=== PATIENT | female | born 1950 | race Caucasian/White ===

== ENCOUNTER 2018-02-08 08:18 | Emergency (ER) | payer MEDICARE ==
[~2018-02-08] VITALS: Ht 165.1 cm; Wt 54.4 kg
[2018-02-08] MEDS ORDERED: PERCOCET 5-3251 EACH PO ×2 (08:42)
[2018-02-08] MEDS ORDERED: ATENOLOL50 MG PO ×2 (08:43)
[2018-02-08] MEDS ORDERED: VENLAFAXINE HCL75 M2 PO ×2 (08:44)
[2018-02-08] MEDS ORDERED: OMEPRAZOLE20 MG PO ×2 (08:44)
[2018-02-08] MEDS ORDERED: LOSARTAN POTASS50 MG PO ×2 (08:45)
[2018-02-08] MEDS ORDERED: HYDROCHLOROTHIA25 MG PO ×2 (08:47)
[2018-02-08] MEDS ORDERED: PROCHLORPERAZIN10 MG PO ×2 (11:06)
== END 2018-02-08 11:41 | disposition home or self-care (01) ==
LOC: ED 08:18
DX: R10.9 Unspecified abdominal pain (principal); M54.9 Dorsalgia, unspecified; Z79.899 Other long term (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
CPT/HCPCS: 80053; 81001; 83690; 85025; 96361; 96372; 96374; 99284; J1170; J1630; J7030

== ENCOUNTER 2018-02-10 06:21 | Inpatient (IN) | payer MEDICARE ==
[~2018-02-10] VITALS: Ht 165.1 cm; Wt 55.8 kg
[~2018-02-10 06:21] MED LIST: ATENOLOL50 MG PO; HYDROCHLOROTHIA25 MG PO; LOSARTAN POTASS50 MG PO; OMEPRAZOLE20 MG PO; PERCOCET 5-3251 EACH PO; PROCHLORPERAZIN10 MG PO; VENLAFAXINE HCL75 M2 PO
--- NOTE | 2018-02-10 10:50 | NUR ---
67 YEAR OLD FEMALE PATIENT ADMITTED TO ROOM 127 VIA STRETCHER HOUSE CONVENIENCE UNDER DR. ARCINIEGA, DX CHF, PNEUMONIA. UPON ADMIT PT IS AWAKE AND ALERT, SOMEWHAT TEARY AND ANXIOUS. C/O BACK PAIN, HUNT, ABD PAIN. C/O NAUSEA. STATES SHE HAD BEEN NAUSEATED FOR SEVERAL DAYS, HX OF COLITIS. ADMISSION PROCESS STARTED.
--- NOTE | 2018-02-10 10:50 | NUR ---
PATIENT RECIEVED LASIX 40 MG IV IN ER, TOTAL U/O WHILE IN PI=744 ML ACCORDING TO ER CHART.
--- NOTE | 2018-02-10 12:30 | NUR ---
UP TO COMMODE TO VOID. CONTINUE TO C/O NAUSEA AND HUNT, IS TEARY.
--- NOTE | 2018-02-10 12:40 | NUR ---
MOANING AND CRYING. STATES I WANT THIS TO GO AWAY. C/O NAUSEA AND SEVERE HUNT. UNABLE TO MEDICATE ZOFRAN AND TYLENOL GIVEN EARLIER. WILL NOTIFY DR. ARCINIEGA.
--- NOTE | 2018-02-10 13:15 | NUR ---
PHENERGAN 12.5 MG IV GIVEN FOR NAUSEA. PATIENT CONTINUE TO MOAN AND CRY.
--- NOTE | 2018-02-10 14:00 | NUR ---
HAS BEEN SLEEPING SINCE PHENERGAN GIVEN. NO DISTRESS NOTED.
--- NOTE | 2018-02-10 15:00 | NUR ---
AWAKE, UP TO COMMODE, IS STABLE ON FEET. VOIDED 150 ML OF CLEAR YELLOW URINE. BACK TO BED W/O INCIDENT. ASSESSMENT DONE. STATES HAS SLIGHT HEADACH DENIES BACK PAIN OR NAUSEA AT THIS TIME.
--- NOTE | 2018-02-10 17:00 | NUR ---
SLEEPING NO DISTRESS NOTED.
--- NOTE | 2018-02-10 17:50 | NUR ---
AWAKE, STATES SHE FEELS MUCH BETTER. SITTING UP IN BED TO TAKE DINNER. HAS OCC COUGH. SPUTUM SENT TO LAB EARLIER. SKIN IS DAMP TO TOUCH. PATIENT STATES SHE DOES HAVE NIGHT SWEATS AT HOME.
--- NOTE | 2018-02-10 18:00 | NUR ---
O2 TO OFF, WILL MONITOR SAT.
--- NOTE | 2018-02-10 19:00 | NUR ---
O2 SAT 88-90. O2 AT 2 L REAPPLIED. REPORT TO NEST SHIFT.
--- NOTE | 2018-02-10 20:04 | NUR ---
PT ASLEEP IN BED. TELEMETRY ON. HR 50'S-60'S. RR EVEN AND UNLABORED.
--- NOTE | 2018-02-10 20:45 | NUR ---
IN TO ASSESS PT AT 2015. C/O OF PAIN INCREASING IN BACK/HIP AND ABD. MEDICATIONS GIVEN PER REQUEST. DENIES OTHER NEEDS.
--- NOTE | 2018-02-10 22:02 | NUR ---
PT WHIMPERING AND C/O OF RIGHT LOWER BACK PAIN 01/14. CURLED UP ON R SIDE. DR ARCINIEGA NOTIFIED. PROVIDED PT WITH WARM PACK AND 100MG PO GABAPENTIN GIVEN.
--- NOTE | 2018-02-10 22:12 | EKG ---
[facility] [address] [place] [address] Signed Normal sinus rhythm Normal ECG No previous ECGs available Confirmed by MARLEY ARCINIEGA MD ([id number]) on 02/10/2018 10:11:32 PM Electronically Signed By: MARLEY ARCINIEGA MD 02/10/18 2212 PATIENT NAME: JAMIE TORRES PRETTY Electrocardiogram DATE OF : 54 PHYSICIAN: MARLEY ARCINIEGA MD REPORT #: [id number] REPORT IS CONFIDENTIAL AND NOT TO BE RELEASED WITHOUT AUTHORIZATION
--- NOTE | 2018-02-11 00:49 | NUR ---
PT ASLEEP, MOANING ON AT OFF OCCASIONALLY. INTERMITTENT BACK SPASMS. REPORTING BEING ABLE TO SLEEP SOME. INDICATED PAIN INCREASING SOME. /10 IN R LOWER BACK. INSTRUCTED TO CALL IF UNABLE TO GO BACK TO SLEEP D/T PAIN.
--- NOTE | 2018-02-11 01:12 | NUR ---
DR ARCINIEGA UPDATED RE: PT PAIN. PT MOANING OUT AND CRYING AT TIMES. 5MG FLEXERIL GIVEN PO FOR BACK PAIN. PT UP TO BSC TO VOID 225ML CONCENTRATED URINE. MOVEMENT VERY SLOW AND PAINFUL. 10/10 WITH MOVEMENT. ADDITIONALLY HAS H/A STARTING TO DEVELOP. ASSISTED PT BACK TO BED. CALL LIGHT IN REACH. REMAINS ON DYER AND WASHER.
--- NOTE | 2018-02-11 03:09 | NUR ---
PT C/O MIGRAINE PAIN / AND NAUSEA. IN THE PAST REPORTS TAKING A SUDAFED/TYLENOL COMBINATION, ADDITIONALLY REPORTS BENEDRYL HAS HELPED HER MIGRAINES. PT CONTINUES TO C/O OF BACK PAIN 01/14 WITH CRYING OUT AT TIMES FROM SPASMS. 650MG TYLENOL GIVEN PO AND 6.25MG PHENERGAN. PT DROWSY IN BETWEEN BACK SPASMS. TELEMETRY ON. HR 50'S-60'S.
--- NOTE | 2018-02-11 06:14 | NUR ---
PT RESTING MORE CALMLY. REPORTS BACK PAIN 'BETTER' RATES AT 8/10, HOWEVER. APPEARS IN LESS DISTRESS. UP TO BSC WITHOUT DIFFICULTY, VOIDED 150ML CONCENTRATED URINE. STANDING WEIGHT OBTAINED. BACK TO BED. REPORTS H/A STILL PRESENT, WORSE WHEN STANDING UP.
--- NOTE | 2018-02-11 07:15 | NUR ---
PT TRANSFERED FROM CCU WITH RN. PT WITH MIGRAINE, EYES COVERED WITH CLOTH. PT WITHOUT S/S OF ACUTE DISTRESS. PT DENIES NEEDS AT THIS TIME. REPORT RECEIVED FROM CCU RN.
--- NOTE | 2018-02-11 07:27 | NUR ---
REPORT GIVEN TO MED/CLERK OF SCALESCARMEN ZUNIGA AT BEDSIDE. PT TRANSFERRED TO ROOM 107 WITH ALL BELONGINGS.
--- NOTE | 2018-02-11 08:20 | NUR ---
PT RESTING IN BED, CRYING. PT COMPLAINT OF PAIN TO RIGHT LOWER BACK AND MIGRAINE, PT PROVIDED WITH FLEXIRIL, TYLENOL, LIDOCAINE PATCH, GABAPENTIN. PT ON 2L NC, LUNG SOUNDS CLEAR WITH FINE CRACKLES TO RLL. PT COMPLAINT OF NAUSEA, GIVEN 4MG IV ZOFRAN, BREAKFAST AT BEDSIDE, BOWEL TONES ACTIVE. IV SALINE LOCKED, PATENT, IV ROCEPHIN GIVEN. CMS INTACT, WITHOUT EDEMA, PULSES PALPABLE. PT ON FLUID RESTRICTION, DISCUSSED WITH PT. PT ASSISTED TO BEDSIDE COMMODE, SBA, VOIDING WITHOUT DIFFICULTY. PT DENIES OTHER NEEDS AT THIS TIME, ALLOWED TO REST, CALL LIGHT WITHIN REACH.
[2018-02-11] MEDS ORDERED: TRIAMCINOLONE A15 G3 TOP ×2 (09:23)
[2018-02-11] MEDS ORDERED: IMODIUM A-D2 M2 PO ×2 (09:24)
[2018-02-11] MEDS ORDERED: GAS-X125 M1 PO ×2 (09:24)
[2018-02-11] MEDS ORDERED: MELATONIN5 M2 PO ×2 (09:25)
--- NOTE | 2018-02-11 09:35 | NUR ---
MED REC COMPLETE
--- NOTE | 2018-02-11 14:30 | NUR ---
PT RESTING IN BED. PT ASSISTED TO BATHROOM, SBA. PT STATES PAIN IS MUCH BETTER TO RIGHT LOWER BACK, DENIES MIGRAINE. LUNG SOUNDS CLEAR THROUGHOUT, PT ON ROOM AIR. PT COMPLAINT OF EPISODE OF FEELING FLUSHED, INSTRUCTED TO NOTIFY NURSE IF PT EXPERIENCES ADDITIONAL FEELINGS. NO ACUTE CHANGES. PT DENIES OTHER NEEDS AT THIS TIME.
--- NOTE | 2018-02-11 17:40 | NUR ---
PT ASSISTED TO BATHROOM, SBA. PT REQUESTING PAIN MEDICATION AND ANTINAUSEA MEDICATION. RATIGN PAIN 5/10 TO RIGHT LOWER BACK AND ABD, HEADACHE STARTING TO RETURN. PT GIVEN TYLENOL, FLEXIRIL, BENTYL, AND IV ZOFRAN. PT DENIES OTHER NEEDS AT THIS TIME.
--- NOTE | 2018-02-11 18:19 | NUR ---
PT WEANED TO ROOM AIR, LUNG SOUNDS CLEAR. PT RECEIVED IV LASIX X2, BEGAN HCTZ AND COZZAR DOSE ADJUSTED. PT PAIN CONTROLLED WITH FLEXIRIL, TYLENOL AND LIDOCAINE PACTH TO RIGHT LOWER BACK. NAUSEA WELL CONTROLLED WITH IV ZOFRAN, BETTER APPETITE TODAY, 1600 ML FLUID RESTRICTION. PT UP WITH SBA TO BATHROOM, WORKED WITH P.T. PT VOIDING QS, HAD BM TODAY. PROBABLE DISCHARGE TOMORROW.
--- NOTE | 2018-02-11 19:10 | NUR ---
Report received from joseph RN. Pt resting in bed A/O and appears comfortable. pt denies needs at this time. call light and water in reach.
--- NOTE | 2018-02-11 23:04 | NUR ---
pt resting on right lateral side, rr 18. pt appears to be sleeping comfortably. call light and water in reach. pt given last 250ml alotment of fluid for day.
--- NOTE | 2018-02-12 00:23 | NUR ---
PT RESTING SUPINE IN BED, CALL LIGHT IN REACH. RR 18. PT APPEARS TO BE SLEEPING COMFORTABLY.
--- NOTE | 2018-02-12 02:00 | NUR ---
PATIENT CALLED AND C/O PAIN AND ASKED FOR MEDICATION. CARMEN DA SILVA NOTIFIED.
--- NOTE | 2018-02-12 02:30 | NUR ---
Pt c/o severe "sciatic" pain L hip and R sided back pain. Up to BR w/1 person assist to void. Back to bed, linens/gown changed. Pt c/o nausea associated w/severe pain, med w/Phenergan 12.5mg IV at pt request. Declines Tylenol or Flexeril at this time "it doesn't help the sciatic pain".
--- NOTE | 2018-02-12 03:12 | NUR ---
IN TO CHECK ON PT. PT REPORTS LOW BACK PAIN. PRN PO TYLENOL ADMINISTERED. CALL LIGHT IN REACH.
--- NOTE | 2018-02-12 03:55 | NUR ---
IN TO ANSWER CALL LIGHT PT STATES PAIN IS PERSISTING AND SHE IS UNABLE TO GET TO SLEEP D/T BACK PAIN. PT WAS GIVEN PRN PO FLEXERIL 5MG AT THIS TIME. CALL LIGHT IN REACH AND PT DENIES HAVING ANY FURTHER CONCERNS OR REQUESTS.
--- NOTE | 2018-02-12 05:39 | NUR ---
PT RESTING IN BED, EYES CLOSED AND RR 18. PT APPEARS TO BE SLEEPING COMFORTABLY. CALL LIGHT IN REACH.
--- NOTE | 2018-02-12 05:43 | NUR ---
PT HAD SOME DIFFICULTY FALLING ASLEEP D/T CHRONIC BACK PAIN. PAIN WAS INITIALLY NOT CONTROLLED WITH PO TYLENOL BUT PT WAS ABLE TO FALL ASLEEP AFTER PO FLEXERIL AND APPEARS TO HAVE SLEPT COMFORTABLY SINCE IT'S ADMINISTRATION. PT VOIDED QS CLEAR YELLOW URINE AND DID HAVE ONE LOOSE BM THIS SHIFT. PT DENIES SOB ON RA. PT AMBULATES TO RESTROOM WITH ONLY SBA. PT REMAINS ON 1600ML FLUID RESTRICIION AND TOLORATES WELL.
--- NOTE | 2018-02-12 07:10 | NUR ---
BEDSIDE HANDOFF REPORT RECEIVED FROM GRAPHIC ART SALES REPRESENTATIVE RN. PT SLEEPING, LEFT UNDISTUBRED.
--- NOTE | 2018-02-12 07:25 | NUR ---
BEDSIDE HANDOFF REPORT RECEIVED FROM DEVELOPMENT PLANNER RN. PT RESTIGN IN BED. PT DENIES NEEDS AT THIS TIME.
--- NOTE | 2018-02-12 09:15 | NUR ---
PT SITTING ON EDGE OF BED, EATING BREAKFAST. MD TO BEDSIDE TO EVALUATE PT, PLAN TO DISCHARGE THIS AM. PT ON ROOM AIR, LUNG SOUNDS CLEAR, DENIES SOB. PT DENIES NAUSEA, BOWEL TONES ACTIVE, REPORT OF DIARRHEA, STARTED ON IMODIUM PER ORDER. IV SALINE LOCKED, IV ROCEPHIN GIVEN. PT WITHOUT EDEMA, CMS INTACT. PT TO SHOWER, ASKING FOR LIDOCAINE PATCH TO BE APPLIED AFTER SHOWER. PT DENIES OTHER NEEDS AT THIS TIME.
[2018-02-12] MEDS ORDERED: LOSARTAN POTASS50 MG PO ×2 (09:45)
[2018-02-12] MEDS ORDERED: POTASSIUM CHLO20 ME1 PO ×2 (09:46)
[2018-02-12] MEDS ORDERED: FUROSEMIDE20 MG PO ×2 (09:48)
[2018-02-12] MEDS ORDERED: CEFPODOXIME PR200 MG PO ×2 (09:50)
--- NOTE | 2018-02-12 10:00 | NUR ---
PT SHOWER COMPLETED. LIDOCAIEN PATCH APPLIED TO RIGHT LOWER BACK. CARMEN YADAV AT BEDSIDE FOR CHF EDUCATION. PT DENIES OTHER NEEDS AT THIS TIME.
--- NOTE | 2018-02-12 10:57 | NUR ---
[facility] notes for- new diagonsis of HFpEF related to hypertension PCP: in [place], will transfer care to Dr. Loya in [place]. Echocardiogram performed this stay. Admit Wt.: 127 lb Admit BNP: 1240 Social support system: Recently moved from [place] with her sister. Temporarily living with brother while searching for their own home. Patient is well educated and engaged in care. Asks appropriate questions. Weight monitoring: Scale present in home. Reports will buy a new one if needed. Identifies how to weigh daily/ identifies when to notify PCP Symptom management: Specific written recommendations to follow-up for ongoing management, and to address changes in weight or symptoms Diet: States use to eat a lot of frozen [employer]an Cuisine dinners. Her sister Rose does the cooking and does not cook with salt. Discussed increasing fresh produce and use of Mrs. Zamora for flavor. Encouraged to initiate label reading. Usual physical activity:Walks dog for short distances. To gradually increase activity while avoiding extreme heat. Medication routine: Has and uses 7 day pill containers. Recommended decrease use of homemade nasal saline solutions. She will discuss niacin use for migraines with PCP to ensure there is not a contraindication. Recommend prior to Discharge: 1.Documented ambulation oxygen saturations prior to discharge 2.Absence of orthostatic hypotension. Self-Management Goal:Patient would like to understand heart failure self management and medications. She will purchase a home BP cuff. She woul like to increase activity safely. Follow-up plans: Follow up phone call next week. Patient will schedule outpatient nurse education visit. Will have more detailed information on diet and home exercises.
--- NOTE | 2018-02-12 11:15 | NUR ---
DISCHARGE INSTRUCTIONS COMPLETED. PT REQUESTING TO EAT LUNCH BEFORE LEAVING. PT DENIES OTHER NEEDS AT THIS TIME.
== END 2018-02-12 11:45 | disposition home or self-care (01) | DRG 291 ==
LOC: ED 06:21 → CCU 10:21 → MS 02-11 07:27
PROVIDERS: ADMIT Internal Medicine
DX: I11.0 Hypertensive heart disease with heart failure (principal); J18.9 Pneumonia, unspecified organism; I50.9 Heart failure, unspecified; D53.9 Nutritional anemia, unspecified; K58.9 Irritable bowel syndrome, unspecified; M54.9 Dorsalgia, unspecified; F39 Unspecified mood [affective] disorder
CPT/HCPCS: 71045; 80048; 80053; 82607; 82728; 82746; 83540; 83690; 83735; 83880; 84466; 84484; 85025; 85045; 93005; 93010; 93306; 94760; 96374; 96375; 97162; 99285; J0696; J1170; J1650; J2405; J2550; J3475

== ENCOUNTER 2018-02-21 22:37 | Emergency (ER) | payer MEDICARE ==
[~2018-02-21] VITALS: Ht 165.1 cm; Wt 50.8 kg
[~2018-02-21 22:37] MED LIST changes: +CEFPODOXIME PR200 MG PO; +FUROSEMIDE20 MG PO; +GAS-X125 M1 PO; +IMODIUM A-D2 M2 PO; +MELATONIN5 M2 PO; +POTASSIUM CHLO20 ME1 PO; +TRIAMCINOLONE A15 G3 TOP
--- NOTE | 2018-02-22 12:00 | EKG ---
[facility] [address] [place] [address] Signed Normal sinus rhythm Normal ECG When compared with ECG of 10-FEB-2018 08:13, No significant change was found Confirmed by MARLEY ARCINIEGA MD ([id number]) on 02/22/2018 12:00:07 PM Electronically Signed By: MARLEY ARCINIEGA MD 02/22/18 1200 PATIENT NAME: JAMIE TORRES Electrocardiogram DATE OF : 54 PHYSICIAN: MARLEY ARCINIEGA MD REPORT #: [id number] REPORT IS CONFIDENTIAL AND NOT TO BE RELEASED WITHOUT AUTHORIZATION
== END 2018-02-22 02:31 | disposition home or self-care (01) ==
LOC: ED 22:37
DX: R09.1 Pleurisy (principal); Z87.891 Personal history of nicotine dependence
CPT/HCPCS: 71045; 80053; 81001; 83880; 84484; 85025; 85379; 87088; 93005; 93010; 96361; 96374; 96375; 99285; J1885; J2270; J2405; J2550; J7030

== ENCOUNTER 2018-02-22 16:22 | Inpatient (IN) | payer MEDICARE ==
[~2018-02-22] VITALS: Ht 165.1 cm; Wt 59.8 kg
--- NOTE | 2018-02-22 21:24 | NUR ---
PT ARRIVED TO FLOOR VIA STRETCHER. PT ABLE TO SCOOT OVER TO BED. PT REPORTS PAIN TO R ABDOMEN AND UNDER RIBCAGE, PT RATES 7-8/10. PT PROVIDED WARM BLANKET, DENIES OTHER NEEDS AT THIS TIME. CALL LIGHT WITHIN REACH.
--- NOTE | 2018-02-23 00:16 | NUR ---
IV PUMP ALARMING. PT WAKES EASILY WHEN MILLINERY BLOCKER ENTERS THE ROOM. IV FLUSHED, IV SITE PATENT. ENCOURAGED PT TO KEEP HER ARM STRAIGHT. PT STATES UNDERSTANDING. DENIES NEEDS AT THIS TIME. CALL LIGHT WITHIN REACH.
--- NOTE | 2018-02-23 01:13 | NUR ---
PT RESTING SUPINE IN BED, RR16 PT APPEARS TO BE IN NO DISTRESS. IV MAINTENANCE FLUIDS HUNG AND INFUSING. PT PROVIDED WITH WARM BLANKET PER REQUEST. CALL LIGHT ADN H20 IN REACH. NO FURHTER REQUESTS CONCERNS OR VERBALIZED.
--- NOTE | 2018-02-23 04:22 | NUR ---
PT RESTING IN BED, RESPIRATIONS EVEN AND UNLABORED 1T 16, O2 SAT 95% ON RA. PT'S IV PUMP ALARMING AND SHOWS DISTAL OCCLUSION (PT HAD ARM BENT AT ELBOW AND CROSSED). PT ENCOURAGED TO KEEP ARM STRAIGHT WHILE IV FLUIDS ARE INFUSING. CALL LIGHT IN REACH AND PT DENIES NEEDS.
--- NOTE | 2018-02-23 06:22 | NUR ---
PT SITTING UP ON EDGE OF BED WITH FIELD MANAGER AT BEDSIDE. PT REPORTS NAUSEA AT THIS TIME. PRN ZOFRAN ADMINISTERED. PT DENIES OTHER NEEDS AT THIS TIME. CALL LIGHT WITHIN REACH.
--- NOTE | 2018-02-23 07:16 | NUR ---
PT SITTING UP IN BED. RECIEVED BEDSIDE REPORT FROM CARMEN DA SILVA. TURNED TEMPERATURE IN ROOM UP PER PT REQUEST. PERSONAL SUPPLIES AND CALL LIGHT IN REACH.
--- NOTE | 2018-02-23 07:31 | NUR ---
PT NEW ADMIT FROM ER D/T REPORTS OF RUQ PAIN AND SOB FOR PAST DAY. PT DIAGNOSED WITH TRINITY WITH CREATININE OF 1.9. PT MAINTAINS O2 SATS IN MID 90'S ON 2LPNC AND DENIES SOB. PT DX'D WITH ACUTE GOUT AND REPORTS PAIN TO RIGHT WRIST AND TO LEFT ANKLE THAT WORSENS WITH MOVEMENT. PT HAS DIAGNOSIS OF RAYNAUDS DESEASE SO WAS PROVIDED WITH WARM BLANKETS NEEDED THROUGH THE NIGHT. PT GIVEN BOLUS OF IVF UPON ARRIVAL TO /S AND MAINTENANCE FLUIDS INFUSING AT THIS TIME. PT STATES PAIN TO RUQ HAS BEEN TOLERABLE. PT HAS OXYCODONE AVAILABLE PRN FOR PAIN AND MORPHINE FOR BREAKTHROUGH PAIN BUT DID WELL WITH ONLY ONE DOSE OF OXYCODONE AT 2138. PT VOIDING QS AND AMBULATES WITH SBA.
--- NOTE | 2018-02-23 08:08 | NUR ---
PATIENT WOULD LIKE TO TAKE A SHOWER TODAY ALSO GOT HER A GLASS OF ICE WATER.
--- NOTE | 2018-02-23 09:26 | NUR ---
PT SITTING UP IN BED, ATE 100% OF CLEAR LIQUID BREAKFAST. DENIED NAUSEA OR PAIN AT THIS TIME. PERSONAL SUPPLIES AND CALL LIGHT IN REACH.
--- NOTE | 2018-02-23 11:34 | EKG ---
[facility] [address] [place] [address] Signed Normal sinus rhythm Normal ECG When compared with ECG of 21-FEB-2018 22:42, No significant change was found Confirmed by MARLEY ARCINIEGA MD ([id number]) on 02/23/2018 11:33:19 AM Electronically Signed By: MARLEY ARCINIEGA MD 02/23/18 1134 PATIENT NAME: JAMIE TORRES Electrocardiogram DATE OF : 54 PHYSICIAN: MARLEY ARCINIEGA MD REPORT #: [id number] REPORT IS CONFIDENTIAL AND NOT TO BE RELEASED WITHOUT AUTHORIZATION
--- NOTE | 2018-02-23 11:34 | NUR ---
PT SHOWERED WITH ASSISTANCE FROM ONEMI HACKETT. PT NOW SITTING UP IN RECLINER, LEGS ELEVATED. PERSONAL SUPPLIES AND CALL LIGHT IN REACH.
--- NOTE | 2018-02-23 13:00 | NUR ---
PATIENT AND HER VISITORS WERE PLAYING A CARD GAME WHEN I WENT IN TO CHECK ON HER. ALSO TOOK HER TO THE BATHROOM AND BACK TO HER CHAIR.
--- NOTE | 2018-02-23 14:25 | NUR ---
PT SITTING UP IN RECLINER. UP TO BATHROOM TO VOID WITH 1 PERSON ASSIST, THEN BACK TO RECLINER. PROVIDED PT WITH FRESH ICE WATER PER HER REQUEST. PT DENIED OTHER NEEDS. PERSONAL SUPPLIES AND CALL LIGHT IN REACH. PT DENIED OTHER NEEDS.
--- NOTE | 2018-02-23 15:53 | NUR ---
PT SITTING UP IN RECLINER, PLAYING CARDS WITH FAMILY. PT UP TO BATHROOM, THEN BACK TO RECLINER WITH 1 PERSON ASSIST. PERSONAL SUPPLIES AND CALL LIGHT IN REACH. PT DENIED NEEDS.
--- NOTE | 2018-02-23 16:13 | NUR ---
PT SITTING UP IN RECLINER. ATE YOGURT. PT DENIED NAUSEA, REPORTED THAT SHE TOLERATED IT WELL. PT PLAYING CARDS WITH FAMILY. TOOK SCHEDULED CARAFATE. PT HAS PERSONAL SUPPLIES AND CALL LIGHT IN REACH. DENIED NEEDS.
--- NOTE | 2018-02-23 18:07 | NUR ---
PT ALERT, ORIENTED X 4. UP WITH 1 PERSON ASSIST. UNSTEADY ON FEET DUE TO GOUT. PT ON FULL LIQUIDS, TOLERATING WELL. HAS LR INFUSING AT 65 ML/HR. LUNGS DIMINISHED IN BASES, OCCASIONAL NON PRODUCTIVE COUGH, PT WAS ON OXYGEN THIS AM, BUT TITRATED TO RA, PT ON CONTINOUS PULSE OX, SATURATION LEVEL MAINTAINED AT OR GREATER THAN 90%. PT'S URINE WAS DARK ESTEFANY, CONCENTRATED THIS AM, BUT LIGHT CLEAR YELLOW THIS AFTERNOON. PT SAT UP IN RECLINER MOST OF SHIFT, PLAYING CARDS WITH FAMILY MEMBERS MUCH OF THIS SHIFT. PT REPORTED PAIN TO LEFT FOOT AND ANKLE AND RIGHT WRIST R/T GOUT, WELL PAIN TO RIGHT UPPER QUADRANT, RATED PAIN TO ALL THESE AREAS MILD, DENIED NEED FOR PAIN MEDICATION.
--- NOTE | 2018-02-23 19:06 | NUR ---
PT REPORTED 5/10 PAIN TO RIGHT LOWER BACK, AND PAIN TO RIGHT WRIST AND LEFT FOOT AND ANKLE 5/10. GAVE OXYCODONE 5 MG PO PRN.
--- NOTE | 2018-02-23 23:24 | NUR ---
PATIENT USED THE CALL LIGHT WANTS TO USE THE BATHROOM. SBA AND BACK TO BED. BED LINEN CHANGED DUE TO WET WITH SWEAT. PATIENT CHANGED GOWN. CALL LIGHT AND BEDSIDE TABLE ARE WITHIN REACH. NO OTHER NEEDS AT THIS TIME.
--- NOTE | 2018-02-24 03:19 | NUR ---
RESTING, NO C/O PAIN OR DISTRESS ON ROOM AIR
--- NOTE | 2018-02-24 03:25 | NUR ---
0215 - IV CASSANDRA STOKES'Malcolm. TIP INTACT 299 - DR LAMBERT NOTIFIED, ORDERS TO OK TO DC IV AT THIS TIME RECEIVED.
--- NOTE | 2018-02-24 06:22 | NUR ---
Pt currently resting, eyes closed, awakens easily. Up to brp with one assist, voiding qs, no bm this shift. IV dc'd as it was leaking. 2x2 in [address]. No c/o pain, coopertive with assessments
--- NOTE | 2018-02-24 07:55 | NUR ---
MORNING ASSESSMENT AND MEDICATIONS DUE. THIS RN TO BEDSIDE. PT AWAKE AND READY FOR BREAKFAST. PT ASISTED WITH ORDERING BREAKFAST. ASSESSMENT DONE. PT REPORTING 4/10 PAIN THAT "ISN'T TOO BAD." PT WOULD LIKE TO GET UP FOR WALK. PT ASSISTED TO WALK WITH CANE AROUND VARELA. AFTER 1/2 A LAP PT BECOMES MUCH MORE PAINFUL "IN MY LEFT ANKLE BECAUSE OF THAT GOUT." PT BACK TO ROOM, RAITING PAIN AT 6/10. PAIN MEDICATION GIVEN. MORNING MEDICATIONS GIVEN (SEE MAR). PT WATCHING TV AND EATING BREAKFAST. BED RAILS UP. CALL LIGHT WITHIN REACH.
--- NOTE | 2018-02-24 09:06 | NUR ---
PATIENT UP TO CHAIR FROM BED XIOMARA. IN ROOM. FRESH WATER GIVEN. NEW LINENS PROVIDED. CALL LIGHT IN REACH. NO FURTHER NEEDS AT THIS TIME.
[2018-02-24] MEDS ORDERED: METOPROLOL TART25 MG PO ×2 (09:22)
[2018-02-24] MEDS ORDERED: PREDNISONE20 MG PO ×2 (09:26)
--- NOTE | 2018-02-24 11:20 | NUR ---
PATIENT GETTING DRESSED. DISCHARGE TEACHING, PAPERWORK, AND VITALS DONE. PATIENT VERBALIZED UNDERSTANDING OF INFORMATION AND APPOINTMENT WITH PRIMARY CARE PROVIDER. PHARMACY HAS MET WITH PATIENT. PATIENT STATES ALL QUESTIONS HAVE BEEN ANSWERED AND UNDERSTANDS MEDICATIONS. PATIENT LEFT HOSPITAL VIA TAXI.
== END 2018-02-24 11:20 | disposition home or self-care (01) | DRG 684 ==
LOC: ED 16:22 → MS 20:58
PROVIDERS: ADMIT Internal Medicine
DX: N17.9 Acute kidney failure, unspecified (principal); M10.9 Gout, unspecified; K29.90 Gastroduodenitis, unspecified, without bleeding; I50.9 Heart failure, unspecified; K21.9 Gastro-esophageal reflux disease without esophagitis; M54.9 Dorsalgia, unspecified; K58.9 Irritable bowel syndrome, unspecified; Z87.891 Personal history of nicotine dependence
CPT/HCPCS: 36415; 51701; 71045; 74176; 80048; 80053; 81001; 82570; 83690; 84300; 84484; 84540; 84550; 85025; 93005; 93010; 96361; 96374; 96375; 99285; J1650; J2270; J2405; J7040; J7120; J7512

== ENCOUNTER 2018-07-09 23:23 | Emergency (ER) | payer OTHER ==
[~2018-07-09 23:23] MED LIST changes: +COMBIVENT RESPIM4 GM INH; +CYCLOBENZAPRINE5 MG PO; +LOSARTAN POTASS25 MG PO; +MELOXICAM7.5 MG PO; +METOPROLOL TART25 MG PO; +NORCO 5-325 TA1 EACH PO; +PREDNISONE20 MG PO
--- OUTSIDE RECORDS SUMMARY | 2018-07-09 23:28 | XMS ---
PreManage Notification: JAMIE TORRES Security Sales Agent Financial Report Service Events No recent Security Events currently on file CRITERIA MET - Group Notification - 6 ED Visits in 6 Months - [facility] - 2 Visits in 30 Days CARE PROVIDERS MARLEY ARCINIEGA Internal Medicine 03/03/2018-Current [facility] PHONE: [phone] Chandrika has no Care Guidelines for this patient. Care History Medical/Surgical 03/03/2018 [facility] - Patient is currently established with [facility]. If patient is seen in the ED during business hours. Please contact CHWs at [facility]. Care Recommendation: This patient has had 5 or more Emergency Department visits in the last 12 months.\T\nbsp; Patient requires education on the scope and purpose of the ED as an acute care provider not a Primary Care Provider and should not be utilized for chronic conditions.\T\nbsp; These are guidelines and the provider should exercise clinical judgment when providing care. E.D. VISIT COUNT (12 MO.) 9 [facility] TOTAL 9 NOTE: Visits indicate total known visits. ED/UCC VISIT TRACKING (12 MO.) 07/09/2018 23:23 [facility] [place] TYPE: Emergency COMPLAINT: - CHEST PAIN 06/20/2018 21:48 [facility] [place] TYPE: Emergency COMPLAINT: - ABDOMEN PAIN DIAGNOSES: - Heart failure, unspecified - Other extermination supervisor (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 - Unspecified abdominal pain - Acute gastritis without bleeding - Hypertensive heart disease with heart failure - Personal history of nicotine dependence - Allergy status to other drugs, medicaments and biological substances status 06/18/2018 13:46 [facility] [place] TYPE: Emergency COMPLAINT: - CHEST PAIN DIAGNOSES: - Heart failure, unspecified - Chest pain, unspecified - Pain in thoracic spine - Other senior care (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 - Hypertensive heart disease with heart failure - Allergy status to other drugs, medicaments and biological substances status - Personal history of nicotine dependence 05/17/2018 14:31 [facility] [place] TYPE: Emergency COMPLAINT: - DIFFICULTY BREATHING DIAGNOSES: - Dyspnea, unspecified - Allergy status to other drugs, medicaments and biological substances status - Dizziness and giddiness - Other chest pain - Other senior care (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 - Personal history of nicotine dependence - Essential (primary) hypertension - Heart failure, unspecified 03/02/2018 18:59 [facility]ul [facility] [place] TYPE: Emergency COMPLAINT: - CRAMPS, POSS DIVERTICULITIS DIAGNOSES: - Personal history of nicotine dependence - Hypertensive heart disease with heart failure - Unspecified abdominal pain - Other senior care (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 - Constipation, unspecified - Heart failure, unspecified 02/22/2018 16:23 [facility] [place] TYPE: Emergency COMPLAINT: - CHEST PAIN/SOB 02/21/2018 22:38 [facility] [place] TYPE: Emergency COMPLAINT: - CHEST PAIN DIAGNOSES: - Chest pain, unspecified - Pleurisy - Personal history of nicotine dependence 02/10/2018 06:22 [facility] [place] TYPE: Emergency COMPLAINT: - SOB 02/08/2018 08:18 [facility] [place] TYPE: Emergency COMPLAINT: - ABDOMINAL PAIN DIAGNOSES: - Unspecified abdominal pain - Other senior care (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 - Dorsalgia, unspecified INPATIENT VISIT TRACKING (12 MO.) 02/22/2018 20:58 [facility] [place] TYPE: Medical Surgical COMPLAINT: - ACUTE KIDNEY INJURY DIAGNOSES: - Personal history of nicotine dependence - Irritable bowel syndrome without diarrhea - Gastroduodenitis, unspecified, without bleeding - Gastro-esophageal reflux disease without esophagitis - Acute kidney failure, unspecified - Heart failure, unspecified - Gout, unspecified - Dorsalgia, unspecified 02/10/2018 10:21 [facility] [place] TYPE: Medical Surgical COMPLAINT: - CHF, PNEUMONIA DIAGNOSES: - Irritable bowel syndrome without diarrhea - Nutritional anemia, unspecified - Pneumonia, unspecified organism - Hypertensive heart disease with heart failure - Dorsalgia, unspecified - Unspecified mood [affective] disorder - Heart failure, unspecified [email or web address]
--- NOTE | 2018-07-10 15:16 | EKG ---
[facility] [address] [place] [address] Signed Sinus rhythm with occasional premature ventricular complexes Otherwise normal ECG When compared with ECG of 18-JUN-2018 13:51, premature ventricular complexes are now present Confirmed by STEVEN LAMBERT DO ([id number]) on 07/10/2018 3:16:23 PM Electronically Signed By: STEVEN LAMBERT DO 07/10/18 1516 PATIENT NAME: IDALMISJAMIE KENT Electrocardiogram DATE OF : 54 PHYSICIAN: STEVEN LAMBERT DO REPORT #: [id number] REPORT IS CONFIDENTIAL AND NOT TO BE RELEASED WITHOUT AUTHORIZATION
== END 2018-07-10 01:25 | disposition home or self-care (01) ==
LOC: ED 23:23
DX: R07.89 Other chest pain (principal); R51 Headache; I11.0 Hypertensive heart disease with heart failure; I50.9 Heart failure, unspecified; G43.909 Migraine, unspecified, not intractable, without status migrainosus; F17.200 Nicotine dependence, unspecified, uncomplicated; Z88.8 Allergy status to other drugs, medicaments and biological substances; Z79.899 Other long term (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
CPT/HCPCS: 71045; 80053; 84484; 85025; 85379; 93005; 93010; 96374; 96375; 99285-25; J1200; J1885; J2765

== ENCOUNTER 2018-07-30 10:07 | Emergency (ER) | payer OTHER ==
[~2018-07-30] VITALS: Ht 165.1 cm; Wt 54.4 kg
--- OUTSIDE RECORDS SUMMARY | 2018-07-30 10:10 | XMS ---
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 PHONE: [phone] Chandrika has no Care Guidelines for this patient. Care History Medical/Surgical 03/03/2018 [facility] - Patient is currently established with [facility]. If patient is seen in the ED during business hours. Please contact CHWs at [facility]. Care Recommendation: This patient has had 5 [...] providing care. E.D. VISIT COUNT (12 MO.) 10 [facility] TOTAL 10 NOTE: Visits indicate total known visits. ED/UCC VISIT TRACKING (12 MO.) 07/30/2018 10:07 [facility] [place] TYPE: Emergency COMPLAINT: - CHEST PAIN 07/09/2018 23:23 [facility] [place] TYPE: Emergency COMPLAINT: - CHEST PAIN DIAGNOSES: - Headache - Other chest pain - Chest pain, unspecified - Nicotine dependence, unspecified, uncomplicated - Migraine, unspecified, not intractable, without status migrainosus - Hypertensive heart disease with heart failure - Heart failure, unspecified - Other long-term (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 - Allergy status to other drugs, medicaments and biological substances status 06/20/2018 21:48 [facility] [place] TYPE: Emergency COMPLAINT: - ABDOMEN PAIN DIAGNOSES: - Heart failure, unspecified - Other meterman (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 - Unspecified abdominal pain - Acute gastritis without bleeding - Hypertensive heart disease with heart failure - Personal history of nicotine dependence - Allergy status to other drugs, medicaments and biological substances status 06/18/2018 13:46 [facility] [place] TYPE: Emergency COMPLAINT: - CHEST PAIN DIAGNOSES: - Heart failure, unspecified - Chest pain, unspecified - Pain in thoracic spine - Other long-term (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 - Hypertensive heart disease with heart failure - Allergy status to other drugs, medicaments and biological substances status - Personal history of nicotine dependence 05/17/2018 14:31 [facility] [place] TYPE: Emergency COMPLAINT: - DIFFICULTY BREATHING DIAGNOSES: - Dyspnea, unspecified - Allergy status to other drugs, medicaments and biological substances status - Dizziness and giddiness - Other chest pain - Other long-term (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 - Personal history of nicotine dependence - Essential (primary) hypertension - Heart failure, unspecified 03/02/2018 18:59 [facility] [place] TYPE: Emergency COMPLAINT: - CRAMPS, POSS DIVERTICULITIS DIAGNOSES: - Personal history of nicotine dependence - Hypertensive heart disease with heart failure - Unspecified abdominal pain - Other meterman (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 - Constipation, unspecified - [...] DIAGNOSES: - Unspecified abdominal pain - Other long-term (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 - Dorsalgia, unspecified INPATIENT [...] mood [affective] disorder - Heart failure, unspecified [email or web address]
--- NOTE | 2018-07-30 23:00 | EKG ---
[facility] [address] [place] [address] Signed Normal sinus rhythm Normal ECG When compared with ECG of 09-JUL-2018 23:28, premature ventricular complexes are no longer present Confirmed by MARLEY ARCINIEGA MD ([id number]) on 07/30/2018 11:00:24 PM Electronically Signed By: MARLEY ARCINIEGA MD 07/30/18 2300 PATIENT NAME: IDALMISJAMIE KENT Electrocardiogram DATE OF : 54 PHYSICIAN: MARLEY ARCINIEGA MD REPORT #: [id number] REPORT IS CONFIDENTIAL AND NOT TO BE RELEASED WITHOUT AUTHORIZATION
== END 2018-07-30 12:53 | disposition short-term general hospital (02) ==
LOC: ED 10:07
DX: I20.0 Unstable angina (principal); I11.0 Hypertensive heart disease with heart failure; I50.9 Heart failure, unspecified; G43.909 Migraine, unspecified, not intractable, without status migrainosus; F17.200 Nicotine dependence, unspecified, uncomplicated; Z88.8 Allergy status to other drugs, medicaments and biological substances; Z79.899 Other long term (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
CPT/HCPCS: 71045; 80053; 83690; 83880; 84484; 85025; 85610; 93005; 93010; 96374; 99285-25; J2405

== ENCOUNTER 2018-09-06 11:37 | Emergency (ER) | payer OTHER ==
[~2018-09-06] VITALS: Ht 160 cm; Wt 54.4 kg
--- OUTSIDE RECORDS SUMMARY | 2018-09-06 11:38 | XMS ---
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 Care History Medical/Surgical 03/03/2018 [facility] - Patient is currently established with [facility]. If patient is seen in the ED during business hours. Please contact CHWs at [facility]. Care Recommendation: This patient has had 5 [...] providing care. E.D. VISIT COUNT (12 MO.) 1 [facility] 11 [facility] TOTAL 12 NOTE: Visits indicate total known visits. 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 - Chest pain, unspecified - Allergy status to other drugs, medicaments and biological substances status - Nicotine dependence, unspecified, uncomplicated - Migraine, unspecified, not intractable, without status migrainosus - Unstable angina - Heart failure, unspecified 07/09/2018 23:23 [facility] [place] TYPE: Emergency COMPLAINT: - CHEST PAIN DIAGNOSES: - Headache - Other chest pain - Chest pain, unspecified - Nicotine dependence, unspecified, uncomplicated - Migraine, unspecified, not intractable, without status migrainosus - Hypertensive heart disease with heart failure - Heart failure, unspecified - Other senior living (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 - Allergy status to other drugs, medicaments and biological substances status 06/20/2018 21:48 [facility] [place] TYPE: Emergency COMPLAINT: - ABDOMEN PAIN DIAGNOSES: - Heart failure, unspecified - Other senior living (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 - Unspecified abdominal pain - Acute gastritis without bleeding - Hypertensive heart disease with heart failure - Personal history of nicotine dependence - Allergy status to other drugs, medicaments and biological substances status 06/18/2018 13:46 [facility] Col[facility]paul [facility]res[facility]ata [place] TYPE: Emergency COMPLAINT: - CHEST PAIN DIAGNOSES: - Heart failure, unspecified - Chest pain, unspecified - Pain in thoracic spine - 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 - Hypertensive heart disease [...] giddiness - Other chest pain - 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 - Personal history of nicotine dependence - Essential (primary) hypertension - Heart failure, unspecified 03/02/2018 18:59 [facility] Colbypaul [facility] [place] TYPE: Emergency COMPLAINT: - CRAMPS, POSS DIVERTICULITIS DIAGNOSES: - Personal history of nicotine dependence - Hypertensive heart disease with heart failure - Unspecified abdominal pain - 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
--- NOTE | 2018-09-06 18:38 | EKG ---
[facility] [address] [place] [address] Signed Sinus rhythm with premature atrial complexes Otherwise normal ECG When compared with ECG of 30-JUL-2018 10:15, premature atrial complexes are now present Confirmed by SOCORRO LAND MD ([id number]) on 09/06/2018 6:38:35 PM Electronically Signed By: SOCORRO LAND MD 09/06/18 1838 PATIENT NAME: JAMIE TORRES Electrocardiogram DATE OF : 54 PHYSICIAN: SOCORRO LAND MD REPORT #: [id number] REPORT IS CONFIDENTIAL AND NOT TO BE RELEASED WITHOUT AUTHORIZATION
== END 2018-09-06 13:38 | disposition home or self-care (01) ==
LOC: ED 11:37
DX: S70.02XA Contusion of left hip, initial encounter (principal); I11.0 Hypertensive heart disease with heart failure; I50.9 Heart failure, unspecified; Z87.891 Personal history of nicotine dependence; Z88.8 Allergy status to other drugs, medicaments and biological substances; Z79.899 Other long term (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; W01.0XXA Fall on same level from slipping, tripping and stumbling without subsequent striking against object, initial encounter
CPT/HCPCS: 71045; 73502; 80053; 83880; 84484; 85025; 93005; 93010; 96374; 99285-25; J2765

== ENCOUNTER 2018-10-03 16:22 | Emergency (ER) | payer OTHER ==
[~2018-10-03] VITALS: Ht 160 cm; Wt 54.4 kg
--- OUTSIDE RECORDS SUMMARY | ~2018-10-03 | XMS | Clinical Summary ---
Demographics + + + | Address | [address] | | | [place] [address] | + + + | Home Phone | | + + + | Preferred Language | Unknown | + + + | Marital Status | | + + + | Orthodoxy Affiliation | Unknown | + + + | Race | Unknown | + + + | Ethnic Group | Unknown | + + + Author + + + | Author | [facility] | + + + | Organization | [facility] | + + + | Address | Unknown | + + + | Phone | Unavailable | + + + Support + + +---------+ + | Name | Relationship | Address | Phone | + + +---------+ + | Daniela Herron | ECON | Unknown | | + + +---------+ + Care Team Providers + +------+ + | Care Hostess Party Sales Representative Name | Role | Phone [...] | Hyperlipidemia | | + + + Encounters +--------+ + + + + | Date | Type | Specialty | Care Team | Description | +--------+ + + + + | 07/30/ | Emergency | | [facility] [place] | Renal insufficiency | | 2018 - | | | DO Bailey Fowler, | (Primary Dx); Chest | | | | | Latesha Shah MD | pain, unspecified | | 07/31/ | | | Shlomo Chand MD | type; | | 2018 | | | | Hyperlipidemia, | | | | | | unspecified | | | | | | hyperlipidemia type | +--------+ + + + + from Last 3 Months Family History + + +------+ + | [...] + Plan of Treatment Not on file Procedures + +--------+ + + + | Procedure Name | Priori | Date/Time | Associated Diagnosis | Comments | | | ty | | | | + +--------+ + + + | NM MYOCARDIAL | Routin | 07/31/2018 | | Results for this | | PERFUSION SPECT - | e | 9:49 AM | | procedure are in the | | STRESS AND REST | | PST | | results section. | + +--------+ + + + | NM CARDIOVASCULAR | Routin | 07/31/2018 | | Results for this | | STRESS TREADMILL | e | 8:38 AM | | procedure are in the | | | | PST | | results section. | + +--------+ + + + | HEMOGLOBIN A1C | Routin | 07/31/2018 | | Results for this | | | e - AM | 4:58 AM | | procedure are in the | | | | PST | | results section. | + +--------+ + + + | MAGNESIUM | Routin | 07/31/2018 | | Results for this | | | e - AM | 4:58 AM | | procedure are in the | | | | PST | | results section. | + +--------+ + + + | BASIC METABOLIC | Routin | 07/31/2018 | | Results for this | | PANEL | e - AM | 4:58 AM | | procedure are in the | | | | PST | | results section. | + +--------+ + + + | CBC W/AUTO DIFF | Routin | 07/31/2018 | | Results for this | | (REFLEX TO MANUAL) | e - AM | 4:58 AM | | procedure are in the | | | | PST | | results section. | + +--------+ + + + | EKG STANDARD 12 LEAD | Routin | 07/31/2018 | | Results for this | | | e | 4:10 AM | | procedure are in the | | | | PST | | results section. | + +--------+ + + + | TROPONIN I | Timed | 07/30/2018 | | Results for this | | | | 9:06 PM | | procedure are in the | | | | PST | | results section. | + +--------+ + + + | TROPONIN I | Timed | 07/30/2018 | | Results for this | | | | 5:26 PM | | procedure are in the | | | | PST | | results section. | + +--------+ + + + | TROPONIN I | STAT | 07/30/2018 | | Results for this | | | | 2:16 PM | | procedure are in the | | | | PST | | results section. | + +--------+ + + + | iPling CARD PANEL W/O | STAT | 07/30/2018 | | Results for this | | TRP (ED ONLY) | | 2:16 PM | | procedure are in the | | | | PST | | results section. | + +--------+ + + + | EKG 12 LEAD UNIT | Routin | 07/30/2018 | | Results for this | | PERFORMED | e | 1:58 PM | | procedure are in the | | | | PST | | results section. | + +--------+ + + + | XR CHEST 1 VIEW | Routin | 07/30/2018 | Chest pain, | Results for this | | | e | 12:13 PM | unspecified type | procedure are in the | | | | PST | | results section. | + +--------+ + + + from Last 3 Months Results NM myocardial perfusion SPECT (stress and rest) (07/31/2018 9:49 AM) + + + | Impressions | Performed At | + + + | Normal myocardial perfusion. No stress-induced reversible | [facility] | | ischemia. Low risk stratification. Signed by: Kee Flowers | RADIOLOGY | | Sign Date/Time: 07/31/2018 10:19 AM | | + + + + + + | Narrative | Performed At | + + + | REST/STRESS MYOCARDIAL PERFUSION STUDY PROTOCOL: STANDARD FAREED | [facility] | | EXERCISE. CLINICAL INFORMATION: Chest pain COMPARISON: ECHO | RADIOLOGY | | OUTSIDE INTERPRETATION (02/10/2018); PROCEDURE: Treadmill [...] Procedure Note | + + | Earl, Rad Results In - 07/31/2018 10:23 AM PST REST/STRESS MYOCARDIAL PERFUSION STUDY | | PROTOCOL: [...] Date/Time: 07/31/2018 10:19 AM | + + + + + + + | Performing | Address | City/State/Zipcode | Phone Number | | Organization | | | | + + + + + | [facility] | [address] | [place] [address] | | + + + + + NM cardiovascular stress treadmill (07/31/2018 8:38 AM) + + + + + | Component | Value | Ref Range | Performed At | + + + + + | Diagnosis | 1. LEXISCAN | | [facility] | | | ETT.2. NO ST | | | | | ELEVATION OR DEPRESSION | | | | | NOTED.3. CHEST PAIN | | | | | NOTED.4. MYOCARDIAL | | | | | PERFUSION SCAN TO FOLLOW | | | | | PER RADIOLOGY. J. | | | | | TAMMY PEARSON MD | | | | | FACCConfirmed by MICHEL | | | | | DEANDRE ([id number]) on | | | | | 08/01/2018 12:09:28 PM | | | + + + + + + + + + + | Performing | Address | City/State/Zipcode | Phone Number | | Organization | | | | + + + + + | [facility] | [address] | [place] [address] | | + + + + + CBC W/Auto Diff (Reflex to Manual) (07/31/2018 4:58 AM) + + + + + | Component | Value | Ref Range | Performed At | + + + + + | WBC | 6.67 | 3.80 - 11.00 K/uL | [facility] | | | | | LABORATORY | + + + + + | RBC | 3.89 | 3.70 - 5.10 M/uL | [facility] | | | | | LABORATORY | + + + + + | HGB | 12.8 | 11.3 - 15.5 g/dL | [facility] | | | | | LABORATORY | + + + + + | HCT | 39.0 | 34.0 - 46.0 % | [facility] | | | | | LABORATORY | + + + + + | MCV | 100.4 (H) | 80.0 - 100.0 fl | [facility] | | | | | LABORATORY | + + + + + | MCH | 32.9 | 27.0 - 34.0 pg | [facility] | | | | | LABORATORY | + + + + + | MCHC | 32.7 | 32.0 - 35.5 g/dL | [facility] | | | | | LABORATORY | + + + + + | RDW SD | 48.6 | 37 - 53 fl | [facility] | | | | | LABORATORY | + + + + + | PLT | 161 | 150 - 400 K/uL | [facility] | | | | | LABORATORY | + + + + + | MPV | 9.8 | fl | [facility] | | | | | LABORATORY | + + + + + | DIFF TYPE | AUTOMATED | | [facility] | | | | | LABORATORY | + + + + + | NEUTROPHILS | 46.41 | % | [facility] | | | | | LABORATORY | + + + + + | LYMPHOCYTES | 41.10 | % | [facility] | | | | | LABORATORY | + + + + + | MONOCYTES | 6.99 | % | [facility] | | | | | LABORATORY | + + + + + | EOSINOPHILS | 4.76 | % | [facility] | | | | | LABORATORY | + + + + + | BASOPHILS | 0.74 | % | [facility] | | | | | LABORATORY | + + + + + | NEUTROPHILS ABS | 3.09 | 1.90 - 7.40 K/uL | [facility] | | | | | LABORATORY | + + + + + | LYMPHOCYTES ABS | 2.74 | 1.00 - 3.90 K/uL | [facility] | | | | | LABORATORY | + + + + + | MONOCYTES ABS | 0.47 | 0.00 - 0.80 K/uL | [facility] | | | | | LABORATORY | + + + + + | EOSINOPHILS ABS | 0.32 | 0.00 - 0.50 K/uL | [facility] | | | | | LABORATORY | + + + + + | BASOPHILS ABS | 0.05Comment: Testing | 0.00 - 0.10 K/uL | [facility] | | | performed at [facility], [address] | | LABORATORY | | | [address], | | | | | [place] [address] | | | + + + + + + + | Specimen | + + | Blood | + + + + + + + | Performing | Address | City/State/Zipcode | Phone Number | | Organization | | | | + + + + + | [facility] | [address] | [place] [address] | [phone] | | LABORATORY | [address] | | | + + + + + Magnesium (07/31/2018 4:58 AM) + + + + + | Component | Value | Ref Range | Performed At | + + + + + | MAGNESIUM | 2.3Comment: Testing | 1.7 - 2.4 mg/dL | [facility] | | | performed at [facility], [address] | | LABORATORY | | | [facility], | | | | | [place] [address] | | | + + + + + + + | Specimen | + + | Blood | + + + + + + + | Performing | Address | City/State/Zipcode | Phone Number | | Organization | | | | + + + + + | [facility] | [address] | [place] [address] | [phone] | | LABORATORY | [address] | | | + + + + + Glycohemoglobin A1c (07/31/2018 4:58 AM) + + + + + | Component | Value | Ref Range | Performed At | + + + + + | HEMOGLOBIN A1C | 5.8Comment: HbA1c method | 4.0 - 6.0 % | [facility] | | | is certified by [facility] | | LABORATORY | | | and traceable to the | | | | | DCCT reference | | | | | method.ADA guidelines | | | | | indicate: | | | | | Prediabetes: 5.7 - | | | | | 6.4 Diabetes: | | | | | >6.4 Glycemic | | | | | control for adults with | | | | | diabetes: <7.0Effective | | | | | 07/23/2018: Note New | | | | | Method | | | + + + + + | ESTIMATED AVG | 120Comment: Estimated | <154 mg/dL | [facility] | | GLUCOSE | Average Glucose | | LABORATORY | | | calculated from | | | | | hemoglobin A1c by use of | | | | | the ADA recommended | | | | | formula.Testing | | | | | performed at [facility], [address] | | | | | [facility] ([place], [place]), | | | | | [place] [address] | | | + + + + + + + | Specimen | + + | Blood | + + + + + + + | Performing | Address | City/State/Zipcode | Phone Number | | Organization | | | | + + + + + | [facility] | [address] | [place] [address] | [phone] | | LABORATORY | [address] | | | + + + + + Basic metabolic panel (07/31/2018 4:58 AM) + + + + + | Component | Value | Ref Range | Performed At | + + + + + | SODIUM | 139 | 135 - 145 mmol/L | [facility] | | | | | LABORATORY | + + + + + | POTASSIUM | 3.4 (L) | 3.5 - 4.9 mmol/L | [facility] | | | | | LABORATORY | + + + + + | CHLORIDE | 101 | 99 - 109 mmol/L | [facility] | | | | | LABORATORY | + + + + + | CO2 | 31 | 23 - 32 mmol/L | [facility] | | | | | LABORATORY | + + + + + | ANION GAP AGAP | 10 | 5 - 20 mmol/L | [facility] | | | | | LABORATORY | + + + + + | GLUCOSE | 93 | 65 - 99 mg/dL | [facility] | | | | | LABORATORY | + + + + + | BUN | 15 | 8 - 25 mg/dL | [facility] | | | | | LABORATORY | + + + + + | CREATININE | 1.3 (H) | 0.50 - 1.00 mg/dL | [facility] | | | | | LABORATORY | + + + + + | BUN/CREAT | 12 | | [facility] | | | | | LABORATORY | + + + + + | CALCIUM | 8.8 | 8.5 - 10.5 mg/dL | [facility] | | | | | LABORATORY | + + + + + | EGFR | 41 (L)Comment: GFR <60: | >60 mL/min/1.73m2 | [facility] | | | CHRONIC KIDNEY DISEASE, | | LABORATORY | | | IF FOUND OVER A 3 MONTH | | | | | PERIOD.GFR <15: KIDNEY | | | | | FAILURE.FOR | | | | | AMERICANS, MULTIPLY THE | | | | | CALCULATED GFR BY | | | | | 1.210.This eGFR is | | | | | calculated using the | | | | | MDRD IDMN traceable | | | | | equation.Testing | | | | | performed at [facility], [address] | | | | [facility] ([place], [place]), | | | | | [place] [address] | | | + + + + + + + | Specimen | + + | Blood | + + + + + + + | Performing | Address | City/State/Zipcode | Phone Number | | Organization | | | | + + + + + | [facility] | [address] [place] [address] | [place] [address] | [phone] | | LABORATORY | [address] | | | + + + + + EKG STANDARD 12 LEAD (07/31/2018 4:10 AM) + + + + + | Component | Value | Ref Range | Performed At | + + + + + | Ventricular Rate | 63 | BPM | [facility] | + + + + + | Atrial Rate | 63 | BPM | [facility] | + + + + + | P-R Interval | 126 | ms | [facility] | + + + + + | QRS Duration | 82 | ms | [facility] | + + + + + | Q-T Interval | 454 | ms | [facility] | + + + + + | QTC Calculation | 464 | ms | [facility] | | (Bezet) | | | | + + + + + | Calculated P [place] | 5 | degrees | [facility] | + + + + + | Calculated R [place] | 17 | degrees | [facility] | + + + + + | Calculated T [place] | 24 | degrees | [facility] | + + + + + | Diagnosis | Normal sinus | | [facility] | | | rhythmNormal ECGWhen | | | | | compared with ECG of | | | | | 30-JUL-2018 13:58,No | | | | | significant change was | | | | | foundConfirmed by | | | | | DEANDRE PEARSON ([id number]) on | | | | | 07/31/2018 12:02:38 PM | | | + + + + + + + + + + | Performing | Address | City/State/Zipcode | Phone Number | | Organization | | | | + + + + + | [facility] | [address] | [place] [address] | | + + + + + Troponin I (07/30/2018 9:06 PM)Only the most recent of 3 results within the time period is included. + + + + + | Component | Value | Ref Range | Performed At | + + + + + | TROPONIN I | <0.020Comment: 0.00 to | 0.00 - 0.10 ng/mL | [facility] | | | 0.10 CONSISTENT | | | | | WITH NORMAL | | | | | POPULATION0.11 to | | | | | 0.60 CONSISTENT WITH | | | | | INCREASED RISK FOR | | | | | ADVERSE OUTCOMES> | | | | | 0.60 | | | | | CONSISTENT WITH WHO | | | | | CRITERIA FOR ACUTE PA | | | | | Testing performed at | | | | | [facility];[address] [place] [address] | | | | | [facility];[place] [address] | | | + + + + + + + | Specimen | + + | Blood | + + + + + + + | Performing | Address | City/State/Zipcode | Phone Number | | Organization | | | | + + + + + | [facility] | [address] | [place] [address] | | + + + + + Cardiac Panel (07/30/2018 2:16 PM) + + + + + | Component | Value | Ref Range | Performed At | + + + + + | WBC | 8.50 | 3.80 - 11.00 K/uL | [facility] | + + + + + | RBC | 4.18 | 3.70 - 5.10 M/uL | [facility] | + + + + + | HGB | 13.8 | 11.3 - 15.5 g/dL | [facility] | + + + + + | HCT | 41.8 | 34.0 - 46.0 % | [facility] | + + + + + | MCV | 100.0 | 80.0 - 100.0 fl | [facility] | + + + + + | MCH | 33.1 | 27.0 - 34.0 pg | [facility] | + + + + + | MCHC | 33.1 | 32.0 - 35.5 g/dL | [facility] | + + + + + | RDW SD | 49.4 | 37 - 53 fl | [facility] | + + + + + | PLT | 211 | 150 - 400 K/uL | [facility] | + + + + + | MPV | 9.4 | fl | [facility] | + + + + + | DIFF TYPE | AUTOMATED | | [facility] | + + + + + | NEUTROPHILS | 63.82 | % | [facility] | + + + + + | LYMPHOCYTES | 25.58 | % | [facility] | + + + + + | MONOCYTES | 7.50 | % | [facility] | + + + + + | EOSINOPHILS | 2.22 | % | [facility] | + + + + + | BASOPHILS | 0.88 | % | [facility] | + + + + + | NEUTROPHILS ABS | 5.43 | 1.90 - 7.40 K/uL | [facility] | + + + + + | LYMPHOCYTES ABS | 2.18 | 1.00 - 3.90 K/uL | [facility] | + + + + + | MONOCYTES ABS | 0.64 | 0.00 - 0.80 K/uL | [facility] | + + + + + | EOSINOPHILS ABS | 0.19 | 0.00 - 0.50 K/uL | [facility] | + + + + + | BASOPHILS ABS | 0.07 | 0.00 - 0.10 K/uL | [facility] | + + + + + | SODIUM | 140 | 135 - 145 mmol/L | [facility] | + + + + + | POTASSIUM | 3.5 | 3.5 - 4.9 mmol/L | [facility] | + + + + + | CHLORIDE | 103 | 99 - 109 mmol/L | [facility] | + + + + + | CO2 | 27 | 23 - 32 mmol/L | [facility] | + + + + + | ANION GAP AGAP | 14 | 5 - 20 mmol/L | [facility] | + + + + + | GLUCOSE | 87 | 65 - 99 mg/dL | [facility] | + + + + + | BUN | 11 | 8 - 25 mg/dL | [facility] | + + + + + | CREATININE | 1.3 (H) | 0.50 - 1.00 mg/dL | [facility] | + + + + + | BUN/CREAT | 9 | | [facility] | + + + + + | CALCIUM | 9.1 | 8.5 - 10.5 mg/dL | [facility] | + + + + + | TOTAL PROTEIN | 7.9 | 6.3 - 8.2 g/dL | [facility] | + + + + + | Albumin | 3.9 | 3.3 - 4.8 g/dL | [facility] | + + + + + | GLOBULIN | 4.0 | 1.3 - 4.9 g/dL | [facility] | + + + + + | A/G | 1.0 | 1.0 - 2.4 | [facility] | + + + + + | TBIL | 0.8 | 0.1 - 1.5 mg/dL | [facility] | + + + + + | ALK PHOS | 49 | 35 - 115 U/L | [facility] | + + + + + | AST | 30 | 10 - 45 U/L | [facility] | + + + + + | ALT | 29 | 10 - 65 U/L | [facility] | + + + + + | EGFR | 41 (L)Comment: GFR <60: | >60 mL/min/1.73m2 | [facility] | | | CHRONIC KIDNEY DISEASE, | | | | | IF FOUND OVER A 3 MONTH | | | | | PERIOD.GFR <15: KIDNEY | | | | | FAILURE.FOR | | | | | AMERICANS, MULTIPLY THE | | | | | CALCULATED GFR BY | | | | | 1.210.This eGFR is | | | | | calculated using the | | | | | MDRD IDMS traceable | | | | | equation. | | | + + + + + | CPK | 121 | 30 - 240 U/L | [facility] | + + + + + | INR | 1.0Comment: REFERENCE | | [facility] | | | RANGE:0.9 - | | | | | 1.2 NON-ANTICOAGULATE | | | | | D2.0 - 3.0 ALL OTHER | | | | | THERAPEUTIC | | | | | INDICATIONS2.5 - 3.5 | | | | | MECHANICAL HEART VALVES, | | | | | RECURRENT OR SYSTEMIC | | | | | EMBOLISM | | | + + + + + | APTT | 27 | 23 - 32 seconds | [facility] | + + + + + | MMB | 1.4 | 0.5 - 3.6 ng/mL | [facility] | + + + + + | CK-MB Index | 1.2Comment: CK INDEX | | [facility] | | | INTERPRETATION: | | | | | MMB | | | | | ng/mL & Relative | | | | | IndexNon-AMI | | | | | < or = | | | | | 5.0 N | | | | | AGray Zone | | | | | >5.0 < | | | | | or = | | | | | 4.0AMI | | | | | | | | | | >5.0 | | | | | >4.0Testing | | | | | performed at [facility];[address] | | | [address];[place], [place] | | | | | [address] | | | + + + + + + + + + + | Performing | Address | City/State/Zipcode | Phone Number | | Organization | | | | + + + + + | [facility] | [address] | [place] [address] | | + + + + + EKG 12 LEAD UNIT PERFORMED (07/30/2018 1:58 PM) + + + + + | Component | Value | Ref Range | Performed At | + + + + + | Ventricular Rate | 84 | BPM | [facility] | + + + + + | Atrial Rate | 84 | BPM | [facility] | + + + + + | P-R Interval | 130 | ms | [facility] | + + + + + | QRS Duration | 68 | ms | [facility] | + + + + + | Q-T Interval | 390 | ms | [facility] | + + + + + | QTC Calculation | 460 | ms | [facility] | | (Bezet) | | | | + + + + + | Calculated P [place] | 59 | degrees | [facility] | + + + + + | Calculated R [place] | 31 | degrees | [facility] | + + + + + | Calculated T [place] | 52 | degrees | [facility] | + + + + + | Diagnosis | Normal sinus | | [facility] | | | rhythmNormal ECGNo | | | | | previous ECGs | | | | | availableThis ECG | | | | | contains Unconfirmed | | | | | Interpretation | | | | | Statements. See ED | | | | | Record for Physician | | | | | Interpretation. | | | | | Confirmed by MUSE READ | | | | | ONLY, -COMPUTER ([id number]), | | | | | art editor Chris Houser | | | | | Shahbaz ([id number]) on 07/31/2018 | | | | | 8:06:28 PM | | | + + + + + + + + + + | Performing | Address | City/State/Zipcode | Phone Number | | Organization | | | | + + + + + | [facility] | [address] | [place] [address] | | + + + + + X-ray Chest 1 View (07/30/2018 12:13 PM) + + + | Narrative | Performed At | + + + | This is a non-reportable procedure without a radiologist report and | [facility] | | is used for image storage only | RADIOLOGY | + + + + + + + + | Performing | Address | City/State/Zipcode | Phone Number | | Organization | | | | + + + + + | [facility] | [address] | [place] [address] | | + + + + + from Last 3 Months Insurance + +--------+ +------+-------+ + | Payer | Benefi | Subscriber | Type | Phone | Address | | | t Plan | ID | | | | | | / | | | | | | | Group | | | | | + +--------+ +------+-------+ + | MEDICARE | MEDICA | [id number] | | | [address] | | | RE | | | | [place] [id number] | | | PART A | | | | | | | ONLY | | | | | + +--------+ +------+-------+ + | COMMERCIAL OTHER | COMMER | [id number] | | | | | | CIAL [...] | + +--------+ +--------+ + + | ANI STEPHEN | Person | Self | [birth year] | Home: | [address] | | | al/Fam | | [phone] | [phone] | [place] [address] | | | cherri | | | [phone] | | + +--------+ +--------+ + +
--- OUTSIDE RECORDS SUMMARY | ~2018-10-03 | XMS | Encounter Summary ---
Demographics + + + | Address | [address] | | | [place] [address] | + + + | Home Phone | | + + + | Preferred Language | Unknown | + + + | Marital Status | | + + + | Lutheran Affiliation | Unknown | + + + | Race | Unknown | + + + | Ethnic Group | Unknown | + + + Author + + + | Author | [facility] | + + + | Organization | [facility] | + + + | Address | Unknown | + + + | Phone | Unavailable | + + + Support + + +---------+ + | Name | Relationship | Address | Phone | + + +---------+ + | Daniela Herron | ECON | Unknown | | + + +---------+ + Care Team Providers + +------+ + | Care Protective Signal Installer Name | Role | Phone | + +------+ + | None, Per Pt | PCP | [phone] | + +------+ + Reason for Visit + + + | Reason | Comments | + + + | Chest Pain | | + + + | Referral | from [facility] | + + + Auth/Cert +--------+--------+ + + + + | Status | Reason | Specialty | Diagnoses / | Referred By | Referred To | | | | | Procedures | Contact | Contact | +--------+--------+ + + + + | | | | Diagnoses | | [facility] | | | | | Renal | | [facility] [place] | | | | | insufficienc | | Pavilion | | | | | y | | [address] | | | | | Hyperlipidem | | [address] | | | | | [place], | | [place] | | | | | unspecified | | [address] Phone: | | | | | hyperlipidem | | [phone] | | | | | ia type | | Fax: | | | | | Chest pain, | | [phone] | | | | | unspecified | | | | | | | type | | | +--------+--------+ + + + + Encounter Details +--------+ + + + + | Date | Type | Department | Care Team | Description | +--------+ + + + + | 07/30/ | Emergency | [facility] | [facility] [place] | Renal insufficiency | | 2019 - | | [facility] | D, DO [address] | (Primary Dx); Chest | | | | Floor [place] | Blvd [place] | pain, unspecified | | 07/31/ | | Pavilion [address] | [address] | type; | | 2019 | | Blvd [place] | Latesha Avalos | Hyperlipidemia, | | | | [address] | MD Pablo [address] | [address] | | | | | [address] | hyperlipidemia type | | | | | [place] [address] | | | | | | [phone] | | | | | | | | | | | | Shlomo Chand MD | | | | | | [address] | | | [address] | | | | | | [place] [address] | | | | | | [phone] | | | | | | | | +--------+ + + + [...] on file | | + + + as of this encounter Last Filed Vital [...] PM PST | + + + + in this encounter Discharge Instructions Mono Llanos RN - 07/31/2018 Noncardiac Chest Pain Based on your visit today, the healthcare provider doesn t know what is causing your ches t pain. In most cases, people who come to the emergency department with chest pain don t h ave a problem with their heart. Instead, the pain is caused by other conditions. It's import ant for the healthcare team to be sure you are not having a life threatening cause for chest pain such as a heart attack, blood clot in the lungs, collapsed lung, ruptured esophagus, o r tearing of the aorta. Once these major causes have been ruled out, you may have further ev aluation for non-heart causes of chest pain. These may be problems with the lungs, muscles, bones, digestive tract, nerves, or mental health. Lung problems Inflammation around the lungs (pleurisy) Collapsed lung (pneumothorax) Fluid around the lungs (pleural effusion) Lung cancer (a rare cause of chest pain) Muscle or bone problems Inflamed cartilage between the ribs (costochondritis) Fibromyalgia Rheumatoid arthritis Chest wall strain Digestive system problems Reflux Stomach ulcer Spasms of the esophagus Gall stones Gallbladder inflammation Mental health conditions Panic or anxiety attacks Emotional distress Your condition doesn t seem serious and your pain doesn t appear to be coming from your heart. But sometimes the signs of a serious problem take more time to appear. Watch for the warning signs listed below. Home care Follow these guidelines when caring for yourself at home: Rest today and avoid strenuous activity. Take any prescribed medicine as directed. Follow-up care Follow up with your healthcare provider, or as advised, if you don t start to feel better within 24 hours. When to seek medical advice Call your healthcare provider right away if any of these occur: A change in the type of pain. Call if it feels different, becomes more serious, lasts lo nger, or begins to spread into your shoulder, arm, neck, jaw, or back. Shortness of breath You feel more pain when you breathe Cough with dark-colored mucus or blood Weakness, dizziness, or fainting Fever of 100.4F (38C) or higher, or as directed by your healthcare provider Swelling, pain, or redness in one leg Date Last Reviewed: 06/07/201619994314-9124 [employer]. [address] [place] [address]. All righ ts reserved. This information is not intended as a substitute for professional medical care. Always follow your healthcare professional's instructions. in this encounter Medications at Time of Discharge + + +-------+---------+--------+ + | Medication | Sig. | Disp. | Refills | Start | End Date | | | | | | Date | | + + +-------+---------+--------+ + | allopurinol | Take 100 mg by mouth | | | | | | (ZYLOPRIM) 100 MG | daily. | | | | | | tablet | | | | | | + + +-------+---------+--------+ + | aspirin 81 MG EC | Take 81 mg by mouth | | | | | | tablet | daily. | | | | | + + +-------+---------+--------+ + | atorvastatin | Take 20 mg by mouth | | | | | | (LIPITOR) 20 MG | daily. | | | | | | tablet | | | | | | + + +-------+---------+--------+ + | furosemide (LASIX) | Take 20 mg by mouth | | | | | | 20 MG tablet | daily. | | | | | + + +-------+---------+--------+ + | losartan (COZAAR) | Take 50 mg by mouth | | | | | | 50 MG tablet | daily. | | | | | + + +-------+---------+--------+ + | metoprolol | Take 25 mg by mouth | | | | | | (LOPRESSOR) 25 MG | 2 (two) times daily | | | | | | tablet | with meals. | | | | | + + +-------+---------+--------+ + | nitroGLYCERIN | Place 0.4 mg under | | | | | | (NITROSTAT) 0.4 MG | the tongue daily. As | | | | | | SL tablet | needed for chest | | | | | | | discomfort/ | | | | | | | shortness of breath | | | | | + + +-------+---------+--------+ + | omeprazole | Take 20 mg by mouth | | | | | | (PRILOSEC) 20 MG | every morning before | | | | | | capsule | breakfast. | | | | | + + +-------+---------+--------+ + | potassium chloride | Take 20 mEq by mouth | | | | | | SA (JACKSON HOLLEY) | daily. | | | | | | 20 MEQ tablet | | | | | | + + +-------+---------+--------+ + | Simethicone 125 MG | Take 125 mg by | | | | | | TABSIndications: | mouth. | | | | | | after meals and at | | | | | | | bedtime as needed | | | | | | | four times a day | | | | | | + + +-------+---------+--------+ + | Venlafaxine HCl 75 | Take 225 mg by mouth | | | | | | MG TB24 | daily. | | | | | + + +-------+---------+--------+ + as of this encounter Progress Notes Shlomo Chand MD - 07/31/2018 11:39 AM PSTFormatting of this note may be different from jerica howard. [facility] Service: Hospitalist Discharge Summary Date of [...] symptoms could be originating from GI issues. Kyler gordon was advised to continue her Prilosec. Also, [...] hours. No results for input(s): PHART, PO2ART, OMQ4RAY, I1UNWVVZ, BEART in the last 168 hours. Recent [...] harge summary. Shlomo Chand MD 07/31/2018 11:39 Chung this encounter Plan of Treatment Not on fileas of this encounter Procedures + +--------+ + [...] | + +--------+ + + + | [facility] CARD PANEL W/O | STAT | 07/30/2018 [...] section. | + +--------+ + + + in this encounter Results NM myocardial perfusion SPECT (stress and [...] | + + + + + | [facility] | [address] | [place] [address] | | + + + + + NM cardiovascular stress treadmill (07/31/2018 8:38 AM) + + + + + | Component | Value | Ref Range | Performed At | + + + + + | Diagnosis | 1. LEXISCAN | | [facility] | | | ETT.2. NO ST | | | | | ELEVATION OR DEPRESSION | | | | | NOTED.3. CHEST PAIN | | | | | NOTED.4. MYOCARDIAL | | | | | PERFUSION SCAN TO FOLLOW | | | | | PER RADIOLOGY. J. | | | | | TAMMY PEARSON MD | | | | | FACCConfirmed by MICHEL, | | | | | DEANDRE ([id number]) on | | | | | 08/01/2018 12:09:28 PM | | | + + + + + + + + + + | Performing | Address | City/State/Zipcode | Phone Number | | Organization | | | | + + + + + | [facility] | [address] | [place] [address] | | + + + + + Glycohemoglobin A1c (07/31/2018 4:58 AM) + + + + + | Component | Value | Ref Range | Performed At | + + + + + | HEMOGLOBIN A1C | 5.8Comment: HbA1c method | 4.0 - 6.0 % | [facility] | | | is certified by [facility] | | LABORATORY | | | and [...] | | | | | performed at [facility], [address] | | | | [facility], | | | | | [place] [address] | | | + + + + + + + | Specimen | + + | Blood | + + + + + + + | Performing | Address | City/State/Zipcode | Phone Number | | Organization | | | | + + + + + | [facility] | [address] | [place] [address] | [phone] | | LABORATORY | [address]vd[address] | | | + + + + + Magnesium (07/31/2018 4:58 AM) + + + + + | Component | Value | Ref Range | Performed At | + + + + + | MAGNESIUM | 2.3Comment: Testing | 1.7 - 2.4 mg/dL | [facility] | | | performed at [facility], [facility] [address] | | LABORATORY | | | [facility], | | | | | [place] [address] | | | + + + + + + + | Specimen | + + | Blood | + + + + + + + | Performing | Address | City/State/Zipcode | Phone Number | | Organization | | | | + + + + + | [facility] | [address] | [place] [address] | [phone] | | LABORATORY | Blvd. | | [...] IDMS traceable | | | | | equation.Testing | | | | | performed at [facility], [address] | | | | | [facility], | | | | | [place] [address] | | | + + + + + + + | Specimen | + + | Blood | + + + + + + + | Performing | Address | City/State/Zipcode | Phone Number | | Organization | | | | + + + + + | [facility] | [address] | [place] [address] | [phone] | | LABORATORY | Blvd. | | [...] | [facility] | | | performed at [facility], [address] | | LABORATORY | | | [address] [facility], | | | | | [place] [address] | | | + + + + + + + | Specimen | + + | Blood | + + + + + + + | Performing | Address | City/State/Zipcode | Phone Number | | Organization | | | | + + + + + | [facility] | [address] | [place] [address] | [phone] | | LABORATORY | Blvd. | | [...] + + + + | Calculated P Hart[place] | 5 | degrees | [facility] | + + + + + | Calculated R [place] | 17 | degrees | [facility] | + + + + + | Calculated T [place] | 24 | degrees | [facility] | + + + + + | Diagnosis | Normal sinus | | [facility] | | | rhythmNormal ECGWhen | [...] | + + + + + | [facility] | [address] | [place] [address] | | + + + + + Troponin I (07/30/2018 9:06 PM) + + + + + | Component | Value | Ref Range | Performed At | + + + + + | TROPONIN I | <0.020Comment: 0.00 to | 0.00 - 0.10 ng/mL | [facility] | | | 0.10 CONSISTENT | [...] | | | | CRITERIA FOR ACUTE CT | | | | | Testing performed at | | | | | [facility];[address] | | | | [address];[place] [address] | | | + + + + + + + | Specimen | + + | Blood | + + + + + + + | Performing | Address | City/State/Zipcode | Phone Number | | Organization | | | | + + + + + | [facility] | [address] | [place] [address] | | + + + + + Troponin I (07/30/2018 5:26 PM) + + + + + | Component | Value | Ref Range | Performed At | + + + + + | TROPONIN I | <0.020Comment: 0.00 to | 0.00 - 0.10 ng/mL | [facility] | | | 0.10 CONSISTENT | [...] | | | | CRITERIA FOR ACUTE CT | | | | | Testing performed at | | | | | [facility];[address];[place] [address] | | | + + + + + + + | Specimen | + + | Blood | + + + + + + + | Performing | Address | City/State/Zipcode | Phone Number | | Organization | | | | + + + + + | [facility] | [address] | [place] [address] | | + + + + + Troponin I, Lab (07/30/2018 2:16 PM) + + + + + | Component | Value | Ref Range | Performed At | + + + + + | TROPONIN I | <0.020Comment: 0.00 to | 0.00 - 0.10 ng/mL | [facility] | | | 0.10 CONSISTENT | [...] | | | | CRITERIA FOR ACUTE CT | | | | | Testing performed at | | | | | [facility];[address] [place] [address] | | | | | [facility];[place] [address] | | | + + + + + + + | Specimen | + + | Blood | + + + + + + + | Performing | Address | City/State/Zipcode | Phone Number | | Organization | | | | + + + + + | [facility] | [address] | [place] [address] | | + + + + + Cardiac Panel (07/30/2018 2:16 PM) + + + + + | Component | Value | Ref Range | Performed At | + + + + + | WBC | 8.50 | 3.80 - 11.00 K/uL | [facility] | + + + + + | RBC | 4.18 | 3.70 - 5.10 M/uL | [facility] | + + + + + | HGB | 13.8 | 11.3 - 15.5 g/dL | [facility] | + + + + + | HCT | 41.8 | 34.0 - 46.0 % | [facility] | + + + + + | MCV | 100.0 | 80.0 - 100.0 fl | [facility] | + + + + + | MCH | 33.1 | 27.0 - 34.0 pg | [facility] | + + + + + | MCHC | 33.1 | 32.0 - 35.5 g/dL | [facility] | + + + + + | RDW SD | 49.4 | 37 - 53 fl | [facility] | + + + + + | PLT | 211 | 150 - 400 K/uL | [facility] | + + + + + | MPV | 9.4 | fl | [facility] | + + + + + | DIFF TYPE | AUTOMATED | | [facility] | + + + + + [...] 5.43 | 1.90 - 7.40 K/uL | [facility] | + + [...] 0.07 | 0.00 - 0.10 K/uL | [facility] | + + + + + | SODIUM | 140 | 135 - 145 mmol/L | [facility] | + + + + + | POTASSIUM | 3.5 | 3.5 - 4.9 mmol/L | [facility] | + + + + + | CHLORIDE | 103 | 99 - 109 mmol/L | [facility] | + + + + + | CO2 | 27 | 23 - 32 mmol/L | [facility] | + + + + + | ANION GAP AGAP | 14 | 5 - 20 mmol/L | [facility] | + + + + + | GLUCOSE | 87 | 65 - 99 mg/dL | [facility] | + + + + + | BUN | 11 | 8 - 25 mg/dL | [facility] | + + + + + | CREATININE | 1.3 (H) | 0.50 - 1.00 mg/dL | [facility] | + + + + + | BUN/CREAT | 9 | | [facility] | + + + + + | CALCIUM | 9.1 | 8.5 - 10.5 mg/dL | [facility] | + + + + + | TOTAL PROTEIN | 7.9 | 6.3 - 8.2 g/dL | [facility] | + + + + + | Albumin | 3.9 | 3.3 - 4.8 g/dL | [facility] | + + + + + | GLOBULIN | 4.0 | 1.3 - 4.9 g/dL | [facility] | + + + + + | A/G | 1.0 | 1.0 - 2.4 | [facility] | + + + + + | TBIL | 0.8 | 0.1 - 1.5 mg/dL | [facility] | + + + + + | ALK PHOS | 49 | 35 - 115 U/L | [facility] | + + + + + | AST | 30 | 10 - 45 U/L | [facility] | + + + + + | ALT | 29 | 10 - 65 U/L | [facility] | + + + + + | EGFR | 41 (L)Comment: GFR <60: | >60 mL/min/1.73m2 | [facility] | | | CHRONIC KIDNEY DISEASE, [...] the | | | | | MDRD [facility] traceable | | | | | equation. | | | + + + + + | CPK | 121 | 30 - 240 U/L | [facility] | + + + + + | INR | 1.0Comment: REFERENCE | | [facility] | | | RANGE:0.9 - | [...] 27 | 23 - 32 seconds | [facility] | + + + + + | MMB | 1.4 | 0.5 - 3.6 ng/mL | [facility] | + + + + + | CK-MB Index | 1.2Comment: CK INDEX | | [facility] | | | INTERPRETATION: | | [...] | | | | | performed at [facility] | | | | | [address];[place], [place] | | | | | [address] | | | + + + + + + + + + + | Performing | Address | City/State/Zipcode | Phone Number | | Organization | | | | + + + + + | [facility] | [address] | [place] [address] | | + + + + + EKG 12 LEAD UNIT PERFORMED (07/30/2018 1:58 PM) + + + + + | Component | Value | Ref Range | Performed At | + + + + + | Ventricular Rate | 84 | BPM | [facility]ENN [...] + + + + | Calculated P [place] | 59 | degrees | [facility] | + + + + + | Calculated R [place] | 31 | degrees | [facility] | + + + + + | Calculated T [place] | 52 | degrees | [facility] | + + + + + | Diagnosis | Normal sinus | | [facility] | | | rhythmNormal ECGNo | [...] -COMPUTER (500), | | | | | food editor Chris Houser | | | | | Shahbaz (123) on 07/31/2018 | | | | | 8:06:28 PM | | | + + + + + + + + + + | Performing | Address | City/State/Zipcode | Phone Number | | Organization | | | | + + + + + | [facility] | [address] | [place] [address] | | + + + + + X-ray Chest 1 View (07/30/2018 12:13 PM) + + + | Narrative | Performed At | + + + | This is a non-reportable procedure without a radiologist report and | [facility] | | is used for image storage only | RADIOLOGY | + + + + + + + + | Performing | Address | City/State/Zipcode | Phone Number | | Organization | | | | + + + + + | [facility] | [address] | [place] [address] | | + + + + + in this encounter Visit Diagnoses + + | Diagnosis | + + | Renal insufficiency - Primary | + + | Unspecified disorder of kidney and ureter | + + | Chest pain, unspecified type | + + | Hyperlipidemia, unspecified hyperlipidemia type | + + Admitting Diagnoses + + | Diagnosis | + + | Renal insufficiency | + + | Unspecified disorder of kidney and ureter | + + | Hyperlipidemia, unspecified hyperlipidemia type | + + | Chest pain, unspecified type | + + Administered Medications + +--------+---------+------+------+------+ | Medication Order | MAR | Action | Dose | Rate | Site | | | Action | Date | | | | + +--------+---------+------+------+------+ + +---+ | acetaminophen (TYLENOL) | | | suppository 650 mg 650 mg, | | | Rectal, Every 6 Hours PRN, Mild | | | Pain (1-3), Fever, Starting Wed | | | 07/30/18 at 1708 | | + +---+ | | | + +---+ + +-------+ +--------+---+---+ | acetaminophen (TYLENOL) tablet | Given | | 650 mg | | | | 650 mg 650 mg, Oral, Every 6 | | 9 17:35 | | | | | Hours PRN, Mild Pain (1-3), | | PST | | | | | Fever, Starting 07/30/18 at | | | | | | | 1708 | | | | | | + +-------+ +--------+---+---+ +---+---+ | | | +---+---+ + +-------+ +--------+---+---+ | allopurinol (ZYLOPRIM) tablet | Given | | 100 mg | | | | 100 mg 100 mg, Oral, Daily, | | 9 10:54 | | | | | First dose on Sat07/30/18 at 1800 | | PST | | | | + +-------+ +--------+---+---+ +---+---+ | | | +---+---+ + +-------+ +--------+---+---+ | aspirin tablet 325 mg 325 mg, | Given | | 325 mg | | | | Oral, Daily With Breakfast, First | | 9 17:44 | | | | | dose on Sat07/30/18 at 1730 | | PST | | | | + +-------+ +--------+---+---+ +-------+ +--------+---+---+ | Given | | 325 mg | | | | | 9 10:55 | | | | | | PST | | | | +-------+ +--------+---+---+ +---+---+ | | | +---+---+ + +-------+ +-------+---+---+ | atorvastatin (LIPITOR) tablet | Given | | 40 mg | | | | 40 mg 40 mg, Oral, Nightly, | | 9 21:19 | | | | | First dose on Sat07/30/18 at 2200 | | PST | | | | + +-------+ +-------+---+---+ +---+---+ | | | +---+---+ + +-------+ +-------+---+---+ | enoxaparin (LOVENOX) injection | Given | | 40 mg | | | | 40 mg 40 mg, Subcutaneous, | | 9 17:44 | | | | | Daily, First dose on Sat07/30/18 | | PST | | | | | at 1730 | | | | | | + +-------+ +-------+---+---+ +-------+ +-------+---+---+ | Given | | 40 mg | | | | | 9 10:55 | | | | | | PST | | | | +-------+ +-------+---+---+ +---+---+ | | | +---+---+ + +-------+ +--------+---+---+ | fentaNYL (SUBLIMAZE) injection | Given | | 50 mcg | | | | 50 mcg 50 mcg, Intravenous, | | 9 14:21 | | | | | Every 1 Hour PRN, Moderate Pain | | PST | | | | | (4-6), Starting 07/30/18 at | | | | | | | 1402 | | | | | | + +-------+ +--------+---+---+ +---+---+ | | | +---+---+ + +---------+ +---------+---+-------+ | lidocaine (LIDODERM) 5 % patch | Patch | | 1 patch | | Other | | 1 patch 1 patch, Transdermal, | Applied | 9 17:36 | | | | | Every 24 Hours, First dose on Sat | | PST | | | | | 07/30/18 at 1730 | | | | | | + +---------+ +---------+---+-------+ +---+---+ | | | +---+---+ + +-------+ +-------+---+---+ | metoprolol (LOPRESSOR) tablet | Given | | 25 mg | | | | 25 mg 25 mg, Oral, 2 Times | | 9 21:19 | | | | | Daily, First dose on Sat07/30/18 | | PST | | | | | at 2100 | | | | | | + +-------+ +-------+---+---+ +-------+ +-------+---+---+ | Given | | 25 mg | | | | | 9 11:06 | | | | | | PST | | | | +-------+ +-------+---+---+ + +---+ | | | + +---+ | morphine (PF) injection 2 mg 2 | | | mg, Intravenous, Every 2 Hours | | | PRN, For pain scale 4 to 5, | | | Starting Sat07/30/18 at 1708 | | + +---+ | | | + +---+ | morphine (PF) injection 3 mg 3 | | | mg, Intravenous, Every 2 Hours | | | PRN, For pain scale 6 to 7, | | | Starting Sat07/30/18 at 1708 | | + +---+ | | | + +---+ + +-------+ +------+---+---+ | morphine (PF) injection 4 mg 4 | Given | | 4 mg | | | | mg, Intravenous, Every 2 Hours | | 9 21:15 | | | | | PRN, For pain scale 8 to 10, | | PST | | | | | Starting Sat07/30/18 at 1708 | | | | | | + +-------+ +------+---+---+ +-------+ +------+---+---+ | Given | | 4 mg | | | | | 9 03:57 | | | | | | PST | | | | +-------+ +------+---+---+ +---+---+ | | | +---+---+ + +-------+ +------+---+---+ | ondansetron (ZOFRAN) injection | Given | | 4 mg | | | | 4 mg 4 mg, Intravenous, Once, | | 9 14:21 | | | | | 07/30/18 at 1408, For 1 dose | | PST | | | | + +-------+ +------+---+---+ +---+---+ | | | +---+---+ + +-------+ +------+---+---+ | ondansetron (ZOFRAN) injection | Given | | 4 mg | | | | 4 mg 4 mg, Intravenous, Every 6 | | 9 21:15 | | | | | Hours PRN, Nausea, Vomiting, | | PST | | | | | Starting 07/30/18 at 1708 | | | | | | + +-------+ +------+---+---+ +-------+ +------+---+---+ | Given | | 4 mg | | | | | 9 03:56 | | | | | | PST | | | | +-------+ +------+---+---+ + +---+ | | | + +---+ | ondansetron (ZOFRAN-ODT) | | | disintegrating tablet 4 mg 4 mg, | | | Oral, Every 6 Hours PRN, Nausea, | | | Vomiting, Starting 07/30/18 | | | at 1708 | | + +---+ | | | + +---+ + +-------+ +-------+---+---+ | pantoprazole (PROTONIX) EC | Given | | 40 mg | | | | tablet 40 mg 40 mg, Oral, Every | | 9 06:10 | | | | | Morning Before Breakfast, First | | PST | | | | | dose on [facility] 07/31/18 at 0630 | | | | | | + +-------+ +-------+---+---+ +---+---+ | | | +---+---+ + +-------+ +--------+---+---+ | regadenoson (LEXISCAN) | Given | | 0.4 mg | | | | injection 0.4 mg 0.4 mg, | | 9 08:40 | | | | | Intravenous, Img Once PRN, per | | PST | | | | | protocol for a Nuc Med | | | | | | | regadenoson stress test, Starting | | | | | | | [facility] 07/31/18 at 0750, For 1 dose, | | | | | | | Procedural (NucMed) | | | | | | + +-------+ +--------+---+---+ +---+---+ | | | +---+---+ + +---------+ +---+ +---+ | sodium chloride 0.9 % infusion | New Bag | | | 50 mL/hr | | | at 50 mL/hr, Intravenous, | | 9 17:44 | | | | | Continuous, Starting 07/30/18 | | PST | | | | | at 1730 | | | | | | + +---------+ +---+ +---+ +---+---+ | | | +---+---+ + +-------+ +--------+---+---+ | venlafaxine (EFFEXOR-XR) 24 hr | Given | | 225 mg | | | | capsule 225 mg 225 mg, Oral, | | 9 10:53 | | | | | Daily, First dose on 07/30/18 | | PST | | | | | at 1800 | | | | | | + +-------+ +--------+---+---+ +---+---+ | | | +---+---+ in this encounter
--- OUTSIDE RECORDS SUMMARY | ~2018-10-03 | XMS | Encounter Summary ---
Demographics + + + | Address | [address] | | | [place] [address] | + + + | Home Phone | | + + + | Preferred Language | Unknown | + + + | Marital Status | | + + + | Church Affiliation | Unknown | + + + | Race | Unknown | + + + | Ethnic Group | Unknown | + + + Author + + + | Author | [facility] | + + + | Organization | [facility] | + + + | Address | Unknown | + + + | Phone | Unavailable | + + + Support + + +---------+ + | Name | Relationship | Address | Phone | + + +---------+ + | Daniela Herron | ECON | Unknown | | + + +---------+ + Care Team Providers + +------+ + | Care Engineering Drafter Name | Role | Phone | + +------+ + | None, Per Pt | PCP | [id number] | + +------+ + Reason for Visit + + + | Reason | Comments | + + + | Chest Pain | | + + + | Referral | [facility] | + + + Auth/Cert +--------+--------+ + [...] | | | | unspecified | | [address] Phone: | | | | | hyperlipidem | | [phone] | | | | | ia type | | Fax: | | | | | Chest pain, | | [phone] | | | | | unspecified | | | | | | | type | | | +--------+--------+ + + + + Encounter Details +--------+ + + + + | Date | Type | Department | Care Team | Description | +--------+ + + + + | 07/30/ | Emergency | [facility] | [place] | Renal insufficiency | | 2019 - | | Medical Cntr 3rd | D, DO [address] | (Primary Dx); Chest | | | | Floor [place] | Bl[address] [place] | pain, unspecified | | 07/31/ | | Pavilion [address] | [address] | type; | | 2019 | | Bl[address] [place] | Latesha Avalos | Hyperlipidemia, | | | | [address] | MD Pablo [address] | unspecified | | | | | [address] | hyperlipidemia type | | | | | [place] [address] | | | | | | [phone] | | | | | | | | | | | | Shlomo Chand MD | | | | | | [address] | | | | | | [address] | | | | | | [place] [address] | | | | | | [phone] | | | | | | | [...] redness in one leg Date Last Reviewed: 06/07/[id number] [employer]. [address] [place] [address]. All righ ts reserved. This information is [...] note may be different from jerica howard. [facility] Service: Hospitalist Discharge Summary Date [...] hours. No results for input(s): PHART, PO2ART, DVG0QSQ, [id number], BEART in the last 168 hours. Recent [...] | + +--------+ + + + | [facility] CARD PANEL W/O | STAT | 07/30/2018 [...] VI STARKS | [address] | [place] [address] | | + + + + + NM cardiovascular stress treadmill (07/31/2018 8:38 AM) + + + + + | Component | Value | Ref Range | Performed At | + + + + + | Diagnosis | 1. LEXISCAN | | [facility] | | | ETT.2. NO [...] | + + + + + | [facility] | [address] | [place] [address] | | + + + + + Glycohemoglobin A1c (07/31/2018 4:58 AM) + + + + + | Component | Value | Ref Range | Performed At | + + + + + | HEMOGLOBIN A1C | 5.8Comment: HbA1c method | 4.0 - 6.0 % | [facility] | | | is certified by [facility] | | LABORATORY | | [...] | | | | | performed at [facility], [address] | | | | | [facility], | | | | | [place] [address] | | | + + + + + + + | Specimen | + + | Blood | + + + + + + + | Performing | Address | City/State/Zipcode | Phone Number | | Organization | | | | + + + + + | [facility] | [address] | [place] [address] | [phone] | | LABORATORY | Blvd[address] | | | + + + + + Magnesium (07/31/2018 4:58 AM) + + + + + | Component | Value | Ref Range | Performed At | + + + + + | MAGNESIUM | 2.3Comment: Testing | 1.7 - 2.4 mg/dL | [facility] | | | performed at [facility], [facility] [address] | | LABORATORY | | | [facility], | | | | | [place] [address] | | | + + + + + + + | Specimen | + + | Blood | + + + + + + + | Performing | Address | City/State/Zipcode | Phone Number | | Organization | | | | + + + + + | [facility] | [address] | [place] [address] | [phone] | | LABORATORY | Blvd. | | [...] | | | | | performed at [facility], [address] | | | | | [facility], | | | | | [place] [address] | | | + + + + + + + | Specimen | + + | Blood | + + + + + + + | Performing | Address | City/State/Zipcode | Phone Number | | Organization | | | | + + + + + | [facility] | [address] | [place] [address] | [phone] | | LABORATORY | Blvd. | | [...] | [facility] | | | performed at [facility], [address] | | LABORATORY | | | [address] [facility], | | | | | [place] [address] | | | + + + + + + + | Specimen | + + | Blood | + + + + + + + | Performing | Address | City/State/Zipcode | Phone Number | | Organization | | | | + + + + + | [facility] | [address] | [place] [address] | [phone] | | LABORATORY | Blvd[address] | | [...] + + + + | Calculated P [place] | 5 | degrees | [facility] | + + + + + | Calculated R [place] | 17 | degrees | [facility] | + + + + + | Calculated T [place] | 24 | degrees | [facility] [...] | [address] | [place] [address] | | + + + + + Troponin I (07/30/2018 9:06 PM) + + + + + | Component | Value | Ref Range | Performed At | + + + + + | TROPONIN I | <0.020Comment: 0.00 to | 0.00 - 0.10 ng/mL | [facility] | | | 0.10 CONSISTENT [...] performed at | | | | | [facility];[address] | | | | | [address];[place] [address] | | | + + + + + + + | Specimen | + + | Blood | + + + + + + + | Performing | Address | City/State/Zipcode | Phone Number | | Organization | | | | + + + + + | [facility] | [address] | [place] [address] | | + + + + + Troponin I (07/30/2018 5:26 PM) + + + + + | Component | Value | Ref Range | Performed At | + + + + + | TROPONIN I | <0.020Comment: 0.00 to | 0.00 - 0.10 ng/mL | [facility] | | | 0.10 CONSISTENT [...] performed at | | | | | [facility];[address] | | | | | Blvd;[place] [address] | | | + + + + + + + | Specimen | + + | Blood | + + + + + + + | Performing | Address | City/State/Zipcode | Phone Number | | Organization | | | | + + + + + | [facility] | [address] | [place] [address] | | + + + + + Troponin I, Lab (07/30/2018 2:16 PM) + + + + + | Component | Value | Ref Range | Performed At | + + + + + | TROPONIN I | <0.020Comment: 0.00 to | 0.00 - 0.10 ng/mL | [facility] | | | 0.10 CONSISTENT [...] performed at | | | | | [facility];[address] [place] [address] | | | | | [facility];[place] [address] | | | + + + + + + + | Specimen | + + | Blood | + + + + + + + | Performing | Address | City/State/Zipcode | Phone Number | | Organization | | | | + + + + + | [facility] | [address] | [place] [address] | | + + + + + Cardiac Panel (07/30/2018 2:16 PM) + + + + + | Component | Value | Ref Range | Performed At | + + + + + | WBC | 8.50 | 3.80 - 11.00 K/uL | [facility] | + + + + + | RBC | 4.18 | 3.70 - 5.10 M/uL | [facility] | + + + + + | HGB | 13.8 | 11.3 - 15.5 g/dL | [facility] | + + + + + | HCT | 41.8 | 34.0 - 46.0 % | [facility] | + + + + + | MCV | 100.0 | 80.0 - 100.0 fl | [facility] | + + + + + | MCH | 33.1 | 27.0 - 34.0 pg | [facility] | + + + + + | MCHC | 33.1 | 32.0 - 35.5 g/dL | [facility] | + + + + + | RDW SD | 49.4 | 37 - 53 fl | [facility] | + + + + + | PLT | 211 | 150 - 400 K/uL | [facility] | + + + + + | MPV | 9.4 | fl | [facility] | + + + + + | DIFF TYPE | AUTOMATED | | [facility] | + + + + + [...] 0.07 | 0.00 - 0.10 K/uL | [facility] | + + + + + | SODIUM | 140 | 135 - 145 mmol/L | [facility] | + + + + + | POTASSIUM | 3.5 | 3.5 - 4.9 mmol/L | [facility] | + + + + + | CHLORIDE | 103 | 99 - 109 mmol/L | [facility] | + + + + + | CO2 | 27 | 23 - 32 mmol/L | [facility] | + + + + + | ANION GAP AGAP | 14 | 5 - 20 mmol/L | [facility] | + + + + + | GLUCOSE | 87 | 65 - 99 mg/dL | [facility] | + + + + + | BUN | 11 | 8 - 25 mg/dL | [facility] | + + + + + | CREATININE | 1.3 (H) | 0.50 - 1.00 mg/dL | [facility] | + + + + [...] (L)Comment: GFR <60: | >60 mL/min/1.73m2 | [facility] | | | CHRONIC KIDNEY [...] the | | | | | MDRD [facility] traceable | | | | | equation. | | | + + + + + | CPK | 121 | 30 - 240 U/L | [facility] | + + + + + | INR | 1.0Comment: REFERENCE | | [facility] | | | RANGE:0.9 - [...] 27 | 23 - 32 seconds | [facility] | + + + + + | MMB | 1.4 | 0.5 - 3.6 ng/mL | [facility] | + + + + + | CK-MB Index | 1.2Comment: CK INDEX | | [facility] | | | INTERPRETATION: | [...] | | | | | performed at [facility] | | | | | [address];[place], [place] | | | | | [address] | | | + + + + + + + + + + | Performing | Address | City/State/Zipcode | Phone Number | | Organization | | | | + + + + + | [facility] | [address] | [place] [address] | | + + + + + [...] + + + + | Calculated P [place] | 59 | degrees | [facility] | + + + + + | Calculated R [place] | 31 | degrees | [facility] | + + + + + | Calculated T [place] | 52 | degrees | [facility] | + + + + + | Diagnosis | Normal sinus | | [facility] | | | rhythmNormal ECGNo [...] -COMPUTER (500), | | | | | acquisitions editor Chris Houser | | | | | Shahbaz (123) on 07/31/2018 | | | | | 8:06:28 PM | | | + + + + + + + + + + | Performing | Address | City/State/Zipcode | Phone Number | | Organization | | | | + + + + + | [facility] | [address] | [place] [address] | | + + + + + X-ray Chest 1 View (07/30/2018 12:13 PM) + + + | Narrative | Performed At | + + + | This is a non-reportable procedure without a radiologist report and | [facility] | | is used for image storage only | RADIOLOGY | + + + + + + + + | Performing | Address | City/State/Zipcode | Phone Number | | Organization | | | | + + + + + | [facility] | [address] | [place] [address] | | + + + + + [...]
--- OUTSIDE RECORDS SUMMARY | ~2018-10-03 | XMS | Clinical Summary ---
Demographics + + + | Address | [address] | | | [place] [address] | + + + | Home Phone | | + + + | Preferred Language | Unknown | + + + | Marital Status | | + + + | Taoism Affiliation | Unknown | + + + | Race | Unknown | + + + | Ethnic Group | Unknown | + + + Author + + + | Author | [facility] | + + + | Organization | [facility] | + + + | Address | Unknown | + + + | Phone | Unavailable | + + + Support + + +---------+ + | Name | Relationship | Address | Phone | + + +---------+ + | Daniela Herron | ECON | Unknown | | + + +---------+ + Care Team Providers + +------+ + | Care Entrepreneur Name | Role | Phone | + [...] | + +--------+ + + + | Ingeniatrics CARD PANEL W/O | STAT | 07/30/2018 [...] | + + + + + | [facility] | [address] | [place] [address] | | + + + + + NM cardiovascular stress treadmill (07/31/2018 8:38 AM) + + + + + | Component | Value | Ref Range | Performed At | + + + + + | Diagnosis | 1. LEXISCAN | | [facility] | | | ETT.2. [...] | + + + + + | [facility] | [address] | [place] [address] | | + + + + + [...] | [facility] | | | performed at [facility], [address] | | LABORATORY | | | [address], | | | | | [place] [address] | | | + + + + + + + | Specimen | + + | Blood | + + + + + + + | Performing | Address | City/State/Zipcode | Phone Number | | Organization | | | | + + + + + | [facility] | [address] | [place] [address] | [phone] | | LABORATORY | Blvd[address] | | | + + + + + Magnesium (07/31/2018 4:58 AM) + + + + + | Component | Value | Ref Range | Performed At | + + + + + | MAGNESIUM | 2.3Comment: Testing | 1.7 - 2.4 mg/dL | [facility] | | | performed at [facility], [address] | | LABORATORY | | | [facility] [place], | | | | | [place] [address] | | | + + + + + + + | Specimen | + + | Blood | + + + + + + + | Performing | Address | City/State/Zipcode | Phone Number | | Organization | | | | + + + + + | [facility] | [address] | [place] [address] | [phone] | | LABORATORY | Blvd[address] | | | + + + + + Glycohemoglobin A1c (07/31/2018 4:58 AM) + + + + + | Component | Value | Ref Range | Performed At | + + + + + | HEMOGLOBIN A1C | 5.8Comment: HbA1c method | 4.0 - 6.0 % | [facility] | | | is certified by [facility] | | LABORATORY | | | [...] | | | | | performed at [facility], [address] | | | | | [facility], | | | | | [place] [address] | | | + + + + + + + | Specimen | + + | Blood | + + + + + + + | Performing | Address | City/State/Zipcode | Phone Number | | Organization | | | | + + + + + | [facility] | [address] | [place] [address] | [phone] | | LABORATORY | Blvd. | | [...] the | | | | | MDRD [facility] traceable | | | | | equation.Testing | | | | | performed at [facility], [address] | | | | | [facility], | | | | | [place] [address] | | | + + + + + + + | Specimen | + + | Blood | + + + + + + + | Performing | Address | City/State/Zipcode | Phone Number | | Organization | | | | + + + + + | [facility] | [address] [place] [address] | [place] [address] | [phone] | | LABORATORY | Blvd. | | [...] + + + + | Calculated P [place] | 5 | degrees | [facility] | + + + + + | Calculated R [place] | 17 | degrees | [facility] | + + + + + | Calculated T [place] | 24 | degrees | [facility] | + + + + + | Diagnosis | Normal sinus | | [facility] | | | rhythmNormal [...] | + + + + + | [facility] | [address] | [place] [address] | | + + + + + Troponin I (07/30/2018 9:06 PM)Only the most recent of 3 results within the time period is included. + + + + + | Component | Value | Ref Range | Performed At | + + + + + | TROPONIN I | <0.020Comment: 0.00 to | 0.00 - 0.10 ng/mL | [facility] | | | 0.10 [...] | | | | CRITERIA FOR ACUTE HI | | | | | Testing performed at | | | | | [facility];[address] [place] [address] | | | | | [facility];[place] [address] | | | + + + + + + + | Specimen | + + | Blood | + + + + + + + | Performing | Address | City/State/Zipcode | Phone Number | | Organization | | | | + + + + + | [facility] | [address] | [place] [address] | | + + + + + Cardiac Panel (07/30/2018 2:16 PM) + + + + + | Component | Value | Ref Range | Performed At | + + + + + | WBC | 8.50 | 3.80 - 11.00 K/uL | [facility] | + + + + + | RBC | 4.18 | 3.70 - 5.10 M/uL | [facility] | + + + + + | HGB | 13.8 | 11.3 - 15.5 g/dL | [facility] | + + + + + | HCT | 41.8 | 34.0 - 46.0 % | [facility] | + + + + + | MCV | 100.0 | 80.0 - 100.0 fl | [facility] | + + + + + | MCH | 33.1 | 27.0 - 34.0 pg | [facility] | + + + + + | MCHC | 33.1 | 32.0 - 35.5 g/dL | [facility] | + + + + + | RDW SD | 49.4 | 37 - 53 fl | [facility] | + + + + + | PLT | 211 | 150 - 400 K/uL | [facility] | + + + + + | MPV | 9.4 | fl | [facility] | + + + + + | DIFF TYPE | AUTOMATED | | [facility] | + + + + + [...] 3.9 | 3.3 - 4.8 g/dL | [facility] | + + + + + | GLOBULIN | 4.0 | 1.3 - 4.9 g/dL | [facility] | + + + + + | A/G | 1.0 | 1.0 - 2.4 | [facility] | + + + + + | TBIL | 0.8 | 0.1 - 1.5 mg/dL | [facility] | + + + + + | ALK PHOS | 49 | 35 - 115 U/L | [facility] | + + + + + | AST | 30 | 10 - 45 U/L | [facility] | + + + + + | ALT | 29 | 10 - 65 U/L | [facility] | + + + + + | EGFR | 41 (L)Comment: GFR <60: | >60 mL/min/1.73m2 | [facility] | | | CHRONIC [...] 121 | 30 - 240 U/L | [facility] | + + + + + | INR | 1.0Comment: REFERENCE | | [facility] | | | RANGE:0.9 [...] 27 | 23 - 32 seconds | [facility] | + + + + + | MMB | 1.4 | 0.5 - 3.6 ng/mL | [facility] | + + + + + | CK-MB Index | 1.2Comment: CK INDEX | | [facility] | | | INTERPRETATION: [...] | | | | | performed at [facility];[address] | | | | | [address];[place], [place] | | | | | [address] | | | + + + + + + + + + + | Performing | Address | City/State/Zipcode | Phone Number | | Organization | | | | + + + + + | [facility] | [address] | [place] [address] | | + + + + + [...] + + + + | Calculated P [place] | 59 | degrees | [facility] | + + + + + | Calculated R [place] | 31 | degrees | [facility] | + + + + + | Calculated T [place] | 52 | degrees | [facility] | + + + + + | Diagnosis | Normal sinus | | [facility] | | | rhythmNormal [...] -COMPUTER (500), | | | | | film or videotape editor Chris Houser | | | | | Shahbaz (123) on 07/31/2018 | | | | | 8:06:28 PM | | | + + + + + + + + + + | Performing | Address | City/State/Zipcode | Phone Number | | Organization | | | | + + + + + | [facility] | [address] | [place] [address] | | + + + + + X-ray Chest 1 View (07/30/2018 12:13 PM) + + + | Narrative | Performed At | + + + | This is a non-reportable procedure without a radiologist report and | [facility] | | is used for image storage only | RADIOLOGY | + + + + + + + + | Performing | Address | City/State/Zipcode | Phone Number | | Organization | | | | + + + + + | [facility] | [address] | [place] [address] | | + + + + + [...] +------+-------+ + | MEDICARE | MEDICA | [id number] | | | [address] | | | RE | | | | [place] [phone] | | | PART A | | | | | | | ONLY | | | | | + +--------+ +------+-------+ + | COMMERCIAL OTHER | COMMER | [id number] | | | | | | CIAL [...] | [phone] | [place] [address] | | | cherri | | | [phone] | | + +--------+ +--------+ + +
--- OUTSIDE RECORDS SUMMARY | 2018-10-03 16:24 | XMS ---
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 Care History Medical/Surgical 03/03/2018 [facility] - Patient is currently established with [facility]. If patient is seen in the ED during business hours. Please contact CHWs at [facility]. Care Recommendation: This patient has had 5 [...] care. E.D. VISIT COUNT (12 MO.) 1 [facility] 12 [facility] Baptiste TOTAL 13 NOTE: Visits indicate total known visits. ED/UCC VISIT TRACKING (12 MO.) 10/03/2018 16:22 [facility] [place] TYPE: Emergency COMPLAINT: - N/V/D 09/06/2018 11:37 [facility] [place] TYPE: Emergency COMPLAINT: - FALL/ L HIP PAIN DIAGNOSES: - Fall on same level from slipping, tripping and stumbling without subsequent striking against object, initial encounter - Other shelter (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 - Personal history of nicotine dependence - Heart failure, unspecified - Allergy status to other drugs, medicaments and biological substances status - Contusion of left hip, initial encounter - Other chest pain - Hypertensive heart disease with heart failure 07/30/2018 13:52 [facility] TYPE: Emergency DIAGNOSES: - Disorder of kidney and ureter, unspecified - Hyperlipidemia, unspecified - Chest pain, unspecified 07/30/2018 10:07 [facility] Cruz TYPE: Emergency COMPLAINT: - CHEST PAIN DIAGNOSES: - Hypertensive heart disease with heart failure - Other shelter (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 - Chest pain, unspecified - Allergy status to other drugs, medicaments and biological substances status - Nicotine dependence, unspecified, uncomplicated - Migraine, unspecified, not intractable, without status migrainosus - Unstable angina - Heart failure, unspecified 07/09/2018 23:23 [facility] Cruz TYPE: Emergency COMPLAINT: - CHEST PAIN DIAGNOSES: - Headache - Other chest pain - Chest pain, unspecified - Nicotine dependence, unspecified, uncomplicated - Migraine, unspecified, not intractable, without status migrainosus - Hypertensive heart disease with heart failure - Heart failure, unspecified - 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 - Allergy status to other drugs, medicaments and biological substances status 06/20/2018 21:48 [facility] [place] TYPE: Emergency COMPLAINT: - ABDOMEN PAIN DIAGNOSES: - Heart failure, unspecified - 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 - Unspecified abdominal [...] - Pain in thoracic spine - 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 - Hypertensive heart [...] giddiness - Other chest pain - 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 - Personal history of nicotine dependence - Essential (primary) hypertension - Heart failure, unspecified 03/02/2018 18:59 [facility] [place] TYPE: Emergency COMPLAINT: - CRAMPS, POSS DIVERTICULITIS DIAGNOSES: - Personal history of nicotine dependence - Hypertensive heart disease with heart failure - Unspecified abdominal pain - 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 - Constipation, unspecified [...] DIAGNOSES: - Unspecified abdominal pain - 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 - Dorsalgia, unspecified INPATIENT [...] Gout, unspecified - Dorsalgia, unspecified 02/10/2018 10:[address] [facility] [place] TYPE: Medical Surgical COMPLAINT: - CHF, PNEUMONIA DIAGNOSES: - Irritable bowel syndrome without diarrhea - Nutritional anemia, unspecified - Pneumonia, unspecified organism - Hypertensive heart disease with heart failure - Dorsalgia, unspecified - Unspecified mood [affective] disorder - Heart failure, unspecified [email or web address]
[2018-10-03] MEDS ORDERED: REGLAN10 MG PO (18:21)
[2018-10-03] MEDS ORDERED: ONDANSETRON ODT8 MG PO (18:21)
--- NOTE | 2018-10-04 07:03 | EKG ---
[facility] [address] [place] [address] Signed Normal sinus rhythm Normal ECG When compared with ECG of 06-SEP-2018 11:48, premature atrial complexes are no longer present Confirmed by SOCORRO LAND MD ([id number]) on 10/04/2018 7:03:45 AM Electronically Signed By: SOCORRO LAND MD 10/04/18 0703 PATIENT NAME: JAMIE TORRES Electrocardiogram DATE OF : 54 PHYSICIAN: SOCORRO LAND MD REPORT #: [id number] REPORT IS CONFIDENTIAL AND NOT TO BE RELEASED WITHOUT AUTHORIZATION
== END 2018-10-03 18:34 | disposition home or self-care (01) ==
LOC: ED 16:22
DX: K52.9 Noninfective gastroenteritis and colitis, unspecified (principal); R74.8 Abnormal levels of other serum enzymes; I11.0 Hypertensive heart disease with heart failure; I50.9 Heart failure, unspecified; G43.909 Migraine, unspecified, not intractable, without status migrainosus; Z87.891 Personal history of nicotine dependence; Z88.8 Allergy status to other drugs, medicaments and biological substances; Z79.899 Other long term (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
CPT/HCPCS: 80053; 83690; 83880; 84484; 85025; 87502; 93005; 93010; 96361; 96374; 96375; 99284-25; J1885; J2405; J2765; J7030; J7040

== ENCOUNTER 2018-11-23 13:08 | Emergency (ER) | payer MEDICARE ==
[~2018-11-23] VITALS: Ht 160 cm; Wt 54.4 kg
--- OUTSIDE RECORDS SUMMARY | ~2018-11-23 | XMS | Clinical Summary ---
Demographics + + + | Address | [address] | | | [place] [address] | + + + | Home Phone | | + + + | Preferred Language | Unknown | + + + | Marital Status | | + + + | Christian Affiliation | Unknown | + + + | Race | Unknown | + + + | Ethnic Group | Unknown | + + + Author + + + | Author | [facility] | + + + | Organization | [facility] | + + + | Address | Unknown | + + + | Phone | Unavailable | + + + Support + + +---------+ + | Name | Relationship | Address | Phone | + + +---------+ + | Daniela Herron | ECON | Unknown | | + + +---------+ + Care Team Providers + +------+ + | Care Emergency Doctor Name | Role | Phone | + [...] | | | Activ | | SA ([facility]) | daily. | | | | | [...] +------+-------+ + | MEDICARE | MEDICA | [id number] | | | [address] | | | RE | | | | [place] [address] | | | PART A | | | | | | | ONLY | | | | | + +--------+ +------+-------+ + | COMMERCIAL OTHER | COMMER | [id number] | | | | | | CIAL [...] | + +--------+ +--------+ + + | AJMIE STEPEHN | Person | Self [birth year] | Home: | [address] | | | al/Fam | | 3 | [phone] | [place] [address] | | | cherri | | | [phone] | | + +--------+ +--------+ + +
--- OUTSIDE RECORDS SUMMARY | ~2018-11-23 | XMS | Clinical Summary ---
Demographics + + + | Address | [address] | | | [place] [address] | + + + | Home Phone | | + + + | Preferred Language | Unknown | + + + | Marital Status | | + + + | Voodoo Affiliation | Unknown | + + + | Race | Unknown | + + + | Ethnic Group | Unknown | + + + Author + + + | Author | [facility] | + + + | Organization | [facility] | + + + | Address | Unknown | + + + | Phone | Unavailable | + + + Support + + +---------+ + | Name | Relationship | Address | Phone | + + +---------+ + | Daniela Herron | ECON | Unknown | | + + +---------+ + Care Team Providers + +------+ + | Care Assembler Production Line Name | Role | Phone | + [...] +------+-------+ + | MEDICARE | MEDICA | [id number] | | | [address] | | | RE | | | | [place] [address] | | | PART A | | | | | | | ONLY | | | | | + +--------+ +------+-------+ + | COMMERCIAL OTHER | COMMER | [id number] | | | | | | CIAL [...] + +--------+ +--------+ + + | JAMIE STEPHEN | Person | Self | [birth year] | Home: | [address] | | | al/Fam | | 3 | [phone] | [place] [address] | | | cherri | | | [phone] | | + +--------+ +--------+ + +
[~2018-11-23 13:08] MED LIST changes: +ONDANSETRON ODT8 MG PO; +REGLAN10 MG PO
--- OUTSIDE RECORDS SUMMARY | 2018-11-23 13:10 | XMS ---
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 - Has Care Guidelines CARE PROVIDERS MARLEY ARCINIEGA Internal Medicine 03/03/2018-Current [facility] PHONE: [phone] Chandrika has no Care Guidelines for this patient. Care History Medical/Surgical 03/03/2018 [facility] - Patient is currently established with [facility]. If patient is seen in the ED during business hours. Please contact CHWs at [facility]. Care Recommendation: This patient has had [...] care. E.D. VISIT COUNT (12 MO.) 1 [facility] 13 [facility] TOTAL 14 NOTE: Visits indicate total known visits. ED/UCC VISIT TRACKING (12 MO.) 11/23/2018 13:08 [facility] [place] TYPE: Emergency COMPLAINT: - HEADACHE 10/03/2018 16:22 [facility] [place] TYPE: Emergency COMPLAINT: - N/V/D DIAGNOSES: - Nausea with vomiting, unspecified - Noninfective gastroenteritis and colitis, unspecified - Hypertensive heart disease with heart failure - Migraine, unspecified, not intractable, without status migrainosus - Heart failure, unspecified - Other contracts advisor (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 - Allergy status to other drugs, medicaments and biological substances status - Abnormal levels of other serum enzymes - Personal history of nicotine dependence 09/06/2018 11:37 [facility] [place] TYPE: Emergency COMPLAINT: - FALL/ L HIP PAIN DIAGNOSES: - Fall on same level from slipping, tripping and stumbling without subsequent striking against object, initial encounter - Other detention (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 - Personal history of nicotine dependence - Heart failure, unspecified - Allergy status to other drugs, medicaments and biological substances status - Contusion of left hip, initial encounter - Other chest pain - Hypertensive heart disease with heart failure 07/30/2018 13:52 [facility] TYPE: Emergency DIAGNOSES: - Disorder of kidney and ureter, unspecified - Hyperlipidemia, unspecified - Chest pain, unspecified 07/30/2018 10:07 [facility] Cruz TYPE: Emergency COMPLAINT: - CHEST PAIN DIAGNOSES: - Hypertensive heart disease with heart failure - Other detention (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 - Chest pain, unspecified [...] failure - Heart failure, unspecified - Other detention (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 - Allergy status to other drugs, medicaments and biological substances status 06/20/2018 21:48 [facility] [place] TYPE: Emergency COMPLAINT: - ABDOMEN PAIN DIAGNOSES: - Heart failure, unspecified - Other detention (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 - Unspecified abdominal pain - Acute gastritis without bleeding - Hypertensive heart disease with heart failure - Personal history of nicotine dependence - Allergy status to other drugs, medicaments and biological substances status 06/18/2018 13:46 [facility] [place] TYPE: Emergency COMPLAINT: - CHEST PAIN DIAGNOSES: - Heart failure, unspecified - Chest pain, unspecified - Pain in thoracic spine - Other contracts advisor (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 - Hypertensive heart disease with heart failure - Allergy status to other drugs, medicaments and biological substances status - Personal history of nicotine dependence 05/17/2018 14:31 [facility] [place] TYPE: Emergency COMPLAINT: - DIFFICULTY BREATHING DIAGNOSES: - Dyspnea, unspecified - Allergy status to other drugs, medicaments and biological substances status - Dizziness and giddiness - Other chest pain - Other contracts advisor (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 - Personal history of nicotine dependence - Essential (primary) hypertension - Heart failure, unspecified 03/02/2018 18:59 [facility] [place] TYPE: Emergency COMPLAINT: - CRAMPS, POSS DIVERTICULITIS DIAGNOSES: - Personal history of nicotine dependence - Hypertensive heart disease with heart failure - Unspecified abdominal pain - Other contracts advisor (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 - Constipation, unspecified - Heart failure, unspecified 02/22/2018 16:23 [facility] [place] TYPE: Emergency COMPLAINT: - CHEST PAIN/SOB 02/21/2018 22:38 [facility] [place] TYPE: Emergency COMPLAINT: - CHEST PAIN DIAGNOSES: - Chest pain, unspecified - Pleurisy - Personal history of nicotine dependence 02/10/2018 06:22 [facility] [place] [facility] [place] TYPE: Emergency COMPLAINT: - SOB 02/08/2018 08:18 [facility] [place] [place] [facility] [place] TYPE: Emergency COMPLAINT: - ABDOMINAL PAIN DIAGNOSES: - Unspecified abdominal pain - Other detention (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 - Dorsalgia, unspecified INPATIENT [...] mood [affective] disorder - Heart failure, unspecified [email or web address]
[2018-11-23] MEDS ORDERED: LIPITOR20 MG PO (13:17)
--- NOTE | 2018-11-23 15:10 | EKG ---
[facility] [address] [place], [place] [address] Signed Normal sinus rhythm Normal ECG When compared with ECG of 03-OCT-2018 16:52, T wave amplitude has increased in Lateral leads Confirmed by STEVEN LAMBERT DO ([id number]) on 11/23/2018 3:10:37 PM Electronically Signed By: STEVEN LAMBERT DO 11/23/18 1510 PATIENT NAME: IDALMISJAMIE KENT Electrocardiogram DATE OF : 54 PHYSICIAN: STEVEN LAMBERT DO REPORT #: [id number] REPORT IS CONFIDENTIAL AND NOT TO BE RELEASED WITHOUT AUTHORIZATION
[2018-11-23] MEDS ORDERED: ONDANSETRON ODT8 MG PO (15:11)
== END 2018-11-23 15:20 | disposition home or self-care (01) ==
LOC: ED 13:08
DX: G43.909 Migraine, unspecified, not intractable, without status migrainosus (principal); J30.9 Allergic rhinitis, unspecified; I11.0 Hypertensive heart disease with heart failure; I50.9 Heart failure, unspecified; Z87.891 Personal history of nicotine dependence; Z90.49 Acquired absence of other specified parts of digestive tract; Z88.1 Allergy status to other antibiotic agents; Z79.899 Other long term (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
CPT/HCPCS: 93005; 93010; 96361; 96374; 96375; 99284-25; J1100; J1200; J1885; J2765; J7030

== ENCOUNTER 2019-04-12 02:42 | Emergency (ER) | payer MEDICARE ==
[~2019-04-12] VITALS: Ht 160 cm; Wt 54.4 kg
--- OUTSIDE RECORDS SUMMARY | ~2019-04-12 | XMS | Clinical Summary ---
Demographics + + + | Address | [address] | | | [place] [address] | + + + | Preferred Language | Unknown | + + + | Marital Status | Unknown | + + + | Uatsdin Affiliation | Unknown | + + + | Race | Unknown | + + + | Ethnic Group | Unknown | + + + Author + + + | Author | [facility] | | | and [place] | + + + | Organization | [facility] | | | and [place] [...] Team Providers + +------+ + | Care Aircraft Sales Representative Name | Role | Phone | + [...] + | Blood Pressure | 167/81 | 07/31/20181350 PST | + + + + | Pulse | 78 | 07/31/20181350 PST | + + + + | Temperature | 36.5 C (97.7 F) | 07/31/20181350 PST | + + + + | Respiratory Rate | 20 | 07/31/20181350 PST | + + + + | Oxygen Saturation | - | - | + + + + | Inhaled Oxygen | - | - | | Concentration | | | + + + + | Weight | 54.4 kg (120 lb) | 07/31/20181350 PST | + + + + | Height | 160 cm (5' 3") | 07/31/20181350 PST | + + + + | Body Mass Index | 21.26 | 07/31/20181350 PST | + + + + Plan of Treatment + + + + + | Health Maintenance | Due Date | Last Done | Comments | + + + + + | Vaccine: | | | | | Dtap/Tdap/Td (1 - | 2 | | | | Tdap) | | | | + + + + + | Vaccine: Zoster (1 | | | | | of 2) | 3 | | | + + + + + | Vaccine: | | | | | Pneumococcal 65+ | 8 | | | | Low/Medium Risk (1 | | | | | of 2 - PCV13) | | | | + + + + + | Vaccine: Influenza | | | | | (#1) | 9 | | | + + + + + Results Not on filefrom Last 3 Months
--- OUTSIDE RECORDS SUMMARY | ~2019-04-12 | XMS | Clinical Summary ---
Demographics + + + | Address | [address] | | | [place] [address] | + + + | Preferred Language | Unknown | + + + | Marital Status | Unknown | + + + | Sikh Affiliation | Unknown | + + + | Race | Unknown | + + + | Ethnic Group | Unknown | + + + Author + + + | Author | [facility] | | | and [place] | + + + | Organization | [facility] | | | and [place] [...] Team Providers + +------+ + | Care Pin Sticker Name | Role | Phone | + [...]
--- OUTSIDE RECORDS SUMMARY | ~2019-04-12 | XMS | Clinical Summary ---
Demographics + + + | Address | [address] | | | [place] [address] | + + + | Home Phone | | + + + | Preferred Language | Unknown | + + + | Marital Status | | + + + | Hindu Affiliation | Unknown | + + + | Race | Unknown | + + + | Ethnic Group | Unknown | + + + Author + + + | Author | [facility] (Historical as of | | | 02-21-19) | + + + | Organization | [facility] (Historical as of | | | 02-21-19) [...] Team Providers + +------+ + | Care Filament Wound Parts Fabricator Name | Role | Phone | + [...] +------+-------+ + | MEDICARE | MEDICA | [id number] | | | [address] | | | RE | | | | [place], [place] [address] | | | PART A | | | | | | | ONLY | | | | | + +--------+ +------+-------+ + | COMMERCIAL OTHER | COMMER | [id number] | | | | | | CIAL [...] [birth year] | Home: | [address] | | | al/Fam | | 1951 | [phone] | [place] [address] | | | cherri | | | [phone] | | + +--------+ +--------+ + +
--- OUTSIDE RECORDS SUMMARY | ~2019-04-12 | XMS | Clinical Summary ---
Demographics + + + | Address | [address] | | | [place] [address] | + + + | Home Phone | | + + + | Preferred Language | Unknown | + + + | Marital Status | | + + + | Religion Affiliation | Unknown | + + + | Race | Unknown | + + + | Ethnic Group | Unknown | + + + Author + + + | Author | [facility] (Historical as of | | | 02-21-19) | + + + | Organization | [facility] (Historical as of | | | 02-21-19) [...] Team Providers + +------+ + | Care Commercial Lines Insurance Agent Name | Role | Phone | + [...] +------+-------+ + | MEDICARE | MEDICA | [id number] | | | [address] | | | RE | | | | [place], [place] [address] | | | PART A | | | | | | | ONLY | | | | | + +--------+ +------+-------+ + | COMMERCIAL OTHER | COMMER | [id number] | | | | | | CIAL [...] Self | [birth year] | Home: | [address] | | | al/Fam | | 1951 | [phone] | [place] [address] | | | cherri | | | [phone] | | + +--------+ +--------+ + +
[~2019-04-12 02:42] MED LIST changes: +LIPITOR20 MG PO
--- OUTSIDE RECORDS SUMMARY | 2019-04-12 02:44 | XMS ---
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 Care History Medical/Surgical 01/19/2019 [facility] - PATIENT HAS AN APT WITH DR ARCINIEGA ON 02/01/19 FOR ED FOLLOW UP. 03/03/2018 [facility] - Patient is currently established with [facility]. If patient is seen in the ED during business hours. Please contact CHWs at [facility]. Care Recommendation: This patient has had 5 [...] care. E.D. VISIT COUNT (12 MO.) 1 [place] [address] RAD[facility] Baptiste TOTAL 11 NOTE: Visits indicate total known visits. 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 - Allergy status to other drugs, medicaments and biological substances status - Hypokalemia - Migraine, unspecified, not intractable, without status migrainosus - Hypertensive heart disease with heart failure - Heart failure, unspecified 11/23/2018 13:08 [facility] [place] TYPE: Emergency COMPLAINT: - HEADACHE DIAGNOSES: - Acquired absence of other specified parts of digestive tract - Headache - Hypertensive heart disease with heart failure - Heart failure, unspecified - Allergic rhinitis, unspecified - Personal history of nicotine dependence - Allergy status to other antibiotic agents status - Migraine, unspecified, not intractable, without status migrainosus - Other correction (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 10/03/2018 16:22 [facility] [place] TYPE: Emergency COMPLAINT: - N/V/D DIAGNOSES: - Nausea with vomiting, unspecified - Noninfective gastroenteritis and colitis, unspecified - Hypertensive heart disease with heart failure - Migraine, unspecified, not intractable, without status migrainosus - Heart failure, unspecified - 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 - Allergy status to other drugs, medicaments and biological substances status - Abnormal levels of other serum enzymes - Personal history of nicotine dependence 09/06/2018 11:37 [facility] [place] TYPE: Emergency COMPLAINT: - FALL/ L HIP PAIN DIAGNOSES: - Fall on same level from slipping, tripping and stumbling without subsequent striking against object, initial encounter - 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 - Personal history of nicotine dependence - Heart failure, unspecified - Allergy status to other drugs, medicaments and biological substances status - Contusion of left hip, initial encounter - Other chest pain - Hypertensive heart disease with heart failure 07/30/2018 13:52 [facility] TYPE: Emergency DIAGNOSES: - Disorder of kidney and ureter, unspecified - Hyperlipidemia, unspecified - Chest pain, unspecified 07/30/2018 10:07 [facility] [place] TYPE: Emergency COMPLAINT: - CHEST PAIN DIAGNOSES: - Hypertensive heart disease with heart failure - 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 - Chest pain, unspecified [...] failure - Heart failure, unspecified - 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 - Hypertensive heart disease with heart failure - Allergy status to other drugs, medicaments and biological substances status - Personal history of nicotine dependence 05/17/2018 14:31 [facility] [place] TYPE: Emergency COMPLAINT: - DIFFICULTY BREATHING DIAGNOSES: - Dyspnea, unspecified - Allergy status to other drugs, medicaments and biological substances status - Dizziness and giddiness - Other chest pain - Other correction (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 - Personal history of nicotine dependence - Essential (primary) hypertension - Heart failure, unspecified INPATIENT VISIT TRACKING (12 MO.) No inpatient visits to display in this time frame [email or web address]
[2019-04-12] MEDS ORDERED: ALLOPURINOL100 MG PO (02:55)
[2019-04-12] MEDS ORDERED: NORCO 5-325 TA1 EACH PO (03:21)
== END 2019-04-12 03:36 | disposition home or self-care (01) ==
LOC: ED 02:42
DX: M10.9 Gout, unspecified (principal); I11.0 Hypertensive heart disease with heart failure; I50.9 Heart failure, unspecified; G43.909 Migraine, unspecified, not intractable, without status migrainosus; Z87.891 Personal history of nicotine dependence; Z88.8 Allergy status to other drugs, medicaments and biological substances; Z79.899 Other long term (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
CPT/HCPCS: 99283

== ENCOUNTER 2019-05-25 10:59 | Emergency (ER) | payer MEDICARE ==
[~2019-05-25] VITALS: Ht 160 cm; Wt 54.4 kg
--- OUTSIDE RECORDS SUMMARY | ~2019-05-25 | XMS | Clinical Summary ---
Demographics + + + | Address | [address] | | | [place] [address] | + + + | Home Phone | | + + + | Preferred Language | Unknown | + + + | Marital Status | | + + + | Cheondoism Affiliation | Unknown | + + + | Race | Unknown | + + + | Ethnic Group | Unknown | + + + Author + + + | Author | [facility] (Historical as of | | | 02-21-19) | + + + | Organization | [facility] (Historical as of | | | 02-21-19) | + + + | Address | Unknown | + + + | Phone | Unavailable | + + + Support + + +---------+ + | Name | Relationship | Address | Phone | + + +---------+ + | Daniela Herron | ECON | Unknown | | + + +---------+ + Care Team Providers + +------+ + | Care Skirt Panel Assembler Name | Role | Phone | + +------+ + | None, Per Pt | PP | [phone] | + +------+ + Allergies + + + + + + | Active Allergy | Reactions | Severity | Noted | Comments | | | | | Date | | + + + + + + | Metronidazole | Nausea and Vomiting | Low | 07/30/19 | | | | | | 19 | | + + + + + + Current Medications + + +-------+---------+------+------+-------+ | Prescription | Sig. | Disp. | Refills | Star | End | Statu | | | | | | t | Date | s | | | | | | Date | | | + + +-------+---------+------+------+-------+ | metoprolol | Take 25 mg by mouth | | | | | Activ | | (LOPRESSOR) 25 MG | 2 (two) times daily | | | | | e | | tablet | with meals. | | | | | | + + +-------+---------+------+------+-------+ | losartan (COZAAR) | Take 50 mg by mouth | | | | | Activ | | 50 MG tablet | daily. | | | | | e | + + +-------+---------+------+------+-------+ | atorvastatin | Take 20 mg by mouth | | | | | Activ | | (LIPITOR) 20 MG | daily. | | | | | e | | tablet | | | | | | | + + +-------+---------+------+------+-------+ | aspirin 81 MG EC | Take 81 mg by mouth | | | | | Activ | | tablet | daily. | | | | | e | + + +-------+---------+------+------+-------+ | furosemide (LASIX) | Take 20 mg by mouth | | | | | Activ | | 20 MG tablet | daily. | | | | | e | + + +-------+---------+------+------+-------+ | potassium chloride | Take 20 mEq by mouth | | | | | Activ | | SA (K-DUR,SHADYOR-CON) | daily. | | | | | e | | 20 MEQ tablet | | | | | | | + + +-------+---------+------+------+-------+ | allopurinol | Take 100 mg by mouth | | | | | Activ | | (ZYLOPRIM) 100 MG | daily. | | | | | e | | tablet | | | | | | | + + +-------+---------+------+------+-------+ | omeprazole | Take 20 mg by mouth | | | | | Activ | | (PRILOSEC) 20 MG | every morning before | | | | | e | | capsule | breakfast. | | | | | | + + +-------+---------+------+------+-------+ | Venlafaxine HCl 75 | Take 225 mg by mouth | | | | | Activ | | MG TB24 | daily. | | | | | e | + + +-------+---------+------+------+-------+ | Simethicone 125 MG | Take 125 mg by | | | | | Activ | | TABSIndications: | mouth. | | | | | e | | after meals and at | | | | | | | | bedtime as needed | | | | | | | | four times a day | | | | | | | + + +-------+---------+------+------+-------+ | nitroGLYCERIN | Place 0.4 mg under | | | | | Activ | | (NITROSTAT) 0.4 MG | the tongue daily. As | | | | | e | | SL tablet | needed for chest | | | | | | | | discomfort/ | | | | | | | | shortness of breath | | | | | | + + +-------+---------+------+------+-------+ Active Problems + + + | Problem | Noted Date | + + + | Essential hypertension | 07/30/2018 | + + + | Former smoker | 07/30/2018 | + + + | Stage 3 chronic kidney disease (HCC) | 07/30/2018 | + + + | Chest pain | 07/30/2018 | + + + | Hyperlipidemia | | + + + Family History + + +------+ + | Medical History | Relation | Name | Comments | + + +------+ + | Coronary Artery | Sister | | | | Disease | | | | + + +------+ [...] +--------+------+ | Former Smoker | | | 27 | | + +-------+ +--------+------+ + +---+---+---+ | Smokeless Tobacco: | | | | | Never Used | | | | + +---+---+---+ + + +---------+ + | Alcohol Use | Drinks/We | oz/Week | Comments | | | ek | | | + + +---------+ + | No | | | | + + +---------+ + + + + | Sex Assigned at | Date Recorded | | | | + + + | Not on file | | + + + Last Filed Vital Signs + + + + | Vital Sign | Reading | Time Taken | + + + + | Blood Pressure | 167/81 | 07/31/2018 11:06 AM PST | + + + + | Pulse | 78 | 07/31/2018 11:06 AM PST | + + + + | Temperature | 36.5 C (97.7 F) | 07/31/2018 11:06 AM PST | + + + + | Respiratory Rate | 20 | 07/31/2018 11:06 AM PST | + + + + | Oxygen Saturation | 96% | 07/31/2018 11:06 AM PST | + + + + | Inhaled Oxygen | - | - | | Concentration | | | + + + + | Weight | 54.4 kg (120 lb) | 07/30/2018 5:09 PM PST | + + + + | Height | 160 cm (5' 3") | 07/30/2018 5:09 PM PST | + + + + | Body Mass Index | 21.26 | 07/30/2018 5:09 PM PST | + + + + Plan of Treatment Not on file Results Not on filefrom Last 3 Months Insurance + +--------+ +------+-------+ + | Payer | Benefi | Subscriber | Type | Phone | Address | | | t Plan | ID | | | | | | / | | | | | | | Group | | | | | + +--------+ +------+-------+ + | MEDICARE | MEDICA | [id number] | | | [address] | | | RE | | | | [place], [place] [address] | | | PART A | | | | | | | ONLY | | | | | + +--------+ +------+-------+ + | COMMERCIAL OTHER | COMMER | [id number] | | | | | | CIAL | | | | | | | GENERI | | | | | | | C PLAN | | | | | + +--------+ +------+-------+ + + +--------+ +--------+ + + | Guarantor Name | Accoun | Relation to | Date | Phone | Billing Address | | | t Type | Patient | of | | | | | | | | | | + +--------+ +--------+ + + | JAMIE TORRES | Person | Self [birth year] Home: | [address] | | | al/Fam | | 1951 | [phone] | [place] [address] | | | cherri | | | [phone] | | + +--------+ +--------+ + +
--- OUTSIDE RECORDS SUMMARY | ~2019-05-25 | XMS | Clinical Summary ---
Demographics + + + | Address | [address] | | | [place] [address] | + + + | Home Phone | | + + + | Preferred Language | Unknown | + + + | Marital Status | | + + + | Roman Catholic Affiliation | Unknown | + + + | Race | Unknown | + + + | Ethnic Group | Unknown | + + + Author + + + | Author | [facility] (Historical as of | | | 02-21-19) | + + + | Organization | [facility] (Historical as of | | | 02-21-19) [...] Team Providers + +------+ + | Care Adult School Counselor Name | Role | Phone | + [...] +------+-------+ + | MEDICARE | MEDICA | [id number] | | | [address] | | | RE | | | | [place], [place] [address] | | | PART A | | | | | | | ONLY | | | | | + +--------+ +------+-------+ + | COMMERCIAL OTHER | COMMER | [id number] | | | | | | CIAL [...] Self | [birth year] | Home: | [address] | | | al/Fam | | 1951 | [phone] | [place] [address] | | | cherri | | | [phone] | | + +--------+ +--------+ + +
--- OUTSIDE RECORDS SUMMARY | ~2019-05-25 | XMS | Clinical Summary ---
Demographics + + + | Address | [address] | | | [place] [address] | + + + | Preferred Language | Unknown | + + + | Marital Status | Unknown | + + + | Faith Affiliation | Unknown | + + + | Race | Unknown | + + + | Ethnic Group | Unknown | + + + Author + + + | Author | [facility] | | | and [place] | + + + | Organization | [facility] | | | [...] Team Providers + +------+ + | Care On Site Soil Evaluator Name | Role | Phone | + [...]
--- OUTSIDE RECORDS SUMMARY | ~2019-05-25 | XMS | Encounter Summary ---
Demographics + + + | Address | [address] | | | [place] [address] | + + + | Preferred Language | Unknown | + + + | Marital Status | Unknown | + + + | Worship Affiliation | Unknown | + + + | Race | Unknown | + + + | Ethnic Group | Unknown | + + + Author + + + | Author | [facility] | | | and [place] | + + + | Organization | [facility] | | [...] Team Providers + +------+ + | Care Joiner Apprentice Name | Role | Phone | + +------+ + PCP | Unavailable | + +------+ + Encounter Details +--------+ + + + + | Date | Type | Department | Care Team | Description | +--------+ + + + + | 07/30/ | Hospital | [facility] | Latesha Avalos | Chest pain, | | 2019 - | Encounter | [facility] | [address] | unspecified type; | | | | CLINICAL DECISION | [address] | Renal insufficiency; | | 07/31/ | | [address] | [place] [address] | Hyperlipidemia, | | 2019 | | [place], [place] | [phone] | unspecified | | | | [address] | | hyperlipidemia type | | | | [phone] | | | +--------+ + + + [...] (none) Author Type: Registered Nurse Filed: 07/31/18 4869 Date of Service: 07/31/18 135 Status: Signed Seat Maker: Mono Llanos RN (Registered Nurse) Pt discharge teaching reviewed and copy provided to pt- no concerns. VSS at discharge. Whee lchair assisted with friend at discharge to private vehicle. onver artemio Transaction, Provider Unknown - 07/31/2018 12:12 PM PST Case Management by IRIS Saldana at 07/31/18 1212 Author: IRIS Saldana Service: (none) Author Type: Silverer Filed: 07/31/18 1213 Date of Service: 07/31/181211 Status: Signed Seat Maker: IRIS Saldana (Silverer) CM met with pt for discharge planning. [...] Herron Relationship to Patient spouse Phone number [phone] Mental Status Oriented Anticipated Discharge Plan Post [...] Filed: 08/26/18 1427 Date of Service: 07/31/18 7842 Status: Signed Seat Maker: Shlomo Chand MD (Physician) Related Notes: Original Note by Shlomo Chand MD (Physician) filed at 07/31/18 1140 [facility] Service: Hospitalist Discharge Summary Date of Admission: [...] hours. No results for input(s): PHART, PO2ART, PIT9WSD, [id number], BEART in the last 168 hours. Recent [...] 07/31/18547 Date of Service: 07/31/18547 Status: Signed Seat Maker: Teodora Reno RN (Registered Nurse) End of [...] 07/30/181843 Date of Service: 07/30/181843 Status: Signed Seat Maker: Mono Llanos RN (Registered Nurse) End of shift audit complete. 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 After reviewing the home medication list : I agree with the home medication list. Please Review and Order Home Medications as necessary. Thanks Sunni Tobin RPH 07/30/2018 5:49 PM Rx Medication History Senior Ruby Developer Note Patients Preferred Pharmacy has been updated in EPIC: yes [facility] - [place], [place] - [address] [place] [address] Patients Allergies have been updated and marked as reviewed: yes Flagyl [metronidazole] The following changes were made to the allergy list (if any): N/A Medication History provided by: Patient, Patient Medication List and ecoInsight Software Info Follow-up Issues: None - Pending [...] 07/30/181746 Date of Service: 07/30/181746 Status: Signed Seat Maker: Sunni Tobin RPH (Pharmacist) Clinical Pharmacy Note: Renal Monitoring Height: 160 cm Weight: 54.4 kg Serum creatinine: 1.3 mg/dL (H) 07/30/18 1416 Estimated creatinine clearance: 35.7 mL/min (A) Pharmacy dosing for renal function per Dr. Avalos Will order the following dose adjustments: Pepcid 20 mg daily, for CrCl <50 mL/min Pharmacy will continue to monitor and renally adjust medications as clinically indicated. Sunni Tobin, PharmD 07/30/2018 5:44 PM onver artemio Transaction, Provider Unknown - 07/30/2018 5:22 PM PST Nurse Progress Note by Mono Llanos RN at 07/30/181721 Author: Mono Llanos RN Service: (none) Author Type: Registered Nurse Filed: 07/30/188 Date of Service: 07/30/181721 Status: Signed Seat Maker: Mono Llanos RN (Registered Nurse) Pt arrived [...] | Procedure Note | + + | [place] kellogg Conversion - 02/17/2019 10:32 PM PDT REST/STRESS [...] + + + + + + | RED CELL | 3.89 | 3.70 - 5.10 | EXTERNAL | | | COUNT | | M/uL | LAB | | + + + + + + | Hgb | 12.8 | 11.3 - 15.5 | [...] | | | Basophils | performed at [facility], [address] | [address] | LAB | | | | [address], | | | | | | [place] [address] | | | | + + + [...] EXTERNAL | | | | performed at [facility], [address] | | LAB | | | | [address], | | | | | | [place] [address] | | | | + + + [...] | | A1c | is certified by [employer] | | LAB | | | | [...] | | | | | performed at [facility], [address] | | | | | | [address], | | | | | | [place] [address] | | | | + + + [...] | | | | | performed at [facility], [address] | | | | | | [address], | | | | | | [place] [address] | | | | + + + [...] | | | | | | ACUTE CA Testing | | | | | | performed at [facility];[address] | | | | | | [facility];[place], [place] | | | | | | [address] | | | | + + + [...] | | | | | | ACUTE CA Testing | | | | | | performed at [facility];[address] | | | | | | [facility];[place], [place] | | | | | | [address] | | | | + + + [...] + + + + + -+ | RED CELL | 4.18 | 3.70 - 5.10 | EXTERNAL | | | COUNT | | M/uL | LAB | | + + + + + -+ | Hgb | 13.8 | 11.3 - 15.5 | [...] | | | | | | ACUTE CA Testing | | | | | | performed at [facility];[address] | | | | | | [facility];[place], [place] | | | | | | [address] | | | | + + + [...]
--- OUTSIDE RECORDS SUMMARY | ~2019-05-25 | XMS | Encounter Summary ---
Demographics + + + | Address | [address] | | | [place] [address] | + + + | Preferred Language | Unknown | + + + | Marital Status | Unknown | + + + | Mu-Ism Affiliation | Unknown | + + + | Race | Unknown | + + + | Ethnic Group | Unknown | + + + Author + + + | Author | [facility] | | | and [place] | + + + | Organization | [facility] | | | and [...] Team Providers + +------+ + | Care Saddle And Side Wire Stitcher Name | Role | Phone | + [...] | | | | [place] | [phone] | | | | | [address] | | | | | | [phone] | | | +--------+ + + + [...]
--- OUTSIDE RECORDS SUMMARY | ~2019-05-25 | XMS | Encounter Summary ---
Demographics + + + | Address | [address] | | | [place] [address] | + + + | Preferred Language | Unknown | + + + | Marital Status | Unknown | + + + | Sabianism Affiliation | Unknown | + + + | Race | Unknown | + + + | Ethnic Group | Unknown | + + + Author + + + | Author | [facility] | | | and [place] | + + + | Organization | [facility] | | | [...] Team Providers + +------+ + | Care Electric Solderer Name | Role | Phone | + +------+ + PCP | Unavailable | + +------+ + Encounter Details +--------+ + + + + | Date | Type | Department | Care Team | Description | +--------+ + + + + | 07/30/ | Hospital | [facility] | Latesha Avalos | Chest pain, | | 2019 - | Encounter | [facility] | [address] | unspecified type; | | | | CLINICAL DECISION | [address] | Renal insufficiency; | | 07/31/ | | [address] | [place] [address] | Hyperlipidemia, | | 2019 | | [place], [place] | [phone] | unspecified | | | | [address] | | hyperlipidemia type | | | | [phone] | | | +--------+ + + + [...] (none) Author Type: Registered Nurse Filed: 07/31/18 6640 Date of Service: 07/31/18 135 Status: Signed Personal Fitness Manager: Mono Llanos RN (Registered Nurse) Pt discharge teaching reviewed and copy provided to pt- no concerns. VSS at discharge. Whee lchair assisted with friend at discharge to private vehicle. onver artemio Transaction, Provider Unknown - 07/31/2018 12:12 PM PST Case Management by IRIS Saldana at 07/31/18 1212 Author: IRIS Saldana Service: (none) Author Type: Customer Field Representative Filed: 07/31/18 1213 Date of Service: 07/31/181211 Status: Signed Personal Fitness Manager: IRIS Saldana (Customer Field Representative) CM met with pt for discharge planning. [...] Herron Relationship to Patient spouse Phone number [phone] Mental Status Oriented Anticipated Discharge Plan Post [...] Filed: 08/26/18 1427 Date of Service: 07/31/18 6736 Status: Signed Personal Fitness Manager: Shlomo Chand MD (Physician) Related Notes: Original Note by Shlomo Chand MD (Physician) filed at 07/31/18 1140 [facility] Service: Hospitalist Discharge Summary Date of [...] hours. No results for input(s): PHART, PO2ART, FDL2RBM, U5GPSOVL, BEART in the last 168 hours. Recent [...] 07/31/18547 Date of Service: 07/31/18547 Status: Signed Personal Fitness Manager: Teodora Reno RN (Registered Nurse) End of shift audit: completed Restraints - N/A Blood - N/A Protocols - Reviewed and implemented. Parameter Medications - Parameters reviewed for all PRN/protocol medications. Signed &Held Orders - All orders reviewed. Teodora Reno RN onver artemio Transaction, Provider Unknown - 07/30/2018 6:44 PM PST Nurse Progress Note by Mono Llanos RN at 07/30/181843 Author: Mnoo Llanos RN Service: (none) Author Type: Registered Nurse Filed: 07/30/181843 Date of Service: 07/30/181843 Status: Signed Personal Fitness Manager: Mono Llanos RN (Registered Nurse) End of shift audit complete. onver artemio Transaction, Provider Unknown - 07/30/2018 5:49 PM PST Pharmacy Note by Sunni Tobin [facility] at 07/30/18 5617 Author: Sunni Tobin RPH Service: Pharmacy Author Type: Pharmacist Filed: 07/30/181748 Date of Service: 07/30/181748 Status: Signed Personal Fitness Manager: Sunni Tobin RPH (Pharmacist) Rx Admission Medication History Note I have reviewed the medication history for appropriate doses obtained by: Pharmacy Medicat ion History Principal Statistical Programmer. After reviewing the home medication list : I agree with the home medication list. Please Review and Order Home Medications as necessary. Thanks Sunni Tobin RPH 07/30/2018 5:49 PM Rx Medication History Principal Statistical Programmer Note Patients Preferred Pharmacy has been updated in EPIC: yes [facility] - [place], [place] - [address] [place] [address] Patients Allergies have been updated and marked as reviewed: yes Flagyl [metronidazole] The following changes were made to the allergy list (if any): N/A Medication History provided by: Patient, Patient Medication List and SYLLETA Software Info Follow-up Issues: None - Pending [...] 07/30/181746 Date of Service: 07/30/181746 Status: Signed Personal Fitness Manager: Sunni Tobin RPH (Pharmacist) Clinical Pharmacy Note: [...] 07/30/188 Date of Service: 07/30/181721 Status: Signed Personal Fitness Manager: Mono Llanos RN (Registered Nurse) Pt arrived [...] | | | Basophils | performed at [facility], [address] | [address] | LAB | | | | [address], | | | | | | [place] [address] | | | | + + + [...] EXTERNAL | | | | performed at [facility], [address] | | LAB | | | | [address], | | | | | | [place] [address] | | | | + + + [...] | | | | | performed at [facility], [address] | | | | | | [address], | | | | | | [place] [address] | | | | + + + [...] | | | | | performed at [facility], [address] | | | | | | [address], | | | | | | [place] [address] | | | | + + + [...] | | | | | | ACUTE PA Testing | | | | | | performed at [facility];[address] | | | | | | [facility] [place], [place] | | | | | | [address] | | | | + + + [...] | | | | | | ACUTE PA Testing | | | | | | performed at [facility];[address] | | | | | | [facility] [place], [place] | | | | | | [address] | | | | + + + [...] | | | | | | ACUTE PA Testing | | | | | | performed at [facility];[address] | | | | | | [facility] [place], [place] | | | | | | [address] | | | | + + + [...]
--- OUTSIDE RECORDS SUMMARY | ~2019-05-25 | XMS | Encounter Summary ---
Demographics + + + | Address | [address] | | | [place] [address] | + + + | Preferred Language | Unknown | + + + | Marital Status | Unknown | + + + | Mormonism Affiliation | Unknown | + + + | Race | Unknown | + + + | Ethnic Group | Unknown | + + + Author + + + | Author | [facility] | | | and [place] | + + + | Organization | [facility] | | [...] Team Providers + +------+ + | Care Global Manager Name | Role | Phone | + +------+ + PCP | Unavailable | + +------+ + Encounter Details +--------+ + + + + | Date | Type | Department | Care Team | Description | +--------+ + + + + | 02/10/ | Orders Only | [facility] | [address], | | | 2017 | | [address] | [address] | | | | | [address] | [place] | | | | | [facility] [place] | [address] | | | | | [address] | | | | | | [phone] | | | +--------+ + + + [...] 0.67 m/s MV | | | Dec Cross: 5.43 m/s2 MV DecT: 209.35 ms MV E Sp: 1.13 m/s | | | MV E/A Ratio: 1.68 MV PHT: 60.71 ms MVA By PHT: 3.62 cm2 | | | Septal e': 0.04 m/s Septal E/e': 22.96 Lateral e': 0.07 m/s | | | Lateral E/e': 14.96 RAP: 5 mmHg RVSP: 33.68 mmHg TR | | | maxP.68 mmHg TR Vmax: 2.67 m/s Manager Acquisition: MONAE | | | Authenticated by: SONDRA [...] | 3.62 cmLVPWd: 0.69 cmLVOT Area: 3.14 [id number] Diam: 2.00 cm%FS: 44.73 %EF(Teich): | | [...] mlLAESV Index (A-L): 21.65 ml/m2LAAs A2C: 13.45 [id number] | | A-L A2C: 38.26 mlLALs A2C: 4.01 cmLAAs A4C: 12.10 [id number] A-L A4C: 30.96 | | mlLALs A4C: 4.01 cmRAAs: 10.59 [id number] A-L: 24.75 mlRAESV MOD: 23.56 mlRALs: | | 3.84 cmTAPSE: 2.51 cmAV maxP.17 mmHgAV meanP.98 mmHgAV Vmax: 1.42 m/Giovana | | Vmean: 0.91 m/Giovana VTI: 28.98 cmAVA Vmax: 2.99 cm2AVA (VTI): 2.97 [id number] maxPG: | | 7.37 mmHgLVOT meanP.49 mmHgLVSI Dopp: 54.22 ml/m2LVSV Dopp: 86.21 mlLVOT | | Vmax: 1.35 m/sLVOT Vmean: 0.87 m/sLVOT VTI: 27.37 cmMV A Sp: 0.67 m/sMV Dec | | Cross: 5.43 m/s2MV DecT: 209.35 msMV E Sp: 1.13 m/sMV E/A Ratio: 1.68MV PHT: | | 60.71 msMVA By PHT: 3.62 nw4Rkicgr e': 0.04 m/sSeptal E/e': 22.96Lateral e': | | 0.07 m/sLateral E/e': 14.96RAP: 5 mmHgRVSP: 33.68 mmHgTR maxP.68 mmHgTR | | Vmax: 2.67 m/s Manager Acquisition: DBSAuthenticated by: Laurence ANGUIANO Date/Time: | | [...] A Sp: 0.67 m/s | |MV Dec Cross: 5.43 m/s2 | |MV DecT: 209.35 ms [...] |TR Vmax: 2.67 m/s | | | |Manager Acquisition: DBS | |Authenticated by: SONDRA KEYS MD [...]
--- OUTSIDE RECORDS SUMMARY | ~2019-05-25 | XMS | Encounter Summary ---
Demographics + + + | Address | [address] | | | [place] [address] | + + + | Preferred Language | Unknown | + + + | Marital Status | Unknown | + + + | Denominational Affiliation | Unknown | + + + | Race | Unknown | + + + | Ethnic Group | Unknown | + + + Author + + + | Author | [facility] | | | and [place] | + + + | Organization | [facility] | | | and [...] Team Providers + +------+ + | Care Pump Assembler Name | Role | Phone | [...] | | | | [place] | [phone] | | | | | [address] | | | | | | [phone] | | | +--------+ + + + [...]
--- OUTSIDE RECORDS SUMMARY | ~2019-05-25 | XMS | Encounter Summary ---
Demographics + + + | Address | [address] | | | [place] [address] | + + + | Preferred Language | Unknown | + + + | Marital Status | Unknown | + + + | Evangelical Affiliation | Unknown | + + + | Race | Unknown | + + + | Ethnic Group | Unknown | + + + Author + + + | Author | [facility] | | | and [place] | + + + | Organization | [facility] | | | [...] Team Providers + +------+ + | Care Manager Clinical Pharmacy Name | Role | Phone | + +------+ + PCP | Unavailable | + +------+ + Encounter Details +--------+ + + + + | Date | Type | Department | Care Team | Description | +--------+ + + + + | 02/10/ | Orders Only | [facility] | [facility], | | | 2017 | | CONVERSION 888 | MD [address] | | | | | DENEEN JAEGER | [place] | | | | | [facility] [place] | [address] | | | | | [id number] | | | | | | [phone] | | | +--------+ + + + [...] 0.67 m/s MV | | | Dec Rogers: 5.43 m/s2 MV DecT: 209.35 ms MV E Sp: 1.13 m/s | | | MV E/A Ratio: 1.68 MV PHT: 60.71 ms MVA By PHT: 3.62 cm2 | | | Septal e': 0.04 m/s Septal E/e': 22.96 Lateral e': 0.07 m/s | | | Lateral E/e': 14.96 RAP: 5 mmHg RVSP: 33.68 mmHg TR | | | maxP.68 mmHg TR Vmax: 2.67 m/s Energy Attorney: MONAE | | | Authenticated by: SONDRA KEYS MD Report Date/Time: 02-10-2018 | | | 17:51:16 | | + + + + ------+ | Procedure Note | + ------+ | Earl, Rad Conversion - 02/26/2019 5:41 PM PDT Patient Name: LUCY DELA CRUZ, | | Martha of : 1950 Performing Physician: SONDAR KEYS, | | | | INDICATIONS C [...] | 3.62 cmLVPWd: 0.69 cmLVOT Area: 3.14 [id number] Diam: 2.00 cm%FS: 44.73 %EF(Teich): | | [...] mlLAESV Index (A-L): 21.65 ml/m2LAAs A2C: 13.45 [id number] | | A-L A2C: 38.26 mlLALs A2C: 4.01 cmLAAs A4C: 12.10 vs7RAFEA A-L A4C: 30.96 | | mlLALs A4C: 4.01 cmRAAs: 10.59 ms3VYSMU A-L: 24.75 mlRAESV MOD: 23.56 mlRALs: | | 3.84 cmTAPSE: 2.51 cmAV maxP.17 mmHgAV meanP.98 mmHgAV Vmax: 1.42 m/Giovana | | Vmean: 0.91 m/Giovana VTI: 28.98 cmAVA Vmax: 2.99 cm2AVA (VTI): 2.97 hr8YFQY maxPG: | | 7.37 mmHgLVOT meanP.49 mmHgLVSI Dopp: 54.22 ml/m2LVSV Dopp: 86.21 mlLVOT | | Vmax: 1.35 m/sLVOT Vmean: 0.87 m/sLVOT VTI: 27.37 cmMV A Sp: 0.67 m/sMV Dec | | Rogers: 5.43 m/s2MV DecT: 209.35 msMV E Sp: 1.13 m/sMV E/A Ratio: 1.68MV PHT: | | 60.71 msMVA By PHT: 3.62 [id number] e': 0.04 m/sSeptal E/e': 22.96Lateral e': | | 0.07 m/sLateral E/e': 14.96RAP: 5 mmHgRVSP: 33.68 mmHgTR maxP.68 mmHgTR | | Vmax: 2.67 m/s Energy Attorney: DBSAuthenticated by: Laurence ANGUIANO Date/Time: | | [...] A Sp: 0.67 m/s | |MV Dec Rogers: 5.43 m/s2 | |MV DecT: 209.35 ms [...] |TR Vmax: 2.67 m/s | | | |Energy Attorney: DBS | |Authenticated by: SONDRA KEYS MD [...]
--- OUTSIDE RECORDS SUMMARY | ~2019-05-25 | XMS | Clinical Summary ---
Demographics + + + | Address | [address] | | | [place] [address] | + + + | Preferred Language | Unknown | + + + | Marital Status | Unknown | + + + | Voodoo Affiliation | Unknown | + + + | Race | Unknown | + + + | Ethnic Group | Unknown | + + + Author + + + | Author | [facility] | | | and [...] Team Providers + +------+ + | Care Cost Specialist Name | Role | Phone | [...]
[~2019-05-25 10:59] MED LIST changes: +ALLOPURINOL100 MG PO
--- OUTSIDE RECORDS SUMMARY | 2019-05-25 11:04 | XMS ---
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 Care History Medical/Surgical 01/19/2019 [facility] - PATIENT HAS AN APT WITH DR ARCINIEGA ON 02/01/19 FOR ED FOLLOW UP. 03/03/2018 [facility] - Patient is currently established with [facility]. If patient is seen in the ED during business hours. Please contact CHWs at [facility]. Care Recommendation: This patient has had 5 [...] care. E.D. VISIT COUNT (12 MO.) 1 [facility] 10 RADHA Baptiste TOTAL 11 NOTE: Visits indicate total known visits. 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 01/18/2019 07:07 [facility] [place] TYPE: Emergency COMPLAINT: - CHEST PAIN/NAUSEA/BLOODY DIARRHEA DIAGNOSES: - Melena - Chest pain, unspecified - Other fpc (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 - Allergy status to oth drug/meds/biol subst status - Hypokalemia - Migraine, unsp, not intractable, without status migrainosus - Hypertensive [...] to other antibiotic agents status - Migraine, unsp, not intractable, without status migrainosus - 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 10/03/2018 16:22 [facility] [place] TYPE: Emergency COMPLAINT: - N/V/D DIAGNOSES: - Nausea with vomiting, unspecified - Noninfective gastroenteritis and colitis, unspecified - Hypertensive heart disease with heart failure - Migraine, unsp, not intractable, without status migrainosus - Heart failure, unspecified - 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 - Allergy status to oth drug/meds/biol subst status - Abnormal levels of other serum enzymes - Personal history of nicotine dependence 09/06/2018 11:37 [facility] [place] TYPE: Emergency COMPLAINT: - FALL/ L HIP PAIN DIAGNOSES: - Fall same lev from slip/trip w/o strike against object, init - Other fpc (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 - Personal history of nicotine dependence - Heart failure, unspecified - Allergy status to oth drug/meds/biol subst status - Contusion of left hip, initial encounter - Other chest pain - Hypertensive heart disease with heart failure 07/30/2018 13:52 [facility] TYPE: Emergency DIAGNOSES: - Disorder of kidney and ureter, unspecified - Hyperlipidemia, unspecified - Chest pain, unspecified 07/30/2018 10:07 [facility] [place] TYPE: Emergency COMPLAINT: - CHEST PAIN DIAGNOSES: - Hypertensive heart disease with heart failure - Other fpc (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 - Chest pain, unspecified - Allergy status to oth drug/meds/biol subst status - Nicotine dependence, unspecified, uncomplicated - Migraine, unsp, not intractable, without status migrainosus - Unstable angina - Heart failure, unspecified 07/09/2018 23:23 [facility] [place] TYPE: Emergency COMPLAINT: - CHEST PAIN DIAGNOSES: - Headache - Other chest pain - Chest pain, unspecified - Nicotine dependence, unspecified, uncomplicated - Migraine, unsp, not intractable, without status migrainosus - Hypertensive heart disease with heart failure - Heart failure, unspecified - Other fpc (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 - Allergy status to oth drug/meds/biol subst status 06/20/2018 21:48 [facility] [place] TYPE: Emergency COMPLAINT: - ABDOMEN PAIN DIAGNOSES: - Heart failure, unspecified - 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
[2019-05-25] MEDS ORDERED: TESSALON PERLE100 MG PO (14:35)
[2019-05-25] MEDS ORDERED: CODITUSSIN AC473 ML PO (14:35)
--- NOTE | 2019-05-25 19:28 | EKG ---
[facility] [address] [place], [place] [address] Signed Normal sinus rhythm with sinus arrhythmia Normal ECG Confirmed by STEVEN LAMBERT DO ([id number]) on 05/25/2019 7:28:37 PM Electronically Signed By: STEVEN LAMBERT DO 05/25/19 1928 PATIENT NAME: LUCY [facility]A [facility] OLSEN Electrocardiogram DATE OF : 54 PHYSICIAN: STEVEN LAMBERT DO REPORT #: [id number] REPORT IS CONFIDENTIAL AND NOT TO BE RELEASED WITHOUT AUTHORIZATION
== END 2019-05-25 15:03 | disposition home or self-care (01) ==
LOC: ED 10:59
DX: B34.9 Viral infection, unspecified (principal); I11.0 Hypertensive heart disease with heart failure; I50.9 Heart failure, unspecified; Z88.8 Allergy status to other drugs, medicaments and biological substances; Z79.899 Other long term (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
CPT/HCPCS: 71046; 80053; 83735; 84484; 85025; 85379; 87502; 93005; 93010; 94640; 96374; 96375; 99285-25; J1885; J2060

== ENCOUNTER 2019-08-12 01:24 | Emergency (ER) | payer MEDICARE ==
[~2019-08-12] VITALS: Ht 160 cm; Wt 54.4 kg
[~2019-08-12 01:24] MED LIST changes: +CODITUSSIN AC473 ML PO; +TESSALON PERLE100 MG PO
--- OUTSIDE RECORDS SUMMARY | 2019-08-12 01:26 | XMS ---
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 Care History Medical/Surgical 01/19/2019 [facility] - PATIENT HAS AN APT WITH DR ARCINIEGA ON 02/01/19 FOR ED FOLLOW UP. 03/03/2018 [facility] - Patient is currently established with [facility]. If patient is seen in the ED during business hours. Please contact CHWs at [facility]. Care Recommendation: If this patient has had 5 or more Emergency Department visits in the last 12 months.\T\nbsp; Patient will require education on the scope and purpose of the ED as an acute care provider not a Primary Care Provider and should not be utilized for chronic conditions.\T\nbsp; These are guidelines and the provider should exercise clinical judgment when providing care. E.D. VISIT COUNT (12 MO.) [address] [facility] [address] [facility] TOTAL 7 NOTE: Visits indicate total known visits. ED/UCC VISIT TRACKING (12 MO.) 08/12/2019 01:25 [facility] [place] TYPE: Emergency COMPLAINT: - CHEST PAIN 05/25/2019 11:02 [facility] [place] TYPE: Emergency COMPLAINT: - CHEST PAIN DIAGNOSES: - Other superintendent terminal (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 - Chest pain, unspecified - Viral infection, unspecified - Allergy status to oth drug/meds/biol subst status - Heart failure, unspecified - Hypertensive heart disease with heart failure 04/12/2019 02:43 [facility] [place] TYPE: Emergency COMPLAINT: - KNEE,ANKLE PAIN DIAGNOSES: - Hypertensive heart disease with heart failure - Migraine, unsp, not intractable, without status migrainosus - Personal history of nicotine dependence - Gout, unspecified - Allergy status to oth drug/meds/biol subst status - Heart failure, unspecified - Other care home (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 01/18/2019 07:07 [facility] [place] TYPE: Emergency COMPLAINT: - CHEST PAIN/NAUSEA/BLOODY DIARRHEA DIAGNOSES: - Melena - Chest pain, unspecified - Other care home (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 - Allergy status to [...] not intractable, without status migrainosus - Other care home (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 10/03/2018 16:22 [facility] [place] TYPE: Emergency COMPLAINT: - N/V/D DIAGNOSES: - Nausea with vomiting, unspecified - Noninfective gastroenteritis and colitis, unspecified - Hypertensive heart disease with heart failure - Migraine, unsp, not intractable, without status migrainosus - Heart failure, unspecified - Other care home (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 - Allergy status to oth drug/meds/biol subst status - Abnormal levels of other serum enzymes - Personal history of nicotine dependence 09/06/2018 11:37 [facility] [place] TYPE: Emergency COMPLAINT: - FALL/ L HIP PAIN DIAGNOSES: - Fall same lev from slip/trip w/o strike against object, init - Other care home (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 - Personal history of nicotine dependence - Heart failure, unspecified - Allergy status to oth drug/meds/biol subst status - Contusion of left hip, initial encounter - Other chest pain - Hypertensive heart disease with heart failure INPATIENT VISIT TRACKING (12 MO.) No inpatient visits to display in this time frame [id number]
[2019-08-12] MEDS ORDERED: ZOFRAN4 MG PO (03:57)
--- NOTE | 2019-08-12 11:50 | EKG ---
[facility] [address] [place] [address] Signed Sinus rhythm with sinus arrhythmia with occasional premature ventricular complexes Otherwise normal ECG When compared with ECG of 25-MAY-2019 11:07, premature ventricular complexes are now present Confirmed by STEVEN LAMBERT DO ([id number]) on 08/12/2019 11:50:31 AM Electronically Signed By: STEVEN LAMBERT DO 08/12/19 1150 PATIENT NAME: IDALMISJAMIE KENT Electrocardiogram DATE OF : 54 PHYSICIAN: STEVEN LAMBERT DO REPORT #: [id number] REPORT IS CONFIDENTIAL AND NOT TO BE RELEASED WITHOUT AUTHORIZATION
== END 2019-08-12 04:12 | disposition home or self-care (01) ==
LOC: ED 01:24
DX: R07.89 Other chest pain (principal); I11.0 Hypertensive heart disease with heart failure; I50.9 Heart failure, unspecified; G43.909 Migraine, unspecified, not intractable, without status migrainosus; Z87.891 Personal history of nicotine dependence; Z88.8 Allergy status to other drugs, medicaments and biological substances; Z79.899 Other long term (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
CPT/HCPCS: 71045; 71260; 80053; 83735; 84484; 85025; 85379; 93005; 93010; 99285-25; J1885; J2405; Q9967

== ENCOUNTER 2019-09-18 13:56 | Emergency (ER) | payer MEDICARE ==
[~2019-09-18] VITALS: Ht 162.6 cm; Wt 49.9 kg
[~2019-09-18 13:56] MED LIST changes: +ZOFRAN4 MG PO
--- OUTSIDE RECORDS SUMMARY | 2019-09-18 13:58 | XMS ---
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 Care History Medical/Surgical 08/12/2019 [facility] Patient used ED appropriately for pain outside of clinic hours.\T\nbsp; No follow up scheduled yet. 03/03/2018 [facility] - Patient is currently established with [facility]. If patient is seen in the ED during business hours. Please contact CHWs at [facility]. Care Recommendation: If this patient has had [...] care. E.D. VISIT COUNT (12 MO.) 7 [facility] TOTAL 7 NOTE: Visits indicate total known visits. ED/UCC VISIT TRACKING (12 MO.) 09/18/2019 13:56 [facility] [place] TYPE: Emergency COMPLAINT: - VOMITING, WEIGHT LOSS, SOB 08/12/2019 01:25 [facility] Beckman Mckenna[facility]ata [facility] [place] TYPE: Emergency COMPLAINT: - CHEST PAIN DIAGNOSES: - Heart failure, unspecified - Hypertensive heart disease with heart failure - Migraine, unsp, not intractable, without status migrainosus - Chest pain, unspecified - Personal history of nicotine dependence - Other chest pain - Allergy status to oth drug/meds/biol subst status - Other usp (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 05/25/2019 11:02 [facility] [place] TYPE: Emergency COMPLAINT: - CHEST PAIN DIAGNOSES: - Other usp (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 - Chest pain, unspecified [...] status - Heart failure, unspecified - 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 01/18/2019 07:07 [facility] [place] TYPE: Emergency COMPLAINT: - CHEST PAIN/NAUSEA/BLOODY DIARRHEA DIAGNOSES: - Melena - Chest pain, unspecified - 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 - Allergy status to [...] not intractable, without status migrainosus - 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 10/03/2018 16:22 [facility] [place] TYPE: Emergency COMPLAINT: - N/V/D DIAGNOSES: - Nausea with vomiting, unspecified - Noninfective gastroenteritis and colitis, unspecified - Hypertensive heart disease with heart failure - Migraine, unsp, not intractable, without status migrainosus - Heart failure, unspecified - 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
[2019-09-18] MEDS ORDERED: PROMETHAZINE HC25 M1 PO (16:06)
--- NOTE | 2019-09-19 10:58 | EKG ---
[facility] [address] [place] [address] Signed Normal sinus rhythm Normal ECG When compared with ECG of 12-AUG-2019 01:32, premature ventricular complexes are no longer present Confirmed by MARLEY ARCINIEGA MD ([id number]) on 09/19/2019 10:58:10 AM Electronically Signed By: MARLEY ARCINIEGA MD 09/19/19 1058 PATIENT NAME: JAMIE TORRES Electrocardiogram DATE OF : 54 PHYSICIAN: MARLEY ARCINIEGA MD REPORT #: [id number] REPORT IS CONFIDENTIAL AND NOT TO BE RELEASED WITHOUT AUTHORIZATION
== END 2019-09-18 16:47 | disposition home or self-care (01) ==
LOC: ED 13:56
DX: R10.84 Generalized abdominal pain (principal); R07.89 Other chest pain; R19.7 Diarrhea, unspecified; R11.2 Nausea with vomiting, unspecified; E86.0 Dehydration; I11.0 Hypertensive heart disease with heart failure; I50.9 Heart failure, unspecified; G43.909 Migraine, unspecified, not intractable, without status migrainosus; Z87.891 Personal history of nicotine dependence; Z88.8 Allergy status to other drugs, medicaments and biological substances; Z79.899 Other long term (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
CPT/HCPCS: 71045; 74176; 80053; 81001; 83690; 83880; 84484; 85025; 87502; 93005; 93010; 96361; 96374; 96375; 99284-25; J2270; J2765; J7030; J7040

== ENCOUNTER 2019-09-25 09:45 | Inpatient (IN) | payer MEDICARE ==
[~2019-09-25] VITALS: Ht 162.6 cm; Wt 53.1 kg
[~2019-09-25 09:45] MED LIST changes: +PROMETHAZINE HC25 M1 PO
--- OUTSIDE RECORDS SUMMARY | 2019-09-25 09:48 | XMS ---
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 - Has Care Guidelines - PDMP - [facility] - 2 Visits in 30 Days CARE PROVIDERS MARLEY ARCINIEGA Internal Medicine 03/03/2018-Current PHONE: [phone] Chandrika has no Care Guidelines for this patient. Care History Medical/Surgical 08/12/2019 [facility] Patient used ED appropriately for pain outside of clinic hours.\T\nbsp; No follow up scheduled yet. 03/03/2018 [facility] - Patient is currently established with [facility]. If patient is seen in the ED during business hours. Please contact CHWs at [facility]. Care Recommendation: If this patient has had [...] providing care. E.D. VISIT COUNT (12 MO.) 8 [facility] [place] TOTAL 8 NOTE: Visits indicate total known visits. 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 - Dehydration - Diarrhea, unspecified - Allergy status to other drugs, medicaments and biological sub - Generalized abdominal pain - Diarrhea, unspecified - Nausea with vomiting, unspecified - Other chest pain - Personal history of nicotine dependence 08/12/2019 01:25 [facility] [place] TYPE: Emergency COMPLAINT: - CHEST PAIN DIAGNOSES: - Heart failure, unspecified - Hypertensive heart disease with heart failure - Migraine, unspecified, not intractable, without status migrai - Chest pain, unspecified - Personal history of nicotine dependence - Other chest pain - Allergy status to other drugs, medicaments and biological sub - 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 05/25/2019 11:02 [facility] [place] TYPE: Emergency COMPLAINT: - CHEST PAIN DIAGNOSES: - 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 - Chest pain, unspecified - Viral infection, unspecified - Allergy status to other drugs, medicaments and biological sub - Heart failure, unspecified - Hypertensive heart disease with heart failure 04/12/2019 02:43 [facility] [place] TYPE: Emergency COMPLAINT: - KNEE,ANKLE PAIN DIAGNOSES: - Hypertensive heart disease with heart failure - Migraine, unspecified, not intractable, without status migrai - Personal history of nicotine dependence - Gout, unspecified - Allergy status to other drugs, medicaments and biological sub - Heart failure, unspecified - Other group home (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 01/18/2019 07:07 [facility] [place] TYPE: Emergency COMPLAINT: - CHEST PAIN/NAUSEA/BLOODY DIARRHEA DIAGNOSES: - Melena - Chest pain, unspecified - Other group home (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 - Allergy status to other drugs, medicaments and biological sub - Hypokalemia - Migraine, unspecified, not intractable, without status migrai - Hypertensive heart disease with heart failure [...] - Migraine, unspecified, not intractable, without status migrai - 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 [place] TYPE: Emergency COMPLAINT: - N/V/D DIAGNOSES: - Nausea with vomiting, unspecified - Noninfective gastroenteritis and colitis, unspecified - Hypertensive heart disease with heart failure - Migraine, unspecified, not intractable, without status migrai - Heart failure, unspecified - Other group home (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 - Allergy status to other drugs, medicaments and biological sub - Abnormal levels of other serum enzymes - Personal history of nicotine dependence INPATIENT VISIT TRACKING (12 MO.) No inpatient visits to display in this time frame [email or web address]
--- NOTE | 2019-09-25 15:16 | NUR ---
IV SITE IS INTACT, NO REDNESS OR SWELLING NOTED AT SITE, FLUSHES EASILY. PT ABLE TO TRANSFER FROM RMORAN TO BEDSIDE COMMODE THEN TO THE BED WITH MINIMAL STANDBY ASSIST. PT IS ALERT AND ORIENTED X4. PT REPORTS NAUSEA AND 8.5/10 ABD PAIN. VITALS WNL EXCEPT FOR ELEVATED HR 110'S.
--- NOTE | 2019-09-25 18:56 | NUR ---
pt up ambulated to the bedside commode had BM, pt then ambulated to the bathroom and voided. stool sample sent to lab. pt able to ambulate back to bed independently. pt given two warm packs for back and abd pain.
--- NOTE | 2019-09-25 19:00 | NUR ---
PT REPORT RECIEVED FROM CCU RN, CARE OF PATIENT ASSUMED AT THIS TIME.
--- NOTE | 2019-09-25 20:00 | NUR ---
IN ROOM FOR ASSESSMENT. PT COMPLAINS OF NAUSEA AND ABD PAIN. UPON ASSESSMENT, ABD NOTED TO BE TENDER BUT NONDISTENDED. HYPOACTIVE BOWEL TONES IN ALL FOUR QUADRANTS. UPON AUSCULTATION, LUNG SOUND DIMINISHED THROUGHOUT. HEART RATE IN THE 110-120S AT REST. DISCUSSED PLAN OF CARE FOR NIGHT WITHIN PATIENT. CALL LIGHT WITHIN REACH.
--- NOTE | 2019-09-25 20:39 | EKG ---
[facility] [address] [place] [address] Signed Sinus tachycardia T wave abnormality, consider inferior ischemia Abnormal ECG When compared with ECG of 18-SEP-2019 14:06, Vent. rate has increased BY 54 BPM Non-specific change in ST segment in Inferior leads Confirmed by STEVEN LAMBERT DO ([id number]) on 09/25/2019 8:39:33 PM Electronically Signed By: STEVEN LAMBERT DO 09/25/19 2039 PATIENT NAME: LUCY DELA CRUZJAMIE Electrocardiogram DATE OF : 54 PHYSICIAN: STEVEN LAMBERT DO REPORT #: [id number] REPORT IS CONFIDENTIAL AND NOT TO BE RELEASED WITHOUT AUTHORIZATION
--- NOTE | 2019-09-25 21:30 | NUR ---
PT AMBULATED TO BATHROOM, HEART RATE HIGH 130 BEATS PER MINUTE WITH ACTIVITY. PT GIVEN PRN MEDICATION FOR ABD PAIN AND NAUSEA. SECOND IV SITE STARTED AT THIS TIME. WELL TOLERATED BY PATIENT. CALL LIGHT WITHIN REACH. NO FURTHER NEEDS AT THIS TIME.
--- NOTE | 2019-09-25 22:36 | NUR ---
RECEIVED REPORT FROM CARMEN ISLAS. pt RESTING WITH EYES CLOSED, RESPIRATIONS REGULAR. IV ABX INFUSING. CALL LIGHT WITHIN REACH.
--- NOTE | 2019-09-25 22:59 | NUR ---
pt WOKE IN PAIN, RATED 7/10. PROVIDED WARM BLANKET PER REQUEST, DENIED OTHER NEEDS AT THIS TIME. CALL LIGHT WITHIN REACH.
--- NOTE | 2019-09-26 00:19 | NUR ---
ASSESSMENT DONE. NO REQUESTS AT THIS TIME. CALL LIGHT WITHIN REACH.
--- NOTE | 2019-09-26 01:10 | NUR ---
pt UP TO VOID, LARGE QUANTITY CLEAR YELLOW URINE. GOWN AND LINENS CHANGED. BACK TO BED WITH WARM BLANKET. NO FURTHER REQUESTS AT THIS TIME. CALL LIGHT WITHIN REACH.
--- NOTE | 2019-09-26 02:16 | NUR ---
pt RESTING WITH EYES CLOSED, RESPIRATIONS REGULAR AND UNLABORED. CALL LIGHT WITHIN REACH.
--- NOTE | 2019-09-26 03:17 | NUR ---
pt MOANING. IN TO ASSESS. pt REPORTED 7/10 PAIN. PRN MEDICATIONS GIVEN (SEE MAR). pt UP TO VOID AND BACK TO BED. NO FURTHER REQUESTS AT THIS TIME. CALL LIGHT WITHIN REACH.
--- NOTE | 2019-09-26 04:11 | NUR ---
ROUNDED ON pt. REPORTED THAT NAUSEA WAS MUCH IMPROVED. UP TO VOID AND BACK TO BED. REPORTED THAT PASSING GAS HELPED ALLEVIATE PAIN. ASSESSMENT DONE. NO FURTHER REQUESTS AT THIS TIME. CALL LIGHT WITHIN REACH.
--- NOTE | 2019-09-26 05:20 | NUR ---
ROUNDED ON pt. RESTING WITH EYES CLOSED, RESPIRATIONS REGULAR AND UNLABORED. CALL LIGHT WITHIN REACH.
--- NOTE | 2019-09-26 06:10 | NUR ---
pt RESTING IN BED, COMPLAINED OF ABD PAIN, PRN MED GIVEN (SEE MAR). LAB DRAW COMPLETE. IV ABX INFUSING. CALL LIGHT WITHIN REACH.
--- NOTE | 2019-09-26 09:00 | NUR ---
ATTEMPTED PT EVALUATION THIS MORNING. NSG STATED THAT THE PATIENT HAS BEEN MOVING AROUND HER ROOM WITHOUT ANY ASSISTANCE BUT AT THIS TIME SHE IS SLEEPING AND NSG REQUESTED FOR PT TO COME BACK A LITTLE LATER FOR EVALUATION SO PATIENT CAN CONTINUE TO SLEEP AT THIS TIME. WILL COME BACK LATER THIS MORNING TO PERFORM EVALUATION.
--- NOTE | 2019-09-26 10:30 | NUR ---
THIS RN TO ROOM TO ASSIST PHYSICAL THERAPIST WITH HELPING PT TO AMBULATE. 1PA AND GAIT BELT WITH AMBULATION. NO EKG CHANGES NOTED ON MONITOR DURING AMBULATION. PT AMBULATES TO END OF CCU VARELA AND BACK. PT UP TO CHAIR. HEAT PACKS PROVIDED FOR PAIN IN LEFT HIP. LINENES CHANGED. PT EATING BREAKFAST. WARM BLANKET PROVIDED. NO ADDITIONAL REQUESTS OR COMPLAINTS. CALL LIGHT WITHIN REACH.
--- NOTE | 2019-09-26 10:35 | NUR ---
FULL REPORT CALLED TO IVELISSE MORALES. ALL QUESTIONS ANSWERED.
--- NOTE | 2019-09-26 10:45 | NUR ---
PT TRANSPORTED TO ROOM 112 VIA CHAIR, ALL PERSONAL BELONGINGS WENT WITH PT. PT HAS NO ORDER FOR CONTINUED TELEMITRY MONITORING. CHART AND ALL KIT MEDS WENT TO MED/SURG.
--- NOTE | 2019-09-26 11:05 | NUR ---
PT TO [facility] VIA CHAIR, REPORT RECEIVED. SITTING UP IN THE CHAIR AT THIS TIME WITH MORNING MEAL WARM PACK TO HER BACK. NEEDED ITEMS IN REACH
--- NOTE | 2019-09-26 13:20 | NUR ---
PT CONINUES UP IN THE CHAIR WATCHING TV. NEEDED ITEMS IN REACH DENIES REQUESTS
--- NOTE | 2019-09-26 13:50 | NUR ---
SBA TO BAD. PERSONAL ITEMS NAD CALL LIGHT IN REACH.
[2019-09-26] MEDS ORDERED: ATORVASTATIN CA20 MG PO (15:22)
[2019-09-26] MEDS ORDERED: LOSARTAN POTAS100 MG PO (15:22)
[2019-09-26] MEDS ORDERED: METOPROLOL TART50 MG PO (15:23)
--- NOTE | 2019-09-26 18:14 | NUR ---
PT HAS SAT IN THE CHAIR FOR A TIME THEN RESTS IN BED READING THEN TO THE CHAIR AGAIN. AGREES SHE IS COMFORTABLE DENIES NEEDS AT THIS TIME. EVENING MEAL WELL TOLERATED
--- NOTE | 2019-09-26 19:00 | NUR ---
SHIFT REPORT RECIEVED FROM GERMAN MORALES. PT RESTING IN BED, WATCHING TV. WARM PACKS AND ICE WATER PROVIDED. NO OTHER NEEDS. CALL LIGHT IN REACH.
--- NOTE | 2019-09-26 21:10 | NUR ---
pts VS and I&Os complete. fresh water given, pt taken to restroom, and warm blankets provided.
--- NOTE | 2019-09-26 21:52 | NUR ---
ASSESSMENT COMPLETED. SCHEDULED MED PROVIDED. PT COMPLAINS OF ABD PAIN AND LOOSE STOOLS, PRN BENTYL PROVIDED. ABD SOFT, TENDER. LUNGS CLEAR. NO EDEMA NOTED. NO OTHER NEEDS. CALL LIGHT IN REACH.
--- NOTE | 2019-09-27 00:05 | NUR ---
PT RESTING IN BED, EYES CLOSED. RR EVEN, UNLABORED. IV INFUSING PER ORDER. CALL LIGHT IN REACH.
--- NOTE | 2019-09-27 02:09 | NUR ---
PT RESTING IN BED, EYES CLOSED. RR EVEN, UNLABORED. IV INFUSING PER ORDER. CALL LIGHT IN REACH.
--- NOTE | 2019-09-27 04:25 | NUR ---
PT AWAKE IN ROOM. UP TO BR AND BACK TO BED. HEAT PACKS, WARM BLANKETS AND ICE WATER PROVIDED. ASSESSMENT COMPLETED. LUNGS CLEAR. NO OTHER NEEDS. CALL LIGHT IN REACH.
--- NOTE | 2019-09-27 05:39 | NUR ---
VS AND I&O COMPLETED. BACK PAIN 02/14, PRN PAIN MED PROVIDED. WARM BLANKET PROVIDED. NO OTHER NEEDS. CALL LIGHT IN REACH.
--- NOTE | 2019-09-27 07:29 | NUR ---
Pt sleeping at this time, respirations even and non labored. Pt has no distress noted. Peronal supplies and call light within reach. No needs at this time.
--- NOTE | 2019-09-27 10:13 | NUR ---
PATIENT IN BED WATCHING TV. FRESH WATER GIVEN. CALL LIGHT IN REACH. NO FURTHER NEEDS AT THIS TIME.
--- NOTE | 2019-09-27 14:53 | NUR ---
PATIENT IN BED READING A BOOK. CALL LIGHT IN REACH. NO FURTHER NEEDS AT THIS TIME.
--- NOTE | 2019-09-27 15:39 | NUR ---
PT SITTING UP IN BED WATCHING TV, RESPIRATIONS ARE EVEN AND NON LABORED. PT DENIES NEEDS. PERSONAL SUPPLIES AND CALL LIGHT WITHIN REACH.
--- NOTE | 2019-09-27 18:34 | NUR ---
PATIENT IN BED WATCHING TV. CALL LIGHT IN REACH. NO FURTHER NEEDS AT THIS TIME.
--- NOTE | 2019-09-27 20:00 | NUR ---
RECEIVED REPORT AT 1900, FOUND PT IN BED WATCHING TV. PT HAD NO NEEDS AT THAT TIME.
--- NOTE | 2019-09-27 22:00 | NUR ---
V/S ARE WDL, ALL LOBES ARE CLEAR, ABD SOUNDS ARE PRESENT, ABD IS SOFT TO TOUCH BUT TENDER. PT DENIES DISTENTION, NO PERIPHERAL EDEMA NOTED, PT DENIED PAIN. WILL CONTINUE TO MONITOR.
--- NOTE | 2019-09-28 00:41 | NUR ---
PT IS SLEEPING AT THIS TIME. NO NEW COCNERNS NOTED.
--- NOTE | 2019-09-28 01:44 | NUR ---
PT IS SLEEPING AT THIS TIME.
--- NOTE | 2019-09-28 03:51 | NUR ---
PT JUST CALLED OUT FOR WARM BLANKETS. PT HAD NO OTHER NEEDS.
--- NOTE | 2019-09-28 05:37 | NUR ---
PT OVERALL HAD AN UNEVENTFUL NIGHT. V/S ARE WDL, URINE OUTPUT IS ADEQUATE, PT HAS BEEN NPO SINCE 0000, STOOL IS MOSTLY CLEAR, PT THIS MORNING HAS HAD SOME ABD CRAMPING, ABD SOUNDS ARE PRESENT AND HYPERACTIVE AT TIMES, NO DISTENTION NOTED, PT IS READY FOR COLONOSCOPY. ALL LOBES ARE CLEAR, NO PERIPHERAL EDEMA NOTED. NO OTHER CONCERNS NOTED.
--- NOTE | 2019-09-28 07:36 | NUR ---
Pt off unit with surgery dept for a study.
--- NOTE | 2019-09-28 08:35 | NUR ---
09/28/19 0835 Lucille De Dios 0824 PT ARRIVED TO PACU ON RA AND AWAKE AND TALKING TO RN. PT DEIES PAIN AND NAUSEA. VSS. 0832 PT LAYING BACK AND REPORTS "I AM GOING TO GO BACK TO SLEEP." 0835 PT RESTING IN BED AND RESP EVEN AND UNLABORED.
--- NOTE | 2019-09-28 08:41 | CONS ---
[facility] [address], [place] [address] Signed DATE OF CONSULTATION: 09/27/2019 CONSULTING PHYSICIAN: Michael Lindquist MD REQUESTING PHYSICIAN: Teodora Francis MD PROBLEM: Abdominal pain and persistent diarrhea. HISTORY: This is a 68-year-old white woman, who was admitted to the hospital by Dr. Melgar on September 25, 2019 two days ago. Her main complaint upon presentation was that of generalized abdominal pain and diarrhea. The patient has had colonic resection possibly twice at one time with an ileostomy undergoing takedown. This was in [place], [place] a number of years ago. Her presentation to the emergency room was for abdominal pain, which has been going on for at least 4 weeks. Pain was similar to diverticular episodes in the past and radiating into the back on the right side. Notably, she has undergone cholecystectomy in the past as well. A CT scan was performed, which did not show a specific abnormality of concern, although she does have a 1.5 cm pancreatic cyst in the uncinate process. She is noted to have a small hiatal hernia and she does admit to reflux symptoms as well. Since her admission, she has been treated with Mylicon, Bentyl, promethazine, Zofran, Tylenol, and prednisone; orally administered 20 mg daily. Her care was assumed by Dr. Francis today and Zosyn antibiotic that has been administered was discontinued. She has been on topical clindamycin for an eruption prescribed by vice president media relations. She was considered possibly to have C. difficile, but there has been no such testing thus far, though other stool studies were obtained, which showed no white cells in the stool and moderate growth of normal enteric melchor. As she has persistent vague abdominal pain and thin diarrhea, consideration has been made for colonoscopy. PAST MEDICAL HISTORY: Does include partial colectomy at least once and possibly twice with takedown of ileostomy in the past I presume for a diverting ileostomy. She is not known to have inflammatory bowel disease, only diverticular disease. She is considered to have allergy to Flagyl antibiotic. She is known to have gastroesophageal reflux with small Electronically Signed By: MICHAEL LINDQUIST MD 09/28/19 0841 PATIENT NAME: JAMIE TORRES CONSULTATION DATE OF : 54 REPORT #: [id number] PHYSICIAN: MICHAEL LINDQUIST MD PCP: MARLEY ARCINIEGA MD REPORT IS CONFIDENTIAL AND NOT TO BE RELEASED WITHOUT AUTHORIZATION [place] [address] Signed hiatal hernia, hypertension, and heart failure with preserved ejection fraction. She denies smoking or tobacco use. SOCIAL HISTORY: She lives with her autistic son. Notably, her autistic son was admitted yesterday for a caustic ingestion (intentional). This is an unusual finding, but at this point, both she and her son are hospitalized. MEDICATIONS: Currently include: 1. Allopurinol. 2. Venlafaxine. 3. Losartan. 4. Atorvastatin. 5. Loperamide. 6. Simethicone. 7. Promethazine. 8. Metoprolol. 9. Potassium. 10. Lasix. Her influenza A and B are negative. C. difficile titer is pending. PHYSICAL EXAMINATION: GENERAL: This is a pleasant white woman, who is wearing a mask at this time. Trachea is midline. CHEST: Clear. HEART: Regular without murmur. ABDOMEN: Nondistended and generally soft. There is no focal tenderness. There is a long midline incision, which is well healed and the left lower quadrant transverse incision well healed and the right lower quadrant transverse incision also healed. EXTREMITIES: Show no clubbing, cyanosis, or edema. CURRENT LABORATORY STUDIES: Show a white count of 7.3, hematocrit of 32.5, platelets 120,000. Admission platelets 218,000. Chem profile today is essentially normal. Creatinine 1.05, admission 1.14. Admission lactic acid was 1.6. Magnesium today is 1.9, previously 1.8. No liver enzymes have been obtained during this hospitalization. I reviewed her CT scan. She does have a clip in the gallbladder fossa consistent with cholecystectomy. I do not see distended small or large bowel. No sign of obstructive process. Electronically Signed By: MICHAEL LINDQUIST MD 09/28/19 0841 PATIENT NAME: JAMIE TORRES CONSULTATION DATE OF : 54 REPORT #: [id number] PHYSICIAN: MICHAEL LINDQUIST MD PCP: MARLEY ARCINIEGA MD REPORT IS CONFIDENTIAL AND NOT TO BE RELEASED WITHOUT AUTHORIZATION [facility] [address] [place] [id number] Signed ASSESSMENT: Her diarrhea is of uncertain etiology and the possibility of a Clostridium difficile related colitis is a good consideration. Request has been made for colonoscopy to better characterize the problem. She has had no blood per rectum and therefore an ischemic colitis would be a bit less likely. She has already had colectomy at least once possibly twice, both times distensibility for diverticulitis. This may represent only an irritable bowel syndrome as has previously been considered. However, colitis (late old adult onset type) is a consideration as well. To my knowledge, she has not been excessively taking nonsteroidal medication. The risk of bleeding, infection, and perforation related to colonoscopy was reviewed with her. She was already started on a bowel prep under the direction of Dr. Francis and I believe she could proceed with colonoscopy tomorrow morning. We are mindful that we are currently in the midst of a global epidemic of malone virus and precautions regarding possible transmission of that pathogen are undertaken. Currently, she is wearing a mask. I have answered her questions regarding this plan of colonoscopy. She wished to proceed. We will plan to do it tomorrow. MD JAIDEN Gordon/JOSÉL /[id number] cc: MD Teodora Gross MD Brian Piteo, MD Copies: MARLEY ARCINIEGA MD, CYNTHIA MD PULIDO, BERNARD MD ~ Electronically Signed By: MICHAEL LINDQUIST MD 09/28/19 0841 PATIENT NAME: JAMIE TORRES CONSULTATION DATE OF : 54 REPORT #: [id number] PHYSICIAN: MICHAEL LINDQUIST MD PCP: MARLEY ARCINIEGA MD REPORT IS CONFIDENTIAL AND NOT TO BE RELEASED WITHOUT AUTHORIZATION
--- NOTE | 2019-09-28 09:00 | NUR ---
Pt back from surgery dept. Pt arrived to unit awake, a&ox4, on ra, resp even and non labored. Vital signs are stable at this time. Pt reports intermittent abdominal cramping. Instructions given to pt to call staff if she needs to get out of bed. Pt reports she would like to rest for now. cpox intact, 02 sat level of 93% on RA. Pt denies sob and need to void. Personal supplies and call light within reach.
--- NOTE | 2019-09-28 09:42 | NUR ---
PATIENT IN BED RESTING. PATIENT COMPLAINED OF CRAMPING, RN NOTIFIED. FRESH WATER GIVEN. LINENS CHANGED. CALL LIGHT IN REACH. NO FURTHER NEEDS AT THIS TIME.
--- NOTE | 2019-09-28 09:48 | NUR ---
Bentyl 20mg po admin per pt request for abd pain/cramping.
--- NOTE | 2019-09-28 09:56 | NUR ---
Pt awake, sitting up eating a snack. Pt's Vital signs are stable. No need to void at this time. Personal supplies and call light within reach.
--- NOTE | 2019-09-28 10:25 | NUR ---
PT ASKED IF SHE COULD TALK WITH SOMEONE ABOUT HER SON WHO IS ALSO A PT IN THE HOSPITAL. I ASKED PT SON FOR PERMISSION AND HE SAID HE DID NOT WANT HER TALKING TO ANYONE ABOUT HIM.
--- NOTE | 2019-09-28 11:27 | NUR ---
Pt up in chair watching TV. Pt denies pain. Vital signs stable. Pt waiting for lunch to arrive. Pt denies needs. Personal supplies and call light within reach.
[2019-09-28] MEDS ORDERED: VANCOCIN HCL125 MG PO (12:11)
--- NOTE | 2019-09-28 12:15 | NUR ---
PT SITTING IN CHAIR, WATCHING TV. PT IS PLEASANT, AND SHARED THAT SHE IS FEELING MUCH BETTER. PLANS TO DC HOME WITH HER SON. THANKED ME FOR VISIT, GAVE BLESSING
--- NOTE | 2019-09-28 13:26 | NUR ---
TALKED WITH PT ABOUT HER SONS WISHES AND SHE STATED "THAT'S WHAT I THOUGHT HE WOULD SAY"
--- NOTE | 2019-09-28 13:34 | NUR ---
PATIENT WAS ADMITTED AT HIGH RISK FOR MALNUTRITION DUE TO RECENT WEIGHT LOSS. SHE STATES SHE HAS HAD DIARRHEA FOR ABOUT 4 WEEKS AND HAS NOT BEEN ABLE TO EAT MUCH. SHE WAS DRINKING ENSURE WHEN SHE HAD HER TEETH PULLED WAITING FOR HER DENTURES A MONTH OR TWO AGO, SO SHE DID TOLERATE IT OK. I RECOMMENDED SHE LOOK FOR A "PLUS" FORMULA THAT WOULD BE A HIGHER CALORIE DRINK. ALSO PRINTED OFF A HANDOUT ON DIARRHEA NUTRITION THERAPY PER PATIENT REQUEST. I ENCOURAGED HER TO CONSUME PROTEIN FOODS THROUGHOUT THE DAY. SHE WAS INFORMED ON EATING PROBIOTIC FOODS FROM [employer]. MY NAME AND NUMBER PROVIDED ON THE HANDOUT IN CASE FURTHER QUESTIONS ARISE.
--- NOTE | 2019-09-28 17:14 | OR ---
[facility] [address], [place] [address] Signed DATE OF OPERATION: 09/28/2019 SURGEON: Michael Lindquist MD PREOPERATIVE DIAGNOSES: Four weeks of persistent diarrhea, episodic fever, history of colonic resection for diverticulitis. POSTOPERATIVE DIAGNOSES: 1. Generally normal-appearing colon. No evidence of pseudomembranes. 2. Scattered diverticula including right colon. 3. Relatively normal-appearing ilium. PROCEDURE: Total colonoscopy to cecum with intubation of portion of ileum and biopsies. ANESTHESIA: Intravenous sedation, propofol infusion; Michael Burgos CRNA. INDICATION: This 68-year-old woman has had about a month of increasing diarrhea and generalized abdominal pain. She has undergone sigmoid resection for diverticular disease in the past and said to have had additional resection. At one point, she did have a diverting ileostomy, which had been taken down. This all occurred in [place], [place]. She is established to have had diverticulitis in the past leading to colon resection. The patient has had about a 16-pound weight loss over the past several weeks. The CT scan was performed showing no specific abnormality. She has had cholecystectomy. She has been admitted by Dr. Melgar and subsequently care taken by Dr. Francis. She has persistent diarrhea with negative stool studies (C. difficile pending however). Colonoscopy has been recommended. The risks of bleeding, infection, and perforation related to colonoscopy was reviewed with her, she understands and wished to proceed. She did undergo a formal bowel prep yesterday. FINDINGS: The prep was quite good. Complete colonoscopy was undertaken to the cecum. There was some challenge of negotiating the area of possible anastomosis in the left colon, but it was ultimately accomplished. The ileum could not be fully intubated, but was visualized and biopsies taken of distal ileal mucosa. Biopsies were also taken of the cecum, transverse colon, and rectum. There was no evidence of obvious colitis, though possibility of microscopic colitis remains. The etiology of her diarrhea remains Electronically Signed By: MICHAEL LINDQUIST MD 09/28/19 1714 PATIENT NAME: JAMIE TORRES OPERATIVE REPORT DATE OF : 54 REPORT #: [id number] PHYSICIAN: MICHAEL LINDQUIST MD PCP: MARLEY ARCINIEGA MD REPORT IS CONFIDENTIAL AND NOT TO BE RELEASED WITHOUT AUTHORIZATION [facility] [address], [place] [address] Signed uncertain. DESCRIPTION OF PROCEDURE: The patient was brought to the endoscopy suite and placed in lateral decubitus position, given intravenous sedation with propofol infusional technique by the bag machine set up operator. A digital rectal examination was normal. There was no rectal neoplasm. An Olympus video colonoscope was passed in the rectum and manipulated throughout the colon. Passage to portion was slightly challenging due to angulation deformity, probably related to anastomosis from the past. The scope was ultimately advanced to the cecum, which was quite clearly identified by characteristic markings. The terminal ileum was ultimately intubated partially, though it could not fully be intubated. Mucosa appeared reasonably normal with brief evaluation. Biopsies were obtained. The distal biopsies were taken of the cecum. The scope was withdrawn and careful inspection throughout showed no clear evidence of abnormality other than a few scattered diverticula of the right colon. Biopsies were taken of the transverse colon and the patient had a fair amount of coughing by that point expediting the exit of the scope. The scope was reintroduced. Biopsies then taken of the rectum. There was not florid inflammation and there was mild edema. There were certainly no pseudomembranes. The scope was withdrawn and removed. The patient was taken to the recovery room in good condition. CONCLUSION DIAGNOSIS: No clear evidence of etiology for diarrhea problem. Consideration will be made for microscopic colitis. No typical evidence of C. difficile colitis. MD JAIDEN Gordon/MODL /[id number] cc: MD Roman Sepulveda MD Copies: SOCORRO FRANCIS MD Electronically Signed By: MICHAEL LINDQUIST MD 09/28/19 1714 PATIENT NAME: JAMIE TORRES OPERATIVE REPORT DATE OF : 54 REPORT #: [id number] PHYSICIAN: MICHAEL LINDQUIST MD PCP: MARLEY ARCINIEGA MD REPORT IS CONFIDENTIAL AND NOT TO BE RELEASED WITHOUT AUTHORIZATION [facility] [address] [place] [id number] Signed PITEO,ROMAN DO ~ Electronically Signed By: MICHAEL LINDQUIST MD 09/28/19 1714 PATIENT NAME: IDALMISJAMIE KENT OPERATIVE REPORT DATE OF : 54 REPORT #: [id number] PHYSICIAN: MICHAEL LINDQUIST MD PCP: MARLEY ARCINIEGA MD REPORT IS CONFIDENTIAL AND NOT TO BE RELEASED WITHOUT AUTHORIZATION
--- NOTE | 2019-09-29 16:01 | PATH ---
[facility] [address] [facility] [place], [place] [address] Signed SPECIMEN(S): A CECUM SPECIMEN(S): B TERMINAL ILEUM SPECIMEN(S): C ASCENDING SPECIMEN(S): D TRANSVERSE SPECIMEN(S): E RECTUM SPECIMEN SOURCE: A. CECUM B. TERMINAL ILEUM C. ASCENDING D. TRANSVERSE E. RECTUM CLINICAL HISTORY: Vague abdominal pain, diarrhea. MICROSCOPIC DESCRIPTION: Histologic sections of all submitted blocks are examined by light microscopy. These findings, together with the gross examination, support the pathologic diagnosis. FINAL PATHOLOGIC DIAGNOSIS: A. Cecum, biopsy: - Benign colonic mucosa. - Negative for acute inflammation, granulomas, and microscopic colitides. B. Terminal ileum, biopsy: - Benign small intestinal mucosa. - Negative for acute inflammation and granulomas. C. Ascending colon, biopsy: - Benign colonic mucosa. - Negative for acute inflammation, granulomas, and microscopic colitides. D. Transverse colon, biopsy: - Benign colonic mucosa. - Negative for acute inflammation, granulomas, and microscopic colitides. E. Rectum, biopsy: - Benign colonic mucosa. - Negative for acute inflammation, granulomas, and microscopic colitides. DDF:glc:C2NR GROSS DESCRIPTION: Five specimens are received in five containers, labeled "LB." A. The specimen, labeled "LB," and designated on the requisition "cecum PATIENT NAME: JAMIE TORRES PATHOLOGY DATE OF : 54 REPORT #: [id number] PHYSICIAN: ZHANG PRIETO PCP: MARLEY ARCINIEGA MD REPORT IS CONFIDENTIAL AND NOT TO BE RELEASED WITHOUT AUTHORIZATION [facility] [address] [place], [place] [address] Signed biopsy," is received in formalin and consists of two pink-stern soft tissue fragments that measure 0.1 to 0.2 cm in greatest dimension. The specimen is entirely submitted in cassette (A1). B. The specimen, labeled "LB," and designated on the requisition "terminal ileum biopsy," is received in formalin and consists of one pink-stern soft tissue fragment that measures 0.1 cm in greatest dimension. The specimen is entirely submitted in cassette (B1). C. The specimen, labeled "LB," and designated on the requisition "ascending colon biopsy," is received in formalin and consists of two pink-stern soft tissue fragments that measure 0.1 to 0.2 cm in greatest dimension. The specimen is entirely submitted in cassette (C1). D. The specimen, labeled "LB," and designated on the requisition "transverse colon biopsy," is received in formalin and consists of one pink-stern soft tissue fragment that measures 0.1 cm in greatest dimension. The specimen is entirely submitted in cassette (D1). E. The specimen, labeled "LB," and designated on the requisition "rectum biopsy," is received in formalin and consists of one pink-stern soft tissue fragment that measures 0.3 cm in greatest dimension. The specimen is entirely submitted in cassette (E1). JS (under the direct supervision of a pathologist) The Gross Description was prepared using a voice recognition system. The report was reviewed for accuracy; however, sound-alike word errors, addition and/or deletions may occur. If there is any question about this report, please contact Client Services. PERFORMING LABORATORY: The technical component was performed by [facility], [address] [place] [id number] ([place]untman: Krystal Headley MD; CLIA# [id number]). Professional interpretation [facility] performed by [facility], [address] [place] [id number] (CLIA# [id number]). Diagnostician: Bam Ames DO Pathologist Electronically Signed 09/29/2019 Copies: ~ PATIENT NAME: JAMIE TORRES PATHOLOGY DATE OF : 54 REPORT #: [id number] PHYSICIAN: ZHANG PATHOLOGY PCP: MARLEY ARCINIEGA MD REPORT IS CONFIDENTIAL AND NOT TO BE RELEASED WITHOUT AUTHORIZATION
== END 2019-09-28 13:55 | disposition home or self-care (01) | DRG 872 ==
LOC: ED 09:45 → CCU 14:31 → MS 14:31
PROVIDERS: Surgery; ADMIT Student in an Organized Health Care Education/Training Program
PROC: 0DBL8ZX Excision of Transverse Colon, Via Natural or Artificial Opening Endoscopic, Diagnostic (ICD-10-PCS; 2019-09-28)
PROC: 0DBP8ZX Excision of Rectum, Via Natural or Artificial Opening Endoscopic, Diagnostic (ICD-10-PCS; 2019-09-28)
PROC: 0DBH8ZX Excision of Cecum, Via Natural or Artificial Opening Endoscopic, Diagnostic (ICD-10-PCS; principal; 2019-09-28 06:45)
DX: A41.4 Sepsis due to anaerobes (principal); A04.72 Enterocolitis due to Clostridium difficile, not specified as recurrent; N17.9 Acute kidney failure, unspecified; I50.32 Chronic diastolic (congestive) heart failure; K58.9 Irritable bowel syndrome, unspecified; I11.0 Hypertensive heart disease with heart failure; K21.9 Gastro-esophageal reflux disease without esophagitis; K57.30 Diverticulosis of large intestine without perforation or abscess without bleeding; M10.9 Gout, unspecified; F39 Unspecified mood [affective] disorder; M54.9 Dorsalgia, unspecified; G89.29 Other chronic pain; Z88.1 Allergy status to other antibiotic agents; Z79.899 Other long term (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
CPT/HCPCS: 36415; 71250; 71260; 74176; 74177; 80048; 80053; 81001; 83605; 83690; 83735; 83880; 84100; 85025; 87045; 87046; 87177; 87205; 87209; 87324; 87449; 87493; 87502; 93005; 93010; 96361; 97110; 97116; 97162; 97165; 99285-25; C9113; J1650; J2270; J2405; J2543; J2550; J2704; J7121; J7512

== ENCOUNTER → 2019-12-10 | Emergency (ER) | payer MEDICARE ==
[~2019-12-10] VITALS: Ht 162.6 cm; Wt 49.9 kg
[~2019-12-10] MED LIST changes: +ATORVASTATIN CA20 MG PO; +LOSARTAN POTAS100 MG PO; +METOPROLOL TART50 MG PO; +VANCOCIN HCL125 MG PO
--- OUTSIDE RECORDS SUMMARY | ~2019-12-10 | XMS | Clinical Summary ---
Demographics + + + | Address | [address] | | | [place] [address] | + + + | Preferred Language | Unknown | + + + | Marital Status | Unknown | + + + | Advent Affiliation | Unknown | + + + | Race | Unknown | + + + | Ethnic Group | Unknown | + + + Author + + + | Author | [facility] | | | and [place] | + + + | Organization | [facility] | | | and [place] | + + + | Address | Unknown | + + + | Phone | Unavailable | + + + Support + + +---------+ + | Name | Relationship | Address | Phone | + + +---------+ + | Daniela Herron | ECON | Unknown | | + + +---------+ + Care Team Providers + +------+ + | Care Hearing Aid Assembly Supervisor Name | Role | Phone | + +------+ + PCP | Unavailable | + +------+ + Allergies + + + + + + | Active Allergy | Reactions | Severity | Noted | Comments | | | | | Date | | + + + + + + | Metronidazole | Nausea And Vomiting | Low | 07/30/19 | | | | | | 19 | | + + + + + + Medications + + + +---------+------+------+-------+ | Medication | Sig | Dispensed | Refills | Star | End | Statu | | | | | | t | Date | s | | | | | | Date | | | + + + +---------+------+------+-------+ | metoprolol | Take 25 mg by mouth | | 0 | 01/2 | | Activ | | tartrate (LOPRESSOR) | 2 (two) times daily | | | 3/20 | | e | | 25 mg tablet | with meals. | | | 19 | | | + + + +---------+------+------+-------+ | losartan (COZAAR) | Take 50 mg by mouth | | 0 | 01/2 | | Activ | | 50 mg tablet | daily. | | | 3/20 | | e | | | | | | 19 | | | + + + +---------+------+------+-------+ | atorvaSTATin | Take 20 mg by mouth | | 0 | 01/2 | | Activ | | (LIPITOR) 20 mg | daily. | | | 3/20 | | e | | tablet | | | | 19 | | | + + + +---------+------+------+-------+ | aspirin 81 MG EC | Take 81 mg by mouth | | 0 | 01/2 | | Activ | | tablet | daily. | | | 3/20 | | e | | | | | | 19 | | | + + + +---------+------+------+-------+ | furosemide (LASIX) | Take 20 mg by mouth | | 0 | 01/2 | | Activ | | 20 mg tablet | daily. | | | 3/20 | | e | | | | | | 19 | | | + + + +---------+------+------+-------+ | potassium chloride | Take 20 mEq by mouth | | 0 | 01/2 | | Activ | | (KLOR-CON M20) 20 | daily. | | | 3/20 | | e | | mEq ER tablet | | | | 19 | | | + + + +---------+------+------+-------+ | allopurinol | Take 100 mg by mouth | | 0 | 01/2 | | Activ | | (ZYLOPRIM) 100 mg | daily. | | | 3/20 | | e | | tablet | | | | 19 | | | + + + +---------+------+------+-------+ | omeprazole | Take 20 mg by mouth | | 0 | 01/2 | | Activ | | (PRILOSEC) 20 mg | every morning before | | | 3/20 | | e | | capsule | breakfast. | | | 19 | | | + + + +---------+------+------+-------+ | venlafaxine | Take 225 mg by mouth | | 0 | 01/2 | | Activ | | (EFFEXOR XR) 75 mg | daily. | | | 3/20 | | e | | 24 hr tablet | | | | 19 | | | + + + +---------+------+------+-------+ | Simethicone | Take 125 mg by | | 0 | 01/2 | | Activ | | (BICARSIM FORTE) 125 | mouth. | | | 3/20 | | e | | MG TABS | | | | 19 | | | + + + +---------+------+------+-------+ | nitroglycerin | Place 0.4 mg under | | 0 | 07/09 | | Activ | | (NITROSTAT) 0.4 mg | the tongue daily. As | | | 09/24 | | e | | SL tablet | needed for chest | | | 19 | | | | | discomfort/ | | | | | | | | shortness of breath | | | | | | + + + +---------+------+------+-------+ Active Problems + + + | Problem | Noted Date | + + + | Essential hypertension | 07/30/2018 | + + + | Former smoker | 07/30/2018 | + + + | Stage 3 chronic kidney disease | 07/30/2018 | + + + | Chest pain | 07/30/2018 | + + + | Hyperlipidemia | | + + + Family History + + +------+ + | Medical History | Relation | Name | Comments | + + +------+ + | Coronary artery | Sister | | | | disease | | | | + + +------+ + + +------+--------+ + | Relation | Name | Status | Comments | + +------+--------+ + | Sister | | | | + +------+--------+ + | Sister | | | | + +------+--------+ + Social History + +-------+ +--------+------+ | Tobacco Use | Types | Packs/Day | Years | Date | | | | | Used | | + +-------+ +--------+------+ | Former Smoker | | | | | + +-------+ +--------+------+ + + + | Sex Assigned at | Date Recorded | | | | + + + | Not on file | | + + + + + + + | Job Start Date | Occupation | Industry | + + + + | Not on file | Not on file | Not on file | + + + + + + + + | Travel History | Travel Start | Travel End | + + + + + + | No recent travel history available. | + + Last Filed Vital Signs + + + + + | Vital Sign | Reading | Time Taken | Comments | + + + + + | Blood Pressure | 167/81 | 07/31/2018 1:51 PM | | | | | PST | | + + + + + | Pulse | 78 | 07/31/2018 1:51 PM | | | | | PST | | + + + + + | Temperature | 36.5 C (97.7 F) | 07/31/2018 1:51 PM | | | | | PST | | + + + + + | Respiratory Rate | 20 | 07/31/2018 1:51 PM | | | | | PST | | + + + + + | Oxygen Saturation | - | - | | + + + + + | Inhaled Oxygen | - | - | | | Concentration | | | | + + + + + | Weight | 54.4 kg (120 lb) | 07/31/2018 1:51 PM | | | | | PST | | + + + + + | Height | 160 cm (5' 3") | 07/31/2018 1:51 PM | | | | | PST | | + + + + + | Body Mass Index | 21.26 | 07/31/2018 1:51 PM | | | | | PST | | + + + + + Plan of Treatment + + + + + | Health Maintenance | Due Date | Last Done | Comments | + + + + + | Hepatitis C | | | | | Screening | 3 | | | + + + + + | Vaccine: | | | | | Dtap/Tdap/Td (1 - | 4 | | | | Tdap) | | | | + + + + + | Colorectal Cancer | | | | | Screening | 3 | | | | (Colonoscopy) | | | | + + + + + | Vaccine: Zoster (1 | | | | | of 2) | 3 | | | + + + + + | Breast Cancer | | | | | Screening | 8 | | | + + + + + | Vaccine: | | | | | Pneumococcal 65+ (1 | 8 | | | | of 2 - PCV13) | | | | + + + + + | Adult Annual | | | | | Wellness Visit | 0 | | | + + + + + | Vaccine: Influenza | | | | | (Season Ended) | 0 | | | + + + + + Results Not on filefrom Last 3 Months
--- OUTSIDE RECORDS SUMMARY | ~2019-12-10 | XMS | Encounter Summary ---
Demographics + + + | Address | [address] | | | [place] [address] | + + + | Preferred Language | Unknown | + + + | Marital Status | Unknown | + + + | Mu-Ism Affiliation | Unknown | + + + | Race | Unknown | + + + | Ethnic Group | Unknown | + + + Author + + + | Author | [facility] | | | and [place] | + + + | Organization | [facility] | | | and [...] Team Providers + +------+ + | Care Cinder Crew Worker Name | Role | Phone | + +------+ + PCP | Unavailable | + +------+ + Encounter Details +--------+ + + + + | Date | Type | Department | Care Team | Description | +--------+ + + + + | 07/30/ | Orders Only | [facility] | Conversion | | | 2019 | | CONVERSION DEP [address] | Transaction, | | | | | [address] | Provider Unknown | | | | | SHERRI CINTRON | [phone] | | | | | [phone] | | | | | | [phone] | | | +--------+ + + + [...] recent travel history available. | + + documented as of this encounter Plan of Treatment Not on filedocumented as of this encounter Visit Diagnoses Not on filedocumented in this encounter"
--- OUTSIDE RECORDS SUMMARY | ~2019-12-10 | XMS | Clinical Summary ---
Demographics + + + | Address | [address] | | | [place] [address] | + + + | Home Phone | | + + + | Preferred Language | Unknown | + + + | Marital Status | | + + + | Voodoo Affiliation | Unknown | + + + | Race | Unknown | + + + | Ethnic Group | Unknown | + + + Author + + + | Author | [facility] (Historical as of | | | 02-21-19) | + + + | Organization | [facility] (Historical as of | | | 02-21-19) [...] Team Providers + +------+ + | Care Nutrition Therapist Name | Role | Phone | + [...] +------+-------+ + | MEDICARE | MEDICA | [id number] | | | [address] | | | RE | | | | [place], [place] [address] | | | PART A | | | | | | | ONLY | | | | | + +--------+ +------+-------+ + | COMMERCIAL OTHER | COMMER | [id number] | | | | | | CIAL [...] Self | [birth year] Home: | [address] | | | al/Fam | | 1951 | [phone] | [place] [address] | | | cherri | | | [phone] | | + +--------+ +--------+ + +
--- OUTSIDE RECORDS SUMMARY | ~2019-12-10 | XMS | Encounter Summary ---
Demographics + + + | Address | [address] | | | [place] [address] | + + + | Preferred Language | Unknown | + + + | Marital Status | Unknown | + + + | Episcopalian Affiliation | Unknown | + + + | Race | Unknown | + + + | Ethnic Group | Unknown | + + + Author + + + | Author | [facility] | | | and [place] | + + + | Organization | [facility] | | [...] Team Providers + +------+ + | Care Photoengraving Proofer Name | Role | Phone | + [...] | | | | SHERRI CINTRON | [phone] | | | | | [phone] | | | | | | [phone] | | | +--------+ + + + [...]
--- OUTSIDE RECORDS SUMMARY | ~2019-12-10 | XMS | Encounter Summary ---
Demographics + + + | Address | [address] | | | [place] [address] | + + + | Preferred Language | Unknown | + + + | Marital Status | Unknown | + + + | Islam Affiliation | Unknown | + + + | Race | Unknown | + + + | Ethnic Group | Unknown | + + + Author + + + | Author | [facility] | | | and [place] | + + + | Organization | [facility] | | | [...] Team Providers + +------+ + | Care Dba Developer Name | Role | Phone | + +------+ + PCP | Unavailable | + +------+ + Encounter Details +--------+ + + + + | Date | Type | Department | Care Team | Description | +--------+ + + + + | 02/10/ | Orders Only | [facility] | [address], | | | 2017 | | CONVERSION [address] | [place] [address] | | | | | [address] | [place] | | | | | [facility] [place] | [address] | | | | | [address] | | | | | | [phone] | | | +--------+ + + + + Social History + +-------+ +--------+------+ | Tobacco Use | Types | Packs/Day | Years | Date | | | | | Used | | + +-------+ +--------+------+ | Never Assessed | | | | | + +-------+ [...] | + +--------+ + + + | ECHO INTERPRETATION | Routin | 02/10/2018 | | Results for this | | OF OUTSIDE FILMS | e | 1:00 PM | | procedure are in the | | | | PDT | | results section. | + +--------+ + + + documented in this encounter Results ECHO Interpretation of Outside Films (02/10/2018 1:00 PM PDT) + + | Specimen | + + | | + + + + + | Impressions | Performed At | + + + | 1. Overall left ventricular systolic function is normal with, an EF | | | between 65 - 70 %. 2. Cannot assess diastolic function due to | | | indeterminate data. 3. The right ventricle is normal in size and | | | function. 4. No significant valvular abnormalities. | | + + + + + + | Narrative | Performed At | + + + | Patient Name: JAMIE STEPHEN Date of : 1950 | | | Performing Physician: SONDRA KEYS MD | | | | | | INDICATIONS CHF CONCLUSIONS 1. Overall | | | left ventricular systolic function is normal with, an EF between 65 - | | | 70 %. 2. Cannot assess diastolic function due to indeterminate data. | | | 3. The right ventricle is normal in size and function. 4. No | | | significant valvular abnormalities. FINDINGS -------- ECG | | | rhythm: Sinus rhythm. Study: A 2-dimensional transthoracic | | | echocardiogram with m-mode, spectral and color flow Doppler was | | | perfomed. Study: This was a technically adequate study. Left | | | Ventricle: Overall left ventricular systolic function is normal with, | | | an EF between 65 - 70 %. Left Ventricle: The left ventricle cavity | | | size is normal. Left Ventricle: Left ventricular wall thickness is | | | normal. Left Ventricle: No regional wall motion abnormalities. Left | | | Ventricle: Cannot assess diastolic function adequately due to | | | indeterminate evaluation. Right Ventricle: The right ventricle is | | | normal in size and function. Left Atrium: The left atrium is normal | | | in size. Right Atrium: The right atrium is normal in size. Aortic | | | Valve: The aortic valve appears to be trileaflet. Aortic Valve: There | | | is mild aortic valve sclerosis without stenosis. Aortic Valve: There | | | is no evidence of aortic regurgitation. Mitral Valve: The mitral | | | valve is normal. Mitral Valve: There is trace mitral regurgitation. | | | Mitral Valve: No evidence of MVP. Tricuspid Valve: The tricuspid | | | valve appears structurally normal. Tricuspid Valve: Trace tricuspid | | | regurgitation present. Tricuspid Valve: There is no evidence of | | | pulmonary hypertension. Tricuspid Valve: The right ventricular | | | systolic pressure (pulmonary artery systolic pressure), as measured by | | | Doppler, is 33.69mmHg. Pulmonic Valve: Pulmonic valve appears | | | structurally normal. Pulmonic Valve: Trace pulmonic regurgitation. | | | Pericardium: There is no pericardial effusion. IVC/Hepatic Veins: | | | The inferior vena cava is normal in size and collapses > 50 % with | | | sniff, indicating normal central venous pressures. Aorta: The aortic | | | root, ascending aorta and aortic arch are normal. Mass: No mass | | | visualized Thrombus: No clot visualized Thrombus: No vegetation | | | visualized. Septum: No ASD observed. Septum: No VSD observed. | | | MEASUREMENTS Ao asc: 3.18 cm Ao Diam: 2.86 cm | | | IVC: 1.94 cm LA Diam: 3.75 cm EDV(Teich): 55.28 ml IVSd: | | | 0.99 cm LVIDd: 3.62 cm LVPWd: 0.69 cm LVOT Area: 3.14 | | | cm2 LVOT Diam: 2.00 cm %FS: 44.73 % EF(Teich): 76.90 % | | | ESV(Teich): 12.76 ml LVIDs: 2.00 cm SV(Teich): 42.52 ml | | | RVIDd: 2.30 cm Ao Diam SVals: 3.42 cm LVEF MOD A2C: 69.43 % | | | SV MOD A2C: 54.06 ml LVEF MOD A4C: 74.41 % SV MOD A4C: | | | 57.77 ml EF Biplane: 72.44 % LVEDV MOD BP: 78.80 ml LVESV MOD | | | BP: 21.71 ml LVEDV MOD A2C: 77.85 ml LVLd A2C: 7.64 cm | | | LVEDV MOD A4C: 77.63 ml LVLd A4C: 7.89 cm LVESV MOD A2C: | | | 23.79 ml LVLs A2C: 6.25 cm LVESV MOD A4C: 19.85 ml LVLs A4C: | | | 6.27 cm LAESV(A-L): 34.43 ml LAESV Index (A-L): 21.65 ml/m2 | | | LAAs A2C: 13.45 cm2 LAESV A-L A2C: 38.26 ml LALs A2C: | | | 4.01 cm LAAs A4C: 12.10 cm2 LAESV A-L A4C: 30.96 ml LALs A4C: | | | 4.01 cm RAAs: 10.59 cm2 RAESV A-L: 24.75 ml RAESV MOD: | | | 23.56 ml RALs: 3.84 cm TAPSE: 2.51 cm AV maxP.17 mmHg | | | AV meanP.98 mmHg AV Vmax: 1.42 m/s AV Vmean: 0.91 m/s | | | AV VTI: 28.98 cm ZACKARY Vmax: 2.99 cm2 ZACKARY (VTI): 2.97 cm2 | | | LVOT maxP.37 mmHg LVOT meanP.49 mmHg LVSI Dopp: | | | 54.22 ml/m2 LVSV Dopp: 86.21 ml LVOT Vmax: 1.35 m/s LVOT | | | Vmean: 0.87 m/s LVOT VTI: 27.37 cm MV A Sp: 0.67 m/s MV | | | Dec Ector: 5.43 m/s2 MV DecT: 209.35 ms MV E Sp: 1.13 m/s | | | MV E/A Ratio: 1.68 MV PHT: 60.71 ms MVA By PHT: 3.62 cm2 | | | Septal e': 0.04 m/s Septal E/e': 22.96 Lateral e': 0.07 m/s | | | Lateral E/e': 14.96 RAP: 5 mmHg RVSP: 33.68 mmHg TR | | | maxP.68 mmHg TR Vmax: 2.67 m/s Eyelet Cutter: MONAE | | | Authenticated by: SONDRA KEYS MD Report Date/Time: 02-10-2018 | | | 17:51:16 | | + + + + ------+ | Procedure Note | + ------+ | Earl, Rad Conversion - 02/26/2019 5:41 PM PDT Patient Name: LUCY DELA CRUZ, | | Martha of : 1950 Performing Physician: SONDRA KEYS, | | | | INDICATIONS C | | HF CONCLUSIONS 1. Overall left ventricular systolic function is normal with, | | an EF between 65 - 70 %.2. Cannot assess diastolic function due to indeterminate data.3. | | The right ventricle is normal in size and function. 4. No significant valvular | | abnormalities. FINDINGS--------ECG rhythm: Sinus rhythm.Study: A 2-dimensional | | transthoracic echocardiogram with m-mode, spectral and color flow Doppler was | | perfomed.Study: This was a technically adequate study.Left Ventricle: Overall left | | ventricular systolic function is normal with, an EF between 65 - 70 %.Left Ventricle: | | The left ventricle cavity size is normal.Left Ventricle: Left ventricular wall thickness | | is normal.Left Ventricle: No regional wall motion abnormalities.Left Ventricle: Cannot | | assess diastolic function adequately due to indeterminate evaluation.Right Ventricle: | | The right ventricle is normal in size and function.Left Atrium: The left atrium is | | normal in size.Right Atrium: The right atrium is normal in size.Aortic Valve: The aortic | | valve appears to be trileaflet.Aortic Valve: There is mild aortic valve sclerosis | | without stenosis.Aortic Valve: There is no evidence of aortic regurgitation.Mitral | | Valve: The mitral valve is normal.Mitral Valve: There is trace mitral | | regurgitation.Mitral Valve: No evidence of MVP.Tricuspid Valve: The tricuspid valve | | appears structurally normal.Tricuspid Valve: Trace tricuspid regurgitation | | present.Tricuspid Valve: There is no evidence of pulmonary hypertension.Tricuspid Valve: | | The right ventricular systolic pressure (pulmonary artery systolic pressure), as | | measured by Doppler, is 33.69mmHg.Pulmonic Valve: Pulmonic valve appears structurally | | normal.Pulmonic Valve: Trace pulmonic regurgitation.Pericardium: There is no | | pericardial effusion.IVC/Hepatic Veins: The inferior vena cava is normal in size and | | collapses > 50 % with sniff, indicating normal central venous pressures.Aorta: The | | aortic root, ascending aorta and aortic arch are normal.Mass: No mass | | visualizedThrombus: No clot visualizedThrombus: No vegetation visualized.Septum: No ASD | | observed.Septum: No VSD observed. MEASUREMENTS Ao asc: 3.18 cmAo Diam: | | 2.86 cmIVC: 1.94 cmLA Diam: 3.75 cmEDV(Teich): 55.28 mlIVSd: 0.99 cmLVIDd: | | 3.62 cmLVPWd: 0.69 cmLVOT Area: 3.14 [id number] Diam: 2.00 cm%FS: 44.73 %EF(Teich): | | 76.90 %ESV(Teich): 12.76 mlLVIDs: 2.00 cmSV(Teich): 42.52 mlRVIDd: 2.30 cmAo | | Diam SVals: 3.42 cmLVEF MOD A2C: 69.43 %SV MOD A2C: 54.06 mlLVEF MOD A4C: 74.41 | | %SV MOD A4C: 57.77 mlEF Biplane: 72.44 %LVEDV MOD BP: 78.80 mlLVESV MOD BP: | | 21.71 mlLVEDV MOD A2C: 77.85 mlLVLd A2C: 7.64 cmLVEDV MOD A4C: 77.63 mlLVLd A4C: | | 7.89 cmLVESV MOD A2C: 23.79 mlLVLs A2C: 6.25 cmLVESV MOD A4C: 19.85 mlLVLs A4C: | | 6.27 cmLAESV(A-L): 34.43 mlLAESV Index (A-L): 21.65 ml/m2LAAs A2C: 13.45 [id number] | | A-L A2C: 38.26 mlLALs A2C: 4.01 cmLAAs A4C: 12.10 [id number] A-L A4C: 30.96 | | mlLALs A4C: 4.01 cmRAAs: 10.59 [id number] A-L: 24.75 mlRAESV MOD: 23.56 mlRALs: | | 3.84 cmTAPSE: 2.51 cmAV maxP.17 mmHgAV meanP.98 mmHgAV Vmax: 1.42 m/Giovana | | Vmean: 0.91 m/Giovana VTI: 28.98 cmAVA Vmax: 2.99 cm2AVA (VTI): 2.97 [id number] maxPG: | | 7.37 mmHgLVOT meanP.49 mmHgLVSI Dopp: 54.22 ml/m2LVSV Dopp: 86.21 mlLVOT | | Vmax: 1.35 m/sLVOT Vmean: 0.87 m/sLVOT VTI: 27.37 cmMV A Sp: 0.67 m/sMV Dec | | Ector: 5.43 m/s2MV DecT: 209.35 msMV E Sp: 1.13 m/sMV E/A Ratio: 1.68MV PHT: | | 60.71 msMVA By PHT: 3.62 [id number] e': 0.04 m/sSeptal E/e': 22.96Lateral e': | | 0.07 m/sLateral E/e': 14.96RAP: 5 mmHgRVSP: 33.68 mmHgTR maxP.68 mmHgTR | | Vmax: 2.67 m/s Eyelet Cutter: DBSAuthenticated by: Laurence ANGUIANO Date/Time: | | 02-10-2018 17:51:16 IMPRESSION: 1. Overall left ventricular systolic function is normal | | with, an EF between 65 - 70 %.2. Cannot assess diastolic function due to indeterminate | | data.3. The right ventricle is normal in size and function. 4. No significant valvular | | abnormalities. | |MEASUREMENTS | | | |Ao asc: 3.18 cm | |Ao Diam: 2.86 cm | |IVC: 1.94 cm | |LA Diam: 3.75 cm | |EDV(Teich): 55.28 ml | |IVSd: 0.99 cm | |LVIDd: 3.62 cm | |LVPWd: 0.69 cm | |LVOT Area: 3.14 cm2 | |LVOT Diam: 2.00 cm | |%FS: 44.73 % | |EF(Teich): 76.90 % | |ESV(Teich): 12.76 ml | |LVIDs: 2.00 cm | |SV(Teich): 42.52 ml | |RVIDd: 2.30 cm | |Ao Diam SVals: 3.42 cm | |LVEF MOD A2C: 69.43 % | |SV MOD A2C: 54.06 ml | |LVEF MOD A4C: 74.41 % | |SV MOD A4C: 57.77 ml | |EF Biplane: 72.44 % | |LVEDV MOD BP: 78.80 ml | |LVESV MOD BP: 21.71 ml | |LVEDV MOD A2C: 77.85 ml | |LVLd A2C: 7.64 cm | |LVEDV MOD A4C: 77.63 ml | |LVLd A4C: 7.89 cm | |LVESV MOD A2C: 23.79 ml | |LVLs A2C: 6.25 cm | |LVESV MOD A4C: 19.85 ml | |LVLs A4C: 6.27 cm | |LAESV(A-L): 34.43 ml | |LAESV Index (A-L): 21.65 ml/m2 | |LAAs A2C: 13.45 cm2 | |LAESV A-L A2C: 38.26 ml | |LALs A2C: 4.01 cm | |LAAs A4C: 12.10 cm2 | |LAESV A-L A4C: 30.96 ml | |LALs A4C: 4.01 cm | |RAAs: 10.59 cm2 | |RAESV A-L: 24.75 ml | |RAESV MOD: 23.56 ml | |RALs: 3.84 cm | |TAPSE: 2.51 cm | |AV maxP.17 mmHg | |AV meanP.98 mmHg | |AV Vmax: 1.42 m/s | |AV Vmean: 0.91 m/s | |AV VTI: 28.98 cm | |ZACKARY Vmax: 2.99 cm2 | |ZACKARY (VTI): 2.97 cm2 | |LVOT maxP.37 mmHg | |LVOT meanP.49 mmHg | |LVSI Dopp: 54.22 ml/m2 | |LVSV Dopp: 86.21 ml | |LVOT Vmax: 1.35 m/s | |LVOT Vmean: 0.87 m/s | |LVOT VTI: 27.37 cm | |MV A Sp: 0.67 m/s | |MV Dec Ector: 5.43 m/s2 | |MV DecT: 209.35 ms | |MV E Sp: 1.13 m/s | |MV E/A Ratio: 1.68 | |MV PHT: 60.71 ms | |MVA By PHT: 3.62 cm2 | |Septal e': 0.04 m/s | |Septal E/e': 22.96 | |Lateral e': 0.07 m/s | |Lateral E/e': 14.96 | |RAP: 5 mmHg | |RVSP: 33.68 mmHg | |TR maxP.68 mmHg | |TR Vmax: 2.67 m/s | | | |Eyelet Cutter: DBS | |Authenticated by: SONDRA KEYS MD | |Report Date/Time: 02-10-2018 17:51:16 | | | |IMPRESSION: | |1. Overall left ventricular systolic function is normal with, an EF between 65 - 70 %. | |2. Cannot assess diastolic function due to indeterminate data. | |3. The right ventricle is normal in size and function. 4. No significant valvular abnormali ties. | + ------+ documented in this encounter Visit Diagnoses Not on filedocumented in this encounter"
--- OUTSIDE RECORDS SUMMARY | ~2019-12-10 | XMS | Encounter Summary ---
Demographics + + + | Address | [address] | | | [place] [address] | + + + | Preferred Language | Unknown | + + + | Marital Status | Unknown | + + + | Nondenominational Affiliation | Unknown | + + + | Race | Unknown | + + + | Ethnic Group | Unknown | + + + Author + + + | Author | [facility] | | | and [place] | + + + | Organization | [facility] | | | [...] Team Providers + +------+ + | Care Wringer And Setter Name | Role | Phone | + +------+ + PCP | Unavailable | + +------+ + Encounter Details +--------+ + + + + | Date | Type | Department | Care Team | Description | +--------+ + + + + | 07/30/ | Hospital | [facility] | Latesha Avalos | Chest pain, | | 2019 - | Encounter | [facility] | MD [address] | unspecified type; | | | | CLINICAL DECISION | [address] | Renal insufficiency; | | 07/31/ | | [address] | [place] [address] | Hyperlipidemia, | | 2019 | | [place], [place] | [phone] | unspecified | | | | [address] | | hyperlipidemia type | | | | [phone] | | | +--------+ + + + [...] 0.4 mg under | | 0 | 07/30/19 | | | (NITROSTAT) 0.4 mg | [...] Note by Mono Llanos RN at 07/31/18 135 Author: Mono Llanos RN Service: (none) Author Type: Registered Nurse Filed: 07/31/18 8140 Date of Service: 07/31/18 135 Status: Signed Corn Sheller Operator: Mono Llanos RN (Registered Nurse) Pt discharge teaching reviewed and copy provided to pt- no concerns. VSS at discharge. Whee lchair assisted with friend at discharge to private vehicle. onver artemio Transaction, Provider Unknown - 07/31/2018 12:12 PM PST Case Management by IRIS Saldana at 07/31/18 1212 Author: IRIS Saldana Service: (none) Author Type: Mechanism Assembler Filed: 07/31/18 1213 Date of Service: 07/31/181211 Status: Signed Corn Sheller Operator: IRIS Saldana (Mechanism Assembler) CM met with pt for discharge planning. Pt is 67 years old and lives with her sister in a 2- level home. Pt has no stairs at the main entrance. Pt is independent with her mobility. Pt d enied any difficulty obtaining her medications and had no resource concerns at this time. CM will continue to follow as needed. 07/31/18 121 Discharge Planning Evaluation Admitting Diagnosis Chest Pain Readmission No Living Arrangements Family members Support Systems Family members Type of Residence Private residence House type House 2 story Bathrooms on 1st Floor 1-Full Independent with ADL's Yes Independent with Mobility Yes Home Care Services No Caregiver after Discharge Yes Caregiver Name Daniela Herron Relationship to Patient spouse Phone number [phone] Mental Status Oriented Anticipated Discharge Plan Post Acute Care Needs None at this time Resources Financial concerns No Transportation issues No Patient/Family concerns No Prescription Plan Yes Anticipated Disposition Facility Type Home Medicare Important Message (VARINDER) Not applicable Met with: Patient and discussed discharge planning, Pt is a 67 y.o., female Patient's PCP is: Per PT None Patient's insurance: Jin Permanent Coverage concerns: None Medication coverage/concerns: None Community [...] Filed: 08/26/18 1427 Date of Service: 07/31/18 4645 Status: Signed Corn Sheller Operator: Shlomo Chand MD (Physician) Related Notes: Original Note by Shlomo Chand MD (Physician) filed at 07/31/18 1140 [facility] Service: Hospitalist Discharge Summary Date of Admission: [...] could be originating from GI issues. Sh e was advised to continue her Prilosec. Also, [...] with no edema. DATA Recent Labs Lab 07/31/188 07/30/18 1416 WBC 6.67 8.50 HGB 12.8 [...] hours. No results for input(s): PHART, PO2ART, LXO1CIQ, N0IHENBA, BEART in the last 168 hours. Recent [...] 07/31/18547 Date of Service: 07/31/18547 Status: Signed Corn Sheller Operator: Teodora Reno RN (Registered Nurse) End of [...] 07/30/181843 Date of Service: 07/30/181843 Status: Signed Corn Sheller Operator: Mono Llanos RN (Registered Nurse) End of shift audit complete. onver artemio Transaction, Provider Unknown - 07/30/2018 5:49 PM PST Pharmacy Note by Sunni Tobin [facility] at 07/30/18 1389 Author: Sunni Tobin RPH Service: Pharmacy Author Type: Pharmacist Filed: 07/30/181748 Date of Service: 07/30/181748 Status: Signed Corn Sheller Operator: Sunni Tobin RPH (Pharmacist) Rx Admission Medication History Note I have reviewed the medication history for appropriate doses obtained by: Pharmacy Medicat ion History Booster Plant Operator. After reviewing the home medication list : I agree with the home medication list. Please Review and Order Home Medications as necessary. Thanks Sunni Tobin RPH 07/30/2018 5:49 PM Rx Medication History Booster Plant Operator Note Patients Preferred Pharmacy has been updated in EPIC: yes [id number] - [place], [place] - [address] [place] [address] Patients Allergies have been updated and marked as reviewed: yes Flagyl [metronidazole] The following changes were made to the allergy list (if any): N/A Medication History provided by: Patient, Patient Medication List and [employer] Software Info Follow-up Issues: None - Pending [...] Review* Jaqui Partida CPhT 07/30/2018 5:13 PM onver artemio Transaction, Provider Unknown - 07/30/2018 5:47 PM PST Pharmacy Note by Sunni Tobin RPH at 07/30/181746 Author: Sunni Tobin RPH Service: Pharmacy Author Type: Pharmacist Filed: 07/30/181746 Date of Service: 07/30/181746 Status: Signed Corn Sheller Operator: Sunni Tobin RPH (Pharmacist) Clinical Pharmacy Note: Renal Monitoring Height: 160 cm Weight: 54.4 kg Serum creatinine: 1.3 mg/dL (H) 07/30/18 1416 Estimated creatinine clearance: 35.7 mL/min (A) Pharmacy dosing for renal function per Dr. Avalos Will order the following dose adjustments: Pepcid 20 mg daily, for CrCl <50 mL/min Pharmacy will continue to monitor and renally adjust medications as clinically indicated. uSnni Tobin, PharmD 07/30/2018 5:44 PM onver artemio Transaction, Provider Unknown - 07/30/2018 5:22 PM PST Nurse Progress Note by Mono Llanos RN at 07/30/181721 Author: Mono Llanos RN Service: (none) Author Type: Registered Nurse Filed: 07/30/188 Date of Service: 07/30/181721 Status: Signed Corn Sheller Operator: Mono Llanos RN (Registered Nurse) Pt arrived from ED with Nitro paste to chest. Nuc Med notified and verified 12 hr time from removal before proceeding to NMST. Pt currently has orders for NMST chemical for tomorrow. Nitro paste removed at this time. docume nted in this encounter Plan of [...] | REST/STRESS MYOCARDIAL PERFUSION STUDY PROTOCOL: STANDARD FAREED | | | EXERCISE. CLINICAL INFORMATION: Chest [...] | Procedure Note | + + | Earl, [place] Conversion - 02/17/2019 10:32 PM PDT REST/STRESS MYOCARDIAL PERFUSION STUDY | | PROTOCOL: | | STANDARD FAREED EXERCISE. | | CLINICAL INFORMATION: | | [...] + + + + + + | Red Blood | 3.89 | 3.70 - 5.10 | EXTERNAL | | | Cells | | M/uL | LAB | | | Counted | | | [...] | | | Basophils | performed at [facility], [address] | [address] | LAB | | | | [address], | | | | | | [place] [address] | | | | + + + [...] EXTERNAL | | | | performed at [facility], [address] | | LAB | | | | [address], | | | | | | [place] [address] | | | | + + + [...] | | A1c | is certified by [facility] | | LAB | | | | [...] | | | | | performed at [facility], [address] | | | | | | [facility], | | | | | | [place] [address] | | | | + + + [...] | | | | | | MDRD IDNE traceable | | | | | | equation.Testing | | | | | | performed at [facility], [address] | | | | | | [facility], | | | | | | [place] [address] | | | | + + + [...] + + | Historically converted procedure from [facility] Epic environment | EXTERNAL LAB | + + [...] | | | | | | ACUTE [place] Testing | | | | | | performed at [facility];[address] | | | | | | [facility];[place], [place] | | | | | | [address] | | | | + + + [...] | | | | | | ACUTE [place] Testing | | | | | | performed at [facility];[address] | | | | | | [address];[place], [place] | | | | | | [address] | | | | + + + [...] + + + + + -+ | Red Blood | 4.18 | 3.70 - 5.10 | EXTERNAL | | | Cells | | M/uL | LAB | | | Counted | | | [...] | | | | | | ACUTE [place] Testing | | | | | | performed at [facility];[address] | | | | | | [address];[place], [place] | | | | | | [address] | | | | + + + [...] | | | | | ONLY, -COMPUTER (110), | | | | | | assistant production editor Chris Houser | | | | [...] + +---------+ + + XR Chest 1 Vw (07/30/2018 12:13 PM PST) + + | Specimen | + + | | + + + + + | Narrative | Performed At | + + + | This is a non-reportable procedure without a radiologist report and | | | is used for image storage only | | + + + + + | Procedure Note | + + | Washington Elliott - 02/17/2019 10:32 PM PDT This is [...]
--- OUTSIDE RECORDS SUMMARY | ~2019-12-10 | XMS | Encounter Summary ---
Demographics + + + | Address | [address] | | | [place] [address] | + + + | Preferred Language | Unknown | + + + | Marital Status | Unknown | + + + | Gnosticism Affiliation | Unknown | + + + | Race | Unknown | + + + | Ethnic Group | Unknown | + + + Author + + + | Author | [facility] | | | and [place] | + + + | Organization | [facility] | | [...] Team Providers + +------+ + | Care Senior Environmental Engineer Name | Role | Phone | + +------+ + PCP | Unavailable | + +------+ + Encounter Details +--------+ + + + + | Date | Type | Department | Care Team | Description | +--------+ + + + + | 02/10/ | Orders Only | [facility] | [address], | | | 2017 | | [address] | MD [address] | | | | | [address] | [place] | | | | | [facility] [place] | [address] | | | | | [address] | | | | | | [phone] | | | +--------+ + + + [...] 0.67 m/s MV | | | Dec [place]: 5.43 m/s2 MV DecT: 209.35 ms MV E Sp: 1.13 m/s | | | MV E/A Ratio: 1.68 MV PHT: 60.71 ms MVA By PHT: 3.62 cm2 | | | Septal e': 0.04 m/s Septal E/e': 22.96 Lateral e': 0.07 m/s | | | Lateral E/e': 14.96 RAP: 5 mmHg RVSP: 33.68 mmHg TR | | | maxP.68 mmHg TR Vmax: 2.67 m/s Merchandise Coordinator: MONAE | | | Authenticated by: SONDRA [...] | 3.62 cmLVPWd: 0.69 cmLVOT Area: 3.14 [id number] Diam: 2.00 cm%FS: 44.73 %EF(Teich): | | [...] mlLAESV Index (A-L): 21.65 ml/m2LAAs A2C: 13.45 [id number] | | A-L A2C: 38.26 mlLALs A2C: 4.01 cmLAAs A4C: 12.10 aw1SORPK A-L A4C: 30.96 | | mlLALs A4C: 4.01 cmRAAs: 10.59 gg2AOKUY A-L: 24.75 mlRAESV MOD: 23.56 mlRALs: | | 3.84 cmTAPSE: 2.51 cmAV maxP.17 mmHgAV meanP.98 mmHgAV Vmax: 1.42 m/Giovana | | Vmean: 0.91 m/Giovana VTI: 28.98 cmAVA Vmax: 2.99 cm2AVA (VTI): 2.97 qj3IMQZ maxPG: | | 7.37 mmHgLVOT meanP.49 mmHgLVSI Dopp: 54.22 ml/m2LVSV Dopp: 86.21 mlLVOT | | Vmax: 1.35 m/sLVOT Vmean: 0.87 m/sLVOT VTI: 27.37 cmMV A Sp: 0.67 m/sMV Dec | | [place]: 5.43 m/s2MV DecT: 209.35 msMV E Sp: 1.13 m/sMV E/A Ratio: 1.68MV PHT: | | 60.71 msMVA By PHT: 3.62 bp4Ntdmul e': 0.04 m/sSeptal E/e': 22.96Lateral e': | | 0.07 m/sLateral E/e': 14.96RAP: 5 mmHgRVSP: 33.68 mmHgTR maxP.68 mmHgTR | | Vmax: 2.67 m/s Merchandise Coordinator: DBSAuthenticated by: Laurence ANGUIANO Date/Time: | | [...] A Sp: 0.67 m/s | |MV Dec [place]: 5.43 m/s2 | |MV DecT: 209.35 ms [...] |TR Vmax: 2.67 m/s | | | |Merchandise Coordinator: DBS | |Authenticated by: SONDRA KEYS MD [...]
--- OUTSIDE RECORDS SUMMARY | ~2019-12-10 | XMS | Clinical Summary ---
Demographics + + + | Address | [address] | | | [place] [address] | + + + | Preferred Language | Unknown | + + + | Marital Status | Unknown | + + + | Hindu Affiliation | Unknown | + + + | Race | Unknown | + + + | Ethnic Group | Unknown | + + + Author + + + | Author | [facility] | | | and [place] | + + + | Organization | [facility] | | | [...] Team Providers + +------+ + | Care Mattress Filler Name | Role | Phone | + [...]
--- OUTSIDE RECORDS SUMMARY | ~2019-12-10 | XMS | Encounter Summary ---
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 Name | Role | Phone | + +------+ + PCP | Unavailable | + +------+ + Encounter Details +--------+ + + + + | Date | Type | Department | Care Team | Description | +--------+ + + + + | 07/30/ | Hospital | [facility] | Latesha Avalos | Chest pain, | | 2019 - | Encounter | [facility] | [address] | unspecified type; | | | | CLINICAL DECISION | [address] | Renal insufficiency; | | 07/31/ | | [address] | [place] [address] | Hyperlipidemia, | | 2019 | | [place], [place] | [phone] | unspecified | | | | [address] | | hyperlipidemia type | | | | [phone] | | | +--------+ + + + [...] (none) Author Type: Registered Nurse Filed: 07/31/18 3941 Date of Service: 07/31/18 135 Status: Signed Arborist Climber: Mono Llanos RN (Registered Nurse) Pt discharge teaching reviewed and copy provided to pt- no concerns. VSS at discharge. Whee lchair assisted with friend at discharge to private vehicle. onver artemio Transaction, Provider Unknown - 07/31/2018 12:12 PM PST Case Management by IRIS Saldana at 07/31/18 1212 Author: IRIS Saldana Service: (none) Author Type: Managing Supervisor Filed: 07/31/18 1213 Date of Service: 07/31/181211 Status: Signed Arborist Climber: IRIS Saldana (Managing Supervisor) CM met with pt for discharge planning. [...] Herron Relationship to Patient spouse Phone number [phone] Mental Status Oriented Anticipated Discharge Plan Post [...] Filed: 08/26/18 1427 Date of Service: 07/31/18 1446 Status: Signed Arborist Climber: Shlomo Chand MD (Physician) Related Notes: Original Note by Shlomo Chand MD (Physician) filed at 07/31/18 1140 [facility] Service: Hospitalist Discharge Summary Date of Admission: [...] hours. No results for input(s): PHART, PO2ART, FKY6SYT, U3JULGFY, BEART in the last 168 hours. Recent [...] 07/31/18547 Date of Service: 07/31/18547 Status: Signed Arborist Climber: Teodora Reno RN (Registered Nurse) End of [...] 07/30/181843 Date of Service: 07/30/181843 Status: Signed Arborist Climber: Mono Llanos RN (Registered Nurse) End of shift audit complete. 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 After reviewing the home medication list : I agree with the home medication list. Please Review and Order Home Medications as necessary. 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 Specialist Note Patients Preferred Pharmacy has been updated in EPIC: yes [facility] - [place], [place] - [address] [place] [address] Patients Allergies have been updated and marked as reviewed: yes Flagyl [metronidazole] The following changes were made to the allergy list (if any): N/A Medication History provided by: Patient, Patient Medication List and [employer] Software Info Follow-up Issues: None - Pending [...] 07/30/181746 Date of Service: 07/30/181746 Status: Signed Arborist Climber: Sunni Tobin RPH (Pharmacist) Clinical Pharmacy Note: [...] 07/30/188 Date of Service: 07/30/181721 Status: Signed Arborist Climber: Mono Llanos RN (Registered Nurse) Pt arrived [...] | | | Basophils | performed at [facility], [address] | [address] | LAB | | | | [address], | | | | | | [place] [address] | | | | + + + [...] EXTERNAL | | | | performed at [facility], [address] | | LAB | | | | [address], | | | | | | [place] [address] | | | | + + + [...] | | A1c | is certified by [facility] | | LAB | | [...] | | | | | performed at [facility], [address] | | | | | | [facility], | | | | | | [place] [address] | | | | + + + [...] | | | | | | MDRD IDNV traceable | | | | | | equation.Testing | | | | | | performed at [facility], [address] | | | | | | [facility], | | | | | | [place] [address] | | | | + + + [...] + + | Historically converted procedure from [facility] Epic environment | EXTERNAL LAB | + [...] | | | | | | ACUTE [place] Testing | | | | | | performed at [facility];[address] | | | | | | [facility];[place], [place] | | | | | | [address] | | | | + + + [...] | | | | | | ACUTE [place] Testing | | | | | | performed at [facility];[address] | | | | | | [address];[place], [place] | | | | | | [address] | | | | + + + [...] | | | | | | ACUTE [place] Testing | | | | | | performed at [facility];[address] | | | | | | [address];[place], [place] | | | | | | [address] | | | | + + + [...] | | | | | ONLY, -COMPUTER (834), | | | | | | 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
--- OUTSIDE RECORDS SUMMARY | 2019-12-10 13:48 | XMS ---
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 Care History Medical/Surgical 08/12/2019 [facility] Patient used ED appropriately for pain outside of clinic hours.\T\nbsp; No follow up scheduled yet. 03/03/2018 [facility] - Patient is currently established with [facility]. If patient is seen in the ED during business hours. Please contact CHWs at [facility]. Care Recommendation: If this patient has had [...] E.D. VISIT COUNT (12 MO.) [address] [facility] TOTAL 7 NOTE: Visits indicate total known visits. ED/UCC VISIT TRACKING (12 MO.) 12/10/2019 13:45 [facility] [place] TYPE: Emergency COMPLAINT: - ABDOMINAL PAIN/VOMITING 09/25/2019 09:46 [facility] [place] TYPE: Emergency COMPLAINT: - CHEST PAIN, BACK PAIN, COUGH 09/18/2019 13:56 [facility] [place] TYPE: Emergency COMPLAINT: - ABD PN, VOMITING, WEIGHT LOSS, SOB DIAGNOSES: - Hypertensive heart disease with heart failure - Heart failure, unspecified - Generalized abdominal pain - Migraine, unspecified, not intractable, without status migrai - Other terminal operator (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 - Dehydration - [...] medicaments and biological sub - Other terminal operator (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 05/25/2019 11:02 [facility] [place] TYPE: Emergency COMPLAINT: - CHEST PAIN DIAGNOSES: - Other terminal operator (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 - Chest pain, [...] sub - Heart failure, unspecified - Other half-way (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 01/18/2019 07:07 [facility] [place] TYPE: Emergency COMPLAINT: - CHEST PAIN/NAUSEA/BLOODY DIARRHEA DIAGNOSES: - Melena - Chest pain, unspecified - Other terminal operator (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 - Allergy status to other drugs, medicaments and biological sub - Hypokalemia - Migraine, unspecified, not intractable, without status migrai - Hypertensive heart disease with heart failure - Heart failure, unspecified INPATIENT VISIT TRACKING (12 MO.) 09/25/2019 14:[address] [facility] [place] TYPE: Medical Surgical COMPLAINT: - SEPSIS DIAGNOSES: - Irritable bowel syndrome without diarrhea - Enterocolitis due to Clostridium difficile, not specified as - Other half-way (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 - Unspecified mood [affective] disorder - Chronic diastolic (congestive) heart failure - Sepsis due to anaerobes - Gout, unspecified - Irritable bowel syndrome without diarrhea - Hypertensive heart disease with heart failure - Diverticulosis of large intestine without perforation or absc - Dorsalgia, unspecified - Other terminal operator (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 - Gastro-esophageal reflux disease without esophagitis - Gout, unspecified - Dorsalgia, unspecified - Other chronic pain - Acute kidney failure, unspecified - Other chronic pain - Allergy status to other antibiotic agents status - Allergy status to other antibiotic agents status - Sepsis, unspecified organism - Unspecified mood [affective] disorder - Enterocolitis due to Clostridium difficile, not specified as - Chronic diastolic (congestive) heart failure - Acute kidney failure, unspecified - Diverticulosis of large intestine without perforation or absc - Hypertensive heart disease with heart failure - Gastro-esophageal reflux disease without esophagitis - Sepsis due to anaerobes [email or web address]
== END ==
LOC: ED 13:44
DX: R10.9 Unspecified abdominal pain (principal); I11.0 Hypertensive heart disease with heart failure; I50.9 Heart failure, unspecified; Z87.891 Personal history of nicotine dependence; Z88.8 Allergy status to other drugs, medicaments and biological substances; Z79.899 Other long term (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
CPT/HCPCS: 71045; 74177; 80053; 81001; 83605; 85025; 96361; 96375; 99284-25; J1170; J2405; J7030; Q9967; U0002

== ENCOUNTER 2020-04-02 09:28 | Emergency (ER) | payer MEDICARE ==
[~2020-04-02] VITALS: Ht 162.6 cm; Wt 49.9 kg
--- OUTSIDE RECORDS SUMMARY | 2020-04-02 09:30 | XMS ---
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 Care History Medical/Surgical 08/12/2019 [facility] Patient used ED appropriately for pain outside of clinic hours.\T\nbsp; No follow up scheduled yet. 03/03/2018 [facility] - Patient is currently established with [facility]. If patient is seen in the ED during business hours. Please contact CHWs at [facility]. Care Recommendation: If this patient has had [...] care. E.D. VISIT COUNT (12 MO.) [address] [facility] TOTAL 7 NOTE: Visits indicate total known visits. 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 09/25/2019 09:46 [facility] [place] TYPE: Emergency COMPLAINT: - CHEST PAIN, BACK PAIN, COUGH 09/18/2019 13:56 [facility] [place] TYPE: Emergency COMPLAINT: - ABD PN, VOMITING, WEIGHT LOSS, SOB DIAGNOSES: - Hypertensive heart disease with heart failure - Heart failure, unspecified - Generalized abdominal pain - Migraine, unspecified, not intractable, without status migrai - Other nursing home (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 - Dehydration - Diarrhea, [...] drugs, medicaments and biological sub - Other keno terminal operator (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 05/25/2019 11:02 [facility] [place] TYPE: Emergency COMPLAINT: - CHEST PAIN DIAGNOSES: - Other nursing home (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 - Chest pain, unspecified [...] sub - Heart failure, unspecified - Other keno terminal operator (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 INPATIENT VISIT TRACKING (12 MO.) 09/25/2019 14:[address] [facility] [place] TYPE: Medical Surgical COMPLAINT: - SEPSIS DIAGNOSES: - Irritable bowel syndrome without diarrhea - Enterocolitis due to Clostridium difficile, not specified as - Other nursing home (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 - Unspecified mood [affective] disorder - Chronic diastolic (congestive) heart failure - Sepsis due to anaerobes - Gout, unspecified - Irritable bowel syndrome without diarrhea - Hypertensive heart disease with heart failure - Diverticulosis of large intestine without perforation or absc - Dorsalgia, unspecified - Other nursing home (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 - Gastro-esophageal reflux disease [...] without esophagitis - Sepsis due to anaerobes [email or web address]
== END 2020-04-02 13:06 | disposition home or self-care (01) ==
LOC: ED 09:28
DX: R51 Headache (principal); I13.0 Hypertensive heart and chronic kidney disease with heart failure and stage 1 through stage 4 chronic kidney disease, or unspecified chronic kidney disease; I50.9 Heart failure, unspecified; N18.3 Chronic kidney disease, stage 3 (moderate); Z88.8 Allergy status to other drugs, medicaments and biological substances; Z79.899 Other long term (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
CPT/HCPCS: 96361; 96374; 96375; 99283-25; J1200; J1885; J2765; J7030

== ENCOUNTER 2020-04-06 14:28 | Emergency (ER) | payer MEDICARE ==
[~2020-04-06] VITALS: Ht 162.6 cm; Wt 49.9 kg
--- OUTSIDE RECORDS SUMMARY | ~2020-04-06 | XMS | Encounter Summary ---
Demographics + + + | Address | [address] | | | [place] [address] | + + + | Preferred Language | Unknown | + + + | Marital Status | Unknown | + + + | Episcopal Affiliation | Unknown | + + + | Race | White | + + + | Ethnic Group | Not or | + + + Author + + + | Author | [facility] | | | and [place] | + + + | Organization | [facility] | | | and [place] | + + + | Address | Unknown | + + + | Phone | Unavailable | + + + Support + + +---------+ + | Name | Relationship | Address | Phone | + + +---------+ + | Daniela Herron | [place] | Unknown | | + + +---------+ + Care Team Providers + +------+ + | Care Door Manager Name | Role | Phone | + +------+ + PCP | Unavailable | + +------+ + Encounter Details +--------+ + + + + | Date | Type | Department | Care Team | Description | +--------+ + + + + | 07/30/ | Hospital | [facility] | Latesha Avalos | Chest pain, | | 2019 - | Encounter | [facility] | [address] | unspecified type; | | | | CLINICAL DECISION | [address] | Renal insufficiency; | | 07/31/ | | [address] | [place] [address] | Hyperlipidemia, | | 2019 | | [place], [place] | [phone] | unspecified | | | | [address] | | hyperlipidemia type | | | | [phone] | | | +--------+ + + + + Social History + +-------+ +--------+------+ | [...] on file | | + + + documented as of this encounter Last Filed Vital Signs + + + [...] | | + + + + + documented in this encounter Medications at Time of Discharge + + + +---------+ + + | Medication | Sig | Dispensed | Refills | Start | End Date | | | | | | Date | | + + + +---------+ + + | allopurinol | Take 100 mg by mouth | | 0 | 07/30/19 | | | (ZYLOPRIM) 100 mg | daily. | | | 19 | | | tablet | | | | | | + + + +---------+ + + | aspirin 81 MG EC | Take 81 mg by mouth | | 0 | 07/30/19 | | | tablet | daily. | | | 19 | | + + + +---------+ + + | atorvaSTATin | Take 20 mg by mouth | | 0 | 07/30/19 | | | (LIPITOR) 20 mg | daily. | | | 19 | | | tablet | | | | | | + + + +---------+ + + | furosemide (LASIX) | Take 20 mg by mouth | | 0 | 07/30/19 | | | 20 mg tablet | daily. | | | 19 | | + + + +---------+ + + | losartan (COZAAR) | Take 50 mg by mouth | | 0 | 07/30/19 | | | 50 mg tablet | daily. | | | 19 | | + + + +---------+ + + | metoprolol | Take 25 mg by mouth | | 0 | 07/30/19 | | | tartrate (LOPRESSOR) | 2 (two) times daily | | | 19 | | | 25 mg tablet | with meals. | | | | | + + + +---------+ + + | nitroglycerin | Place 0.4 mg under | | 0 | 01/23/20 | | | (NITROSTAT) 0.4 mg | the tongue daily. As | | | 19 | | | SL tablet | needed for chest | | | | | | | discomfort/ | | | | | | | shortness of breath | | | | | + + + +---------+ + + | omeprazole | Take 20 mg by mouth | | 0 | 07/30/19 | | | (PRILOSEC) 20 mg | every morning before | | | 19 | | | capsule | breakfast. | | | | | + + + +---------+ + + | potassium chloride | Take 20 mEq by mouth | | 0 | 07/30/19 | | | (KLOR-CON M20) 20 | daily. | | | 19 | | | mEq ER tablet | | | | | | + + + +---------+ + + | Simethicone | Take 125 mg by | | 0 | 07/30/19 | | | (BICARSIM FORTE) 125 | mouth. | | | 19 | | | MG TABS | | | | | | + + + +---------+ + + | venlafaxine | Take 225 mg by mouth | | 0 | 07/30/19 | | | (EFFEXOR XR) 75 mg | daily. | | | 19 | | | 24 hr tablet | | | | | | + + + +---------+ + + documented as of this encounter Progress Notes Conversion Transaction, Provider Unknown - 07/31/2018 1:57 PM PSTFormatting of this note m ight be different from the original. Nurse Progress Note by Mono Llanos RN at 07/31/18 4571 Author: Mono Llanos RN Service: (none) Author Type: Registered Nurse Filed: 07/31/18 5746 Date of Service: 07/31/18 241 Status: Signed Mexican Food Cook: Mono Llanos RN (Registered Nurse) Pt discharge teaching reviewed and copy provided to pt- no concerns. VSS at discharge. Rohith alex assisted with friend at discharge to private vehicle. onver artemio Transaction, Provider Unknown - 07/31/2018 12:12 PM PST Case Management by IRIS Saldana at 07/31/18 121 Author: IRIS Saldana Service: (none) Author Type: Wearing Apparel Folder Filed: 07/31/18 2501 Date of Service: 07/31/181211 Status: Signed Mexican Food Cook: IRIS Saldana (Wearing Apparel Folder) CM met with pt for discharge planning. Pt is 67 years old and lives with her sister in a 2- level home. Pt has no stairs at the main entrance. Pt is independent with her mobility. Pt d enied any difficulty obtaining her medications and had no resource concerns at this time. CM will continue to follow as needed. 07/31/18 1211 Discharge Planning Evaluation Admitting Diagnosis Chest Pain Readmission No Living Arrangements Family members Support Systems Family members Type of Residence Private residence House type House 2 story Bathrooms on 1st Floor 1-Full Independent with ADL's Yes Independent with Mobility Yes Home Care Services No Caregiver after Discharge Yes Caregiver Name Daniela Herron Relationship to Patient spouse Phone number [phone] Mental Status Oriented Anticipated Discharge Plan Post Acute Care Needs None at this time Resources Financial concerns No Transportation issues No Patient/Family concerns No Prescription Plan Yes Anticipated Disposition Facility Type Home Medicare Important Message (VARINDER) Not applicable Met with: Patient and discussed discharge planning, Pt is a 67 y.o., female Patient's PCP is: Per PT None Patient's insurance: [facility] Coverage concerns: None Medication coverage/concerns: None Community resources utilized / needed: None Assistance in transportation: Not needed. Identification of any specific education / training: None Barriers to Discharge / Alternative housing needed: None Anticipated DCP: Home Shlomo Hay i, MD - 07/31/2018 11:39 AM PSTFormatting of this note might be different fro m the original. Progress Notes by Shlomo Chand MD at 07/31/18 1139 Author: Shlomo Chand MD Service: Hospitalist Author Type: Physician Filed: 08/26/18 1427 Date of Service: 07/31/18 1139 Status: Signed Mexican Food Cook: Shlomo Chand MD (Physician) Related Notes: Original Note by Shlomo Chand MD (Physician) filed at 07/31/18 1140 [facility] Service: Hospitalist Discharge Summary Date of Admission: 07/30/2018 Date of Discharge: Discharge Provider: Shlomo Chand MD Treatment Team: Admitting Provider: Latesha Avalos MD Discharge Diagnoses: Principal Problem: Chest pain Active Problems: Hyperlipidemia Essential hypertension Former smoker Stage 3 chronic kidney disease (HCC) Resolved Problems: * No resolved hospital problems. * BRIEF HISTORY OF PRESENTATION: Ani Thomas is a 67 y.o. female who Presented to the ED with chief complaints of longstanding history of left-sided chest pain, progressively getting worse, especially wi th activity. She was admitted to the hospital, ruled out for ACS. She underwent nuclear st ress test that was completely normal. Her symptoms could be originating from GI issues. Sh evan was advised to continue her Prilosec. Also, she was advised to monitor blood pressures at home and consume a low-salt diet. Prescriptions Prior to Admission Medication Sig Dispense Refill Last Dose allopurinol (ZYLOPRIM) 100 MG tablet Take 100 mg by mouth daily. 07/30/2018 @ am aspirin 81 MG EC tablet Take 81 mg by mouth daily. 07/29/2018 @ pm atorvastatin (LIPITOR) 20 MG tablet Take 20 mg by mouth daily. 07/30/2018 @ am furosemide (LASIX) 20 MG tablet Take 20 mg by mouth daily. 07/30/2018 @ am Garret, Zingiber officinalis, (GARRET PO) Take 1 tablet by mouth as needed. 07/29/2018 @ pm losartan (COZAAR) 50 MG tablet Take 50 mg by mouth daily. 07/30/2018 @ am metoprolol (LOPRESSOR) 25 MG tablet Take 25 mg by mouth 2 (two) times daily with meals. 07/30/2018 @ am nitroGLYCERIN (NITROSTAT) 0.[address] 0.4 mg under the tongue daily. As need ed for chest discomfort/ shortness of breath 07/30/2018 @ am omeprazole (PRILOSEC) 20 MG capsule Take 20 mg by mouth every morning before breakfast. 07/30/2018 @ am potassium chloride SA (K-DUR,KLOR-CON) 20 MEQ tablet Take 20 mEq by mouth daily. 07/30 @ am Simethicone 125 MG TABS Take 125 mg by mouth. 07/30/2018 @ am Venlafaxine HCl 75 MG TB24 Take 225 mg by mouth daily. 07/30/2018 @ am DISCHARGE EXAM Vital Signs: BP 167/81 | Pulse 78 | Temp 98.4 F (36.9 C) (Oral) | Resp 18 | Ht 1.6 m (5' 3") | Wt 54.4 kg (120 lb) | SpO2 96% | ? No | BMI 21.26 kg/m Physical Exam General Appearance: awake, alert, oriented, in no acute distress Eyes: No gross abnormalities. Neck: no bruits Lungs: Normal expansion. Clear to auscultation. No rales, rhonchi, or wheezing. Abdomen: Soft, non-tender, normal bowel sounds. No bruits, organomegaly or masses. Extremities: Extremities warm to touch, pink, with no edema. DATA Recent Labs Lab 07/31/18 0458 07/30/18 1416 WBC 6.67 8.50 HGB 12.8 13.8 HCT 39.0 41.8 PLT 161 211 NEUTOPHILPCT 46.41 63.82 MONOPCT 6.99 7.50 Recent Labs Lab 07/31/18 0458 07/30/18 1416 NA 139 140 K 3.4* 3.5 CL 101 103 CO2 31 27 BUN 15 11 CREATININE 1.3* 1.3* PROT -- 7.9 BILITOT -- 0.8 ALT -- 29 AST -- 30 Phosphorus: No results found for: PHOS Invalid input(s): LABALBU Recent Labs Lab 07/31/18 0458 MG 2.3 No results for input(s): AMYLASE in the last 168 hours. No results for input(s): PHART, PO2ART, YRB2GUR, M5PXJTIM, BEART in the last 168 hours. Recent Labs Lab 07/30/18 1416 APTT 27 INR 1.0 No results for input(s): TSH, T3FREE, FREET4 in the last 168 hours. Recent Labs Lab 07/30/18 2106 07/30/18 1726 07/30/18 1416 CKTOTAL -- -- 121 TROPONINI <0.020 <0.020 <0.020 CKMBINDEX -- -- 1.2 Radiology Nm Myocardial Perfusion Spect (stress And Rest) Result Date: 07/31/2018 Normal myocardial perfusion. No stress-induced reversible ischemia. Low risk stratificatio n. Signed by: Kee Flowers Sign Date/Time: 07/31/2018 10:19 AM Disposition: Home Condition: Stable Code Status: Full Code No discharge procedures on file. Follow up: Per Pt None Medication List CONTINUE taking these medications allopurinol 100 MG tablet Refills: 0 Commonly known as: ZYLOPRIM aspirin 81 MG EC tablet Refills: 0 atorvastatin 20 MG tablet Refills: 0 Commonly known as: LIPITOR furosemide 20 MG tablet Refills: 0 Commonly known as: LASIX GARRET PO Refills: 0 losartan 50 MG tablet Refills: 0 Commonly known as: COZAAR metoprolol 25 MG tablet Refills: 0 Commonly known as: LOPRESSOR nitroGLYCERIN 0.4 MG SL tablet Refills: 0 Commonly known as: NITROSTAT omeprazole 20 MG capsule Refills: 0 Commonly known as: PRILOSEC potassium chloride SA 20 MEQ tablet Refills: 0 Commonly known as: K-DUR,KLOR-CON Simethicone 125 MG Tabs Refills: 0 Venlafaxine HCl 75 MG Tb24 Refills: 0 You might also be taking other medications not listed above. If you have questions about an y of your other medications, talk to the person who prescribed them or your Primary Care Pro vider. Discharge took 35 minutes, to include final examination, discussion of admission, and prepa ration of prescriptions, instructions for on-going care, follow-up and documentation of disc harge summary. Shlomo Chand MD 07/31/2018 11:39 AM onversion Tr ansaction, Provider Unknown - 07/31/2018 5:48 AM PSTFormatting of this note might be differ ent from the original. Nurse Progress Note by Teodora Reno RN at 07/31/18547 Author: Teodora Reno RN Service: (none) Author Type: Registered Nurse Filed: 07/31/18547 Date of Service: 07/31/18547 Status: Signed Mexican Food Cook: Teodora Reno RN (Registered Nurse) End of shift audit: completed Restraints - N/A Blood - N/A Protocols - Reviewed and implemented. Parameter Medications - Parameters reviewed for all PRN/protocol medications. Signed &Held Orders - All orders reviewed. Teodora Reno RN onver artemio Transaction, Provider Unknown - 07/30/2018 6:44 PM PST Nurse Progress Note by Mono Llanos RN at 07/30/181843 Author: Mono Llanos RN Service: (none) Author Type: Registered Nurse Filed: 07/30/181843 Date of Service: 07/30/181843 Status: Signed Mexican Food Cook: Mono Llanos RN (Registered Nurse) End of shift audit complete. onver artemio Transaction, Provider Unknown - 07/30/2018 5:49 PM PST Pharmacy Note by Sunni Tobin RPH at 07/30/181748 Author: Sunni Tobin RPH Service: Pharmacy Author Type: Pharmacist Filed: 07/30/181748 Date of Service: 07/30/181748 Status: Signed Mexican Food Cook: Sunni Tobin RPH (Pharmacist) Rx Admission Medication History Note I have reviewed the medication history for appropriate doses obtained by: Pharmacy Medicat ion History Loom Changer. After reviewing the home medication list : I agree with the home medication list. Please Review and Order Home Medications as necessary. Thanks Sunni Tobin RPH 07/30/2018 5:49 PM Rx Medication History Loom Changer Note Patients Preferred Pharmacy has been updated in EPIC: yes -[id number] - [place], [place] - [address] [place] [address] Patients Allergies have been updated and marked as reviewed: yes Flagyl [metronidazole] The following changes were made to the allergy list (if any): N/A Medication History provided by: Patient, Patient Medication List and Vent[employer]cket Software Info Follow-up Issues: None - Pending Pharmacist Review High Risk Medications (dual source verification needed): Anticoagulants Changes made to the medication list include: ADDED: ALLOPURINOL 100 MG ~ take 100 mg once daily ASPIRIN 81 MG ~ take 81 mg tablet once daily ATROVASTATIN 20 mg ~ take 20 mg tablet once daily FUROSEMIDE 20 MG ~ take 20 mg tablet once daily GARRET PO ~ take 1 tablet as needed for tummy LOSARTAN 50 MG ~ take 50 MG tablet once daily METOPROLOL 25 MG ~ tajke 25 mg tablet twice daily NITROGLYCERIN 0.4 mg sl ~ take 0.4 mg under the tongue daily as needed for chest discomfort /shortness of breath OMEPRAZOLE 20 mg~ take 20 mg capsule every morning before breakfast POTASSIUM CHLORIDE 20 MEQ~ take 20 MEQ once daily SIMETHICONE 125 mg ~ take 125 mg tablet after meals and at bedtime as needed, take four pauly es a day VENLAFAXINE HCI 75 mg ~ take 225 mg tablet once daily Reliability of information obtained: RELIABLE Additional Comments: Patient was a good historian and has medication list on hand. Medication history has been completed: *Awaiting Pharmacist Final Review* Jaqui Partida CPhT 07/30/2018 5:13 PM RConver artemio Heltonaction, Provider Unknown - 07/30/2018 5:47 PM PST Pharmacy Note by Sunni Tobin RPH at 07/30/181746 Author: Sunni Tobin RPH Service: Pharmacy Author Type: Pharmacist Filed: 07/30/181746 Date of Service: 07/30/181746 Status: Signed Mexican Food Cook: Sunni Tobin RPH (Pharmacist) Clinical Pharmacy Note: Renal Monitoring Height: 160 cm Weight: 54.4 kg Serum creatinine: 1.3 mg/dL (H) 07/30/18 1416 Estimated creatinine clearance: 35.7 mL/min (A) Pharmacy dosing for renal function per Dr. Avalos Will order the following dose adjustments: Pepcid 20 mg daily, for CrCl <50 mL/min Pharmacy will continue to monitor and renally adjust medications as clinically indicated. Sunni Tobin PharmMalcolm 07/30/2018 5:44 PM RConpasha ulloa Transaction, Provider Unknown - 07/30/2018 5:22 PM PST Nurse Progress Note by Mono Llanos RN at 07/30/181721 Author: Yaamen A Aldaas, RN Service: (none) Author Type: Registered Nurse Filed: 07/30/18 1728 Date of Service: 07/30/18 172 Status: Signed Mexican Food Cook: Mono Llanos RN (Registered Nurse) Pt arrived from ED with Nitro paste to chest. Nuc Med notified and verified 12 hr time from removal before proceeding to NMST. Pt currently has orders for NMST chemical for tomorrow. Nitro paste removed at this time. docume nted in this encounter H&P Notes Latesha Avalos MD - 07/30/2018 3:32 PM PST H&P by Latesha Avalos MD at 07/30/18 153 Author: Latesha Avalos MD Service: Hospitalist Author Type: Physician Filed: 07/31/18 0740 Date of Service: 07/30/18 153 Status: Addendum Mexican Food Cook: Latesha Avalos MD (Physician) Related Notes: Original Note by Latesha Avalos MD (Physician) filed at 07/30/18 1800 [facility] Service: Hospitalist Admission History & Physical Pt: Ani Thomas AGE/SEX: 67 y.o. female Date of Admission: 07/30/2018 Reason for Admission: Chest pain History Obtained From: patient CHIEF COMPLAINT: Chest pain HISTORY OF PRESENT ILLNESS The patient is a 67 y.o. female with significant past medical history of Hypertension, hyp erlipidemia, possible chronic kidney disease, history of migraines, presented to [facility] with chest pain. The patient woke up this morning with left-sided chest pain with radiation of the pain to her left upper back and to the left. The patient had chest pain s february. She says that the pain is worse when she walks which is associated with shortn ess of breath and nausea. Chest pain has also completely reproducible. No history of any p leuritic chest pain. She also complains of sinus pain and postnasal drip causing cough. The patient also complains of nausea after which she has onset of chest pain. 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 She has nitroglycerin which she takes some times with relief of pain. In 02/2018, the patient was admitted to [facility] with pneumonia and she was told she pos vick had CHF. Echocardiogram done at that time showed EF between 65-70 percentage. The patient presented this morning with chest pain. She was started on nitro paste and tra nsferred for further workup. She tried to do exercise stress test, but after about 1 minute it had to be stopped as she had nausea. She denies any chest pain at that time. At [facility], she also complains of a headache secondary to nitro patch. She denies any nausea. The patient quit smoking in 2002. Prior to that, she smoked 1 pack per day for 25 years. She does not drink alcohol. She vapes cannabis. Her sister had coronary artery disease and needing stent placement recently. Active comorbid conditions include: - hypertension - renal disease, CKD REVIEW OF SYSTEMS Review of Systems Constitutional: Negative. HENT: Negative. Respiratory: Positive for shortness of breath. Cardiovascular: Positive for chest pain. Gastrointestinal: Positive for nausea. Genitourinary: Negative. Musculoskeletal: Negative. Skin: Negative. Neurological: Negative. Endo/Heme/Allergies: Negative. Psychiatric/Behavioral: Negative. Past Medical History Diagnosis Date Arthritis Bursitis Gout Hyperlipidemia Migraine Past Surgical History Procedure Laterality Date SECTION CHOLECYSTECTOMY TUBAL LIGATION Allergies Allergen Reactions Flagyl [Metronidazole] Nausea and Vomiting Prior to Admission medications Not on File Family History Problem Relation Age of Onset Coronary Artery Disease Sister Social History History Smoking Status Former Smoker Years: 25.00 Smokeless Tobacco Never Used History Alcohol Use No History Drug Use Comment: Pt states "I vape CBD oil." PHYSICAL EXAM Vital Signs: BP 118/65 | Pulse 90 | Temp 98.1 F (36.7 C) (Oral) | Resp 22 | Wt 54.4 kg (120 lb) | SpO2 95% Physical Exam Constitutional: She is oriented to person, place, and time. She appears well-developed and well-nourished. HENT: Head: Normocephalic and atraumatic. Eyes: Pupils are equal, round, and reactive to light. EOM are normal. Neck: Normal range of motion. Neck supple. Cardiovascular: Normal rate, regular rhythm and normal heart sounds. Pulmonary/Chest: Effort normal and breath sounds normal. She exhibits tenderness. Reproducible chest pain present on palpation of the left chest wall. Abdominal: Soft. Bowel sounds are normal. She exhibits no distension. There is tenderness. There is no rebound and no guarding. Tenderness present in the periumbilical area. Chronic per patient. Musculoskeletal: Normal range of motion. She exhibits no edema. Neurological: She is alert and oriented to person, place, and time. Strength right 5 all extremities. Skin: Skin is warm and dry. Psychiatric: She has a normal mood and affect. Vitals reviewed. DATA Admission on 07/30/2018 Component Date Value Ref Range Status WBC 07/30/2018 8.50 3.80 - 11.00 K/uL Final RBC 07/30/2018 4.18 3.70 - 5.10 M/uL Final HGB 07/30/2018 13.8 11.3 - 15.5 g/dL Final HCT 07/30/2018 41.8 34.0 - 46.0 % Final MCV 07/30/2018 100.0 80.0 - 100.0 fl Final MCH 07/30/2018 33.1 27.0 - 34.0 pg Final MCHC 07/30/2018 33.1 32.0 - 35.5 g/dL Final RDW SD 07/30/2018 49.4 37 - 53 fl Final PLT 07/30/2018 211 150 - 400 K/uL Final MPV 07/30/2018 9.4 fl Final DIFF TYPE 07/30/2018 AUTOMATED Final NEUTROPHILS 07/30/2018 63.82 % Final LYMPHOCYTES 07/30/2018 25.58 % Final MONOCYTES 07/30/2018 7.50 % Final EOSINOPHILS 07/30/2018 2.22 % Final BASOPHILS 07/30/2018 0.88 % Final NEUTROPHILS ABS 07/30/2018 5.43 1.90 - 7.40 K/uL Final LYMPHOCYTES ABS 07/30/2018 2.18 1.00 - 3.90 K/uL Final MONOCYTES ABS 07/30/2018 0.64 0.00 - 0.80 K/uL Final EOSINOPHILS ABS 07/30/2018 0.19 0.00 - 0.50 K/uL Final BASOPHILS ABS 07/30/2018 0.07 0.00 - 0.10 K/uL Final SODIUM 07/30/2018 140 135 - 145 mmol/L Final POTASSIUM 07/30/2018 3.5 3.5 - 4.9 mmol/L Final CHLORIDE 07/30/2018 103 99 - 109 mmol/L Final CO2 07/30/2018 27 23 - 32 mmol/L Final ANION GAP AGAP 07/30/2018 14 5 - 20 mmol/L Final GLUCOSE 07/30/2018 87 65 - 99 mg/dL Final BUN 07/30/2018 11 8 - 25 mg/dL Final CREATININE 07/30/2018 1.3* 0.50 - 1.00 mg/dL Final BUN/CREAT 07/30/2018 9 Final CALCIUM 07/30/2018 9.1 8.5 - 10.5 mg/dL Final TOTAL PROTEIN 07/30/2018 7.9 6.3 - 8.2 g/dL Final Albumin 07/30/2018 3.9 3.3 - 4.8 g/dL Final GLOBULIN 07/30/2018 4.0 1.3 - 4.9 g/dL Final A/G 07/30/2018 1.0 1.0 - 2.4 Final TBIL 07/30/2018 0.8 0.1 - 1.5 mg/dL Final ALK PHOS 07/30/2018 49 35 - 115 U/L Final AST 07/30/2018 30 10 - 45 U/L Final ALT 07/30/2018 29 10 - 65 U/L Final EGFR 07/30/2018 41* >60 mL/min/1.73m2 Final CPK 07/30/2018 121 30 - 240 U/L Final INR 07/30/2018 1.0 Final APTT 07/30/2018 27 23 - 32 seconds Final MMB 07/30/2018 1.4 0.5 - 3.6 ng/mL Final CK-MB Index 07/30/2018 1.2 Final TROPONIN I 07/30/2018 <0.020 0.00 - 0.10 ng/mL Final EKG showed sinus rhythm with ventricular rate of [address]-T wave changes. Chest x-ray done at [facility] in [place] shows no acute findings. Creatinine at [facility] is 1.2. EKG at [facility] showed normal sinus rhythm with rate of [address]u te ST-T wave changes. BNP was 42 and lipase was 32. PROBLEM LIST Principal Problem: Chest pain Active Problems: Hyperlipidemia Essential hypertension Former smoker Stage 3 chronic kidney disease (HCC) ASSESSMENT & PLAN Chest pain. Pain is reproducible on palpation however patient has multiple risk factors for coronary artery disease. Will monitor patient on telemetry and check serial cardiac enzymes . If enzymes are negative will proceed with nuclear stress test. Will start patient on aspir in , metoprolol and Lipitor. Possible chest pain GI related. Will continue Protonix. Risk for PE is low. Echocardiogram done in February 2018 showed EF 65-70 percent. Possible chronic kidney disease stage III. This was discussed with the patient. No baseline creatinine available. We will monitor. Will hold Lasix. Hypertension. We will continue metoprolol. We will hold losartan. Blood pressure is well controlled. Hyperlipidemia. Will continue Lipitor. Deep vein thrombosis prophylaxis. Will start patient on Lovenox. The plan has explained in detail to the patient , all questions were answered.All data was reviewed. Time spent over 70 minutes Disposition: Observation Code Status: Full code Primary Care Physician: No primary care provider on file. Latseha Avalos MD 07/30/2018 3:32 PM This entry has been created using [employer] Speech Recognition software and Surface [employer]. The entry has been reviewed and there may still exist sound alike word errors. documented in th is encounter Procedure Notes Yuly Sanders ARNP - 07/31/2018 9:04 AM PSTFormatting of this note might be different fr om the original. Procedures by MYRANDA Crespo at 07/31/18 09 Author: MYRANDA Crespo Service: Radiology Author Type: Advanced Registered Nurse Oni ahuja Filed: 07/31/1805 Date of Service: 07/31/18903 Status: Signed Mexican Food Cook: MYRANDA Crespo (Advanced Registered Nurse Jef) Pre-procedure Diagnoses: 1. Chest pain, unspecified type [R07.9] Post-procedure Diagnoses: 1. Chest pain, unspecified type [R07.9] Procedures: 1. NM MYOCARDIAL PERFUSION SPECT - STRESS AND REST [CII064 (Custom)] [facility] Service: Diagnostic Imaging/Nuclear Medicine Cardiac Stress Test Note Type of Stress Test performed (protocol): Pharmacologic stress test Leandro protocol time (if applicable): N/A Rhythm changes: None Ectopy: None Symptoms experienced during exam: Chest pain increased to 8/10 from baseline of 5/10 ST/T wave changes: None Medications administered: Lexiscan 0.4 mg Delacruz Treadmill Score: N/A Comments: None documented in this encounter ED Notes Conversion Transaction, Provider Unknown - 07/30/2018 4:55 PM PSTFormatting of this note m ight be different from the original. ED Notes by Fior Art RN at 07/30/181654 Author: Fior Art RN Service: (none) Author Type: Registered Nurse Filed: 07/30/181700 Date of Service: 07/30/181654 Status: Signed Mexican Food Cook: Fior Art RN (Registered Nurse) Bedside report given to CARMEN Rogers. No further questions at this time. Fior Art RN 07/30/181700 onver artemio Transaction, Provider Unknown - 07/30/2018 2:20 PM PST ED Notes by Fior Art RN at 07/30/18 142 Author: Fior Art RN Service: (none) Author Type: Registered Nurse Filed: 07/30/181433 Date of Service: 07/30/181419 Status: Signed Mexican Food Cook: Fior Art RN (Registered Nurse) Pt transferred to ED via EMS from [facility] for c/o CP. Pt reports having intermittent stabbing to aching L sided CP beginning at 0700 this morning. Pt states pain traveled to h er back and was accompanied by nausea and SOB. Hc of CHF, MARIELA, kidney failure and gout. Pt gowned, placed on grassland conservationist with continuous pulse oximetry. Side rails up x2, warm b lanket provided. Call light within reach. Fior Art RN 07/30/18 1884 onver artemio Transaction, Provider Unknown - 07/30/2018 2:00 PM PST ED Notes by Fior Art RN at 07/30/18 1400 Author: Fior Art RN Service: (none) Author Type: Registered Nurse Filed: 07/30/18 1400 Date of Service: 07/30/18 1400 Status: Signed Mexican Food Cook: Fior Art RN (Registered Nurse) EKG completed by Bri CONKLIN and shown to Dr. Montana. Fior Art RN 07/30/18 1400 Kj Hurst DO - 07/30/2018 1:53 PM PSTFormatting of this note might be different f rom the original. ED Provider Notes by Kj Montana DO at 07/30/18 2823 Author: Kj Montana DO Service: Emergency Department Author Type: Physician Filed: 07/30/18 1841 Date of Service: 07/30/18 135 Status: Signed Mexican Food Cook: Kj Montana DO (Physician) [facility] Department of Emergency Medicine Pre-arrival Provider: Another ED Provider Name: [facility] Pertinent History and Concerns: chest pain starting this morning. pt to have nuclear stres s test here. Relevant Labs or Studies: 20 g LAC Relevant Medications: 4 mg zofran, 1 inch nitro paste on left chest at 1045 Currently Involved [facility]: BP- 120/76 HR -74 SPO2-98% RR-16- Temp-98 (07/30/18 1247 : Neisha Sommer RN) 1:53 PM History of Present Illness Patient Identification Ani Thomas is a 67 y.o. female. Patient information was obtained from patient and EMS personnel. History/Exam limitations: none. Patient presented to the Emergency Department by: Chief Complaint Chief Complaint Patient presents with Chest Pain Referral from [facility] The patient presents to ED with complaints of chest pain. Onset of symptoms was earlier tod ay at 7 AM, with an improving course since that time. The symptoms are described to be of mo derate severity. The patient describes the quality and location of the symptoms as the follo wing: chest pain radiating to left arm and left shoulder. Pt has h/o CHF and had a treadmill stress 1 month ago and failed due to nausea/vomiting. Pt has h/o elevated BP and was a prev ious smoker but quite a while ago. Pt denies trauma the lower extremities, travel within 30 days, surgery within 30 days, history of DVT or PE. Patient also complains of nausea. Patien t denies any other symptoms at this time. Care prior to arrival consisted of nitro, with abimael e relief. Pt received fentanyl en route and at previous ED patient received nitro patch with improvement to patients symptoms. Pt reports she was sent here for a nuclear stress test. PCP: No primary care provider on file. Past Medical History Diagnosis Date Arthritis Bursitis Gout Hyperlipidemia Migraine Past Surgical History Procedure Laterality Date SECTION CHOLECYSTECTOMY TUBAL LIGATION Prior to Admission medications Not on File Allergies Allergen Reactions Flagyl [Metronidazole] Nausea and Vomiting Social History Social History Marital status: N/A Spouse name: N/A Number of children: N/A Years of education: N/A Occupational History Not on file. Social History Main Topics Smoking status: Former Smoker Years: 25.00 Smokeless tobacco: Never Used Alcohol use No Drug use: Yes Comment: Pt states "I vape CBD oil." Sexual activity: Not Currently Other Topics Concern Not on file Social History Narrative No narrative on file Family History Problem Relation Age of Onset Coronary Artery Disease Sister Review of Systems Constitutional: Negative for fever, chills Eyes: Negative for vision changes Nose: Negative for congestion Throat: Negative for sore throat CV/Resp: Negative for thdnjmyez-ss-buahaf, cough Positive for chest pain GI: Negative for abdominal pain, vomiting, or diarrhea Positive for nausea : Negative for urinary problems Musculoskeletal: Negative for back pain, joint pain Skin: Negative for rash Neuro/Psych: Negative for headache Endo/heme/Lymph: Negative for easy bruising All other systems reviewed and negative except as noted. Physical Exam BP 124/78 (BP Location: Right upper arm) | Pulse 94 | Temp 98.1 F (36.7 C) (Oral) | Resp 20 | SpO2 98% Vital signs interpretation: WNL Pulse Oximetry interpretation: Normal General: Alert, in no apparent distress Eyes: Normal inspection ENT: MMM Neck: Normal inspection Chest: Anterior chest wall tenderness Cardiovascular: Rate and rhythm normal No murmurs Respiratory: Breath sounds normal bilaterally No rales, wheezing or rhonchi Abdomen: Soft, non-tender, non-distended No guarding or rebound Genitourinary: Deferred Rectal exam: Deferred Back: Normal inspection Extremities: No edema Distal pulses intact Skin: Color normal Warm and dry No rash Neuro: Alert, no AMS No gross motor/sensory deficits Medical Decision Making and Emergency Department Course ED Department Course Patient presents to ED with complaints of chest pain. My DDx includes, but is not limited t o: ACS, PE, PNA, Dissection, PTX, pericarditis, myocarditis, costochondritis, GERD, esophage al injury, muscle strain, vs other. Will order labs, and reevaluate the patient. The pt's pain could be MSK related as it is reproducible however she has risk factors and i t improved with nitro. I think a stress test is indicated. Will repeat labs and get the pt admitted. 2:01 PM Lab work from previous ED showed blood sugar of 243, creatinine at 1.2, troponin wa s negative, CXR showed no acute process 2:54 PM Lab results shows negative troponin and all other results are normal except renal i nsufficiency again noted. 2:49 PM Discussed the pt's case including pertinent hx, workup, and treatment with Dr. Madeline keith, hospitalist, who accepts the pt for admission. Will continue to monitor the pt in thi s department until care is transferred to hospitalist services. Records Reviewed Nursing notes. Ambulance run sheet. No previous [facility] ED visits available in [facility] for review. Laboratory Evaluation Results Procedure Component Value Ref Range Date/Time Cardiac Panel [[id number]] (Abnormal) Collected: 07/30/18 1416 Order Status: Completed Updated: 07/30/18 1454 WBC 8.50 3.80 - 11.00 K/uL RBC 4.18 3.70 - 5.10 M/uL HGB 13.8 11.3 - 15.5 g/dL HCT 41.8 34.0 - 46.0 % MCV 100.0 80.0 - 100.0 fl MCH 33.1 27.0 - 34.0 pg MCHC 33.1 32.0 - 35.5 g/dL RDW SD 49.4 37 - 53 fl PLT 211 150 - 400 K/uL MPV 9.4 fl DIFF TYPE AUTOMATED NEUTROPHILS 63.82 % LYMPHOCYTES 25.58 % MONOCYTES 7.50 % EOSINOPHILS 2.22 % BASOPHILS 0.88 % NEUTROPHILS ABS 5.43 1.90 - 7.40 K/uL LYMPHOCYTES ABS 2.18 1.00 - 3.90 K/uL MONOCYTES ABS 0.64 0.00 - 0.80 K/uL EOSINOPHILS ABS 0.19 0.00 - 0.50 K/uL BASOPHILS ABS 0.07 0.00 - 0.10 K/uL SODIUM 140 135 - 145 mmol/L POTASSIUM 3.5 3.5 - 4.9 mmol/L CHLORIDE 103 99 - 109 mmol/L CO2 27 23 - 32 mmol/L ANION GAP AGAP 14 5 - 20 mmol/L GLUCOSE 87 65 - 99 mg/dL BUN 11 8 - 25 mg/dL CREATININE 1.3 (H) 0.50 - 1.00 mg/dL BUN/CREAT 9 CALCIUM 9.1 8.5 - 10.5 mg/dL TOTAL PROTEIN 7.9 6.3 - 8.2 g/dL Albumin 3.9 3.3 - 4.8 g/dL GLOBULIN 4.0 1.3 - 4.9 g/dL A/G 1.0 1.0 - 2.4 TBIL 0.8 0.1 - 1.5 mg/dL ALK PHOS 49 35 - 115 U/L AST 30 10 - 45 U/L ALT 29 10 - 65 U/L EGFR 41 (L) >60 mL/min/1.73m2 CPK 121 30 - 240 U/L INR 1.0 APTT 27 23 - 32 seconds MMB 1.4 0.5 - 3.6 ng/mL CK-MB Index 1.2 Troponin I, Lab [[id number]] Collected: 07/30/18 1416 Order Status: Completed Specimen: Blood Updated: 07/30/18 1454 TROPONIN I <0.020 0.00 - 0.10 ng/mL I personally reviewed the lab results and they have been posted to the chart. Pertinent po sitive and negative findings have been addressed appropriately. Radiology and EKG Evaluation Imaging Results None EKG @ 1358 Normal sinus rhythm rate of [address] changes concerning for acute ischemia Normal QRS, intervals, and QTc Interpreted by Kj Montana DO at time of service. ED Diagnoses Final diagnoses Chest pain, unspecified type Associated Orders XR CHEST 1 VIEW Renal insufficiency Disposition: ED Disposition ED Disposition Condition Comment Admit/Observation Bed request special needs: telemetry Diagnosis?: chest pain, renal insufficiency Dictation software, Reviewspotter, used which may contain error for similar sounding words even af ter review. Personal communication requested for any clarification. Procedures Additional Documentation Procedures Attending Provider Note: I, Kj Montana DO personally performed the services descri bed in this documentation, as scribed by David Caal in my presence, and it is both accura te and complete. Chart Reviewed and Completed: 07/30/2018 4:25 PM Scribe: Guera Juarez, scribing for and in the presence of Kj Montana DO. Signed by: Guera Hammer 07/30/2018 4:25 PM Kj Montana DO 07/30/18 184 onversion Transaction, Provider Unknown - 07/30/2018 1:52 PM PSTFormatting of this note might be diff erent from the original. ED Notes by Neisha Sommer RN at 07/30/181351 Author: Neisha Sommer RN Service: (none) Author Type: Registered Nurse Filed: 07/30/181351 Date of Service: 07/30/181351 Status: Signed Mexican Food Cook: Neisha Sommer RN (Registered Nurse) Bed: 13 Expected date: Expected time: Means of arrival: Comments: Ileana Neisha Sommer RN 07/30/181351 docume nted in this encounter Miscellaneous Notes Plan of Care - Conversion Transaction, Provider Unknown - 07/31/2018 1:53 PM PST Plan of Care by Mono Llanos RN at 07/31/181352 Author: Mono Llanos RN Service: (none) Author Type: Registered Nurse Filed: 07/31/181352 Date of Service: 07/31/181352 Status: Signed Mexican Food Cook: Mono Llanos RN (Registered Nurse) Problem: Pain Goal: Patient's pain/discomfort is manageable Assess and monitor patient's pain using appropriate pain scale. Collaborate with interdisci plinary team and initiate plan and interventions as ordered. Re-assess patient's pain level approximately 1-2 hours after pain management intervention. Premedicate as needed. Outcome: Progressing Pt rating margarito n6/10 at start of shift- decreased to low of 3/10 today w/o need for PRN medi cation for pain. Problem: Psychosocial Needs Goal: Demonstrates ability to cope with hospitalization/illness Assess and monitor patients ability to cope with his/her illness. Outcome: Progressing Pt in no apparent distress; pt excited with no findings with NMST today and eager to discha rge. lan o f Care - Conversion Transaction, Provider Unknown - 07/30/2018 11:49 PM PSTFormatting of thi s note might be different from the original. Plan of Care by Teodora Reno RN at 07/30/182348 Author: Teodora Reno RN Service: (none) Author Type: Registered Nurse Filed: 07/30/182348 Date of Service: 07/30/182348 Status: Signed Mexican Food Cook: Teodora Reno RN (Registered Nurse) Problem: IA Day 1 - Education/Support Goal: Patient aware of IA and rule-out IA process Outcome: Progressing Educated pt on testing to be done including labs, EKG, and NMST. Answered all pt questions. lan o f Care - Conversion Transaction, Provider Unknown - 07/30/2018 6:48 PM PSTFormatting of thi s note might be different from the original. Plan of Care by Mono Llanos RN at 07/30/181847 Author: Mono Llanos RN Service: (none) Author Type: Registered Nurse Filed: 07/30/181847 Date of Service: 07/30/181847 Status: Signed Mexican Food Cook: Mono Llanos RN (Registered Nurse) Problem: Pain Goal: Patient's pain/discomfort is manageable Assess and monitor patient's pain using appropriate pain scale. Collaborate with interdisci plinary team and initiate plan and interventions as ordered. Re-assess patient's pain level approximately 1-2 hours after pain management intervention. Premedicate as needed. Pt states pain is improving. Pt states headache is her biggest complaint. PO tylenol provid ed to aid in relief. Problem: Psychosocial Needs Goal: Demonstrates ability to cope with hospitalization/illness Assess and monitor patients ability to cope with his/her illness. Pt appears calm overall. No outward signs of distress. Appears to be tolerating care well. docume nted in this encounter Plan of Treatment Not on filedocumented as of this encounter Procedures + +--------+ + + + | Procedure Name | Priori | Date/Time | Associated Diagnosis | Comments | | | ty | | | | + +--------+ + + + | NM MYOCARDIAL | Routin | 07/31/2018 | | Results for this | | PERFUSION MULT SPECT | e | 9:49 AM | | procedure are in the | | | | PST | | results section. | + +--------+ + + + | EXTERNAL LAB: CBC | Routin | 07/31/2018 | | Results for this | | | e | 4:58 AM | | procedure are in the | | | | PST | | results section. | + +--------+ + + + | MAGNESIUM | Routin | 07/31/2018 | | Results for this | | | e | 4:58 AM | | procedure are in the | | | | PST | | results section. | + +--------+ + + + | HEMOGLOBIN A1C | Routin | 07/31/2018 | | Results for this | | | e | 4:58 AM | | procedure are in the | | | | PST | | results section. | + +--------+ + + + | BASIC METABOLIC | Routin | 07/31/2018 | | Results for this | | PANEL | e | 4:58 AM | | procedure are in the | | | | PST | | results section. | + +--------+ + + + | ECG 12 LEAD | Routin | 07/31/2018 | | Results for this | | | e | 4:10 AM | | procedure are in the | | | | PST | | results section. | + +--------+ + + + | TROPONIN I | Routin | 07/30/2018 | | Results for this | | | e | 9:06 PM | | procedure are in the | | | | PST | | results section. | + +--------+ + + + | TROPONIN I | Routin | 07/30/2018 | | Results for this | | | e | 5:26 PM | | procedure are in the | | | | PST | | results section. | + +--------+ + + + | HISTORICAL LAB PANEL | Routin | 07/30/2018 | | Results for this | | RESULT | e | 2:16 PM | | procedure are in the | | | | PST | | results section. | + +--------+ + + + | TROPONIN I | Routin | 07/30/2018 | | Results for this | | | e | 2:16 PM | | procedure are in the | | | | PST | | results section. | + +--------+ + + + | ECG 12 LEAD | Routin | 07/30/2018 | | Results for this | | | e | 1:58 PM | | procedure are in the | | | | PST | | results section. | + +--------+ + + + | XR CHEST 1 VIEW | Routin | 07/30/2018 | | Results for this | | | e | 12:13 PM | | procedure are in the | | | | PST | | results section. | + +--------+ + + + documented in this encounter Results NM Myocardial Perfusion Mult SPECT (07/31/2018 9:49 AM PST) + + | Specimen | + + | | + + + + + | Impressions | Performed At | + + + | Normal myocardial perfusion. No stress-induced reversible | | | ischemia. Low risk stratification. Signed by: Kee Flowers | | | Sign Date/Time: 07/31/2018 10:19 AM | | + + + + + + | Narrative | Performed At | + + + | REST/STRESS MYOCARDIAL PERFUSION STUDY PROTOCOL: STANDARD LEANDRO | | | EXERCISE. CLINICAL INFORMATION: Chest pain COMPARISON: ECHO | | | OUTSIDE INTERPRETATION (02/10/2018); PROCEDURE: Treadmill stress | | | testing was performed and reported separately, followed by the | | | standard department protocol for the SPECT myocardial perfusion | | | examination. RADIOPHARMACEUTICALS: 32.1 mCi technetium 99m | | | {sestamibi} IV for stress imaging, and 10.7 mCi technetium 99m | | | sestamibi IV for rest imaging. FINDINGS: Myocardial perfusion SPECT | | | Images: Normal myocardial perfusion. No stress-induced reversible | | | ischemia. No regional wall motion abnormality. Gated Study: The | | | ejection fraction is 75 % at stress and is normal. Volumes: ED: 67 | | | ES: 16 Wall Motion: Normal | | + + + + + | Procedure Note | + + | [place] Elliott Conversion - 02/17/2019 10:32 PM PDT REST/STRESS MYOCARDIAL PERFUSION STUDY | | PROTOCOL: | | STANDARD LEANDRO EXERCISE. | | CLINICAL INFORMATION: | | Chest pain | | COMPARISON: | | ECHO OUTSIDE INTERPRETATION (02/10/2018); | | PROCEDURE: | | Treadmill stress testing was performed and reported separately, | | followed by the standard department protocol for the SPECT myocardial | | perfusion examination. | | RADIOPHARMACEUTICALS: | | 32.1 mCi technetium 99m {sestamibi} IV for stress imaging, and 10.7 mCi | | technetium 99m sestamibi IV for rest imaging. | | FINDINGS: | | Myocardial perfusion SPECT Images: Normal myocardial perfusion. No | | stress-induced reversible ischemia. No regional wall motion | | abnormality. | | Gated Study: | | The ejection fraction is 75 % at stress and is normal. | | Volumes: | | ED: 67 | | ES: 16 | | Wall Motion: Normal | | IMPRESSION: | | Normal myocardial perfusion. No stress-induced reversible ischemia. | | Low risk stratification. | | Signed by: Kee Flowers | | Sign Date/Time: 07/31/2018 10:19 AM | + + External Lab: [facility] (07/31/2018 4:58 AM PST) + + + + + + | Component | Value | Ref Range | Performed | Pathologist | | | | | At | Signature | + + + + + + | WBC | 6.67 | 3.80 - 11.00 | EXTERNAL | | | | | K/uL | LAB | | + + + + + + | Non- | 3.89 | 3.70 - 5.10 | EXTERNAL | | | Red Blood | | M/uL | LAB | | | Cells | | | | | | Counted | | | | | + + + + + + | Hemoglobin | 12.8 | 11.3 - 15.5 | EXTERNAL | | | | | g/dL | LAB | | + + + + + + | Hematocrit, | 39.0 | 34.0 - 46.0 % | EXTERNAL | | | POC | | | LAB | | + + + + + + | MCV | 100.4 (H) | 80.0 - 100.0 fl | EXTERNAL | | | | | | LAB | | + + + + + + | MCH | 32.9 | 27.0 - 34.0 pg | EXTERNAL | | | | | | LAB | | + + + + + + | MCHC | 32.7 | 32.0 - 35.5 | EXTERNAL | | | | | g/dL | LAB | | + + + + + + | RDW-CV | 48.6 | 37 - 53 fl | EXTERNAL | | | | | | LAB | | + + + + + + | Platelet | 161 | 150 - 400 K/uL | EXTERNAL | | | Count | | | LAB | | | Plasma | | | | | + + + + + + | MPV | 9.8 | fl | EXTERNAL | | | | | | LAB | | + + + + + + | Differentia | AUTOMATED | | EXTERNAL | | | l Type | | | LAB | | + + + + + + | % Segmented | 46.41 | % | EXTERNAL | | | | | | LAB | | | Neutrophils | | | | | + + + + + + | % | 41.10 | % | EXTERNAL | | | Lymphocytes | | | LAB | | + + + + + + | % Monocytes | 6.99 | % | EXTERNAL | | | | | | LAB | | + + + + + + | % | 4.76 | % | EXTERNAL | | | Eosinophils | | | LAB | | + + + + + + | % Basophils | 0.74 | % | EXTERNAL | | | | | | LAB | | + + + + + + | Absolute | 3.09 | 1.90 - 7.40 | EXTERNAL | | | Segmented | | K/uL | LAB | | | Neutrophils | | | | | + + + + + + | Absolute | 2.74 | 1.00 - 3.90 | EXTERNAL | | | Lymphocytes | | K/uL | LAB | | + + + + + + | Absolute | 0.47 | 0.00 - 0.80 | EXTERNAL | | | Monocytes | | K/uL | LAB | | + + + + + + | Absolute | 0.32 | 0.00 - 0.50 | EXTERNAL | | | Eosinophils | | K/uL | LAB | | + + + + + + | Absolute | 0.05Comment: Testing | 0.00 - 0.10 | EXTERNAL | | | Basophils | performed at [facility], [address] | K/uL | LAB | | | | [address], | | | | | | [place] [address] | | | | + + + + + + + + | Specimen | + + | Blood specimen | | (specimen) | + + + +---------+ + + | Performing | Address | City/State/Zipcode | Phone Number | | Organization | | | | + +---------+ + + | EXTERNAL LAB | | | | + +---------+ + + Magnesium (07/31/2018 4:58 AM PST) + + + + + + | Component | Value | Ref Range | Performed | Pathologist | | | | | At | Signature | + + + + + + | Magnesium | 2.3Comment: Testing | 1.7 - 2.4 mg/dL | EXTERNAL | | | | performed at [facility], [address] | | LAB | | | | [address], | | | | | | [place] [address] | | | | + + + + + + + + | Specimen | + + | Blood specimen | | (specimen) | + + + +---------+ + + | Performing | Address | City/State/Zipcode | Phone Number | | Organization | | | | + +---------+ + + | EXTERNAL LAB | | | | + +---------+ + + Hemoglobin A1C (07/31/2018 4:58 AM PST) + + + + + + | Component | Value | Ref Range | Performed | Pathologist | | | | | At | Signature | + + + + + + | Hemoglobin | 5.8Comment: HbA1c method | 4.0 - 6.0 % | EXTERNAL | | | A1c | is certified by [facility] | | LAB | | | | and traceable to the | | | | | | DCCT reference | | | | | | method.ADA guidelines | | | | | | indicate: | | | | | | Prediabetes: 5.7 - 6.4 | | | | | | Diabetes: >6.4 | | | | | | Glycemic control for | | | | | | adults with diabetes: | | | | | | <7.0Effective 07/23/2018: | | | | | | Note New Method | | | | + + + + + + | Glycohemogl | 120Comment: Estimated | mg/dL | EXTERNAL | | | obin | Average Glucose | | LAB | | | (GHb),Total | calculated from | | | | | | hemoglobin A1c by use of | | | | | | the ADA recommended | | | | | | formula.Testing | | | | | | performed at [facility], [address] | | | | | | [address] [facility], | | | | | | [place] [address] | | | | + + + + + + + + | Specimen | + + | Blood specimen | | (specimen) | + + + +---------+ + + | Performing | Address | City/State/Zipcode | Phone Number | | Organization | | | | + +---------+ + + | EXTERNAL LAB | | | | + +---------+ + + Basic Metabolic Panel (07/31/2018 4:58 AM PST) + + + + + + | Component | Value | Ref Range | Performed | Pathologist | | | | | At | Signature | + + + + + + | Na | 139 | 135 - 145 | EXTERNAL | | | | | mmol/L | LAB | | + + + + + + | K | 3.4 (L) | 3.5 - 4.9 | EXTERNAL | | | | | mmol/L | LAB | | + + + + + + | Cl | 101 | 99 - 109 mmol/L | EXTERNAL | | | | | | LAB | | + + + + + + | CO2 | 31 | 23 - 32 mmol/L | EXTERNAL | | | | | | LAB | | + + + + + + | Anion Gap | 10 | 5 - 20 mmol/L | EXTERNAL | | | | | | LAB | | + + + + + + | Glucose, | 93 | 65 - 99 mg/dL | EXTERNAL | | | Fasting | | | LAB | | + + + + + + | BUN | 15 | 8 - 25 mg/dL | EXTERNAL | | | | | | LAB | | + + + + + + | Creatinine | 1.3 (H) | 0.50 - 1.00 | EXTERNAL | | | | | mg/dL | LAB | | + + + + + + | BUN/Creatin | 12 | | EXTERNAL | | | ine Ratio | | | LAB | | + + + + + + | Calcium | 8.8 | 8.5 - 10.5 | EXTERNAL | | | | | mg/dL | LAB | | + + + + + + | Estimated | 41 (L)Comment: GFR <60: | mL/min/1.73m2 | EXTERNAL | | | GFR | CHRONIC KIDNEY DISEASE, | | LAB | | | | IF FOUND OVER A 3 MONTH | | | | | | PERIOD.GFR <15: KIDNEY | | | | | | FAILURE.FOR | | | | | | AMERICANS, MULTIPLY THE | | | | | | CALCULATED GFR BY | | | | | | 1.210.This eGFR is | | | | | | calculated using the | | | | | | MDRD IDMS traceable | | | | | | equation.Testing | | | | | | performed at [facility], [address] | | | | | | [facility], | | | | | | [place] [address] | | | | + + + + + + + + | Specimen | + + | Blood specimen | | (specimen) | + + + +---------+ + + | Performing | Address | City/State/Zipcode | Phone Number | | Organization | | | | + +---------+ + + | EXTERNAL LAB | | | | + +---------+ + + ECG 12 lead (07/31/2018 4:10 AM PST) + + + + + + | Component | Value | Ref Range | Performed | Pathologist | | | | | At | Signature | + + + + + + | DIAGNOSIS: | Normal sinus | | EXTERNAL | | | | rhythmNormal ECGWhen | | LAB | | | | compared with ECG of | | | | | | 30-JUL-2018 13:58,No | | | | | | significant change was | | | | | | foundConfirmed by | | | | | | DEANDRE PEARSON ([id number]) on | | | | | | 07/31/2018 12:02:38 PM | | | | + + + + + + + + | Specimen | + + | | + + + + + | Narrative | Performed At | + + + | [facility]ically [facility] from [facility] | EXTERNAL LAB | + + + + +---------+ + + | Performing | Address | City/State/Zipcode | Phone Number | | Organization | | | | + +---------+ + + | EXTERNAL LAB | | | | + +---------+ + + Troponin I (07/30/2018 9:06 PM PST) + + + + + + | Component | Value | Ref Range | Performed | Pathologist | | | | | At | Signature | + + + + + + | Troponin I, | <0.020Comment: 0.00 to | 0.00 - 0.10 | EXTERNAL | | | Qual | 0.10 CONSISTENT WITH | ng/mL | LAB | | | | NORMAL POPULATION0.11 | | | | | | to 0.60 CONSISTENT | | | | | | WITH INCREASED RISK FOR | | | | | | ADVERSE OUTCOMES> 0.60 | | | | | | CONSISTENT | | | | | | WITH WHO CRITERIA FOR | | | | | | ACUTE IA Testing | | | | | | performed at [facility];[address] | | | | | | [address];[place], [place] | | | | | | [address] | | | | + + + + + + + + | Specimen | + + | Blood specimen | | (specimen) | + + + +---------+ + + | Performing | Address | City/State/Zipcode | Phone Number | | Organization | | | | + +---------+ + + | EXTERNAL LAB | | | | + +---------+ + + Troponin I (07/30/2018 5:26 PM PST) + + + + + + | Component | Value | Ref Range | Performed | Pathologist | | | | | At | Signature | + + + + + + | Troponin I, | <0.020Comment: 0.00 to | 0.00 - 0.10 | EXTERNAL | | | Qual | 0.10 CONSISTENT WITH | ng/mL | LAB | | | | NORMAL POPULATION0.11 | | | | | | to 0.60 CONSISTENT | | | | | | WITH INCREASED RISK FOR | | | | | | ADVERSE OUTCOMES> 0.60 | | | | | | CONSISTENT | | | | | | WITH WHO CRITERIA FOR | | | | | | ACUTE IA Testing | | | | | | performed at [facility];[address] | | | [address] | | [address];[place], [place] | | | | | | [address] | | | | + + + + + + + + | Specimen | + + | Blood specimen | | (specimen) | + + + +---------+ + + | Performing | Address | City/State/Zipcode | Phone Number | | Organization | | | | + +---------+ + + | EXTERNAL LAB | | | | + +---------+ + + HISTORICAL LAB PANEL RESULT (07/30/2018 2:16 PM PST) + + + + + -+ | Component | Value | Ref Range | Performed | Pathologist | | | | | At | Signature | + + + + + -+ | WBC | 8.50 | 3.80 - 11.00 | EXTERNAL | | | | | K/uL | LAB | | + + + + + -+ | Non- | 4.18 | 3.70 - 5.10 | EXTERNAL | | | Red Blood | | M/uL | LAB | | | Cells | | | | | | Counted | | | | | + + + + + -+ | Hemoglobin | 13.8 | 11.3 - 15.5 | EXTERNAL | | | | | g/dL | LAB | | + + + + + -+ | Hematocrit, | 41.8 | 34.0 - 46.0 % | EXTERNAL | | | POC | | | LAB | | + + + + + -+ | MCV | 100.0 | 80.0 - 100.0 fl | EXTERNAL | | | | | | LAB | | + + + + + -+ | MCH | 33.1 | 27.0 - 34.0 pg | EXTERNAL | | | | | | LAB | | + + + + + -+ | MCHC | 33.1 | 32.0 - 35.5 | EXTERNAL | | | | | g/dL | LAB | | + + + + + -+ | RDW-CV | 49.4 | 37 - 53 fl | EXTERNAL | | | | | | LAB | | + + + + + -+ | Platelet | 211 | 150 - 400 K/uL | EXTERNAL | | | Count | | | LAB | | | Plasma | | | | | + + + + + -+ | MPV | 9.4 | fl | EXTERNAL | | | | | | LAB | | + + + + + -+ | Differentia | AUTOMATED | | EXTERNAL | | | l Type | | | LAB | | + + + + + -+ | % Segmented | 63.82 | % | EXTERNAL | | | | | | LAB | | | Neutrophils | | | | | + + + + + -+ | % | 25.58 | % | EXTERNAL | | | Lymphocytes | | | LAB | | + + + + + -+ | % Monocytes | 7.50 | % | EXTERNAL | | | | | | LAB | | + + + + + -+ | % | 2.22 | % | EXTERNAL | | | Eosinophils | | | LAB | | + + + + + -+ | % Basophils | 0.88 | % | EXTERNAL | | | | | | LAB | | + + + + + -+ | Absolute | 5.43 | 1.90 - 7.40 | EXTERNAL | | | Segmented | | K/uL | LAB | | | Neutrophils | | | | | + + + + + -+ | Absolute | 2.18 | 1.00 - 3.90 | EXTERNAL | | | Lymphocytes | | K/uL | LAB | | + + + + + -+ | Absolute | 0.64 | 0.00 - 0.80 | EXTERNAL | | | Monocytes | | K/uL | LAB | | + + + + + -+ | Absolute | 0.19 | 0.00 - 0.50 | EXTERNAL | | | Eosinophils | | K/uL | LAB | | + + + + + -+ | Absolute | 0.07 | 0.00 - 0.10 | EXTERNAL | | | Basophils | | K/uL | LAB | | + + + + + -+ | Na | 140 | 135 - 145 | EXTERNAL | | | | | mmol/L | LAB | | + + + + + -+ | K | 3.5 | 3.5 - 4.9 | EXTERNAL | | | | | mmol/L | LAB | | + + + + + -+ | Cl | 103 | 99 - 109 mmol/L | EXTERNAL | | | | | | LAB | | + + + + + -+ | CO2 | 27 | 23 - 32 mmol/L | EXTERNAL | | | | | | LAB | | + + + + + -+ | Anion Gap | 14 | 5 - 20 mmol/L | EXTERNAL | | | | | | LAB | | + + + + + -+ | Glucose, | 87 | 65 - 99 mg/dL | EXTERNAL | | | Fasting | | | LAB | | + + + + + -+ | BUN | 11 | 8 - 25 mg/dL | EXTERNAL | | | | | | LAB | | + + + + + -+ | Creatinine | 1.3 (H) | 0.50 - 1.00 | EXTERNAL | | | | | mg/dL | LAB | | + + + + + -+ | BUN/Creatin | 9 | | EXTERNAL | | | ine Ratio | | | LAB | | + + + + + -+ | Calcium | 9.1 | 8.5 - 10.5 | EXTERNAL | | | | | mg/dL | LAB | | + + + + + -+ | Protein, | 7.9 | 6.3 - 8.2 g/dL | EXTERNAL | | | Total | | | LAB | | + + + + + -+ | Albumin | 3.9 | 3.3 - 4.8 g/dL | EXTERNAL | | | | | | LAB | | + + + + + -+ | Globulin | 4.0 | 1.3 - 4.9 g/dL | EXTERNAL | | | | | | LAB | | + + + + + -+ | A/G Ratio | 1.0 | 1.0 - 2.4 | EXTERNAL | | | | | | LAB | | + + + + + -+ | Bilirubin | 0.8 | 0.1 - 1.5 mg/dL | EXTERNAL | | | Total | | | LAB | | + + + + + -+ | ALP, | 49 | 35 - 115 U/L | EXTERNAL | | | External | | | LAB | | + + + + + -+ | AST | 30 | 10 - 45 U/L | EXTERNAL | | | | | | LAB | | + + + + + -+ | ALT | 29 | 10 - 65 U/L | EXTERNAL | | | | | | LAB | | + + + + + -+ | Estimated | 41 (L)Comment: GFR <60: | mL/min/1.73m2 | EXTERNAL | | | GFR | CHRONIC KIDNEY DISEASE, | | LAB | | | | IF FOUND OVER A 3 MONTH | | | | | | PERIOD.GFR <15: KIDNEY | | | | | | FAILURE.FOR | | | | | | AMERICANS, MULTIPLY THE | | | | | | CALCULATED GFR BY | | | | | | 1.210.This eGFR is | | | | | | calculated using the | | | | | | [facility] traceable | | | | | | equation. | | | | + + + + + -+ | CK, Total | 121 | 30 - 240 U/L | EXTERNAL | | | | | | LAB | | + + + + + -+ | INR | 1.0Comment: REFERENCE | | EXTERNAL | | | | RANGE:0.9 - 1.2 | | LAB | | | | NON-ANTICOAGULATED2.0 | | | | | | - 3.0 ALL OTHER | | | | | | THERAPEUTIC | | | | | | INDICATIONS2.5 - 3.5 | | | | | | MECHANICAL HEART VALVES, | | | | | | RECURRENT OR SYSTEMIC | | | | | | EMBOLISM | | | | + + + + + -+ | aPTT, | 27 | 23 - 32 seconds | EXTERNAL | | | Patient | | | LAB | | + + + + + -+ | CK-MB | 1.4 | 0.5 - 3.6 ng/mL | EXTERNAL | | | | | | LAB | | + + + + + -+ | CK-MB Index | 1.2Comment: CK INDEX | | EXTERNAL | | | | INTERPRETATION: | | LAB | | | | MMB ng/mL | | | | | | | | | | | |CK INDEX INTERPRETATION: | | | | | | MMB ng/mL | | | | | | | | | | + + + + + -+ + + | Specimen | + + | | + + + +---------+ + + | Performing | Address | City/State/Zipcode | Phone Number | | Organization | | | | + +---------+ + + | EXTERNAL LAB | | | | + +---------+ + + Troponin I (07/30/2018 2:16 PM PST) + + + + + + | Component | Value | Ref Range | Performed | Pathologist | | | | | At | Signature | + + + + + + | Troponin I, | <0.020Comment: 0.00 to | 0.00 - 0.10 | EXTERNAL | | | Qual | 0.10 CONSISTENT WITH | ng/mL | LAB | | | | NORMAL POPULATION0.11 | | | | | | to 0.60 CONSISTENT | | | | | | WITH INCREASED RISK FOR | | | | | | ADVERSE OUTCOMES> 0.60 | | | | | | CONSISTENT | | | | | | WITH WHO CRITERIA FOR | | | | | | ACUTE IA Testing | | | | | | performed at [facility];[address] | | | | | | [facility];[place], [place] | | | | | | [address] | | | | + + + + + + + + | Specimen | + + | Blood specimen | | (specimen) | + + + +---------+ + + | Performing | Address | City/State/Zipcode | Phone Number | | Organization | | | | + +---------+ + + | EXTERNAL LAB | | | | + +---------+ + + ECG 12 lead (07/30/2018 1:58 PM PST) + + + + + + | Component | Value | Ref Range | Performed | Pathologist | | | | | At | Signature | + + + + + + | DIAGNOSIS: | Normal sinus | | EXTERNAL | | | | rhythmNormal ECGNo | | LAB | | | | previous ECGs | | | | | | availableThis ECG | | | | | | contains Unconfirmed | | | | | | Interpretation | | | | | | Statements. See ED | | | | | | Record for Physician | | | | | | Interpretation. | | | | | | Confirmed by MUSE READ | | | | | | ONLY, -COMPUTER ([id number]), | | | | | | clinical editor Chris Houser | | | | | | Shahbaz ([id number]) on 07/31/2018 | | | | | | 8:06:28 PM | | | | + + + + + + + + | Specimen | + + | | + + + + + | Narrative | Performed At | + + + | Historically converted procedure from [facility] environment | EXTERNAL LAB | + + + + +---------+ + + | Performing | Address | City/State/Zipcode | Phone Number | | Organization | | | | + +---------+ + + | EXTERNAL LAB | | | | + +---------+ + + XR Chest 1 Reema (07/30/2018 12:13 PM PST) + + | Specimen | + + | | + + + + + | Narrative | Performed At | + + + | This is a non-reportable procedure without a radiologist report and | | | is used for image storage only | | + + + + + | Procedure Note | + + | [place] Elliott Conversion - 02/17/2019 10:32 PM PDT This is a non-reportable procedure | | without a radiologist report and isused for image storage only | + + documented in this encounter Visit Diagnoses + + | Diagnosis | + + | Chest pain, unspecified type | + + | Renal insufficiency Unspecified disorder of kidney and ureter | + + | Hyperlipidemia, unspecified hyperlipidemia type | + + documented in this encounter
--- OUTSIDE RECORDS SUMMARY | ~2020-04-06 | XMS | Encounter Summary ---
Demographics + + + | Address | [address] | | | [place] [address] | + + + | Preferred Language | Unknown | + + + | Marital Status | Unknown | + + + | Zoroastrianism Affiliation | Unknown | + + + | Race | White | + + + | Ethnic Group | Not or | + + + Author + + + | Author | [facility] | | | and Jasper | + + + | Organization | [facility] | | | and [place]ana | [...] Team Providers + +------+ + | Care Wire Rope Fabrication Supervisor Name | Role | Phone | + +------+ + PCP | Unavailable | + +------+ + Encounter Details +--------+ + + + + | Date | Type | Department | Care Team | Description | +--------+ + + + + | 02/10/ | Orders Only | [facility] | [address] [facility], | | | 2018 | | CONVERSION [address] | [address] | | | | | [address] [address] | [place] | | | | | [facility] [place] | [address] | | | | | [address] | | | | | | [phone] | | | +--------+ + + + [...] | + + + | Patient Name: ANI STEPHEN Date of : 1950 | | [...] 0.67 m/s MV | | | Dec Bertie: 5.43 m/s2 MV DecT: 209.35 ms MV E Sp: 1.13 m/s | | | MV E/A Ratio: 1.68 MV PHT: 60.71 ms MVA By PHT: 3.62 cm2 | | | Septal e': 0.04 m/s Septal E/e': 22.96 Lateral e': 0.07 m/s | | | Lateral E/e': 14.96 RAP: 5 mmHg RVSP: 33.68 mmHg TR | | | maxP.68 mmHg TR Vmax: 2.67 m/s Conduit Helper: DBS | | | Authenticated by: SONDRA KEYS MD Report Date/Time: 02-10-2018 | | | 17:51:16 | | + + + + ------+ | Procedure Note | + ------+ | Earl, Rad Conversion - 02/26/2019 5:41 PM PDT Patient Name: LUCY DELA CRUZ, | | Martha of : 1950 Performing Physician: SONDRA KEYS, | | | | MD INDICATIONS C | | HF CONCLUSIONS 1. [...] | 3.62 cmLVPWd: 0.69 cmLVOT Area: 3.14 [id number] Diam: 2.00 cm%FS: 44.73 %EF(Teich): | | [...] mlLAESV Index (A-L): 21.65 ml/m2LAAs A2C: 13.45 [id number] | | A-L A2C: 38.26 mlLALs A2C: 4.01 cmLAAs A4C: 12.10 [id number] A-L A4C: 30.96 | | mlLALs A4C: 4.01 cmRAAs: 10.59 [id number] A-L: 24.75 mlRAESV MOD: 23.56 mlRALs: | | 3.84 cmTAPSE: 2.51 cmAV maxP.17 mmHgAV meanP.98 mmHgAV Vmax: 1.42 m/Giovana | | Vmean: 0.91 m/Giovana VTI: 28.98 cmAVA Vmax: 2.99 cm2AVA (VTI): 2.97 py3XXQR maxPG: | | 7.37 mmHgLVOT meanP.49 mmHgLVSI Dopp: 54.22 ml/m2LVSV Dopp: 86.21 mlLVOT | | Vmax: 1.35 m/sLVOT Vmean: 0.87 m/sLVOT VTI: 27.37 cmMV A Sp: 0.67 m/sMV Dec | | Bertie: 5.43 m/s2MV DecT: 209.35 msMV E Sp: 1.13 m/sMV E/A Ratio: 1.68MV PHT: | | 60.71 msMVA By PHT: 3.62 qt3Emetbp e': 0.04 m/sSeptal E/e': 22.96Lateral e': | | 0.07 m/sLateral E/e': 14.96RAP: 5 mmHgRVSP: 33.68 mmHgTR maxP.68 mmHgTR | | Vmax: 2.67 m/s Conduit Helper: DBSAuthenticated by: Laurence ANGUIANO Date/Time: | | [...] A Sp: 0.67 m/s | |MV Dec Bertie: 5.43 m/s2 | |MV DecT: 209.35 ms [...] |TR Vmax: 2.67 m/s | | | |Conduit Helper: DBS | |Authenticated by: SONDRA KEYS MD [...]
--- OUTSIDE RECORDS SUMMARY | ~2020-04-06 | XMS | Clinical Summary ---
Demographics + + + | Address | [address] | | | [place] [address] | + + + | Preferred Language | Unknown | + + + | Marital Status | Unknown | + + + | Restorationist Affiliation | Unknown | + + + | Race | White | + + + | Ethnic Group | Not or | + + + Author + + + | Author | [facility] | | | and [place]asper | + + + | Organization | [facility] | | | and [place] | [...] Team Providers + +------+ + | Care Agricultural Extension Educator Name | Role | Phone | + [...] 0.4 mg under | | 0 | / | | Activ | | (NITROSTAT) 0.4 [...] Health Maintenance | Due Date | Last | Comments | | | | Done | | + + + + + | Hepatitis C | | | | | Screening | 3 | | | + + + + + | Med Mgmt: Uric Acid | | | | | | 3 | | | + + + + + | Medication | | | | | Management | 3 | | | + + [...] | 8 | | | | of 1 - PPSV23) | | | | + + + + + | Med Mgmt: Cr | | 07/31/19 | | | | 0 | 19, | | | | | 07/30/19 | | | | | 19 | | + + + + + | Med Mgmt: K | | 07/31/19 | | | | 0 | 19, | | | | | 07/30/19 | | | | | 19 | | + + + + + | Med Mgmt: Na | | 07/31/19 | | | | 0 | 19, | | | | | 07/30/19 | | | | | 19 | | + + + + + | Adult Annual | | | | | Wellness Visit | 0 | | | + + + + + | Vaccine: Influenza | | | | | (#1) | 0 | | | + + + + + Results Not on filefrom Last 3 Months
--- OUTSIDE RECORDS SUMMARY | ~2020-04-06 | XMS | Encounter Summary ---
Demographics + + + | Address | [address] | | | [place] [address] | + + + | Preferred Language | Unknown | + + + | Marital Status | Unknown | + + + | Sikh Affiliation | Unknown | + + + | Race | White | + + + | Ethnic Group | Not or | + + + Author + + + | Author | and [facility] | | | and [place] | + + + | Organization | [facility] | | | and [place] [...] Team Providers + +------+ + | Care Supervisor Pipelines Name | Role | Phone | + [...] | Transaction, | | | | | [address] | Provider Unknown | | | | | SHERRI CINTRON | [phone] | | | | | [phone] | | | | | | [phone] | | | +--------+ + + + [...]
--- OUTSIDE RECORDS SUMMARY | 2020-04-06 14:32 | XMS ---
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 04/04/2020-Current PHONE: [phone] [facility]-Current PHONE: [phone] Chandrika has no Care Guidelines for this patient. Care History Medical/Surgical 08/12/2019 [facility] Patient used ED appropriately for pain outside of clinic hours.\T\nbsp; No follow up scheduled yet. 03/03/2018 [facility] - Patient is currently established with [facility]. If patient is seen in the ED during business hours. Please contact [facility] at [facility]. Care Recommendation: If this patient has had 5 or more Emergency Department visits in the last 12 months.\T\nbsp; Patient will require education on the scope and purpose of the ED as an acute care provider not a Primary Care Provider and should not be utilized for chronic conditions.\T\nbsp; These are guidelines and the provider should exercise clinical judgment when providing care. Osorio VISIT COUNT (12 MO.) 8 [facility] Baptiste TOTAL 8 NOTE: Visits indicate total known visits. ED/UCC VISIT TRACKING (12 MO.) 04/06/2020 14:29 [facility] [place] TYPE: Emergency COMPLAINT: - BACK/FLANK PAIN, HEADACHE, N/V, CHILLS 04/02/2020 09:29 [facility] [place] TYPE: Emergency COMPLAINT: - HEADACHE DIAGNOSES: - Allergy status to other drugs, medicaments and biological sub - Chronic kidney disease, stage 3 (moderate) - Other halfway (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 - Heart failure, unspecified - Hypertensive heart and chronic kidney disease with heart fail - Headache 12/10/2019 13:45 [facility] [place] TYPE: Emergency COMPLAINT: - ABDOMINAL PAIN/VOMITING DIAGNOSES: - Unspecified abdominal pain - Allergy status to other drugs, medicaments and biological sub - Hypertensive heart disease with heart failure - Personal history of nicotine dependence - Heart failure, unspecified - 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
[2020-04-06] MEDS ORDERED: ALENDRONATE SOD70 MG PO (14:47)
[2020-04-06] MEDS ORDERED: REGLAN10 MG PO (18:03)
[2020-04-06] MEDS ORDERED: LIDODERM1 EACH TOP (18:03)
== END 2020-04-06 18:11 | disposition home or self-care (01) ==
LOC: ED 14:28
DX: G43.909 Migraine, unspecified, not intractable, without status migrainosus (principal); I13.0 Hypertensive heart and chronic kidney disease with heart failure and stage 1 through stage 4 chronic kidney disease, or unspecified chronic kidney disease; I50.9 Heart failure, unspecified; N18.3 Chronic kidney disease, stage 3 (moderate); Z87.891 Personal history of nicotine dependence; Z88.8 Allergy status to other drugs, medicaments and biological substances; Z79.899 Other long term (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
CPT/HCPCS: 70450; 80053; 83690; 85025; 96361; 96374; 96375; 99284-25; A9270; J1200; J2405; J2765; J7030

== ENCOUNTER 2020-11-14 06:31 | Emergency (ER) | payer MEDICARE ==
[~2020-11-14] VITALS: Ht 162.6 cm; Wt 49.9 kg
[~2020-11-14 06:31] MED LIST changes: +ALENDRONATE SOD70 MG PO; -GAS-X125 M1 PO; +LIDODERM1 EACH TOP
--- OUTSIDE RECORDS SUMMARY | 2020-11-14 06:34 | XMS ---
PreManage Notification: JAMIE TORRES Security Adzing And Boring Machine Helper Events No recent Security Events currently on file CRITERIA MET - Group Notification - [facility] - Has Care Guidelines - History of Sepsis Dx CARE PROVIDERS JAQUELINE JAIMES [facility] 04/04/2020-Current PHONE: [phone] MARLEY ARCINIEGA Internal Medicine 03/03/2018-Current PHONE: [phone] Chandrika has no Care Guidelines for this patient. Care History Medical/Surgical 04/07/2020 [facility] Patient went to Walk In Clinic first and was then sent to ED.\T\nbsp; 08/12/2019 [facility] Patient used ED appropriately for pain outside of clinic hours.\T\nbsp; No follow up scheduled yet. 03/03/2018 [facility] - Patient is currently established with [facility]. If patient is seen in the ED during business hours. Please contact CHWs at [facility]. Care Recommendation: If this patient has had 5 or more Emergency Department visits in the last 12 months.\T\nbsp; Patient will require education on the scope and purpose of the ED as an acute care provider not a Primary Care Provider and should not be utilized for chronic conditions.\T\nbsp; These are guidelines and the provider should exercise clinical judgment when providing care. ERenataD. VISIT COUNT (12 MO.) 4 RADHA Baptiste TOTAL 4 NOTE: Visits indicate total known visits. ED/UCC VISIT TRACKING (12 MO.) 11/14/2020 06:32 [facility] [place] TYPE: Emergency COMPLAINT: - RT FOOT INJURY 04/06/2020 14:29 [facility] [place] TYPE: Emergency COMPLAINT: - BACK/FLANK PAIN, HEADACHE, N/V, CHILLS DIAGNOSES: - Hypertensive heart and chronic kidney disease with heart failure and stage 1 through stage 4 chronic kidney disease, or unspecified chronic kidney disease - Headache - Chronic kidney disease, stage 3 (moderate) - Essential (primary) hypertension - Gout, unspecified - Allergy status to other drugs, medicaments and biological substances - Sciatica, right side - Other terminal clerk (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 - Personal history of nicotine dependence - Nausea with vomiting, unspecified - Heart failure, unspecified - Migraine, unspecified, not intractable, without status migrainosus 04/02/2020 09:29 [facility] [place] TYPE: Emergency COMPLAINT: - HEADACHE DIAGNOSES: - Allergy status to other drugs, medicaments and biological substances - Chronic kidney disease, stage 3 (moderate) - Other jail (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 - Heart failure, unspecified - Hypertensive heart and chronic kidney disease with heart failure and stage 1 through stage 4 chronic kidney disease, or unspecified chronic kidney disease - Headache 12/10/2019 13:45 [facility] [place] TYPE: Emergency COMPLAINT: - ABDOMINAL PAIN/VOMITING DIAGNOSES: - Contact with and (suspected) exposure to other viral communicable diseases - Unspecified abdominal pain - Allergy status to other drugs, medicaments and biological substances - Hypertensive heart disease with heart failure - Personal history of nicotine dependence - Heart failure, unspecified - Other terminal clerk (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 INPATIENT VISIT TRACKING (12 MO.) No inpatient visits to display in this time frame [email or web address]
== END 2020-11-14 08:22 | disposition home or self-care (01) ==
LOC: ED 06:31
DX: S91.311A Laceration without foreign body, right foot, initial encounter (principal); W22.8XXA Striking against or struck by other objects, initial encounter; Z23 Encounter for immunization; I13.0 Hypertensive heart and chronic kidney disease with heart failure and stage 1 through stage 4 chronic kidney disease, or unspecified chronic kidney disease; I50.9 Heart failure, unspecified; M10.9 Gout, unspecified; G43.909 Migraine, unspecified, not intractable, without status migrainosus; N18.30 Chronic kidney disease, stage 3 unspecified; F17.200 Nicotine dependence, unspecified, uncomplicated; Z88.8 Allergy status to other drugs, medicaments and biological substances; Z79.899 Other long term (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
CPT/HCPCS: 12002; 73630; 90471; 90715; 99283-25

== ENCOUNTER 2020-12-18 08:56 | Observation (INO) | payer MEDICARE ==
[~2020-12-18] VITALS: Ht 162.6 cm; Wt 50.0 kg
--- OUTSIDE RECORDS SUMMARY | 2020-12-18 09:00 | XMS ---
PreManage Notification: JAMIE TORRES Security Individual Pension Consultant Events No recent Security Events currently on file CRITERIA MET - Group Notification - [facility] - Has Care Guidelines CARE PROVIDERS JAQUELINE JAIMES [facility] 04/04/2020-Current PHONE: [phone] SU[facility] Internal Medicine 03/03/2018-Current PHONE: [phone] Chandrika has no Care Guidelines for this patient. Care History Medical/Surgical 04/07/2020 [facility] Patient went to Walk In Clinic first and was then sent to ED.\T\nbsp; 08/12/2019 [facility] Patient used ED appropriately for pain outside of clinic hours.\T\nbsp; No follow up scheduled yet. 03/03/2018 [facility] - Patient is currently established with [facility]. If patient is seen in the ED during business hours. Please contact CHWs at [facility]. Care Recommendation: If this patient has had [...] providing care. E.D. VISIT COUNT (12 MO.) 4 RADHA Baptiste TOTAL 4 NOTE: Visits indicate total known visits. ED/UCC VISIT TRACKING (12 MO.) 12/18/2020 08:57 [facility] [place] TYPE: Emergency COMPLAINT: - LOWER R SIDE BACK PAIN/KIDNEY PROBLEMS/RASH 11/14/2020 06:32 [facility] [place] TYPE: Emergency COMPLAINT: - RT FOOT INJURY DIAGNOSES: - Migraine, unspecified, not intractable, without status migrainosus - Gout, unspecified - Nicotine dependence, unspecified, uncomplicated - Striking against or struck by other objects, initial encounter - Chronic kidney disease, stage 3 unspecified - Hypertensive heart and chronic kidney disease with heart failure and stage 1 through stage 4 chronic kidney disease, or unspecified chronic kidney disease - Other intermediate card tender (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 - Encounter for immunization - Allergy status to other drugs, medicaments and biological substances - Laceration without foreign body, right foot, initial encounter - Heart failure, unspecified 04/06/2020 14:29 [facility] [place] TYPE: Emergency [...] substances - Sciatica, right side - Other intermediate card tender (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 - Personal history of nicotine dependence - Nausea with vomiting, unspecified - Heart failure, unspecified - Migraine, unspecified, not intractable, without status migrainosus 04/02/2020 09:[address] [facility] [place] TYPE: Emergency COMPLAINT: - HEADACHE DIAGNOSES: - Allergy status to other drugs, medicaments and biological substances - Chronic kidney disease, stage 3 (moderate) - Other fci (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 - Heart failure, unspecified - Hypertensive heart and chronic kidney disease with heart failure and stage 1 through stage 4 chronic kidney disease, or unspecified chronic kidney disease - Headache INPATIENT VISIT TRACKING (12 MO.) No inpatient visits to display in this time frame [email or web address]
[2020-12-18] MEDS ORDERED: AMLODIPINE BESYL5 MG PO (09:10)
--- NOTE | 2020-12-18 16:45 | NUR ---
New admit to the floor. Patient alert and oriented x3, respirations even and non labored. Vital signs taken, bp noted to be elevated-see charting. Patient denies sob, reports chronic lower back pain. IV patent, LR infusing @ 125ml/hr. Oriented patient to room and call light. Fresh water provided. This RN to retake bp in short while to see if it trends down. Call light within reach.
--- NOTE | 2020-12-18 16:58 | NUR ---
PT ASSISTED TO BATHROOM SBA. THEN TO BED. PT C/O SEVERE NAUSEA. PHENERGAN 12.5MG ADMISNTERED IV IN 20ML NS. PT IN BED NOW. WARM BLANKET PROVIDED.
--- NOTE | 2020-12-18 18:42 | NUR ---
Patient resting in bed, eyes closed, respirations even and non labored. Patient has no notable distress. Close to RN station. Personal supplies and call light within reach.
--- NOTE | 2020-12-18 19:36 | NUR ---
PATIENT RESTING QUIETLY IN BED. PATIENT HAS NO CURRENT CARE NEEDS OR REQUESTS. CALL LIGHT IS IN REACH AND BED ALARM IS ON.
--- NOTE | 2020-12-18 20:07 | NUR ---
BED ALARM SOUNDING. pt UP TO RESTROOM, SBA, GAIT STEADY. BACK IN BED AFTER VOID. BED ALARM SET. pt HAS NO REQUESTS AT THIS TIME.
--- NOTE | 2020-12-18 20:58 | NUR ---
PATIENT NOT HAVING ANY DISCOMFORT AT THIS TIME AND DENIES NAUSEA. PM MEDS HAVE BEEN GIVEN AND VS AND I+O COMPLETE. ICE WATER REFILLED AND CALL LIGHT IS IN REACH.
--- NOTE | 2020-12-18 21:30 | NUR ---
REPORT RECEIVED FROM CARMEN OVIEDO AT THIS TIME, THIS RN TO RESUME CARE FOR pt. pt RESTING IN BED, AWAKE. DENIES NEEDS OR CONCERNS. IV SITE INFUSING PER MD ORDERS, BRISK BLOOD RETURN NOTED. BED ALARM ON FOR SAFETY, BOARD UPDATED.
--- NOTE | 2020-12-18 23:04 | NUR ---
CALL LIGHT ANSWERED, pt UP SBA TO VOID AND RETURNED BACK TO BED. STEADY ON FEET, BED ALARM ON FOR SAFETY. NEW BAG IV FLUIDS HUNG AND INFUSING PER MD ORDERS, SITE WNL. NO FURTHER NEEDS, CALL LIGHT IN REACH.
--- NOTE | 2020-12-19 01:30 | NUR ---
pt RESTING IN BED WITH EYES CLOSED, RR EVEN AND UNLABORED. NO DISTRESS NOTED, CALL LIGHT IN REACH AND BED ALARM ON. IV SITE WNL, FLUIDS INFUSING PER MD ORDERS.
--- NOTE | 2020-12-19 02:30 | NUR ---
pt SLEEPING, AWAKENS TO VOICE FOR VS, VSS. SBA TO RESTROOM FOR VOID AND BACK TO BED. GAIT STEADY. BED ALARM BACK ON. PRIMARY RN JOSE IN ROOM FOR ASSESSMENT.
--- NOTE | 2020-12-19 02:32 | NUR ---
ASSESSMENT COMPLETE, pt A/OX4. BED ALARM ON FOR SAFETY, PER REPORT, pt CAN BE FORGETFUL. IV SITE. REPORTS TOLERABLE 5/10 PAIN IN LOWER BACK, DENIES NEED FOR PAIN MEDICATION. NO FURTHER NEEDS, CALL LIGHT IN REACH.
--- NOTE | 2020-12-19 05:18 | NUR ---
pt UP TO VOID, SBA AND BACK IN BED. STEADY ON FEET. VSS, pt ON RA. IV FLUIDS INFUSING PER MD ORDERS, SITE WNL. BED ALARM ON FOR SAFETY. FRESH WATER PROVIDED, NO FURTHER NEEDS. CALL LIGHT IN REACH.
--- NOTE | 2020-12-19 07:24 | NUR ---
REPORT RECEIVED. PT IN BED AWAKE LOOKING AT PHONE. LR INFUSING AT 125ML/HR. BED ALARM IN PLACE. CALL LIGHT IN REACH.
--- NOTE | 2020-12-19 07:27 | NUR ---
PT IND IN ROOM. UP TO RESTROOM WITH CANE. WARM CLOTH GIVEN FOR FACE. WHITE BOARD UPDATED, WARM BLANKET GIVEN.CALL LIGHT WITHIN REACH. NO FURTHER NEEDS AT THIS TIME.
[2020-12-19] MEDS ORDERED: VENLAFAXINE HCL75 M1 PO (08:50)
[2020-12-19] MEDS ORDERED: DICYCLOMINE HCL10 MG PO (08:51)
--- NOTE | 2020-12-19 09:00 | NUR ---
Pt lives in a 2 story home. She uses the top floor, disabled son with bipolar and Schizaphrenia lives in the lower and she is his cg. Her brother and sister live in town and assist her as needed. She is financially ok and is aware of [email or web address] and [employer]. She planning on using a taxi for a ride home. She denies other needs and plans on dc to home when cleared by Dr. Melgar.
[2020-12-19] MEDS ORDERED: GAS-X125 M1 PO (09:20)
--- NOTE | 2020-12-19 10:00 | NUR ---
ASSESSMENT COMPLETED. MEDICATIOSN GIVEN. PT IN CHAIR. DENEIS PAIN. IS ALERT AND ORIENTED. NO NAUSEA. NO DIARRHEA REPORTED.
--- NOTE | 2020-12-19 11:39 | NUR ---
AMBULATED PT OUT IN [place] ONE LAP. PT TOLERTED WELL. VERY STEADY ON FEET. NO CUEING NEEDED.
--- NOTE | 2020-12-19 12:15 | NUR ---
DR LAMBERT IN TO ROUND. DISCHARGE DISCUSSED. PT FEELS READY TO DISCHARE. VERBAL ORDER TO INFUSE LR BAG AT 500ML/HR BEFORE DISCHARGE.
--- NOTE | 2020-12-19 14:40 | NUR ---
DISCHARGE INSTRUCTIONS PROVIDED. QUESTIONS ANSWERED. JONATHAN AMBROSIO CALLED. PHARMACY IN TO DISCUSS MEDICATIONS. PT AWARE OF PURPOSE AND SIDE EFFECTS.
== END 2020-12-19 14:45 | disposition home or self-care (01) ==
LOC: ED 08:56 → MS 08:58
PROVIDERS: ADMIT Student in an Organized Health Care Education/Training Program; ATTEND Student in an Organized Health Care Education/Training Program
DX: N17.9 Acute kidney failure, unspecified (principal); A08.4 Viral intestinal infection, unspecified; L30.9 Dermatitis, unspecified; I11.0 Hypertensive heart disease with heart failure; I50.30 Unspecified diastolic (congestive) heart failure; K21.9 Gastro-esophageal reflux disease without esophagitis; G43.909 Migraine, unspecified, not intractable, without status migrainosus; Z20.822 Contact with and (suspected) exposure to COVID-19; Z88.8 Allergy status to other drugs, medicaments and biological substances; Z90.49 Acquired absence of other specified parts of digestive tract; Z87.891 Personal history of nicotine dependence; Z79.899 Other long term (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
CPT/HCPCS: 36415; 74176; 80048; 80053; 81001; 83690; 83735; 84100; 85025; 96372; 96374; 96375; 96376; 99285-25; A9270; C9803; G0378; J1650; J2270; J2405; J2550; J3475; J7030; J7121; U0003

== ENCOUNTER 2021-01-12 15:45 | Emergency (ER) | payer MEDICARE ==
[~2021-01-12] VITALS: Ht 162.6 cm; Wt 51.3 kg
[~2021-01-12 15:45] MED LIST changes: +AMLODIPINE BESYL5 MG PO; +DICYCLOMINE HCL10 MG PO; +GAS-X125 M1 PO; +VENLAFAXINE HCL75 M1 PO
--- OUTSIDE RECORDS SUMMARY | 2021-01-12 15:54 | XMS ---
PreManage Notification: JAMIE TORRES Security President And Chief Operating Officer Events No recent Security Events currently on file CRITERIA MET - Group Notification - [facility] - Has Care Guidelines - [facility] - 2 Visits in 30 Days CARE PROVIDERS JAQUELINE JAIMES [facility] 04/04/2020-Current PHONE: [phone] SUZE [facility] Internal Medicine 03/03/2018-Current PHONE: [phone] Chandrika has no Care Guidelines for this patient. Care History Medical/Surgical 04/07/2020 [facility] Patient went to Walk In Clinic first and was then sent to ED.\T\nbsp; 08/12/2019 [facility] Patient used ED appropriately for pain outside of clinic hours.\T\nbsp; No follow up scheduled yet. 03/03/2018 [facility] - Patient is currently established with [facility]. If patient is seen in the ED during business hours. Please contact CHWs at [facility]. Care Recommendation: If this patient [...] providing care. E.D. VISIT COUNT (12 MO.) 5 RADHA Baptiste TOTAL 5 NOTE: Visits indicate total known visits. ED/UCC VISIT TRACKING (12 MO.) 01/12/2021 15:46 [facility] [place] TYPE: Emergency COMPLAINT: - ABDOM PAIN 12/18/2020 08:57 [facility] [place] TYPE: Emergency [...] or unspecified chronic kidney disease - Other alf (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 - Encounter for immunization [...] - Sciatica, right side - Other intermediate designer (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 - Personal history of nicotine dependence - Nausea with vomiting, unspecified - Heart failure, unspecified - Migraine, unspecified, not intractable, without status migrainosus 04/02/2020 09:29 [facility] [place] TYPE: Emergency COMPLAINT: - HEADACHE DIAGNOSES: - Allergy status to other drugs, medicaments and biological substances - Chronic kidney disease, stage 3 (moderate) - Other intermediate designer (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 - Heart failure, unspecified - Hypertensive heart and chronic kidney disease with heart failure and stage 1 through stage 4 chronic kidney disease, or unspecified chronic kidney disease - Headache INPATIENT VISIT TRACKING (12 MO.) 12/18/2020 08:58 [facility] [place] TYPE: Observation COMPLAINT: - TRINITY DIAGNOSES: - Acute kidney failure, unspecified - Gastro-esophageal reflux disease without esophagitis - Nausea with vomiting, unspecified - Hypertensive heart disease with heart failure - Dermatitis, unspecified - Acquired absence of other specified parts of digestive tract - Personal history of nicotine dependence - Other alf (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 - Viral intestinal infection, unspecified - Migraine, unspecified, not intractable, without status migrainosus - Unspecified diastolic (congestive) heart failure - Allergy status to other drugs, medicaments and biological substances [id number]
[2021-01-12] MEDS ORDERED: LACTULOSE10 GM/15 M PO (18:54)
[2021-01-12] MEDS ORDERED: FLEET ENEMA133 ML PR (18:54)
== END 2021-01-12 20:29 | disposition home or self-care (01) ==
LOC: ED 15:45
DX: K56.41 Fecal impaction (principal); I13.0 Hypertensive heart and chronic kidney disease with heart failure and stage 1 through stage 4 chronic kidney disease, or unspecified chronic kidney disease; I50.9 Heart failure, unspecified; M10.9 Gout, unspecified; G43.909 Migraine, unspecified, not intractable, without status migrainosus; N18.30 Chronic kidney disease, stage 3 unspecified; Z87.891 Personal history of nicotine dependence; Z79.899 Other long term (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
CPT/HCPCS: 74177; 80053; 81001; 83690; 83735; 85025; 96375; 99284-25; J1170; J1200; J1790; J2405; J3480; J7030; J7060; Q9967

== ENCOUNTER 2021-12-17 01:52 | Emergency (ER) | payer MEDICARE ==
[~2021-12-17] VITALS: Ht 162.6 cm; Wt 54.0 kg
[~2021-12-17 01:52] MED LIST changes: +FLEET ENEMA133 ML PR; +LACTULOSE10 GM/15 M PO
--- OUTSIDE RECORDS SUMMARY | 2021-12-17 02:00 | XMS ---
PreManage Notification: JAMIE TORRES Security Receptionist Doctor'S Office Events No recent Security Events currently on file CRITERIA MET - Group Notification CARE PROVIDERS JAQUELINE JAIMES [facility] 04/04/2020-Current PHONE: [phone] MARLEY ARCINIEGA Internal Medicine 03/03/2018-Current PHONE: Unknown Chandrika has no Care Guidelines for this patient. Care History Medical/Surgical 04/07/2020 [facility] Patient went to Walk In Clinic first and was then sent to ED.\T\nbsp; 08/12/2019 [facility] Patient used ED appropriately for pain outside of clinic hours.\T\nbsp; No follow up scheduled yet. 03/03/2018 [facility] - Patient is currently established with [facility]. If patient is seen in the ED during business hours. Please contact CHWs at [facility]. Care Recommendation: If this patient has [...] providing care. Osorio VISIT COUNT (12 MO.) 3 RADHA Baptiste TOTAL 3 NOTE: Visits indicate total known visits. 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) 12/18/2020 08:58 [facility] [place] TYPE: Observation COMPLAINT: - TRINITY DIAGNOSES: - Acute kidney failure, unspecified - Gastro-esophageal reflux disease without esophagitis - Nausea with vomiting, unspecified - Hypertensive heart disease with heart failure - Dermatitis, unspecified - Acquired absence of other specified parts of digestive tract - Personal history of nicotine dependence - Other termite technician (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 - Viral intestinal infection, unspecified - Migraine, unspecified, not intractable, without status migrainosus - Unspecified diastolic (congestive) heart failure - Allergy status to other drugs, medicaments and biological substances [id number]
[2021-12-17] MEDS ORDERED: COZAAR25 MG PO (02:08)
[2021-12-17] MEDS ORDERED: VENLAFAXINE HC225 MG PO (05:59)
[2021-12-17] MEDS ORDERED: VENLAFAXINE HCL75 M1 PO (06:03)
[2021-12-17] MEDS ORDERED: EFFEXOR XR150 MG PO (06:03)
== END 2021-12-17 06:21 | disposition home or self-care (01) ==
LOC: ED 01:52
DX: F32.A Depression, unspecified (principal); I13.0 Hypertensive heart and chronic kidney disease with heart failure and stage 1 through stage 4 chronic kidney disease, or unspecified chronic kidney disease; I50.9 Heart failure, unspecified; M10.9 Gout, unspecified; G43.909 Migraine, unspecified, not intractable, without status migrainosus; N18.30 Chronic kidney disease, stage 3 unspecified; Z87.891 Personal history of nicotine dependence; Z88.8 Allergy status to other drugs, medicaments and biological substances; Z79.899 Other long term (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
CPT/HCPCS: 36415; 80053; 81001; 85025; 87502; 99284; G0480; U0003

== ENCOUNTER 2022-01-26 09:50 | Emergency (ER) | payer MEDICARE ==
[~2022-01-26] VITALS: Ht 162.6 cm; Wt 54.0 kg
[~2022-01-26 09:50] MED LIST changes: +COZAAR25 MG PO; +EFFEXOR XR150 MG PO; +VENLAFAXINE HC225 MG PO
--- OUTSIDE RECORDS SUMMARY | 2022-01-26 09:56 | XMS ---
PreManage Notification: JAMIE TORRES Security Crap Shooter Events No recent Security Events currently on file CRITERIA MET - Group Notification CARE PROVIDERS JAQUELINE JAIMES [facility] 04/04/2020-Current PHONE: Unknown MARLEY ARCINIEGA Internal Medicine 03/03/2018-Current PHONE: Unknown Chandrika has no Care Guidelines for this patient. Care History Medical/Surgical 04/07/2020 [facility] Patient went to Walk In Clinic first and was then sent to ED.\T\nbsp; 08/12/2019 [facility] Patient used ED appropriately for pain outside of clinic hours.\T\nbsp; No follow up scheduled yet. 03/03/2018 [facility] - Patient is currently established with [facility]. If patient is seen in the ED during business hours. Please contact CHWs at [facility]. Care Recommendation: If this patient has had 5 or more Emergency Department visits in the last 12 months.\T\nbsp; Patient will require education on the scope and purpose of the ED as an acute care provider not a Primary Care Provider and should not be utilized for chronic conditions.\T\nbsp; These are guidelines and the provider should exercise clinical judgment when providing care. E[employer]am VISIT COUNT (12 MO.) 2 RADHA Baptiste TOTAL 2 NOTE: Visits indicate total known visits. ED/UCC VISIT TRACKING (12 MO.) 01/26/2022 09:50 [facility] [place] TYPE: Emergency COMPLAINT: - ABD CRAMPING,DIARRHEA 12/17/2021 01:[address] [facility] [place] TYPE: Emergency COMPLAINT: - MEDICATION REFILL DIAGNOSES: - Hypertensive heart and chronic kidney disease with heart failure and stage 1 through stage 4 chronic kidney disease, or unspecified chronic kidney disease - Heart failure, unspecified - Allergy status to other drugs, medicaments and biological substances - 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 (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 - Chronic kidney disease, stage 3 unspecified - Personal history of nicotine dependence - Depression, unspecified - Migraine, unspecified, not intractable, without status migrainosus - Gout, unspecified INPATIENT VISIT TRACKING (12 MO.) No inpatient visits to display in this time frame [id number]
[2022-01-26] MEDS ORDERED: REGLAN10 MG PO (16:09)
--- NOTE | 2022-01-27 07:02 | EKG ---
[facility] [address], [place] [address] Signed Normal sinus rhythm Normal ECG No previous ECGs available Confirmed by SOCORRO LAND MD ([id number]) on 01/27/2022 7:02:28 AM Electronically Signed By: SOCORRO LAND MD 01/27/22 0702 PATIENT NAME: JAMIE TORRES PRETTY Electrocardiogram DATE OF : 54 PHYSICIAN: SOCORRO LAND MD REPORT #: [id number] REPORT IS CONFIDENTIAL AND NOT TO BE RELEASED WITHOUT AUTHORIZATION
== END 2022-01-26 16:30 | disposition home or self-care (01) ==
LOC: ED 09:50
DX: R19.7 Diarrhea, unspecified (principal); R11.10 Vomiting, unspecified; R10.9 Unspecified abdominal pain; K86.89 Other specified diseases of pancreas; I13.0 Hypertensive heart and chronic kidney disease with heart failure and stage 1 through stage 4 chronic kidney disease, or unspecified chronic kidney disease; I50.9 Heart failure, unspecified; N18.30 Chronic kidney disease, stage 3 unspecified; G43.909 Migraine, unspecified, not intractable, without status migrainosus; Z87.891 Personal history of nicotine dependence; Z88.8 Allergy status to other drugs, medicaments and biological substances; Z79.899 Other long term (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; M10.9 Gout, unspecified
CPT/HCPCS: 36415; 74177; 80053; 83690; 85025; 93005; 93010; 96375; 96376; 99284-25; J1170; J2405; J2765; J7030; Q9967

== ENCOUNTER 2022-05-17 10:19 | Emergency (ER) | payer MEDICARE ==
[~2022-05-17] VITALS: Ht 162.6 cm; Wt 54.0 kg
--- OUTSIDE RECORDS SUMMARY | 2022-05-17 10:22 | XMS ---
PreManage Notification: JAMIE TORRES Security Linoleum Tile Layer Events No recent Security Events currently on file CRITERIA MET - Group Notification CARE PROVIDERS JAQUELINE JAIMES [facility] 04/04/2020-Current PHONE: Unknown MARLEY ARCINIEGA Internal Medicine 03/03/2018-Current PHONE: Unknown Chandrika has no Care Guidelines for this patient. Care History Medical/Surgical 04/07/2020 [facility] Patient went to Walk In Clinic first and was then sent to ED.\T\nbsp; 08/12/2019 [facility] Patient used ED appropriately for pain outside of clinic hours.\T\nbsp; No follow up scheduled yet. 03/03/2018 [facility] - Patient is currently established with [facility]. If patient is seen in the ED during business hours. Please contact CHWs at [facility]. Care Recommendation: If this patient [...] providing care. EAiram VISIT COUNT (12 MO.) 4 RADHA Baptiste TOTAL 4 NOTE: Visits indicate total known visits. ED/UCC VISIT TRACKING (12 MO.) 05/17/2022 10:20 [facility] [place] TYPE: Emergency COMPLAINT: - URINARY OR BOWEL BLEEDING 03/07/2022 09:08 [facility] [place] TYPE: Emergency COMPLAINT: - FALL, HEAD/TAILBONE INJURY DIAGNOSES: - Strain of muscle, fascia and tendon of lower back, initial encounter - Pain in unspecified shoulder - Chronic kidney disease, stage 3 unspecified - Hypertensive heart and chronic kidney disease with heart failure and stage 1 through stage 4 chronic kidney disease, or unspecified chronic kidney disease - Personal history of nicotine dependence - Heart failure, unspecified - Other fpc (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 - Allergy status to other antibiotic agents - Fall in (into) shower or empty bathtub, initial encounter - Contusion of lower back and pelvis, initial encounter - Headache, unspecified - Sacrococcygeal disorders, not elsewhere classified - Depression, unspecified 01/26/2022 09:50 [facility] [place] TYPE: Emergency COMPLAINT: - ABD CRAMPING,DIARRHEA DIAGNOSES: - Migraine, unspecified, not intractable, without status migrainosus - Gout, unspecified - Other specified diseases of pancreas - Vomiting, unspecified - Right upper quadrant pain - Personal history of nicotine dependence - Diarrhea, unspecified - Other fpc (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 - Chronic kidney disease, stage 3 unspecified - Heart failure, unspecified - Unspecified abdominal pain - Hypertensive heart and chronic kidney disease with heart failure and stage 1 through stage 4 chronic kidney disease, or unspecified chronic kidney disease - Allergy status to other drugs, medicaments and biological substances 12/17/2021 01:[address] [facility] [place] TYPE: Emergency COMPLAINT: - MEDICATION REFILL DIAGNOSES: - Chronic kidney disease, stage 3 unspecified - Allergy status to other drugs, medicaments and biological substances - Hypertensive heart and chronic kidney disease with heart failure and stage 1 through stage 4 chronic kidney disease, or unspecified chronic kidney disease - Migraine, unspecified, not intractable, without status migrainosus - Personal history of nicotine dependence - Other fpc (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 - Heart failure, unspecified - Gout, unspecified - Depression, unspecified INPATIENT VISIT TRACKING (12 MO.) No inpatient visits to display in this time frame [email or web address]
[2022-05-17] MEDS ORDERED: OMEPRAZOLE40 MG PO (10:47)
[2022-05-17] MEDS ORDERED: HYDROXYZINE HCL25 MG PO (10:47)
[2022-05-17] MEDS ORDERED: ALPRAZOLAM0.5 MG PO (10:48)
[2022-05-17] MEDS ORDERED: DILTIAZEM ER180 M1 PO (10:48)
[2022-05-17] MEDS ORDERED: XANAX0.5 MG PO (16:31)
[2022-05-17] MEDS ORDERED: DICYCLOMINE HCL20 MG PO (16:31)
== END 2022-05-17 16:42 | disposition home or self-care (01) ==
LOC: ED 10:19
DX: R10.9 Unspecified abdominal pain (principal); I13.0 Hypertensive heart and chronic kidney disease with heart failure and stage 1 through stage 4 chronic kidney disease, or unspecified chronic kidney disease; I50.9 Heart failure, unspecified; M10.9 Gout, unspecified; G43.909 Migraine, unspecified, not intractable, without status migrainosus; N18.30 Chronic kidney disease, stage 3 unspecified; Z87.891 Personal history of nicotine dependence; Z88.8 Allergy status to other drugs, medicaments and biological substances; Z79.899 Other long term (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
CPT/HCPCS: 36415; 74177; 80053; 81001; 83690; 85025; 96375; 99284-25; J1170; J2060; J2405; J7030; Q9967

== ENCOUNTER 2022-05-21 14:44 | Emergency (ER) | payer MEDICARE ==
[~2022-05-21] VITALS: Ht 162.6 cm; Wt 54.0 kg
[~2022-05-21 14:44] MED LIST changes: +ALPRAZOLAM0.5 MG PO; +DICYCLOMINE HCL20 MG PO; +DILTIAZEM ER180 M1 PO; +HYDROXYZINE HCL25 MG PO; +OMEPRAZOLE40 MG PO; +XANAX0.5 MG PO
--- OUTSIDE RECORDS SUMMARY | 2022-05-21 14:46 | XMS ---
PreManage Notification: JAMIE TORRES Security Grave Digger Events No recent Security Events currently on file CRITERIA MET - 6 ED Visits in 6 Months - [facility] - 2 Visits in 30 Days - Group Notification CARE PROVIDERS JAQUELINE JAIMES [facility] 04/04/2020-Current PHONE: Unknown MARLEY ARCINIEGA Internal Medicine 03/03/2018-Current PHONE: Unknown Chandrika has no Care Guidelines for this patient. Care History Medical/Surgical 04/07/2020 [facility] Patient went to Walk In Clinic first and was then sent to ED.\T\nbsp; 08/12/2019 [facility] Patient used ED appropriately for pain outside of clinic hours.\T\nbsp; No follow up scheduled yet. 03/03/2018 [facility] - Patient is currently established with [facility]. If patient is seen in the ED during business hours. Please contact CHWs at [facility]. Care Recommendation: If this patient has had 5 or more Emergency Department visits in the last 12 months.\T\nbsp; Patient will require education on the scope and purpose of the ED as an acute care provider not a Primary Care Provider and should not be utilized for chronic conditions.\T\nbsp; These are guidelines and the provider should exercise clinical judgment when providing care. ELyle. VISIT COUNT (12 MO.) 6 RADHA Baptiste TOTAL 6 NOTE: Visits indicate total known visits. ED/UCC VISIT TRACKING (12 MO.) 05/21/2022 14:45 [facility] [place] TYPE: Emergency COMPLAINT: - ANXIETY 05/19/2022 15:35 [facility] [place] TYPE: Emergency COMPLAINT: - DIARRHEA 05/17/2022 10:20 [facility] [place] TYPE: Emergency COMPLAINT: - URINARY OR BOWEL BLEEDING DIAGNOSES: - Personal history of nicotine dependence - Heart failure, unspecified - Gout, unspecified - Unspecified abdominal pain - Chronic kidney disease, stage 3 unspecified - 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 - Hypertensive heart and chronic kidney disease with heart failure and stage 1 through stage 4 chronic kidney disease, or unspecified chronic kidney disease - Migraine, unspecified, not intractable, without status migrainosus - Allergy status to other drugs, medicaments and biological substances 03/07/2022 09:08 [facility] [place] TYPE: Emergency COMPLAINT: - FALL, HEAD/TAILBONE INJURY DIAGNOSES: - Depression, unspecified - Strain of muscle, fascia and tendon [...] unspecified - Sacrococcygeal disorders, not elsewhere classified 01/26/2022 09:50 [facility] [place] TYPE: Emergency COMPLAINT: - ABD CRAMPING,DIARRHEA DIAGNOSES: - Allergy status to other drugs, medicaments and biological substances - Migraine, unspecified, not intractable, without status migrainosus - Gout, unspecified - Other specified diseases of pancreas - Vomiting, unspecified - Right upper quadrant pain - Personal history of nicotine dependence - Diarrhea, unspecified - Other fdc (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 - Chronic kidney disease, stage 3 unspecified - Heart failure, unspecified - Unspecified abdominal pain - Hypertensive heart and chronic kidney disease with heart failure and stage 1 through stage 4 chronic kidney disease, or unspecified chronic kidney disease 12/17/2021 01:53 [facility] [place] TYPE: Emergency COMPLAINT: - MEDICATION REFILL DIAGNOSES: - Depression, unspecified - Chronic kidney disease, stage 3 unspecified - Allergy status to other drugs, medicaments and biological substances - Hypertensive heart and chronic kidney disease with heart failure and stage 1 through stage 4 chronic kidney disease, or unspecified chronic kidney disease - Migraine, unspecified, not intractable, without status migrainosus - Personal history of nicotine dependence - Other fdc (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 - Heart failure, unspecified - Gout, unspecified INPATIENT VISIT TRACKING (12 MO.) No inpatient visits to display in this time frame [id number]
== END 2022-05-22 14:22 | disposition home or self-care (01) ==
LOC: ED 14:44
DX: F30.13 Manic episode, severe, without psychotic symptoms (principal); R45.1 Restlessness and agitation; I50.9 Heart failure, unspecified; I13.0 Hypertensive heart and chronic kidney disease with heart failure and stage 1 through stage 4 chronic kidney disease, or unspecified chronic kidney disease; N18.30 Chronic kidney disease, stage 3 unspecified; Z87.891 Personal history of nicotine dependence; Z79.899 Other long term (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; G43.909 Migraine, unspecified, not intractable, without status migrainosus
CPT/HCPCS: 36415; 80053; 81001; 84443; 85025; 85060; 96372; 99284; A9270-GY; G0480; J1630

== ENCOUNTER 2022-10-03 09:23 | Emergency (ER) | payer MEDICARE ==
[~2022-10-03] VITALS: Ht 162.6 cm; Wt 52.2 kg
--- OUTSIDE RECORDS SUMMARY | 2022-10-03 09:26 | XMS ---
PreManage Notification: JAMIE TORRES Security Distributed Generation Project Manager Events 1 event(s) in the past 18 months Most recent security events: Elopement at [facility] 05/19/2022 15:35 - Patient eloped before treatment completed. - Patient with suicidal and/or homicidal ideations eloped. - Patient eloped with IV in place. Details: Patient LWBS. CRITERIA MET - PDMP - Group Notification [facility] PHONE: Unknown [facility]-Current PHONE: Unknown Chandrika has no Care Guidelines for this patient. Care History Medical/Surgical 04/07/2020 [facility] Patient went to Walk In Clinic first and was then sent to ED.\T\nbsp; 08/12/2019 [facility] Patient used ED appropriately for pain outside of clinic hours.\T\nbsp; No follow up scheduled yet. 03/03/2018 [facility] - Patient is currently established with [facility]. If patient is seen in the ED during business hours. Please contact CHWs at [facility]. Care Recommendation: If this patient has [...] care. E.D. VISIT COUNT (12 MO.) 1 [facility] ED [address] [facility] TOTAL 8 NOTE: Visits indicate total known visits. ED/C VISIT TRACKING (12 MO.) 10/03/2022 09:24 [facility] [place] TYPE: Emergency COMPLAINT: - FEVER, ABD CRAMPS 05/26/2022 14:07 [facility] TYPE: Emergency DIAGNOSES: - Hemorrhage of anus and rectum - Essential (primary) hypertension - Constipation;Rectal Bleeding - Cyst of pancreas - Chronic kidney disease, stage 3a - Blood In Stool 05/21/2022 14:45 [facility] [place] TYPE: Emergency COMPLAINT: - ANXIETY DIAGNOSES: - Personal history of nicotine dependence - Chronic kidney disease, stage 3 unspecified - Anxiety disorder, unspecified - Heart failure, unspecified - Hypertensive heart and chronic kidney disease with heart failure and stage 1 through stage 4 chronic kidney disease, or unspecified chronic kidney disease - Restlessness and agitation - Manic episode, severe, without psychotic symptoms - Other extermination supervisor (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 - Migraine, unspecified, not intractable, without status migrainosus 05/19/2022 15:35 [facility] [place] TYPE: Emergency COMPLAINT: - DIARRHEA 05/17/2022 10:20 [facility] [place] TYPE: Emergency COMPLAINT: - URINARY OR BOWEL BLEEDING DIAGNOSES: - Heart failure, unspecified - Gout, unspecified - Unspecified abdominal pain - Chronic kidney disease, stage 3 unspecified - Other snf (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 - Hypertensive heart and chronic kidney disease with heart failure and stage 1 through stage 4 chronic kidney disease, or unspecified chronic kidney disease - Migraine, unspecified, not intractable, without status migrainosus - Allergy status to other drugs, medicaments and biological substances - Personal history of nicotine dependence 03/07/2022 09:08 [facility] [place] TYPE: Emergency [...] dependence - Heart failure, unspecified - Other snf (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 - Allergy status to [...] nicotine dependence - Diarrhea, unspecified - Other snf (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 - Chronic kidney disease, stage 3 unspecified - Heart failure, unspecified - Unspecified abdominal pain - Hypertensive heart and chronic kidney disease with heart failure and stage 1 through stage 4 chronic kidney disease, or unspecified chronic kidney disease - Allergy status to other drugs, medicaments and biological substances 12/17/2021 01:53 [facility] [place] TYPE: Emergency [...] Personal history of nicotine dependence - Other snf (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 - Heart failure, unspecified - Gout, unspecified - Depression, unspecified INPATIENT VISIT TRACKING (12 MO.) No inpatient visits to display in this time frame [id number]
[2022-10-03] MEDS ORDERED: ONDANSETRON ODT4 MG PO (11:54)
== END 2022-10-03 12:34 | disposition home or self-care (01) ==
LOC: ED 09:23
DX: A08.4 Viral intestinal infection, unspecified (principal); I13.0 Hypertensive heart and chronic kidney disease with heart failure and stage 1 through stage 4 chronic kidney disease, or unspecified chronic kidney disease; I50.9 Heart failure, unspecified; N18.30 Chronic kidney disease, stage 3 unspecified; M10.9 Gout, unspecified; Z87.891 Personal history of nicotine dependence; Z88.8 Allergy status to other drugs, medicaments and biological substances; Z79.899 Other long term (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
CPT/HCPCS: 36415; 71045; 74177; 80053; 81003; 83690; 85025; 96361; 96374; 96375; 99284-25; J2270; J2405; J7030; Q9967; U0003

== ENCOUNTER 2022-10-20 13:13 | Emergency (ER) | payer MEDICARE ==
[~2022-10-20] VITALS: Ht 162.6 cm; Wt 52.2 kg
[~2022-10-20 13:13] MED LIST changes: +KLOR-CON20 MEQ PO; +ONDANSETRON ODT4 MG PO; +REMERON15 MG PO
--- OUTSIDE RECORDS SUMMARY | 2022-10-20 13:16 | XMS ---
PreManage Notification: JAMIE TORRES Security Site Lead Events 1 event(s) in the past 18 months Most recent security events: Elopement at [facility] 05/19/2022 15:35 - Patient eloped before treatment completed. - Patient with suicidal and/or homicidal ideations eloped. - Patient eloped with IV in place. Details: Patient LWBS. CRITERIA MET - PDMP - 6 ED Visits in 6 Months - [facility] - 2 Visits in 30 Days - Group Notification CARE PROVIDERS JAQUELINE JAIMES [facility] 04/04/2020-Current PHONE: Unknown SUZE [facility] Internal Medicine 03/03/2018-Current PHONE: Unknown Chandrika has no Care Guidelines for this patient. Care History Medical/Surgical 04/07/2020 [facility] Patient went to [facility] first and was then sent to ED.\T\nbsp; 08/12/2019 [facility] Patient used ED appropriately for pain outside of clinic hours.\T\nbsp; No follow up scheduled yet. 03/03/2018 [facility] - Patient is currently established with [facility]. If patient is seen in the ED during business hours. Please contact CHWs at [facility]. Care Recommendation: If this patient has [...] providing care. E.D. VISIT COUNT (12 MO.) 2 [facility] ED 9 [facility]. TOTAL 11 NOTE: Visits indicate total known visits. ED/C VISIT TRACKING (12 MO.) 10/20/2022 13:14 [facility] [place] TYPE: Emergency COMPLAINT: - HEADACHE 10/17/2022 19:31 [facility] [place] TYPE: Emergency COMPLAINT: - LOWER EXTREMITY PAIN DIAGNOSES: - Pain in left leg - Hypokalemia - Cramp and spasm - Personal history of nicotine dependence - Other snf (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 - Hypertensive heart and chronic kidney disease with heart failure and stage 1 through stage 4 chronic kidney disease, or unspecified chronic kidney disease - Chronic kidney disease, stage 3 unspecified - Heart failure, unspecified - Allergy status to other antibiotic agents 10/11/2022 09:33 [facility] TYPE: Emergency DIAGNOSES: - Cough - Acute bronchitis, unspecified - Cough; Congestion; X 4 weeks - Generalized Body Aches 10/03/2022 09:24 [facility] [place] TYPE: Emergency COMPLAINT: - FEVER, ABD CRAMPS DIAGNOSES: - Contact with and (suspected) exposure to COVID-19 - Other snf (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 - Chronic kidney disease, stage 3 unspecified - Gout, unspecified - Personal history of nicotine dependence - Heart failure, unspecified - Viral intestinal infection, unspecified - Hypertensive heart and chronic kidney disease with heart failure and stage 1 through stage 4 chronic kidney disease, or unspecified chronic kidney disease - Allergy status to other drugs, medicaments and biological substances - Fever, unspecified 05/26/2022 14:07 [facility] TYPE: Emergency DIAGNOSES: - Essential (primary) hypertension - Constipation;Rectal Bleeding - Cyst of pancreas - Chronic kidney disease, stage 3a - Blood In Stool - Hemorrhage of anus and rectum 05/21/2022 14:45 [facility] [place] TYPE: Emergency COMPLAINT: - ANXIETY DIAGNOSES: - Chronic kidney disease, stage 3 unspecified - Anxiety disorder, unspecified - Heart failure, unspecified - Hypertensive heart and chronic kidney disease with heart failure and stage 1 through stage 4 chronic kidney disease, or unspecified chronic kidney disease - Restlessness and agitation - Manic episode, severe, without psychotic symptoms - Other snf (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 - Migraine, unspecified, not intractable, without status migrainosus - Personal history of nicotine dependence 05/19/2022 15:35 [facility] [place] TYPE: Emergency COMPLAINT: - DIARRHEA 05/17/2022 10:20 [facility] [place] TYPE: Emergency COMPLAINT: - URINARY OR BOWEL BLEEDING DIAGNOSES: - Gout, unspecified - Unspecified abdominal pain - Chronic kidney disease, stage 3 unspecified - 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 - Hypertensive heart and chronic kidney disease with heart failure and stage 1 through stage 4 chronic kidney disease, or unspecified chronic kidney disease - Migraine, unspecified, not intractable, without status migrainosus - Allergy status to other drugs, medicaments and biological substances - Personal history of nicotine dependence - Heart failure, unspecified 03/07/2022 09:08 [facility] [place] TYPE: Emergency COMPLAINT: - FALL, HEAD/TAILBONE INJURY DIAGNOSES: - Pain in unspecified shoulder - Chronic kidney disease, stage 3 unspecified - Hypertensive heart and chronic kidney disease with heart failure and stage 1 through stage 4 chronic kidney disease, or unspecified chronic kidney disease - Personal history of nicotine dependence - Heart failure, unspecified - 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 - Allergy status to other antibiotic agents - Fall in (into) shower or empty bathtub, initial encounter - Contusion of lower back and pelvis, initial encounter - Headache, unspecified - Sacrococcygeal disorders, not elsewhere classified - Depression, unspecified - Strain of muscle, fascia and tendon of lower back, initial encounter 01/26/2022 09:50 [facility] [place] TYPE: Emergency COMPLAINT: - ABD CRAMPING,DIARRHEA DIAGNOSES: - Gout, unspecified - Other specified diseases of pancreas - Vomiting, unspecified - Right upper quadrant pain - Personal history of nicotine dependence - Diarrhea, unspecified - 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 - Chronic kidney disease, stage 3 unspecified - Heart failure, unspecified - Unspecified abdominal pain - Hypertensive heart and chronic kidney disease with heart failure and stage 1 through stage 4 chronic kidney disease, or unspecified chronic kidney disease - Allergy status to other drugs, medicaments and biological substances - Migraine, unspecified, not intractable, without status migrainosus 12/17/2021 01:53 [facility] [place] TYPE: Emergency COMPLAINT: - MEDICATION REFILL DIAGNOSES: - Allergy status to other drugs, medicaments and biological substances - Hypertensive heart and chronic kidney disease with heart failure and stage 1 through stage 4 chronic kidney disease, or unspecified chronic kidney disease - Migraine, unspecified, not intractable, without status migrainosus - Personal history of nicotine dependence - 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 - Heart failure, unspecified - Gout, unspecified - Depression, unspecified - Chronic kidney disease, stage 3 unspecified INPATIENT VISIT TRACKING (12 MO.) No inpatient visits to display in this time frame [email or web address]
[2022-10-20 19:34] VITALS: BP 156/75
== END 2022-10-20 19:34 | disposition home or self-care (01) ==
LOC: ED 13:13
DX: R53.1 Weakness (principal); R11.0 Nausea; I13.0 Hypertensive heart and chronic kidney disease with heart failure and stage 1 through stage 4 chronic kidney disease, or unspecified chronic kidney disease; N18.30 Chronic kidney disease, stage 3 unspecified; I50.9 Heart failure, unspecified; Z87.891 Personal history of nicotine dependence; Z88.1 Allergy status to other antibiotic agents; Z79.899 Other long term (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; Z20.822 Contact with and (suspected) exposure to COVID-19
CPT/HCPCS: 36415; 51701; 71045; 74177; 80053; 81003; 83605; 83690; 85025; 87502; 99284-25; C9803; J1885; J2405; J7030; Q9967; U0003

== ENCOUNTER 2022-11-09 15:12 | Emergency (ER) | payer MEDICARE ==
[~2022-11-09] VITALS: Ht 162.6 cm; Wt 52.2 kg
--- OUTSIDE RECORDS SUMMARY | 2022-11-09 15:14 | XMS ---
PreManage Notification: JAMIE TORRES Security Supervisor Whipped Topping Events 1 event(s) in the past 18 months Most recent security events: Elopement at [facility] 05/19/2022 15:35 - Patient eloped before treatment completed. - Patient with suicidal and/or homicidal ideations eloped. - Patient eloped with IV in place. Details: Patient LWBS. CRITERIA MET - [facility] - 2 Visits in 30 Days - Group Notification - PDMP - 6 ED Visits in 6 Months CARE PROVIDERS JAQUELINE JAIMES [facility] 04/04/2020-Current PHONE: Unknown [facility]ZE [facility] Internal Medicine 03/03/2018-Current PHONE: Unknown Chandrika has no Care Guidelines for this patient. Care History Medical/Surgical 04/07/2020 [facility] Patient went to Walk In Clinic first and was then sent to ED.\T\nbsp; 08/12/2019 [facility] Patient used ED appropriately for pain outside of clinic hours.\T\nbsp; No follow up scheduled yet. 03/03/2018 [facility] - Patient is currently established with [facility]. If patient is seen in the ED during business hours. Please contact CHWs at [facility]. Care Recommendation: If this patient has [...] care. E.D. VISIT COUNT (12 MO.) 2 [facility] ED 10 [facility]. TOTAL 12 NOTE: Visits indicate total known visits. 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 - Personal history of nicotine dependence - Weakness 10/17/2022 19:31 [facility] [place] TYPE: Emergency COMPLAINT: - LOWER EXTREMITY PAIN DIAGNOSES: - Allergy status to other antibiotic agents - Chronic kidney disease, stage 3 unspecified - Cramp and spasm - Heart failure, unspecified - Hypertensive heart and chronic kidney disease with heart failure and stage 1 through stage 4 chronic kidney disease, or unspecified chronic kidney disease - Hypokalemia - Other senior living (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 - Pain in left leg - Personal history of nicotine dependence 10/11/2022 09:33 [facility] TYPE: Emergency DIAGNOSES: - Acute bronchitis, unspecified - Cough - Cough; Congestion; X 4 weeks - Generalized Body Aches 10/03/2022 09:24 [facility] TYPE: Emergency COMPLAINT: - FEVER, ABD CRAMPS DIAGNOSES: - Allergy status to other drugs, medicaments and biological substances - Chronic kidney disease, stage 3 unspecified - Contact with and (suspected) exposure to COVID-19 - Fever, unspecified - Gout, unspecified - Heart failure, unspecified - Hypertensive heart and chronic kidney disease with heart failure and stage 1 through stage 4 chronic kidney disease, or unspecified chronic kidney disease - 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 - Personal history of nicotine dependence - Viral intestinal infection, unspecified 05/26/2022 14:07 [facility] TYPE: Emergency DIAGNOSES: - Chronic kidney disease, stage 3a - Cyst of pancreas - Essential (primary) hypertension - Hemorrhage of anus and rectum - Blood In Stool - Constipation;Rectal Bleeding 05/21/2022 14:45 [facility] [place] TYPE: Emergency COMPLAINT: - ANXIETY DIAGNOSES: - Anxiety disorder, unspecified - Chronic kidney disease, stage 3 unspecified - Heart failure, unspecified - Hypertensive heart and chronic kidney disease with heart failure and stage 1 through stage 4 chronic kidney disease, or unspecified chronic kidney disease - Manic episode, severe, without psychotic symptoms - Migraine, unspecified, not intractable, without status migrainosus - 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 - Personal history of nicotine dependence - Restlessness and agitation 05/19/2022 15:35 [facility] [place] TYPE: Emergency COMPLAINT: - DIARRHEA 05/17/2022 10:20 [facility] [place] TYPE: Emergency COMPLAINT: - URINARY OR BOWEL BLEEDING DIAGNOSES: - Allergy status to other drugs, medicaments and biological substances - Chronic kidney disease, stage 3 unspecified - Gout, unspecified - Heart failure, unspecified - Hypertensive heart and chronic kidney disease with heart failure and stage 1 through stage 4 chronic kidney disease, or unspecified chronic kidney disease - Migraine, unspecified, not intractable, without status migrainosus - Other senior living (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 - Personal history of nicotine dependence - Unspecified abdominal pain 03/07/2022 09:08 [facility] [place] TYPE: Emergency COMPLAINT: - FALL, HEAD/TAILBONE INJURY DIAGNOSES: - Allergy status to other antibiotic agents - Chronic kidney disease, stage 3 unspecified - Contusion of lower back and pelvis, initial encounter - Depression, unspecified - Fall in (into) shower or empty bathtub, initial encounter - Headache, unspecified - Heart failure, unspecified - Hypertensive heart and chronic kidney disease with heart failure and stage 1 through stage 4 chronic kidney disease, or unspecified chronic kidney disease - 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 - Pain in unspecified shoulder - Personal history of nicotine dependence - Sacrococcygeal disorders, not elsewhere classified - Strain of muscle, fascia and tendon of lower back, initial encounter 01/26/2022 09:50 [facility] [place] TYPE: Emergency COMPLAINT: - ABD CRAMPING,DIARRHEA DIAGNOSES: - Allergy status to other drugs, medicaments and biological substances - Chronic kidney disease, stage 3 unspecified - Diarrhea, unspecified - Gout, unspecified - Heart failure, unspecified - Hypertensive heart and chronic kidney disease with heart failure and stage 1 through stage 4 chronic kidney disease, or unspecified chronic kidney disease - Migraine, unspecified, not intractable, without status migrainosus - 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 - Other specified diseases of pancreas - Personal history of nicotine dependence - Right upper quadrant pain - Unspecified abdominal pain - Vomiting, unspecified 12/17/2021 01:[address] [facility] [place] TYPE: Emergency COMPLAINT: - MEDICATION REFILL DIAGNOSES: - Allergy status to other drugs, medicaments and biological substances - Chronic kidney disease, stage 3 unspecified - Depression, unspecified - Gout, unspecified - Heart failure, unspecified - Hypertensive heart and chronic kidney disease with heart failure and stage 1 through stage 4 chronic kidney disease, or unspecified chronic kidney disease - Migraine, unspecified, not intractable, without status migrainosus - Other senior living (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 - Personal history of nicotine dependence INPATIENT VISIT TRACKING (12 MO.) No inpatient visits to display in this time frame [email or web address]
[2022-11-09] MEDS ORDERED: REGLAN10 MG PO (18:02)
[2022-11-09 18:53] VITALS: BP 120/94
== END 2022-11-09 18:53 | disposition home or self-care (01) ==
LOC: ED 15:12
DX: R11.2 Nausea with vomiting, unspecified (principal); R10.84 Generalized abdominal pain; R19.7 Diarrhea, unspecified; I13.0 Hypertensive heart and chronic kidney disease with heart failure and stage 1 through stage 4 chronic kidney disease, or unspecified chronic kidney disease; I50.9 Heart failure, unspecified; M10.9 Gout, unspecified; G43.909 Migraine, unspecified, not intractable, without status migrainosus; N18.30 Chronic kidney disease, stage 3 unspecified; Z87.891 Personal history of nicotine dependence; Z88.8 Allergy status to other drugs, medicaments and biological substances; Z79.899 Other long term (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
CPT/HCPCS: 36415; 51701; 80053; 81003; 83735; 85025; 99284-25; J1200; J2765; J3475; J7030

== ENCOUNTER 2022-11-26 06:50 | Emergency (ER) | payer MEDICARE ==
[~2022-11-26] VITALS: Ht 162.6 cm; Wt 54.0 kg
--- OUTSIDE RECORDS SUMMARY | 2022-11-26 06:55 | XMS ---
PreManage Notification: JAMIE TORRES Security Assistant Director Of Admissions Events 1 event(s) in the past 18 months Most recent security events: Elopement at [facility] 05/19/2022 15:35 - Patient eloped before treatment completed. - Patient with suicidal and/or homicidal ideations eloped. - Patient eloped with IV in place. Details: Patient LWBS. CRITERIA MET - 6 ED Visits in 6 Months - Group Notification - PDMP - [facility] - 2 Visits in 30 Days CARE PROVIDERS JAQUELINE JAIMES [facility] 04/04/2020-Current PHONE: Unknown [facility]ZE [facility] Internal Medicine 03/03/2018-Current PHONE: Unknown Chandrika has no Care Guidelines for this patient. Care History Medical/Surgical 04/07/2020 [facility] Patient went to Walk In Clinic first and was then sent to ED.\T\nbsp; 08/12/2019 [facility] Patient used ED appropriately for pain outside of clinic hours.\T\nbsp; No follow up scheduled yet. 03/03/2018 [facility] - Patient is currently established with [facility]. If patient is seen in the ED during business hours. Please contact CHWs at [facility]. Care Recommendation: If this patient has [...] care. E.D. VISIT COUNT (12 MO.) 2 [facility] ED 11 [facility]. TOTAL 13 NOTE: Visits indicate total known visits. ED/C VISIT TRACKING (12 MO.) 11/26/2022 06:52 [facility] [place] TYPE: Emergency COMPLAINT: - ABD PAIN, VOMITING, CHEST PAIN 11/09/2022 15:12 [facility] [place] TYPE: Emergency COMPLAINT: - VOMITING DIAGNOSES: - Allergy status to other drugs, medicaments and biological substances - Chronic kidney disease, stage 3 unspecified - Diarrhea, unspecified - Diarrhea, unspecified - Generalized abdominal pain - Gout, unspecified - Heart failure, unspecified - Hypertensive heart and chronic kidney disease with heart failure and stage 1 through stage 4 chronic kidney disease, or unspecified chronic kidney disease - Migraine, unspecified, not intractable, without status migrainosus - Nausea with vomiting, unspecified - Nausea with vomiting, unspecified - 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 (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 - Personal history of nicotine dependence 10/20/2022 13:14 [facility] [place] TYPE: Emergency [...] chronic kidney disease - Nausea - Other nursing home (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 - Personal history of nicotine dependence - Weakness 10/17/2022 19:31 [facility] [place] TYPE: Emergency COMPLAINT: - LOWER EXTREMITY PAIN DIAGNOSES: - Allergy status to other antibiotic agents - Chronic kidney disease, stage 3 unspecified - Cramp and spasm - Heart failure, unspecified - Hypertensive heart and chronic kidney disease with heart failure and stage 1 through stage 4 chronic kidney disease, or unspecified chronic kidney disease - Hypokalemia - Other nursing home (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 - Pain in left leg - Personal history of nicotine dependence 10/11/2022 09:[address] [facility] TYPE: Emergency DIAGNOSES: - Acute bronchitis, unspecified [...] or unspecified chronic kidney disease - Other nursing home (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 - Personal history of nicotine dependence - Viral intestinal infection, unspecified 05/26/2022 14:[address] [facility] TYPE: Emergency DIAGNOSES: - Chronic kidney disease, [...] not intractable, without status migrainosus - Other nursing home (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 - Personal history [...] not intractable, without status migrainosus - 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 (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 - Personal history [...] or unspecified chronic kidney disease - 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 (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 - Pain in unspecified [...] not intractable, without status migrainosus - 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 (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 - Other specified diseases of pancreas - Personal history of nicotine dependence - Right upper quadrant pain - Unspecified abdominal pain - Vomiting, unspecified 12/17/2021 01:53 [facility] [place] TYPE: Emergency [...] not intractable, without status migrainosus - Other nursing home (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 - Personal history of nicotine dependence INPATIENT VISIT TRACKING (12 MO.) No inpatient visits to display in this time frame [email or web address]
[2022-11-26] MEDS ORDERED: DULOXETINE HCL30 MG PO (07:06)
[2022-11-26] MEDS ORDERED: GABAPENTIN300 MG PO (07:06)
[2022-11-26] MEDS ORDERED: QUETIAPINE FUMA50 MG PO (07:07)
[2022-11-26] MEDS ORDERED: LOSARTAN POTAS100 MG PO (07:07)
[2022-11-26] MEDS ORDERED: AMOX TR-K CLV1 EAC1 PO (11:38)
[2022-11-26] MEDS ORDERED: HYDROCODON-ACE1 EA10 PO (12:06)
[2022-11-26 12:22] VITALS: BP 168/75
--- NOTE | 2022-11-26 16:09 | EKG ---
[facility] [address] [facility] [place] [address] Signed Normal sinus rhythm Normal ECG When compared with ECG of 26-JAN-2022 10:03, ST no longer elevated in Inferior leads Confirmed by Delma Huang MD () on 11/26/2022 4:09:03 PM Electronically Signed By: DELMA HUANG MD 11/26/22 1609 PATIENT NAME: JAMIE TORRES Electrocardiogram DATE OF : 54 PHYSICIAN: DELMA HUANG MD REPORT #: [id number] REPORT IS CONFIDENTIAL AND NOT TO BE RELEASED WITHOUT AUTHORIZATION
== END 2022-11-26 12:25 | disposition home or self-care (01) ==
LOC: ED 06:50
DX: K52.9 Noninfective gastroenteritis and colitis, unspecified (principal); K86.9 Disease of pancreas, unspecified; N39.0 Urinary tract infection, site not specified; I13.0 Hypertensive heart and chronic kidney disease with heart failure and stage 1 through stage 4 chronic kidney disease, or unspecified chronic kidney disease; N18.30 Chronic kidney disease, stage 3 unspecified; I50.9 Heart failure, unspecified; Z87.891 Personal history of nicotine dependence; Z88.1 Allergy status to other antibiotic agents; Z79.899 Other long term (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
CPT/HCPCS: 36415; 74177; 80053; 81001; 83690; 84484; 85025; 87493; 96366; 96375; 96376; 99284-25; J0696; J1170; J2405; Q9967

== ENCOUNTER 2023-01-16 06:26 | Observation (INO) | payer MEDICARE ==
[~2023-01-16] VITALS: Ht 162.6 cm; Wt 65.0 kg
--- OUTSIDE RECORDS SUMMARY | ~2023-01-16 | XMS | Continuity of Care Document ---
Demographics + + + | Address | [address] | | | [place] [address] | + + + | Preferred Language | Unknown | + + + | Marital Status | | + + + | Restorationism Affiliation | Unknown | + + + | Race | White | + + + | Ethnic Group | Not or | + + + Author + + + | Author | [facility] | + + + | Organization | [facility] | + + + | Address | [address] | | | [place] [address] | + + + | Phone | | + + + Care Team Providers + + + + | Care Sales And Training Specialist Name | Role | Phone | + + + + Unavailable | Unavailable | + + + + Unavailable | Unavailable | + + + + Unavailable | Unavailable | + + + + Allergies and Intolerances + + + + + | date | description | facility | type | + + + + + | (no date) | Metronidazole | [facility] ([facility] | | + + + + + | (no date) | Metronidazole | [facility] (unknown) [facility] | | + + + + + | (no date) | Metronidazole | [facility] (unknown[facility] | | + + + + + | (no date) | metronidazole | [facility] (unknown) [facility] | | + + + + + | (no date) | metronidazole | [facility] | (unknown) | + + + + + Encounters No information. Functional Status No information. Immunizations + + + + | date | description | facility | + + + + | 2020-11-14 00:00 | Tdap | [facility] | + + + + | 2020-11-14 00:00 | Tdap | [facility] | + + + + Medications + + + + | date | description | facility | + + + + | 2020-04-06 00:00 | Lidocaine | [facility] | + + + + | 2020-04-06 00:00 | Lidocaine | [facility] | + + + + | 2022-10-03 00:00 | ONDANSETRON | [facility] | + + + + | 2022-10-03 00:00 | ONDANSETRON | [facility] | + + + + | 2019-08-12 00:00 | ONDANSETRON HCL | [facility] | + + + + | 2019-08-12 00:00 | ONDANSETRON HCL | [facility] | + + + + | 2022-01-28 00:00 | TRIAMCINOLONE ACETONIDE | [facility] | + + + + | 2022-03-07 00:00 | TRIAMCINOLONE ACETONIDE | [facility] | + + + + | 2022-05-17 00:00 | TRIAMCINOLONE ACETONIDE | [facility] | + + + + | 2022-05-19 00:00 | TRIAMCINOLONE ACETONIDE | [facility] | + + + + | 2022-05-22 00:00 | TRIAMCINOLONE ACETONIDE | [facility] | + + + + | 2022-10-03 00:00 | TRIAMCINOLONE ACETONIDE | [facility] | + + + + | 2022-10-17 00:00 | TRIAMCINOLONE ACETONIDE | [facility] | + + + + | 2022-10-20 00:00 | TRIAMCINOLONE ACETONIDE | [facility] | + + + + | 2022-11-09 00:00 | TRIAMCINOLONE ACETONIDE | [facility] | + + + + | 2022-11-26 00:00 | TRIAMCINOLONE ACETONIDE | [facility] | + + + + | 2018-05-17 00:00 | IPRATROPIUM/ALBUTEROL | [facility] | | | SULFATE | | + + + + | 2018-05-17 00:00 | IPRATROPIUM/ALBUTEROL | [facility] | | | SULFATE | | + + + + | 2022-05-17 00:00 | ALPRAZOLAM | [facility] | + + + + | 2022-05-17 00:00 | ALPRAZOLAM | [facility] | + + + + | 2018-02-12 00:00 | POTASSIUM CHLORIDE | [facility] | + + + + | 2018-02-12 00:00 | POTASSIUM CHLORIDE | [facility] | + + + + | 2022-10-17 00:00 | POTASSIUM CHLORIDE | [facility] | + + + + | 2022-10-17 00:00 | POTASSIUM CHLORIDE | [facility] | + + + + | 2022-01-28 00:00 | ALLOPURINOL | [facility] | + + + + | 2022-03-07 00:00 | ALLOPURINOL | [facility] | + + + + | 2022-05-17 00:00 | ALLOPURINOL | [facility] | + + + + | 2022-05-19 00:00 | ALLOPURINOL | [facility] | + + + + | 2022-05-22 00:00 | ALLOPURINOL | [facility] | + + + + | 2022-10-03 00:00 | ALLOPURINOL | [facility] | + + + + | 2022-10-17 00:00 | ALLOPURINOL | [facility] | + + + + | 2022-10-20 00:00 | ALLOPURINOL | [facility] | + + + + | 2022-11-09 00:00 | ALLOPURINOL | [facility] | + + + + | 2022-11-26 00:00 | ALLOPURINOL | [facility] | + + + + | 2022-01-28 00:00 | AMLODIPINE BESYLATE | [facility] | + + + + | 2022-03-07 00:00 | AMLODIPINE BESYLATE | [facility] | + + + + | 2022-05-17 00:00 | AMLODIPINE BESYLATE | [facility] | + + + + | 2022-05-19 00:00 | AMLODIPINE BESYLATE | [facility] | + + + + | 2022-05-22 00:00 | AMLODIPINE BESYLATE | [facility] | + + + + | 2022-10-03 00:00 | AMLODIPINE BESYLATE | [facility] | + + + + | 2022-10-17 00:00 | AMLODIPINE BESYLATE | [facility] | + + + + | 2022-10-20 00:00 | AMLODIPINE BESYLATE | [facility] | + + + + | 2022-11-09 00:00 | AMLODIPINE BESYLATE | [facility] | + + + + | 2022-11-26 00:00 | AMLODIPINE BESYLATE | [facility] | + + + + | 2022-01-28 00:00 | ATENOLOL | [facility] | + + + + | 2022-03-07 00:00 | ATENOLOL | [facility] | + + + + | 2022-05-17 00:00 | ATENOLOL | [facility] | + + + + | 2022-05-19 00:00 | ATENOLOL | [facility] | + + + + | 2022-05-22 00:00 | ATENOLOL | [facility] | + + + + | 2022-10-03 00:00 | ATENOLOL | [facility] | + + + + | 2022-10-17 00:00 | ATENOLOL | [facility] | + + + + | 2022-10-20 00:00 | ATENOLOL | [facility] | + + + + | 2022-11-09 00:00 | ATENOLOL | [facility] | + + + + | 2022-11-26 00:00 | ATENOLOL | [facility] | + + + + | 2018-06-21 00:00 | OMEPRAZOLE | [facility] | + + + + | 2018-06-21 00:00 | OMEPRAZOLE | [facility] | + + + + | 2022-01-28 00:00 | OMEPRAZOLE | [facility] | + + + + | 2022-03-07 00:00 | OMEPRAZOLE | [facility] | + + + + | 2022-05-17 00:00 | OMEPRAZOLE | [facility] | + + + + | 2022-05-19 00:00 | OMEPRAZOLE | [facility] | + + + + | 2022-05-22 00:00 | OMEPRAZOLE | [facility] | + + + + | 2022-10-03 00:00 | OMEPRAZOLE | [facility] | + + + + | 2022-10-17 00:00 | OMEPRAZOLE | [facility] | + + + + | 2022-10-20 00:00 | OMEPRAZOLE | [facility] | + + + + | 2022-11-09 00:00 | OMEPRAZOLE | [facility] | + + + + | 2022-11-26 00:00 | OMEPRAZOLE | [facility] | + + + + | 2018-02-08 00:00 | PROCHLORPERAZINE MALEATE | [facility] | + + + + | 2018-02-08 00:00 | PROCHLORPERAZINE MALEATE | [facility] | + + + + | 2022-05-17 00:00 | OMEPRAZOLE | [facility] | + + + + | 2022-05-19 00:00 | OMEPRAZOLE | [facility] | + + + + | 2022-05-22 00:00 | OMEPRAZOLE | [facility] | + + + + | 2022-10-03 00:00 | OMEPRAZOLE | [facility] | + + + + | 2022-10-17 00:00 | OMEPRAZOLE | [facility] | + + + + | 2022-10-20 00:00 | OMEPRAZOLE | [facility] | + + + + | 2022-11-09 00:00 | OMEPRAZOLE | [facility] | + + + + | 2022-11-26 00:00 | OMEPRAZOLE | [facility] | + + + + | 2019-09-28 00:00 | VANCOMYCIN HCL | [facility] | + + + + | 2019-09-28 00:00 | VANCOMYCIN HCL | [facility] | + + + + | 2018-10-03 00:00 | METOCLOPRAMIDE HCL | [facility] | + + + + | 2018-10-03 00:00 | METOCLOPRAMIDE HCL | [facility] | + + + + | 2022-01-26 00:00 | METOCLOPRAMIDE HCL | [facility] | + + + + | 2022-01-26 00:00 | METOCLOPRAMIDE HCL | [facility] | + + + + | 2022-11-09 00:00 | METOCLOPRAMIDE HCL | [facility] | + + + + | 2019-05-25 00:00 | BENZONATATE | [facility] | + + + + | 2019-05-25 00:00 | BENZONATATE | [facility] | + + + + | 2022-01-28 00:00 | SIMETHICONE | [facility] | + + + + | 2022-03-07 00:00 | SIMETHICONE | [facility] | + + + + | 2022-05-17 00:00 | SIMETHICONE | [facility] | + + + + | 2022-05-19 00:00 | SIMETHICONE | [facility] | + + + + | 2022-05-22 00:00 | SIMETHICONE | [facility] | + + + + | 2022-10-03 00:00 | SIMETHICONE | [facility] | + + + + | 2022-10-17 00:00 | SIMETHICONE | [facility] | + + + + | 2022-10-20 00:00 | SIMETHICONE | [facility] | + + + + | 2022-11-09 00:00 | SIMETHICONE | [facility] | + + + + | 2022-11-26 00:00 | SIMETHICONE | [facility] | + + + + | 2022-10-17 00:00 | MIRTAZAPINE | [facility] | + + + + | 2022-10-17 00:00 | MIRTAZAPINE | [facility] | + + + + | 2022-01-28 00:00 | MELATONIN | [facility] | + + + + | 2022-03-07 00:00 | MELATONIN | [facility] | + + + + | 2022-05-17 00:00 | MELATONIN | [facility] | + + + + | 2022-05-19 00:00 | MELATONIN | [facility] | + + + + | 2022-05-22 00:00 | MELATONIN | [facility] | + + + + | 2022-10-03 00:00 | MELATONIN | [facility] | + + + + | 2022-10-17 00:00 | MELATONIN | [facility] | + + + + | 2022-10-20 00:00 | MELATONIN | [facility] | + + + + | 2022-11-09 00:00 | MELATONIN | [facility] | + + + + | 2022-11-26 00:00 | MELATONIN | [facility] | + + + + | 2022-05-17 00:00 | ALPRAZOLAM | [facility] | + + + + | 2022-05-19 00:00 | ALPRAZOLAM | [facility] | + + + + | 2022-05-22 00:00 | ALPRAZOLAM | [facility] | + + + + | 2022-10-03 00:00 | ALPRAZOLAM | [facility] | + + + + | 2022-10-17 00:00 | ALPRAZOLAM | [facility] | + + + + | 2022-10-20 00:00 | ALPRAZOLAM | [facility] | + + + + | 2018-02-12 00:00 | CEFPODOXIME PROXETIL | [facility] | + + + + | 2018-02-12 00:00 | CEFPODOXIME PROXETIL | [facility] | + + + + | 2018-02-12 00:00 | FUROSEMIDE | [facility] | + + + + | 2018-02-12 00:00 | FUROSEMIDE | [facility] | + + + + | 2022-11-26 00:00 | GABAPENTIN | [facility] | + + + + | 2022-01-28 00:00 | HYDROCHLOROTHIAZIDE | [facility] | + + + + | 2022-03-07 00:00 | HYDROCHLOROTHIAZIDE | [facility] | + + + + | 2022-05-17 00:00 | HYDROCHLOROTHIAZIDE | [facility] | + + + + | 2022-05-19 00:00 | HYDROCHLOROTHIAZIDE | [facility] | + + + + | 2022-05-22 00:00 | HYDROCHLOROTHIAZIDE | [facility] | + + + + | 2022-10-03 00:00 | HYDROCHLOROTHIAZIDE | [facility] | + + + + | 2022-10-17 00:00 | HYDROCHLOROTHIAZIDE | [facility] | + + + + | 2022-10-20 00:00 | HYDROCHLOROTHIAZIDE | [facility] | + + + + | 2022-11-09 00:00 | HYDROCHLOROTHIAZIDE | [facility] | + + + + | 2022-11-26 00:00 | HYDROCHLOROTHIAZIDE | [facility] | + + + + | 2018-06-18 00:00 | MELOXICAM | [facility] | + + + + | 2018-06-18 00:00 | MELOXICAM | [facility] | + + + + | 2018-10-03 00:00 | ONDANSETRON | [facility] | + + + + | 2018-10-03 00:00 | ONDANSETRON | [facility] | + + + + | 2018-11-23 00:00 | ONDANSETRON | [facility] | + + + + | 2018-11-23 00:00 | ONDANSETRON | [facility] | + + + + | 2018-02-24 00:00 | predniSONE | [facility] | + + + + | 2018-02-24 00:00 | predniSONE | [facility] | + + + + | 2021-12-17 00:00 | VENLAFAXINE HCL | [facility] | + + + + | 2021-12-17 00:00 | VENLAFAXINE HCL | [facility] | + + + + | 2022-01-28 00:00 | VENLAFAXINE HCL | [facility] | + + + + | 2022-03-07 00:00 | VENLAFAXINE HCL | [facility] | + + + + | 2022-05-17 00:00 | VENLAFAXINE HCL | [facility] | + + + + | 2022-05-19 00:00 | VENLAFAXINE HCL | [facility] | + + + + | 2022-05-22 00:00 | VENLAFAXINE HCL | [facility] | + + + + | 2022-10-03 00:00 | VENLAFAXINE HCL | [facility] | + + + + | 2022-10-17 00:00 | VENLAFAXINE HCL | [facility] | + + + + | 2022-10-20 00:00 | VENLAFAXINE HCL | [facility] | + + + + | 2022-11-09 00:00 | VENLAFAXINE HCL | [facility] | + + + + | 2022-11-26 00:00 | VENLAFAXINE HCL | [facility] | + + + + | 2022-11-26 00:00 | AMOXICILLIN/POTASSIUM CLAV | [facility] | | | | | + + + + | 2022-11-26 00:00 | DULOXETINE HCL | [facility] | + + + + | 2022-11-26 00:00 | QUETIAPINE FUMARATE | [facility] | + + + + | 2022-01-28 00:00 | ATORVASTATIN CALCIUM | [facility] | + + + + | 2022-03-07 00:00 | ATORVASTATIN CALCIUM | [facility] | + + + + | 2022-05-17 00:00 | ATORVASTATIN CALCIUM | [facility] | + + + + | 2022-05-19 00:00 | ATORVASTATIN CALCIUM | [facility] | + + + + | 2022-05-22 00:00 | ATORVASTATIN CALCIUM | [facility] | + + + + | 2022-10-03 00:00 | ATORVASTATIN CALCIUM | [facility] | + + + + | 2022-10-17 00:00 | ATORVASTATIN CALCIUM | [facility] | + + + + | 2022-10-20 00:00 | ATORVASTATIN CALCIUM | [facility] | + + + + | 2022-11-09 00:00 | ATORVASTATIN CALCIUM | [facility] | + + + + | 2022-11-26 00:00 | ATORVASTATIN CALCIUM | [facility] | + + + + | 2021-12-17 00:00 | VENLAFAXINE HCL | [facility] | + + + + | 2021-12-17 00:00 | VENLAFAXINE HCL | [facility] | + + + + | 2021-12-17 00:00 | VENLAFAXINE HCL | [facility] | + + + + | 2021-12-17 00:00 | VENLAFAXINE HCL | [facility] | + + + + | 2018-06-18 00:00 | CYCLOBENZAPRINE HCL | [facility] | + + + + | 2018-06-18 00:00 | CYCLOBENZAPRINE HCL | [facility] | + + + + | 2022-05-17 00:00 | DILTIAZEM HCL | [facility] | + + + + | 2022-05-19 00:00 | DILTIAZEM HCL | [facility] | + + + + | 2022-05-22 00:00 | DILTIAZEM HCL | [facility] | + + + + | 2022-10-03 00:00 | DILTIAZEM HCL | [facility] | + + + + | 2022-10-17 00:00 | DILTIAZEM HCL | [facility] | + + + + | 2022-10-20 00:00 | DILTIAZEM HCL | [facility] | + + + + | 2022-11-09 00:00 | DILTIAZEM HCL | [facility] | + + + + | 2022-11-26 00:00 | DILTIAZEM HCL | [facility] | + + + + | 2022-11-26 00:00 | HYDROCODONE | [facility] | | | BIT/ACETAMINOPHEN | | + + + + | 2018-06-21 00:00 | HYDROCODONE | [facility] | | | BIT/ACETAMINOPHEN | | + + + + | 2018-06-21 00:00 | HYDROCODONE | [facility] | | | BIT/ACETAMINOPHEN | | + + + + | 2019-04-12 00:00 | HYDROCODONE | [facility] | | | BIT/ACETAMINOPHEN | | + + + + | 2019-04-12 00:00 | HYDROCODONE | [facility] | | | BIT/ACETAMINOPHEN | | + + + + | 2019-12-10 00:00 | HYDROCODONE | [facility] | | | BIT/ACETAMINOPHEN | | + + + + | 2019-12-10 00:00 | HYDROCODONE | [facility] | | | BIT/ACETAMINOPHEN | | + + + + | 2022-01-28 00:00 | METOPROLOL TARTRATE | [facility] | + + + + | 2022-03-07 00:00 | METOPROLOL TARTRATE | [facility] | + + + + | 2022-05-17 00:00 | METOPROLOL TARTRATE | [facility] | + + + + | 2022-05-19 00:00 | METOPROLOL TARTRATE | [facility] | + + + + | 2022-05-22 00:00 | METOPROLOL TARTRATE | [facility] | + + + + | 2022-10-03 00:00 | METOPROLOL TARTRATE | [facility] | + + + + | 2022-10-17 00:00 | METOPROLOL TARTRATE | [facility] | + + + + | 2022-10-20 00:00 | METOPROLOL TARTRATE | [facility] | + + + + | 2022-11-09 00:00 | METOPROLOL TARTRATE | [facility] | + + + + | 2022-11-26 00:00 | METOPROLOL TARTRATE | [facility] | + + + + | 2022-01-28 00:00 | ALENDRONATE SODIUM | [facility] | + + + + | 2022-03-07 00:00 | ALENDRONATE SODIUM | [facility] | + + + + | 2022-05-17 00:00 | ALENDRONATE SODIUM | [facility] | + + + + | 2022-05-19 00:00 | ALENDRONATE SODIUM | [facility] | + + + + | 2022-05-22 00:00 | ALENDRONATE SODIUM | [facility] | + + + + | 2022-10-03 00:00 | ALENDRONATE SODIUM | [facility] | + + + + | 2022-10-17 00:00 | ALENDRONATE SODIUM | [facility] | + + + + | 2022-10-20 00:00 | ALENDRONATE SODIUM | [facility] | + + + + | 2022-11-09 00:00 | ALENDRONATE SODIUM | [facility] | + + + + | 2022-11-26 00:00 | ALENDRONATE SODIUM | [facility] | + + + + | 2022-01-28 00:00 | LOSARTAN POTASSIUM | [facility] | + + + + | 2022-03-07 00:00 | LOSARTAN POTASSIUM | [facility] | + + + + | 2022-05-17 00:00 | LOSARTAN POTASSIUM | [facility] | + + + + | 2022-05-19 00:00 | LOSARTAN POTASSIUM | [facility] | + + + + | 2022-05-22 00:00 | LOSARTAN POTASSIUM | [facility] | + + + + | 2022-10-03 00:00 | LOSARTAN POTASSIUM | [facility] | + + + + | 2022-10-17 00:00 | LOSARTAN POTASSIUM | [facility] | + + + + | 2022-10-20 00:00 | LOSARTAN POTASSIUM | [facility] | + + + + | 2022-11-09 00:00 | LOSARTAN POTASSIUM | [facility] | + + + + | 2022-11-26 00:00 | LOSARTAN POTASSIUM | [facility] | + + + + | 2022-01-28 00:00 | LOSARTAN POTASSIUM | [facility] | + + + + | 2022-03-07 00:00 | LOSARTAN POTASSIUM | [facility] | + + + + | 2022-05-17 00:00 | LOSARTAN POTASSIUM | [facility] | + + + + | 2022-05-19 00:00 | LOSARTAN POTASSIUM | [facility] | + + + + | 2022-05-22 00:00 | LOSARTAN POTASSIUM | [facility] | + + + + | 2022-10-03 00:00 | LOSARTAN POTASSIUM | [facility] | + + + + | 2022-10-17 00:00 | LOSARTAN POTASSIUM | [facility] | + + + + | 2022-10-20 00:00 | LOSARTAN POTASSIUM | [facility] | + + + + | 2022-11-09 00:00 | LOSARTAN POTASSIUM | [facility] | + + + + | 2022-11-26 00:00 | LOSARTAN POTASSIUM | [facility] | + + + + | 2018-02-12 00:00 | LOSARTAN POTASSIUM | [facility] | + + + + | 2018-02-12 00:00 | LOSARTAN POTASSIUM | [facility] | + + + + | 2022-01-28 00:00 | LOSARTAN POTASSIUM | [facility] | + + + + | 2022-03-07 00:00 | LOSARTAN POTASSIUM | [facility] | + + + + | 2022-05-17 00:00 | LOSARTAN POTASSIUM | [facility] | + + + + | 2022-05-19 00:00 | LOSARTAN POTASSIUM | [facility] | + + + + | 2022-05-22 00:00 | LOSARTAN POTASSIUM | [facility] | + + + + | 2022-10-03 00:00 | LOSARTAN POTASSIUM | [facility] | + + + + | 2022-10-17 00:00 | LOSARTAN POTASSIUM | [facility] | + + + + | 2022-10-20 00:00 | LOSARTAN POTASSIUM | [facility] | + + + + | 2022-11-09 00:00 | LOSARTAN POTASSIUM | [facility] | + + + + | 2022-11-26 00:00 | LOSARTAN POTASSIUM | [facility] | + + + + | 2022-05-17 00:00 | DICYCLOMINE HCL | [facility] | + + + + | 2022-05-17 00:00 | DICYCLOMINE HCL | [facility] | + + + + | 2022-05-17 00:00 | hydrOXYzine HCL | [facility] | + + + + | 2022-05-19 00:00 | hydrOXYzine HCL | [facility] | + + + + | 2022-05-22 00:00 | hydrOXYzine HCL | [facility] | + + + + | 2022-10-03 00:00 | hydrOXYzine HCL | [facility] | + + + + | 2022-10-17 00:00 | hydrOXYzine HCL | [facility] | + + + + | 2022-10-20 00:00 | hydrOXYzine HCL | [facility] | + + + + | 2022-11-09 00:00 | hydrOXYzine HCL | [facility] | + + + + | 2022-11-26 00:00 | hydrOXYzine HCL | [facility] | + + + + | 2019-05-25 00:00 | Guaifenesin/Codeine | [facility] | | | Phosphate | | + + + + | 2019-05-25 00:00 | Guaifenesin/Codeine | [facility] | | | Phosphate | | + + + + Problems + + + + | date | description | facility | + + + + | 2018-02-22 00:00 | Nonspecific chest pain | [facility] | + + + + | 2018-02-22 00:00 | Nonspecific chest pain | [facility] | + + + + | 2018-02-22 00:00 | Pleurisy | [facility] | + + + + | 2018-02-22 00:00 | Pleurisy | [facility] | + + + + | 2018-03-02 00:00 | Constipation | [facility] | + + + + | 2018-03-02 00:00 | Constipation | [facility] | + + + + | 2018-03-02 00:00 | Abdominal pain | [facility] | + + + + | 2018-03-02 00:00 | Abdominal pain | [facility] | + + + + | 2018-05-17 00:00 | Dyspnea | [facility] | + + + + | 2018-05-17 00:00 | Dyspnea | [facility] | + + + + | 2018-05-17 00:00 | Atypical chest pain | [facility] | + + + + | 2018-05-17 00:00 | Atypical chest pain | [facility] | + + + + | 2018-06-18 00:00 | Pain of rhomboid muscle | [facility] | + + + + | 2018-06-18 00:00 | Pain of rhomboid muscle | [facility] | + + + + | 2018-06-21 00:00 | Acute gastritis | [facility] | + + + + | 2018-06-21 00:00 | Acute gastritis | [facility] | + + + + | 2018-07-10 00:00 | Chest wall pain | [facility] | + + + + | 2018-07-10 00:00 | Chest wall pain | [facility] | + + + + | 2018-07-10 00:00 | Headache | [facility] | + + + + | 2018-07-10 00:00 | Headache | [facility] | + + + + | 2018-07-30 00:00 | Unstable angina pectoris | [facility] | + + + + | 2018-07-30 00:00 | Unstable angina pectoris | [facility] | + + + + | 2018-09-06 00:00 | Contusion of hip | [facility] | + + + + | 2018-09-06 00:00 | Contusion of hip | [facility] | + + + + | 2019-04-12 00:00 | Exacerbation of gout | [facility] | + + + + | 2019-04-12 00:00 | Exacerbation of gout | [facility] | + + + + | 2019-05-25 00:00 | Viral infection | [facility] | + + + + | 2019-05-25 00:00 | Viral infection | [facility] | + + + + | 2019-09-18 00:00 | Chest pain | [facility] | + + + + | 2019-09-18 00:00 | Chest pain | [facility] | + + + + 2019-09-18 00:00 | Vomiting and diarrhea | [facility] | + + + + | 2019-09-18 00:00 | Vomiting and diarrhea | [facility] | + + + + | 2019-09-18 00:00 | Multiple complaints | [facility] | + + + + | 2019-09-18 00:00 | Multiple complaints | [facility] | + + + + | 2019-09-25 00:00 | Sepsis | [facility] | + + + + | 2019-09-25 00:00 | Sepsis | [facility] | + + + + | 2020-04-06 14:29 | MIGRAINE, UNSP, NOT | [facility] | | | INTRACTABLE, WITHOUT STATUS | | | | [place] | | + + + + | 2020-04-06 14:29 | 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 | | + + + + | 2020-04-06 14:29 | HEART FAILURE, UNSPECIFIED | [facility] | | | | | + + + + | 2020-04-06 14:29 | GOUT, UNSPECIFIED | [facility] | + + + + | 2020-04-06 14:29 | SCIATICA, RIGHT SIDE | [facility] | + + + + | 2020-04-06 14:29 | CHRONIC KIDNEY DISEASE, | [facility] | | | STAGE 3 (MODERATE) | | + + + + | 2020-04-06 14:29 | NAUSEA WITH VOMITING, | [facility] | | | UNSPECIFIED | | + + + + | 2020-04-06 14:29 | Headache | [facility] | + + + + | 2020-04-06 14:29 | OTHER SHELTER (CURRENT) | [facility] | | | 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 | | + + + + | 2020-04-06 14:29 | PERSONAL HISTORY OF | [facility] | | | NICOTINE DEPENDENCE | | + + + + | 2020-04-06 14:29 | ALLERGY STATUS TO OTH | [facility] | | | DRUG/MEDS/BIOL SUBST STATUS | | | | | | + + + + | 2020-11-14 00:00 | Laceration of right foot | [facility] | + + + + | 2020-11-14 00:00 | Laceration of right foot | [facility] | + + + + | 2020-12-18 00:00 | Acute gastroenteritis | [facility] | + + + + | 2020-12-18 00:00 | Acute gastroenteritis | [facility] | + + + + | 2020-12-18 00:00 | Acute kidney injury | [facility] | + + + + | 2020-12-18 00:00 | Acute kidney injury | [facility] | + + + + | 2021-01-12 00:00 | Fecal impaction of colon | [facility] | + + + + | 2021-01-12 00:00 | Fecal impaction of colon | [facility] | + + + + | 2021-12-17 00:00 | Depression | [facility] | + + + + | 2021-12-17 00:00 | Depression | [facility] | + + + + | 2022-01-26 00:00 | Pancreatic mass | [facility] | + + + + | 2022-01-26 00:00 | Pancreatic mass | [facility] | + + + + | 2022-01-26 00:00 | Combined abdominal pain, | [facility] | | | vomiting, and diarrhea | | + + + + | 2022-01-26 00:00 | Combined abdominal pain, | [facility] | | | vomiting, and diarrhea | | + + + + | 2022-03-07 00:00 | Contusion of sacrum | [facility] | + + + + | 2022-03-07 00:00 | Contusion of sacrum | [facility] | + + + + | 2022-03-07 00:00 | Strain of lumbar region | [facility] | + + + + | 2022-03-07 00:00 | Strain of lumbar region | [facility] | + + + + | 2022-05-17 00:00 | Acute abdominal pain | [facility] | + + + + | 2022-05-17 00:00 | Acute abdominal pain | [facility] | + + + + | 2022-05-19 00:00 | Patient left without being | [facility] | | | seen | | + + + + | 2022-05-19 00:00 | Patient left without being | [facility] | | | seen | | + + + + | 2022-05-21 00:00 | Agitation | [facility] | + + + + | 2022-05-21 00:00 | Agitation | [facility] | + + + + | 2022-05-22 00:00 | Severe manic episode | [facility] | | | without psychotic symptoms | | + + + + | 2022-05-22 00:00 | Severe manic episode | [facility] | | | without psychotic symptoms | | + + + + | 2022-09-24 08:58 | CARDIOMEGALY | [facility] | + + + + | 2022-09-24 08:58 | ACUTE BRONCHITIS, | [facility] | | | UNSPECIFIED | | + + + + | 2022-09-24 08:58 | ATELECTASIS | [facility] | + + + + | 2022-09-24 08:58 | OTHER DISORDERS OF LUNG | [facility] | + + + + | 2022-09-24 08:58 | OTH SYMPTOMS AND SIGNS | [facility] | | | INVOLVING THE CIRC AND RESP | | | | | | + + + + | 2022-10-03 00:00 | Viral gastroenteritis | [facility] | + + + + | 2022-10-03 00:00 | Viral gastroenteritis | [facility] | + + + + | 2022-10-03 09:24 | VIRAL INTESTINAL | [facility] | | | INFECTION, UNSPECIFIED | | + + + + | 2022-10-03 09:24 | 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 | | + + + + | 2022-10-03 09:24 | HEART FAILURE, UNSPECIFIED | [facility] | | | | | + + + + | 2022-10-03 09:24 | GOUT, UNSPECIFIED | [facility] | + + + + | 2022-10-03 09:24 | FEVER, UNSPECIFIED | [facility] | + + + + | 2022-10-03 09:24 | OTHER SHELTER (CURRENT) | [facility] | | | 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 | | + + + + | 2022-10-03 09:24 | PERSONAL HISTORY OF | [facility] | | | NICOTINE DEPENDENCE | | + + + + | 2022-10-03 09:24 | ALLERGY STATUS TO OTH | [facility] | | | DRUG/MEDS/BIOL SUBST STATUS | | | | | | + + + + | 2022-10-17 00:00 | Hypokalemia | [facility] | + + + + | 2022-10-17 00:00 | Hypokalemia | [facility] | + + + + | 2022-10-17 00:00 | Cramps of lower extremity | [facility] | + + + + | 2022-10-17 00:00 | Cramps of lower extremity | [facility] | + + + + | 2022-10-17 19:31 | HYPOKALEMIA | [facility] | + + + + | 2022-10-17 19:31 | 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 | | + + + + | 2022-10-17 19:31 | HEART FAILURE, UNSPECIFIED | [facility] | | | | | + + + + | 2022-10-17 19:31 | PAIN IN LEFT LEG | [facility] | + + + + | 2022-10-17 19:31 | CRAMP AND SPASM | [facility] | + + + + | 2022-10-17 19:31 | 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[facility] | | | 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 | | + + + + | 2022-10-17 19:31 | PERSONAL HISTORY OF | [facility] | | | NICOTINE DEPENDENCE | | + + + + | 2022-10-17 19:31 | ALLERGY STATUS TO OTHER | [facility] | | | ANTIBIOTIC AGENTS STATUS | | + + + + | 2022-10-20 00:00 | Nausea | [facility] | + + + + | 2022-10-20 00:00 | Generalized pain | [facility] | + + + + | 2022-10-20 13:14 | 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 | | + + + + | 2022-10-20 13:14 | HEART FAILURE, UNSPECIFIED | [facility] | | | | | + + + + | 2022-10-20 13:14 | NAUSEA | [facility] | + + + + | 2022-10-20 13:14 | WEAKNESS | [facility] | + + + + | 2022-10-20 13:14 | OTHER SHELTER (CURRENT) | [facility] | | | 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 | | + + + + | 2022-10-20 13:14 | PERSONAL HISTORY OF | [facility] | | | NICOTINE DEPENDENCE | | + + + + | 2022-10-20 13:14 | ALLERGY STATUS TO OTHER | [facility] | | | ANTIBIOTIC AGENTS STATUS | | + + + + | 2022-11-09 15:12 | MIGRAINE, UNSP, NOT | [facility] | | | INTRACTABLE, WITHOUT STATUS | | | | SC | | + + + + | 2022-11-09 15:12 | 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 | | + + + + | 2022-11-09 15:12 | HEART FAILURE, UNSPECIFIED | [facility] | | | | | + + + + | 2022-11-09 15:12 | GOUT, UNSPECIFIED | [facility] | + + + + | 2022-11-09 15:12 | GENERALIZED ABDOMINAL PAIN | [facility] | | | | | + + + + | 2022-11-09 15:12 | NAUSEA WITH VOMITING, | [facility] | | | UNSPECIFIED | | + + + + | 2022-11-09 15:12 | DIARRHEA, UNSPECIFIED | [facility] | + + + + | 2022-11-09 15:12 | 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[facility] | | | 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 | | + + + + | 2022-11-09 15:12 | PERSONAL HISTORY OF | [facility] | | | NICOTINE DEPENDENCE | | + + + + | 2022-11-09 15:12 | ALLERGY STATUS TO OTH | [facility] | | | DRUG/MEDS/BIOL SUBST STATUS | | | | | | + + + + | 2022-11-22 11:54 | 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 | | + + + + | 2022-11-22 11:54 | PAIN IN RIGHT KNEE | [facility] | + + + + | 2022-11-22 11:54 | PAIN IN LEFT KNEE | [facility] | + + + + | 2022-11-26 00:00 | Colitis | [facility] | + + + + | 2022-11-26 00:00 | Lesion of pancreas | [facility] | + + + + | 2022-11-26 00:00 | Urinary tract infection | [facility] | + + + + | 2022-11-26 06:52 | 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 | | + + + + | 2022-11-26 06:52 | HEART FAILURE, UNSPECIFIED | [facility] | | | | | + + + + | 2022-11-26 06:52 | NONINFECTIVE | [facility] | | | GASTROENTERITIS AND | | | | COLITIS, UNSPECIF | | + + + + | 2022-11-26 06:52 | DISEASE OF PANCREAS, | [facility] | | | UNSPECIFIED | | + + + + | 2022-11-26 06:52 | URINARY TRACT INFECTION, | [facility] | | | SITE NOT SPECIFIED | | + + + + | 2022-11-26 06:52 | LOWER ABDOMINAL PAIN, | [facility] | | | UNSPECIFIED | | + + + + | 2022-11-26 06:52 | 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[facility] | | | 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 | | + + + + | 2022-11-26 06:52 | PERSONAL HISTORY OF | [facility] | | | NICOTINE DEPENDENCE | | + + + + | 2022-11-26 06:52 | ALLERGY STATUS TO OTHER | [facility] | | | ANTIBIOTIC AGENTS STATUS | | + + + + | 2022-12-13 09:08 | 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 Results/Labs +--------+--------+ + +---------+--------+ + | test | date | author | facility | value | unit | | | | | | | | | interpreta | | | | | | | | tion | +--------+--------+ + +---------+--------+ + + + | Result panel 1 | + + + + + + +---------+ + + | (unknown) | (no date) | (unknown) | [facility] (no | (units | (unknown) | | [facility] | | | + + + + +---------+ + + + + | Result panel 2 | + + + + + + +---------+ + + | (unknown) | (no date) | (unknown) | [facility] | (no | (units | (unknown) | | | [facility] | [facility] | | | | + + + + +---------+ + + + + | Result panel 3 | + + + + + + +---------+ + + | (unknown) | (no date) | (unknown) | [facility] | (no | (units | (unknown) | | | [facility] | [facility] | | | | + + + + +---------+ + + + + | Result panel 4 | + + + + + + +---------+ + + | (unknown) | (no date) | (unknown) | [facility] | (no | (units | (unknown) | | | | [facility] | [facility] | | | | + + + + +---------+ + + + + | Result panel 5 | + + + + + + +---------+ + + | (unknown) | (no date) | (unknown) | [facility] | (no | (units | (unknown) | | | | [facility] | [facility] | | | | + + + + +---------+ + + + + | Result panel 6 | + + + + + + +---------+ + + | (unknown) | (no date) | (unknown) | [facility] | (no | (units | (unknown) | | | | [facility] | [facility] | | | | + + + + +---------+ + + + + | Result panel 7 | + + + + + + +---------+ + + | (unknown) | (no date) | (unknown) | [facility] | (no | (units | (unknown) | | | | [facility] | [facility] | | | | + + + + +---------+ + + + + | Result panel 8 | + + + + + + +---------+ + + | (unknown) | (no date) | (unknown) | [facility] | (no | (units | (unknown) | | | | [facility] | | | | + + + + +---------+ + + + + | Result panel 9 | + + + + + + +---------+ + + | (unknown) | (no date) | (unknown) | [facility] | (no | (units | (unknown) | | | | [facility] | [facility] | [facility] | | | | + + + + +---------+ + + + + | Result panel 10 | + + + + + + +---------+ + + | (unknown) | (no date) | (unknown) | [facility] | (no | (units | (unknown) | | | | [facility] | [facility] | | | | + + + + +---------+ + + + + | Result panel 11 | + + + + + + +---------+ + + | (unknown) | (no date) | (unknown) | [facility] | (no | (units | (unknown) | | | | [facility] | [facility] | | [facility] | | | | + + + + +---------+ + + + + | Result panel 12 | + + + + + + +---------+ + + | (unknown) | (no date) | (unknown) | [facility] | (no | (units | (unknown) | | | | [facility] | [facility] | | | | + + + + +---------+ + + + + | Result panel 13 | + + + + + + +---------+ + + | (unknown) | (no date) | (unknown) | [facility] | (no | (units | (unknown) | | | | [facility] | [facility] | [facility] | | | | + + + + +---------+ + + + + | Result panel 14 | + + + + + + +---------+ + + | (unknown) | (no date) | (unknown) | [facility] | (no | (units | (unknown) | | | | [facility] | [facility] | [facility] | | | | + + + + +---------+ + + + + | Result panel 15 | + + + + + + +---------+ + + | (unknown) | (no date) | (unknown) | [facility] | (no | (units | (unknown) | | | | [facility] | [facility] | | [facility] | | | | + + + + +---------+ + + + + | Result panel 16 | + + + + + + +---------+ + + | (unknown) | (no date) | (unknown) | [facility] | (no | (units | (unknown) | | | | [facility] | [facility]) [facility] | | [facility] | | | | + + + + +---------+ + + + + | Result panel 17 | + + + + + + +---------+ + + | (unknown) | (no date) | (unknown) | [facility] | (no | (units | (unknown) | | | | [facility] | [facility] | | [facility] | | | | + + + + +---------+ + + + + | Result panel 18 | + + + + + + +---------+ + + | (unknown) | (no date) | (unknown) | [facility] | (no | (units | (unknown) | | | | [facility] | [facility]) [facility] | | [facility] | | | | + + + + +---------+ + + + + | Result panel 19 | + + + + + + +---------+ + + | (unknown) | (no date) | (unknown) | [facility] | (no | (units | (unknown) | | | | [facility] | [facility] | | [facility] | | | | + + + + +---------+ + + + + | Result panel 20 | + + + + + + +---------+ + + | (unknown) | (no date) | (unknown) | [facility] | (no | (units | (unknown) | | | | [facility] | [facility] | [facility] | | | | + + + + +---------+ + + + + | Result panel 21 | + + + + + + +---------+ + + | (unknown) | (no date) | (unknown) | [facility] | (no | (units | (unknown) | | | | [facility] | [facility] | | [facility] | | | | + + + + +---------+ + + + + | Result panel 22 | + + + + + + +---------+ + + | (unknown) | (no date) | (unknown) | [facility] | (no | (units | (unknown) | | | | [facility] | [facility] | | [facility] | | | | + + + + +---------+ + + + + | Result panel 23 | + + + + + + +---------+ + + | (unknown) | (no date) | (unknown) | [facility] | (no | (units | (unknown) | | | | [facility] | [facility] | | [facility] | | | | + + + + +---------+ + + + + | Result panel 24 | + + + + + + +---------+ + + | (unknown) | (no date) | (unknown) | [facility] | (no | (units | (unknown) | | | | [facility] | [facility] | | [facility] | | | | + + + + +---------+ + + + + | Result panel 25 | + + + + + + +---------+ + + | (unknown) | (no date) | (unknown) | [facility] | (no | (units | (unknown) | | | | [facility] | [facility] | | [facility] | | | | + + + + +---------+ + + + + | Result panel 26 | + + + + + + +---------+ + + | (unknown) | (no date) | (unknown) | [facility] | (no | (units | (unknown) | | | | [facility] | [facility] | | [facility] | | | | + + + + +---------+ + + + + | Result panel 27 | + + + + + + +---------+ + + | (unknown) | (no date) | (unknown) | [facility] | (no | (units | (unknown) | | | | [facility] | [facility] | [facility] | | | | + + + + +---------+ + + + + | Result panel 28 | + + + + + + +---------+ + + | (unknown) | (no date) | (unknown) | [facility] | (no | (units | (unknown) | | | | [facility] | [facility] | | [facility] | | | | + + + + +---------+ + + + + | Result panel 29 | + + + + + + +---------+ + + | (unknown) | (no date) | (unknown) | [facility] | (no | (units | (unknown) | | | | [facility] | [facility] | | [facility] | | | | + + + + +---------+ + + + + | Result panel 30 | + + + + + + +---------+ + + | (unknown) | (no date) | (unknown) | [facility] | (no | (units | (unknown) | | | | [facility] | [facility] | | [facility] | | | | + + + + +---------+ + + + + | Result panel 31 | + + + + + + +---------+ + + | (unknown) | (no date) | (unknown) | [facility] | (no | (units | (unknown) | | | | [facility] | [facility] | | [facility] | | | | + + + + +---------+ + + + + | Result panel 32 | + + + + + + +---------+ + + | (unknown) | (no date) | (unknown) | [facility] | (no | (units | (unknown) | | | | [facility] | [facility] | | [facility] | | | | + + + + +---------+ + + + + | Result panel 33 | + + + + + + +---------+ + + | (unknown) | (no date) | (unknown) | [facility] | (no | (units | (unknown) | | | | [facility] | [facility] | | [facility] | | | | + + + + +---------+ + + + + | Result panel 34 | + + + + + + +---------+ + + | (unknown) | (no date) | (unknown) | [facility] | (no | (units | (unknown) | | | | [facility] | [facility] | | [facility] | | | | + + + + +---------+ + + + + | Result panel 35 | + + + + + + +---------+ + + | (unknown) | (no date) | (unknown) | [facility] | (no | (units | (unknown) | | | | [facility] | [facility] | | [facility] | | | | + + + + +---------+ + + + + | Result panel 36 | + + + + + + +---------+ + + | (unknown) | (no date) | (unknown) | [facility] | (no | (units | (unknown) | | | | [facility] | [facility] | | [facility] | | | | + + + + +---------+ + + + + | Result panel 37 | + + + + + + +---------+ + + | (unknown) | (no date) | (unknown) | [facility] | (no | (units | (unknown) | | | | [facility] | [facility] | | [facility] | | | | + + + + +---------+ + + + + | Result panel 38 | + + + + + + +---------+ + + | (unknown) | (no date) | (unknown) | [facility] | (no | (units | (unknown) | | | | [facility] | [facility] | | [facility] | | | | + + + + +---------+ + + + + | Result panel 39 | + + + + + + +---------+ + + | (unknown) | (no date) | (unknown) | [facility] | (no | (units | (unknown) | | | | [facility] | [facility] | | [facility] | | | | + + + + +---------+ + + + + | Result panel 40 | + + + + + + +---------+ + + | (unknown) | (no date) | (unknown) | [facility] | (no | (units | (unknown) | | | | [facility] | [facility] | | [facility] | | | | + + + + +---------+ + + + + | Result panel 41 | + + + + + + +---------+ + + | (unknown) | (no date) | (unknown) | [facility] | (no | (units | (unknown) | | | | [facility] | [facility] | | [facility] | | | | + + + + +---------+ + + + + | Result panel 42 | + + + + + + +---------+ + + | (unknown) | (no date) | (unknown) | [facility] | (no | (units | (unknown) | | | | [facility] | [facility] | [facility] | | | | + + + + +---------+ + + + + | Result panel 43 | + + + + + + +---------+ + + | (unknown) | (no date) | (unknown) | [facility] | (no | (units | (unknown) | | | | [facility] | [facility] | | [facility] | | | | + + + + +---------+ + + + + | Result panel 44 | + + + + + + +---------+ + + | (unknown) | (no date) | (unknown) | [facility] | (no | (units | (unknown) | | | | [facility] | [facility] | | [facility] | | | | + + + + +---------+ + + + + | Result panel 45 | + + + + + + +---------+ + + | (unknown) | (no date) | (unknown) | [facility] | (no | (units | (unknown) | | | | [facility] | [facility] | | [facility] | | | | + + + + +---------+ + + + + | Result panel 46 | + + + + + + +---------+ + + | (unknown) | (no date) | (unknown) | [facility] | (no | (units | (unknown) | | | | [facility] | [facility] | | [facility] | | | | + + + + +---------+ + + + + | Result panel 47 | + + + + + + +---------+ + + | (unknown) | (no date) | (unknown) | [facility] | (no | (units | (unknown) | | | | [facility] | [facility] | | [facility] | | | | + + + + +---------+ + + + + | Result panel 48 | + + + + + + +---------+ + + | (unknown) | (no date) | (unknown) | [facility] | (no | (units | (unknown) | | | | [facility] | [facility] | | [facility] | | | | + + + + +---------+ + + + + | Result panel 49 | + + + + + + +---------+ + + | (unknown) | (no date) | (unknown) | [facility] | (no | (units | (unknown) | | | | [facility] | [facility] | | | [facility] | | | | + + + + +---------+ + + + + | Result panel 50 | + + + + + + +---------+ + + | (unknown) | (no date) | (unknown) | [facility] | (no | (units | (unknown) | | | | [facility] | [facility] | | [facility] | | | | + + + + +---------+ + + + + | Result panel 51 | + + + + + + +---------+ + + | (unknown) | (no date) | (unknown) | [facility] | (no | (units | (unknown) | | | | [facility] | [facility] | | [facility] | | | | + + + + +---------+ + + + + | Result panel 52 | + + + + + + +---------+ + + | (unknown) | (no date) | (unknown) | [facility] | (no | (units | (unknown) | | | | [facility] | [facility] | [facility] | | | | + + + + +---------+ + + + + | Result panel 53 | + + + + + + +---------+ + + | (unknown) | (no date) | (unknown) | [facility] | (no | (units | (unknown) | | | | [facility] | [facility] | [facility] | | | | + + + + +---------+ + + + + | Result panel 54 | + + + + + + +---------+ + + | (unknown) | (no date) | (unknown) | [facility] | (no | (units | (unknown) | | | | [facility] | [facility]) | [facility] | | | | + + + + +---------+ + + + + | Result panel 55 | + + + + + + +---------+ + + | (unknown) | (no date) | (unknown) | [facility] | (no | (units | (unknown) | | | | [facility] | [facility]) | | | [facility] | | | | + + + + +---------+ + + + + | Result panel 56 | + + + + + + +---------+ + + | (unknown) | (no date) | (unknown) | [facility] | (no | (units | (unknown) | | | | [facility] | [facility] | [facility] | | | | + + + + +---------+ + + + + | Result panel 57 | + + + + + + +---------+ + + | (unknown) | (no date) | (unknown) | [facility] | (no | (units | (unknown) | | | | [facility] | [facility] | | [facility] | | | | + + + + +---------+ + + + + | Result panel 58 | + + + + + + +---------+ + + | (unknown) | (no date) | (unknown) | [facility] | (no | (units | (unknown) | | | | [facility] | [facility] | [facility] | | | | + + + + +---------+ + + + + | Result panel 59 | + + + + + + +---------+ + + | (unknown) | (no date) | (unknown) | [facility] | (no | (units | (unknown) | | | | [facility] | [facility] | | [facility] | | | | + + + + +---------+ + + + + | Result panel 60 | + + + + + + +---------+ + + | (unknown) | (no date) | (unknown) | [facility] | (no | (units | (unknown) | | | | [facility] | [facility] | | [facility] | | | | + + + + +---------+ + + + + | Result panel 61 | + + + + + + +---------+ + + | (unknown) | (no date) | (unknown) | [facility] | (no | (units | (unknown) | | | | [facility] | [facility] | | [facility] | | | | + + + + +---------+ + + + + | Result panel 62 | + + + + + + +---------+ + + | (unknown) | (no date) | (unknown) | [facility] | (no | (units | (unknown) | | | | [facility] | [facility] | | [facility] | | | | + + + + +---------+ + + + + | Result panel 63 | + + + + + + +---------+ + + | (unknown) | (no date) | (unknown) | [facility] | (no | (units | (unknown) | | | | [facility] | [facility] | [facility] | | | | + + + + +---------+ + + + + | Result panel 64 | + + + + + + +---------+ + + | (unknown) | (no date) | (unknown) | [facility] | (no | (units | (unknown) | | | | [facility] | [facility] | [facility] | | | | + + + + +---------+ + + + + | Result panel 65 | + + + + + + +---------+ + + | (unknown) | (no date) | (unknown) | [facility] | (no | (units | (unknown) | | | | [facility] value) | unknown) | | | | | [facility] | | | | + + + + +---------+ + + + + | Result panel 66 | + + + + + + +---------+ + + | (unknown) | (no date) | (unknown) | [facility] | (no | (units | (unknown) | | | | [facility] | value) | unknown) | | | | | [facility] | | | | + + + + +---------+ + + + + | Result panel 67 | + + + + + + +---------+ + + | (unknown) | (no date) | (unknown) | [facility] | (no | (units | (unknown) | | | | | [facility] | value) | unknown) | | | | | [facility] | | | | + + + + +---------+ + + + + | Result panel 68 | + + + + + + +---------+ + + | (unknown) | (no date) | (unknown) | [facility] | (no | (units | (unknown) | | | | | [facility] | value) | unknown) | | | | | [facility] | | | | + + + + +---------+ + + + + | Result panel 69 | + + + + + + +---------+ + + | (unknown) | (no date) | (unknown) | [facility] | (no | (units | (unknown) | | | | | [facility] | value) | unknown) | | | | | [facility] | | | | + + + + +---------+ + + + + | Result panel 70 | + + + + + + +---------+ + + | (unknown) | (no date) | (unknown) | [facility] | (no | (units | (unknown) | | | | | [facility] | value) | unknown) | | | | | [facility] | | | | + + + + +---------+ + + + + | Result panel 71 | + + + + + + +---------+ + + | (unknown) | (no date) | (unknown) | [facility] | (no | (units | (unknown) | | | | | [facility] | value) | unknown) | | | | | [facility] | | | | + + + + +---------+ + + + + | Result panel 72 | + + + + + + +---------+ + + | (unknown) | (no date) | (unknown) | [facility] | (no | (units | (unknown) | | | | | [facility] | value) | unknown) | | | | | [facility] | | | | + + + + +---------+ + + + + | Result panel 73 | + + + + + + +---------+ + + | (unknown) | (no date) | (unknown) | [facility] | (no | (units | (unknown) | | | | | [facility] | value) | unknown) | | | | | [facility] | | | | + + + + +---------+ + + + + | Result panel 74 | + + + + + + +---------+ + + | (unknown) | (no date) | (unknown) | [facility] | (no | (units | (unknown) | | | | | [facility] | value) | unknown) | | | | | [facility] | | | | + + + + +---------+ + + + + | Result panel 75 | + + + + + + +---------+ + + | (unknown) | (no date) | (unknown) | [facility] | (no | (units | (unknown) | | | | [facility] | value) | unknown) | | | | | [facility] | | | | + + + + +---------+ + + + + | Result panel 76 | + + + + + + +---------+ + + | (unknown) | (no date) | (unknown) | [facility] | (no | (units | (unknown) | | | | | [facility] | value) | unknown) | | | | | [facility] | | | | + + + + +---------+ + + + + | Result panel 77 | + + + + + + +---------+ + + | (unknown) | (no date) | (unknown) | [facility] | (no | (units | (unknown) | | | | | [facility] | value) | unknown) | | | | | [facility] | | | | + + + + +---------+ + + + + | Result panel 78 | + + + + + + +---------+ + + | (unknown) | (no date) | (unknown) | [facility] | (no | (units | (unknown) | | | [facility] value[facility] | [facility]) | | | | [facility] | | | | + + + + +---------+ + + + + | Result panel 79 | + + + + + + +---------+ + + | (unknown) | (no date) | (unknown) | [facility] | (no | (units | (unknown) | | | | [facility] | value) | [facility]) | | | [facility] | | | | + + + + +---------+ + + + + | Result panel 80 | + + + + + + +---------+ + + | (unknown) | (no date) | (unknown) | [facility] | (no | (units | (unknown) | | | | [facility]) | [facility]) | | | [facility] | | | | + + + + +---------+ + + + + | Result panel 81 | + + + + + + +---------+ + + | (unknown) | (no date) | (unknown) | [facility] | (no | (units | (unknown) | | | | [facility]) | [facility]) | | [facility] | | | | + + + + +---------+ + + + + | Result panel 82 | + + + + + + +---------+ + + | (unknown) | (no date) | (unknown) | [facility] | (no | (units | (unknown) | | | | [facility]) | [facility]) | | [facility] | | | | + + + + +---------+ + + + + | Result panel 83 | + + + + + + +---------+ + + | (unknown) | (no date) | (unknown) | [facility] | (no | (units | (unknown) | | | | [facility] value) | [facility]) | | [facility] | | | | + + + + +---------+ + + + + | Result panel 84 | + + + + + + +---------+ + + | (unknown) | (no date) | (unknown) | [facility] | (no | (units | (unknown) | | | | [facility]) | [facility]) | | [facility] | | | | + + + + +---------+ + + + + | Result panel 85 | + + + + + + +---------+ + + | (unknown) | (no date) | (unknown) | [facility] | (no | (units | (unknown) | | | | [facility] value) | [facility]) | | [facility] | | | | + + + + +---------+ + + + + | Result panel 86 | + + + + + + +---------+ + + | (unknown) | (no date) | (unknown) | [facility] | (no | (units | (unknown) | | | | [facility]) | [facility]) | [facility] | | | | + + + + +---------+ + + + + | Result panel 87 | + + + + + + +---------+ + + | (unknown) | (no date) | (unknown) | [facility] | (no | (units | (unknown) | | | | [facility] | [facility]) | | | [facility] | | | | + + + + +---------+ + + + + | Result panel 88 | + + + + + + +---------+ + + | (unknown) | (no date) | (unknown) | [facility] | (no | (units | (unknown) | | | | [facility] value) | [facility]) | | | [facility] | | | | + + + + +---------+ + + + + | Result panel 89 | + + + + + + +---------+ + + | (unknown) | (no date) | (unknown) | [facility] | (no | (units | (unknown) | | | | [facility]) | [facility]) | | | [facility] | | | | + + + + +---------+ + + + + | Result panel 90 | + + + + + + +---------+ + + | (unknown) | (no date) | (unknown) | [facility] | (no | (units | (unknown) | | | | [facility] value) | [facility]) | | [facility] | | | | + + + + +---------+ + + + + | Result panel 91 | + + + + + + +---------+ + + | (unknown) | (no date) | (unknown) | [facility] | (no | (units | (unknown) | | | | [facility]) | [facility]) | | | [facility] | | | | + + + + +---------+ + + + + | Result panel 92 | + + + + + + +---------+ + + | (unknown) | (no date) | (unknown) | [facility] | (no | (units | (unknown) | | | | [facility] value) | [facility]) | | | [facility] | | | | + + + + +---------+ + + + + | Result panel 93 | + + + + + + +---------+ + + | (unknown) | (no date) | (unknown) | [facility] | (no | (units | (unknown) | | | | [facility] value) | [facility]) | | | [facility] | | | | + + + + +---------+ + + + + | Result panel 94 | + + + + + + +---------+ + + | (unknown) | (no date) | (unknown) | [facility] | (no | (units | (unknown) | | | | [facility] value) | [facility]) | | | [facility] | | | | + + + + +---------+ + + + + | Result panel 95 | + + + + + + +---------+ + + | (unknown) | (no date) | (unknown) | [facility] | (no | (units | (unknown) | | | | [facility]) | [facility]) | [facility] | | | | + + + + +---------+ + + + + | Result panel 96 | + + + + + + +---------+ + + | (unknown) | (no date) | (unknown) | [facility] | (no | (units | (unknown) | | | | [facility] value) | [facility]) | | | [facility] | | | | + + + + +---------+ + + + + | Result panel 97 | + + + + + + +---------+ + + | (unknown) | (no date) | (unknown) | [facility] | (no | (units | (unknown) | | | | [facility] value) | [facility]) | | | [facility] | | | | + + + + +---------+ + + + + | Result panel 98 | + + + + + + +---------+ + + | (unknown) | (no date) | (unknown) | [facility] | (no | (units | (unknown) | | | | [facility]) | [facility]) | | | [facility] | | | | + + + + +---------+ + + + + | Result panel 99 | + + + + + + +---------+ + + | (unknown) | (no date) | (unknown) | [facility] | (no | (units | (unknown) | | | | [facility] value) | [facility]) | | | [facility] | | | | + + + + +---------+ + + + + | Result panel 100 | + + + + + + +---------+ + + | (unknown) | (no date) | (unknown) | [facility] | (no | (units | (unknown) | | | | [facility] value) | [facility]) | | | [facility] | | | | + + + + +---------+ + + + + | Result panel 101 | + + + + + + +---------+ + + | (unknown) | (no date) | (unknown) | [facility] | (no | (units | (unknown) | | | | [facility] value) | [facility]) | | | [facility] | | | | + + + + +---------+ + + + + | Result panel 102 | + + + + + + +---------+ + + | (unknown) | (no date) | (unknown) | [facility] | (no | (units | (unknown) | | | | [facility] value) | [facility]) | | | [facility] | | | | + + + + +---------+ + + + + | Result panel 103 | + + + + + + +---------+ + + | (unknown) | (no date) | (unknown) | [facility] | (no | (units | (unknown) | | | | [facility] value) | [facility]) | | | [facility] | | | | + + + + +---------+ + + + + | Result panel 104 | + + + + + + +---------+ + + | (unknown) | (no date) | (unknown) | [facility] | (no | (units | (unknown) | | | | [facility] value) | [facility]) | | | [facility] | | | | + + + + +---------+ + + + + | Result panel 105 | + + + + + + +---------+ + + | (unknown) | (no date) | (unknown) | [facility] | (no | (units | (unknown) | | | | [facility] value) | [facility]) | | | [facility] | | | | + + + + +---------+ + + + + | Result panel 106 | + + + + + + +---------+ + + | (unknown) | (no date) | (unknown) | [facility] | (no | (units | (unknown) | | | | [facility] value) | [facility]) | [facility] | | | | + + + + +---------+ + + + + | Result panel 107 | + + + + + + +---------+ + + | (unknown) | (no date) | (unknown) | [facility] | (no | (units | (unknown) | | | | [facility] value) | [facility]) | | | [facility] | | | | + + + + +---------+ + + + + | Result panel 108 | + + + + + + +---------+ + + | (unknown) | (no date) | (unknown) | [facility] | (no | (units | (unknown) | | | | [facility] value) | [facility]) | | | [facility] | | | | + + + + +---------+ + + + + | Result panel 109 | + + + + + + +---------+ + + | (unknown) | (no date) | (unknown) | [facility] | (no | (units | (unknown) | | | | [facility] | value) | [facility]) | | | [facility] | | | | + + + + +---------+ + + + + | Result panel 110 | + + + + + + +---------+ + + | (unknown) | (no date) | (unknown) | [facility] | (no | (units | (unknown) | | | | [facility] | value) | [facility]) | | | [facility] | | | | + + + + +---------+ + + + + | Result panel 111 | + + + + + + +---------+ + + | (unknown) | (no date) | (unknown) | [facility] | (no | (units | (unknown) | | | | [facility] | value) | [facility]) | | | [facility] | | | | + + + + +---------+ + + + + | Result panel 112 | + + + + + + +---------+ + + | (unknown) | (no date) | (unknown) | [facility] | (no | (units | (unknown) | | | | [facility] | value) | [facility]) | | | | [facility] | | | | + + + + +---------+ + + + + | Result panel 113 | + + + + + + +---------+ + + | (unknown) | (no date) | (unknown) | [facility] | (no | (units | (unknown) | | | | [facility] | value) | unknown) | | | | [facility] | | | | + + + + +---------+ + + + + | Result panel 114 | + + + + + + +---------+ + + | (unknown) | (no date) | (unknown) | [facility] | (no | (units | (unknown) | | | | [facility] | value) | [facility]) | | | [facility] | | | | + + + + +---------+ + + + + | Result panel 115 | + + + + + + +---------+ + + | (unknown) | (no date) | (unknown) | [facility] | (no | (units | (unknown) | | | | [facility] | value) | [facility]) | | | [facility] | | | | + + + + +---------+ + + + + | Result panel 116 | + + + + + + +---------+ + + | (unknown) | (no date) | (unknown) | [facility] | (no | (units | (unknown) | | | | [facility] | value) | [facility]) | | | [facility] | | | | + + + + +---------+ + + + + | Result panel 117 | + + + + + + +---------+ + + | (unknown) | (no date) | (unknown) | [facility] | (no | (units | (unknown) | | | | [facility] value) | [facility]) | | | [facility] | | | | + + + + +---------+ + + + + | Result panel 118 | + + + + + + +---------+ + + | (unknown) | (no date) | (unknown) | [facility] | (no | (units | (unknown) | | | | [facility] | value) | [facility]) | | | [facility] | | | | + + + + +---------+ + + + + | Result panel 119 | + + + + + + +---------+ + + | (unknown) | (no date) | (unknown) | [facility] | (no | (units | (unknown) | | | | [facility] | value) | [facility]) | | | [facility] | | | | + + + + +---------+ + + + + | Result panel 120 | + + + + + + +---------+ + + | (unknown) | (no date) | (unknown) | [facility] | (no | (units | (unknown) | | | | [facility] value) | [facility]) | | | [facility] | | | | + + + + +---------+ + + + + | Result panel 121 | + + + + + + +---------+ + + | (unknown) | (no date) | (unknown) | [facility] | (no | (units | (unknown) | | | | [facility] value) | [facility]) | | [facility] | | | | + + + + +---------+ + + + + | Result panel 122 | + + + + + + +---------+ + + | (unknown) | (no date) | (unknown) | [facility] | (no | (units | (unknown) | | | | [facility] | value) | unknown) | | | | [facility] | | | | + + + + +---------+ + + + + | Result panel 123 | + + + + + + +---------+ + + | (unknown) | (no date) | (unknown) | [facility] | (no | (units | (unknown) | | | | [facility] | value) | unknown) | | | | [facility] | | | | + + + + +---------+ + + + + | Result panel 124 | + + + + + + +---------+ + + | (unknown) | (no date) | (unknown) | [facility] | (no | (units | (unknown) | | | | [facility] value) | unknown) | | | | [facility] | | | | + + + + +---------+ + + + + | Result panel 125 | + + + + + + +---------+ + + | (unknown) | (no date) | (unknown) | [facility] | (no | (units | (unknown) | | | | [facility] | value) | [facility]) | | | | [facility] | | | | + + + + +---------+ + + + + | Result panel 126 | + + + + + + +---------+ + + | (unknown) | (no date) | (unknown) | [facility] | (no | (units | (unknown) | | | | [facility] value) | [facility]) | | | [facility] | | | | + + + + +---------+ + + + + | Result panel 127 | + + + + + + +---------+ + + | (unknown) | (no date) | (unknown) | [facility] | (no | (units | (unknown) | | | | [facility] value) | [facility]) | | [facility] | | | | + + + + +---------+ + + + + | Result panel 128 | + + + + + + +---------+ + + | (unknown) | (no date) | (unknown) | [facility] | (no | (units | (unknown) | | | | [facility] | value) | [facility]) | | | [facility] | | | | + + + + +---------+ + + + + | Result panel 129 | + + + + + + +---------+ + + | (unknown) | (no date) | (unknown) | [facility] | (no | (units | (unknown) | | | | [facility] value) | unknown) | | | | [facility] | | | | + + + + +---------+ + + + + | Result panel 130 | + + + + + + +---------+ + + | (unknown) | (no date) | (unknown) | [facility] | (no | (units | (unknown) | | | | [facility] value) | [facility]) | | | [facility] | | | | + + + + +---------+ + + + + | Result panel 131 | + + + + + + +---------+ + + | (unknown) | (no date) | (unknown) | [facility] | (no | (units | (unknown) | | | | [facility] value) | [facility]) | | | [facility] | | | | + + + + +---------+ + + + + | Result panel 132 | + + + + + + +---------+ + + | (unknown) | (no date) | (unknown) | [facility] | (no | (units | (unknown) | | | | [facility] value) | [facility]) | | | [facility] | | | | + + + + +---------+ + + + + | Result panel 133 | + + + + + + +---------+ + + | (unknown) | (no date) | (unknown) | [facility] | (no | (units | (unknown) | | | | [facility] value) | [facility]) | [facility] | | | | + + + + +---------+ + + + + | Result panel 134 | + + + + + + +---------+ + + | (unknown) | (no date) | (unknown) | [facility] | (no | (units | (unknown) | | | | [facility] value) | [facility]) | | | [facility] | | | | + + + + +---------+ + + + + | Result panel 135 | + + + + + + +---------+ + + | (unknown) | (no date) | (unknown) | [facility] | (no | (units | (unknown) | | | | [facility] value) | [facility]) | [facility] | [facility] | | | | + + + + +---------+ + + + + | Result panel 136 | + + + + + + +---------+ + + | (unknown) | (no date) | (unknown) | [facility] | (no | (units | (unknown) | | | | [facility] value) | [facility]) | | [facility] | | | | + + + + +---------+ + + + + | Result panel 137 | + + + + + + +---------+ + + | (unknown) | (no date) | (unknown) | [facility] | (no | (units | (unknown) | | | | [facility] value) | [facility]) | [facility] | [facility] | | | | + + + + +---------+ + + + + | Result panel 138 | + + + + + + +---------+ + + | (unknown) | (no date) | (unknown) | [facility] | (no | (units | (unknown) | | | | [facility] value) | [facility]) | | | [facility] | | | | + + + + +---------+ + + + + | Result panel 139 | + + + + + + +---------+ + + | (unknown) | (no date) | (unknown) | [facility] | (no | (units | (unknown) | | | | [facility] value) | [facility]) | | | [facility] | | | | + + + + +---------+ + + + + | Result panel 140 | + + + + + + +---------+ + + | (unknown) | (no date) | (unknown) | [facility] | (no | (units | (unknown) | | | | [facility] value) | [facility]) | | | [facility] | | | | + + + + +---------+ + + + + | Result panel 141 | + + + + + + +---------+ + + | (unknown) | (no date) | (unknown) | [facility] | (no | (units | (unknown) | | | | [facility] value) | [facility]) | | | | [facility] | | | | + + + + +---------+ + + + + | Result panel 142 | + + + + + + +---------+ + + | (unknown) | (no date) | (unknown) | [facility] | (no | (units | (unknown) | | | | [facility] value) | [facility]) | | | [facility] | | | | + + + + +---------+ + + + + | Result panel 143 | + + + + + + +---------+ + + | (unknown) | (no date) | (unknown) | [facility] | (no | (units | (unknown) | | | | [facility] | value) | unknown) | | | | [facility] | | | | + + + + +---------+ + + + + | Result panel 144 | + + + + + + +---------+ + + | (unknown) | (no date) | (unknown) | [facility] | (no | (units | (unknown) | | | | [facility] value) | [facility]) | | | | [facility] | | | | + + + + +---------+ + + + + | Result panel 145 | + + + + + + +---------+ + + | (unknown) | (no date) | (unknown) | [facility] | (no | (units | (unknown) | | | | [facility] | value) | [facility]) | | | | [facility] | | | | + + + + +---------+ + + + + | Result panel 146 | + + + + + + +---------+ + + | (unknown) | (no date) | (unknown) | [facility] | (no | (units | (unknown) | | | | [facility] value) | [facility]) | | | [facility] | | | | + + + + +---------+ + + + + | Result panel 147 | + + + + + + +---------+ + + | (unknown) | (no date) | (unknown) | [facility] | (no | (units | (unknown) | | | | [facility] | value) | [facility]) | | | | [facility] | | | | + + + + +---------+ + + + + | Result panel 148 | + + + + + + +---------+ + + | (unknown) | (no date) | (unknown) | [facility] | (no | (units | (unknown) | | | | [facility] value) | [facility]) | | | [facility] | | | | + + + + +---------+ + + + + | Result panel 149 | + + + + + + +---------+ + + | (unknown) | (no date) | (unknown) | [facility] | (no | (units | (unknown) | | | | [facility] value) | [facility]) | | | [facility] | | | | + + + + +---------+ + + + + | Result panel 150 | + + + + + + +---------+ + + | (unknown) | (no date) | (unknown) | [facility] | (no | (units | (unknown) | | | | [facility] value) | [facility]) | | | | [facility] | | | | + + + + +---------+ + + + + | Result panel 151 | + + + + + + +---------+ + + | (unknown) | (no date) | (unknown) | [facility] | (no | (units | (unknown) | | | | [facility] value) | [facility]) | | | [facility] | | | | + + + + +---------+ + + + + | Result panel 152 | + + + + + + +---------+ + + | (unknown) | (no date) | (unknown) | [facility] | (no | (units | (unknown) | | | | [facility] | value) | [facility]) | | | | [facility] | | | | + + + + +---------+ + + + + | Result panel 153 | + + + + + + +---------+ + + | (unknown) | (no date) | (unknown) | [facility] | (no | (units | (unknown) | | | | [facility] | value) | [facility]) | | | | [facility] | | | | + + + + +---------+ + + + + | Result panel 154 | + + + + + + +---------+ + + | (unknown) | (no date) | (unknown) | [facility] | (no | (units | (unknown) | | | | [facility] value) | [facility]) | | | | [facility] | | | | + + + + +---------+ + + + + | Result panel 155 | + + + + + + +---------+ + + | (unknown) | (no date) | (unknown) | [facility] | (no | (units | (unknown) | | | | [facility] value) | [facility]) | | | | [facility] | | | | + + + + +---------+ + + + + | Result panel 156 | + + + + + + +---------+ + + | (unknown) | (no date) | (unknown) | [facility] | (no | (units | (unknown) | | | | [facility] value) | [facility]) | | | | [facility] | | | | + + + + +---------+ + + + + | Result panel 157 | + + + + + + +---------+ + + | (unknown) | (no date) | (unknown) | [facility] | (no | (units | (unknown) | | | | [facility] value) | unknown) | | | | [facility] | | | | + + + + +---------+ + + + + | Result panel 158 | + + + + + + +---------+ + + | (unknown) | (no date) | (unknown) | [facility] | (no | (units | (unknown) | | | | [facility] value) | [facility]) | | | | [facility] | | | | + + + + +---------+ + + + + | Result panel 159 | + + + + + + +---------+ + + | (unknown) | (no date) | (unknown) | [facility] | (no | (units | (unknown) | | | | [facility] value) | [facility]) | | | | [facility] | | | | + + + + +---------+ + + + + | Result panel 160 | + + + + + + +---------+ + + | (unknown) | (no date) | (unknown) | [facility] | (no | (units | (unknown) | | | | [facility] value) | [facility]) | | | | [facility] | | | | + + + + +---------+ + + + + | Result panel 161 | + + + + + + +---------+ + + | (unknown) | (no date) | (unknown) | [facility] | (no | (units | (unknown) | | | | [facility] value) | [facility]) | | | | [facility] | | | | + + + + +---------+ + + + + | Result panel 162 | + + + + + + +---------+ + + | (unknown) | (no date) | (unknown) | [facility] | (no | (units | (unknown) | | | | [facility] value) | [facility]) | | | | [facility] | | | | + + + + +---------+ + + + + | Result panel 163 | + + + + + + +---------+ + + | (unknown) | (no date) | (unknown) | [facility] | (no | (units | (unknown) | | | | [facility] value) | [facility]) | | | | [facility] | | | | + + + + +---------+ + + + + | Result panel 164 | + + + + + + +---------+ + + | (unknown) | (no date) | (unknown) | [facility] | (no | (units | (unknown) | | | | [facility] value) | unknown) | | | | [facility] | | | | + + + + +---------+ + + + + | Result panel 165 | + + + + + + +---------+ + + | (unknown) | (no date) | (unknown) | [facility] | (no | (units | (unknown) | | | | [facility] value) | [facility]) | | | | [facility] | | | | + + + + +---------+ + + + + | Result panel 166 | + + + + + + +---------+ + + | (unknown) | (no date) | (unknown) | [facility] | (no | (units | (unknown) | | | | [facility] value) | [facility]) | | | | [facility] | | | | + + + + +---------+ + + + + | Result panel 167 | + + + + + + +---------+ + + | (unknown) | (no date) | (unknown) | [facility] | (no | (units | (unknown) | | | | [facility] value) | [facility]) | | | [facility] | | | | + + + + +---------+ + + + + | Result panel 168 | + + + + + + +---------+ + + | (unknown) | (no date) | (unknown) | [facility] | (no | (units | (unknown) | | | | [facility] value) | [facility]) | | | | [facility] | | | | + + + + +---------+ + + + + | Result panel 169 | + + + + + + +---------+ + + | (unknown) | (no date) | (unknown) | [facility] | (no | (units | (unknown) | | | | [facility] value) | [facility]) | | | | [facility] | | | | + + + + +---------+ + + + + | Result panel 170 | + + + + + + +---------+ + + | (unknown) | (no date) | (unknown) | [facility] | (no | (units | (unknown) | | | | [facility]) | [facility]) | | [facility] | | | | + + + + +---------+ + + + + | Result panel 171 | + + + + + + +---------+ + + | (unknown) | (no date) | (unknown) | [facility] | (no | (units | (unknown) | | | | [facility] value) | [facility]) | | | | [facility] | | | | + + + + +---------+ + + + + | Result panel 172 | + + + + + + +---------+ + + | (unknown) | (no date) | (unknown) | [facility] | (no | (units | (unknown) | | | | [facility]) | [facility]) | | | [facility] | | | | + + + + +---------+ + + + + | Result panel 173 | + + + + + + +---------+ + + | (unknown) | (no date) | (unknown) | [facility] | (no | (units | (unknown) | | | | [facility] value) | [facility]) | | | [facility] | | | | + + + + +---------+ + + + + | Result panel 174 | + + + + + + +---------+ + + | (unknown) | (no date) | (unknown) | [facility] | (no | (units | (unknown) | | | | [facility] value) | [facility]) | | | [facility] | | | | + + + + +---------+ + + + + | Result panel 175 | + + + + + + +---------+ + + | (unknown) | (no date) | (unknown) | [facility] | (no | (units | (unknown) | | | | [facility]) | [facility]) | | [facility] | | | | + + + + +---------+ + + + + | Result panel 176 | + + + + + + +---------+ + + | (unknown) | (no date) | (unknown) | [facility] | (no | (units | (unknown) | | | | [facility]) | [facility]) | | [facility] | | | | + + + + +---------+ + + + + | Result panel 177 | + + + + + + +---------+ + + | (unknown) | (no date) | (unknown) | [facility] | (no | (units | (unknown) | | | | [facility]) | [facility]) | | | [facility] | | | | + + + + +---------+ + + + + | Result panel 178 | + + + + + + +---------+ + + | (unknown) | (no date) | (unknown) | [facility] | (no | (units | (unknown) | | | | [facility]) | [facility]) | | | [facility] | | | | + + + + +---------+ + + + + | Result panel 179 | + + + + + + +---------+ + + | (unknown) | (no date) | (unknown) | [facility] | (no | (units | (unknown) | | | | [facility]) | [facility]) | | | [facility] | | | | + + + + +---------+ + + + + | Result panel 180 | + + + + + + +---------+ + + | (unknown) | (no date) | (unknown) | [facility] | (no | (units | (unknown) | | | | | [facility] | value) | unknown) | | | | | [facility] | | | | + + + + +---------+ + + + + | Result panel 181 | + + + + + + +---------+ + + | (unknown) | (no date) | (unknown) | [facility] | (no | (units | (unknown) | | | | | [facility] | value) | unknown) | | | | | [facility] | | | | + + + + +---------+ + + + + | Result panel 182 | + + + + + + +---------+ + + | (unknown) | (no date) | (unknown) | [facility] | (no | (units | (unknown) | | | | | [facility] | value) | unknown) | | | | | [facility] | | | | + + + + +---------+ + + + + | Result panel 183 | + + + + + + +---------+ + + | (unknown) | (no date) | (unknown) | [facility] | (no | (units | (unknown) | | | | | [facility] | value) | unknown) | | | | | [facility] | | | | + + + + +---------+ + + + + | Result panel 184 | + + + + + + +---------+ + + | (unknown) | (no date) | (unknown) | [facility] | (no | (units | (unknown) | | | | | [facility] | value) | unknown) | | | | | [facility] | | | | + + + + +---------+ + + + + | Result panel 185 | + + + + + + +---------+ + + | (unknown) | (no date) | (unknown) | [facility] | (no | (units | (unknown) | | | | | [facility] | value) | unknown) | | | | | [facility] | | | | + + + + +---------+ + + + + | Result panel 186 | + + + + + + +---------+ + + | (unknown) | (no date) | (unknown) | [facility] | (no | (units | (unknown) | | | | | [facility] | value) | unknown) | | | | | [facility] | | | | + + + + +---------+ + + + + | Result panel 187 | + + + + + + +---------+ + + | (unknown) | (no date) | (unknown) | [facility] | (no | (units | (unknown) | | | | | [facility] | value) | unknown) | | | | | [facility] | | | | + + + + +---------+ + + + + | Result panel 188 | + + + + + + +---------+ + + | (unknown) | (no date) | (unknown) | [facility] | (no | (units | (unknown) | | | | | [facility] | value) | unknown) | | | | | | [facility] | | | | + + + + +---------+ + + + + | Result panel 189 | + + + + + + +---------+ + + | (unknown) | (no date) | (unknown) | [facility] | (no | (units | (unknown) | | | [facility] | [facility] | | | [facility] | | | | + + + + +---------+ + + + + | Result panel 190 | + + + + + + +---------+ + + | (unknown) | (no date) | (unknown) | [facility] | (no | (units | (unknown) | | | | [facility] value[facility] | [facility]) | | | [facility] | | | | + + + + +---------+ + + + + | Result panel 191 | + + + + + + +---------+ + + | (unknown) | (no date) | (unknown) | [facility] | (no | (units | (unknown) | | | | [facility] | [facility]) | [facility] | | | | + + + + +---------+ + + + + | Result panel 192 | + + + + + + +---------+ + + | (unknown) | (no date) | (unknown) | [facility] | (no | (units | (unknown) | | | | [facility] | [facility]) | | [facility] | | | | + + + + +---------+ + + + + | Result panel 193 | + + + + + + +---------+ + + | (unknown) | (no date) | (unknown) | [facility] | (no | (units | (unknown) | | | | [facility] value[facility] | [facility]) | | [facility] | | | | + + + + +---------+ + + + + | Result panel 194 | + + + + + + +---------+ + + | (unknown) | (no date) | (unknown) | [facility] | (no | (units | (unknown) | | | | [facility] | [facility]) | | [facility] | | | | + + + + +---------+ + + + + | Result panel 195 | + + + + + + +---------+ + + | (unknown) | (no date) | (unknown) | [facility] | (no | (units | (unknown) | | | | [facility] | [facility]) | [facility] | | | | + + + + +---------+ + + + + | Result panel 196 | + + + + + + +---------+ + + | (unknown) | (no date) | (unknown) | [facility] | (no | (units | (unknown) | | | | [facility] | [facility]) | | [facility] | | | | + + + + +---------+ + + + + | Result panel 197 | + + + + + + +---------+ + + | (unknown) | (no date) | (unknown) | [facility] | (no | (units | (unknown) | | | | [facility] | [facility]) | [facility] | | | | + + + + +---------+ + + + + | Result panel 198 | + + + + + + +---------+ + + | (unknown) | (no date) | (unknown) | [facility] | (no | (units | (unknown) | | | | [facility] | [facility]) | [facility] | [facility] | | | | + + + + +---------+ + + + + | Result panel 199 | + + + + + + +---------+ + + | (unknown) | (no date) | (unknown) | [facility] | (no | (units | (unknown) | | | | [facility] | [facility]) | [facility] | | | | + + + + +---------+ + + + + | Result panel 200 | + + + + + + +---------+ + + | (unknown) | (no date) | (unknown) | [facility] | (no | (units | (unknown) | | | | [facility] | [facility]) | [facility] | [facility] | | | | + + + + +---------+ + + + + | Result panel 201 | + + + + + + +---------+ + + | (unknown) | (no date) | (unknown) | [facility] | (no | (units | (unknown) | | | | [facility] | [facility]) | | | [facility] | | | | + + + + +---------+ + + + + | Result panel 202 | + + + + + + +---------+ + + | (unknown) | (no date) | (unknown) | [facility] | (no | (units | (unknown) | | | | [facility] | [facility]) | [facility] | [facility] | | | | + + + + +---------+ + + + + | Result panel 203 | + + + + + + +---------+ + + | (unknown) | (no date) | (unknown) | [facility] | (no | (units | (unknown) | | | | [facility] value[facility] | [facility]) | [facility] | [facility] | | | | + + + + +---------+ + + + + | Result panel 204 | + + + + + + +---------+ + + | (unknown) | (no date) | (unknown) | [facility] | (no | (units | (unknown) | | | | [facility] value) | [facility]) | | | [facility] | | | | + + + + +---------+ + + + + | Result panel 205 | + + + + + + +---------+ + + | (unknown) | (no date) | (unknown) | [facility] | (no | (units | (unknown) | | | | [facility] value) | [facility]) | | | [facility] | | | | + + + + +---------+ + + + + | Result panel 206 | + + + + + + +---------+ + + | (unknown) | (no date) | (unknown) | [facility] | (no | (units | (unknown) | | | | [facility]) | [facility]) | | | [facility] | | | | + + + + +---------+ + + + + | Result panel 207 | + + + + + + +---------+ + + | (unknown) | (no date) | (unknown) | [facility] | (no | (units | (unknown) | | | | [facility] value) | [facility]) | | | [facility] | | | | + + + + +---------+ + + + + | Result panel 208 | + + + + + + +---------+ + + | (unknown) | (no date) | (unknown) | [facility] | (no | (units | (unknown) | | | | [facility] | [facility]) | | | [facility] | | | | + + + + +---------+ + + + + | Result panel 209 | + + + + + + +---------+ + + | (unknown) | (no date) | (unknown) | [facility] | (no | (units | (unknown) | | | | [facility] value) | [facility]) | | | [facility] | | | | + + + + +---------+ + + + + | Result panel 210 | + + + + + + +---------+ + + | (unknown) | (no date) | (unknown) | [facility] | (no | (units | (unknown) | | | | [facility] value) | [facility]) | | | [facility] | | | | + + + + +---------+ + + + + | Result panel 211 | + + + + + + +---------+ + + | (unknown) | (no date) | (unknown) | [facility] | (no | (units | (unknown) | | | | [facility] value) | [facility]) | | | [facility] | | | | + + + + +---------+ + + + + | Result panel 212 | + + + + + + +---------+ + + | (unknown) | (no date) | (unknown) | [facility] | (no | (units | (unknown) | | | | [facility] value) | [facility]) | | | | [facility] | | | | + + + + +---------+ + + + + | Result panel 213 | + + + + + + +---------+ + + | (unknown) | (no date) | (unknown) | [facility] | (no | (units | (unknown) | | | | [facility] value) | [facility]) | | | [facility] | | | | + + + + +---------+ + + + + | Result panel 214 | + + + + + + +---------+ + + | (unknown) | (no date) | (unknown) | [facility] | (no | (units | (unknown) | | | | [facility] value) | [facility]) | | | [facility] | | | | + + + + +---------+ + + + + | Result panel 215 | + + + + + + +---------+ + + | (unknown) | (no date) | (unknown) | [facility] | (no | (units | (unknown) | | | | [facility] value) | [facility]) | | | [facility] | | | | + + + + +---------+ + + + + | Result panel 216 | + + + + + + +---------+ + + | (unknown) | (no date) | (unknown) | [facility] | (no | (units | (unknown) | | | | [facility] value) | [facility]) | | | [facility] | | | | + + + + +---------+ + + + + | Result panel 217 | + + + + + + +---------+ + + | (unknown) | (no date) | (unknown) | [facility] | (no | (units | (unknown) | | | | [facility] value) | [facility]) | | | [facility] | | | | + + + + +---------+ + + + + | Result panel 218 | + + + + + + +---------+ + + | (unknown) | (no date) | (unknown) | [facility] | (no | (units | (unknown) | | | | [facility] value) | [facility]) | | | [facility] | | | | + + + + +---------+ + + + + | Result panel 219 | + + + + + + +---------+ + + | (unknown) | (no date) | (unknown) | [facility] | (no | (units | (unknown) | | | | [facility] value) | [facility]) | | | [facility] | | | | + + + + +---------+ + + + + | Result panel 220 | + + + + + + +---------+ + + | (unknown) | (no date) | (unknown) | [facility] | (no | (units | (unknown) | | | | | [facility] value) | [facility]) | | | | [facility] | | | | + + + + +---------+ + + + + | Result panel 221 | + + + + + + +---------+ + + | (unknown) | (no date) | (unknown) | [facility] | (no | (units | (unknown) | | | | [facility] value) | [facility]) | [facility] | [facility] | | | | + + + + +---------+ + + + + | Result panel 222 | + + + + + + +---------+ + + | (unknown) | (no date) | (unknown) | [facility] | (no | (units | (unknown) | | | | [facility] value) | [facility]) | | | [facility] | | | | + + + + +---------+ + + + + | Result panel 223 | + + + + + + +---------+ + + | (unknown) | (no date) | (unknown) | [facility] | (no | (units | (unknown) | | | | [facility] value) | [facility]) | | | | [facility] | | | | + + + + +---------+ + + + + | Result panel 224 | + + + + + + +---------+ + + | (unknown) | (no date) | (unknown) | [facility] | (no | (units | (unknown) | | | | [facility] value) | [facility]) | | | | [facility] | | | | + + + + +---------+ + + + + | Result panel 225 | + + + + + + +---------+ + + | (unknown) | (no date) | (unknown) | [facility] | (no | (units | (unknown) | | | | | [facility] value) | unknown) | | | [facility] | | | | + + + + +---------+ + + + + | Result panel 226 | + + + + + + +---------+ + + | (unknown) | (no date) | (unknown) | [facility] | (no | (units | (unknown) | | | | [facility] value) | [facility]) | | | [facility] | | | | + + + + +---------+ + + + + | Result panel 227 | + + + + + + +---------+ + + | (unknown) | (no date) | (unknown) | [facility] | (no | (units | (unknown) | | | | [facility] value) | [facility]) | | | [facility] | | | | + + + + +---------+ + + + + | Result panel 228 | + + + + + + +---------+ + + | (unknown) | (no date) | (unknown) | [facility] | (no | (units | (unknown) | | | | [facility] value) | [facility]) | | | [facility] | | | | + + + + +---------+ + + + + | Result panel 229 | + + + + + + +---------+ + + | (unknown) | (no date) | (unknown) | [facility] | (no | (units | (unknown) | | | | [facility] value) | [facility]) | | | [facility] | | | | + + + + +---------+ + + + + | Result panel 230 | + + + + + + +---------+ + + | (unknown) | (no date) | (unknown) | [facility] | (no | (units | (unknown) | | | | [facility] value) | [facility]) | | | [facility] | | | | + + + + +---------+ + + + + | Result panel 231 | + + + + + + +---------+ + + | (unknown) | (no date) | (unknown) | [facility] | (no | (units | (unknown) | | | | [facility] value) | unknown) | | | | [facility] | | | | + + + + +---------+ + + + + | Result panel 232 | + + + + + + +---------+ + + | (unknown) | (no date) | (unknown) | [facility] | (no | (units | (unknown) | | | | [facility] value) | [facility]) | | | [facility] | | | | + + + + +---------+ + + + + | Result panel 233 | + + + + + + +---------+ + + | (unknown) | (no date) | (unknown) | [facility] | (no | (units | (unknown) | | | | | [facility] value) | unknown) | | | | [facility] | | | | + + + + +---------+ + + + + | Result panel 234 | + + + + + + +---------+ + + | (unknown) | (no date) | (unknown) | [facility] | (no | (units | (unknown) | | | | | [facility] value) | unknown) | | | | [facility] | | | | + + + + +---------+ + + + + | Result panel 235 | + + + + + + +---------+ + + | (unknown) | (no date) | (unknown) | [facility] | (no | (units | (unknown) | | | | [facility] value) | unknown) | | | [facility] | | | | + + + + +---------+ + + + + | Result panel 236 | + + + + + + +---------+ + + | (unknown) | (no date) | (unknown) | [facility] | (no | (units | (unknown) | | | | [facility] value) | unknown) | | | | [facility] | | | | + + + + +---------+ + + + + | Result panel 237 | + + + + + + +---------+ + + | (unknown) | (no date) | (unknown) | [facility] | (no | (units | (unknown) | | | | [facility] value) | [facility]) | | | [facility] | | | | + + + + +---------+ + + + + | Result panel 238 | + + + + + + +---------+ + + | (unknown) | (no date) | (unknown) | [facility] | (no | (units | (unknown) | | | | | [facility] value) | [facility]) | | | [facility] | | | | + + + + +---------+ + + + + | Result panel 239 | + + + + + + +---------+ + + | (unknown) | (no date) | (unknown) | [facility] | (no | (units | (unknown) | | | | | [facility] value) | [facility]) | | | [facility] | | | | + + + + +---------+ + + + + | Result panel 240 | + + + + + + +---------+ + + | (unknown) | (no date) | (unknown) | [facility] | (no | (units | (unknown) | | | | [facility] value) | unknown) | | | [facility] | | | | + + + + +---------+ + + + + | Result panel 241 | + + + + + + +---------+ + + | (unknown) | (no date) | (unknown) | [facility] | (no | (units | (unknown) | | | | [facility] value) | [facility]) | | | [facility] | | | | + + + + +---------+ + + + + | Result panel 242 | + + + + + + +---------+ + + | (unknown) | (no date) | (unknown) | [facility] | (no | (units | (unknown) | | | | [facility] value) | [facility]) | | | [facility] | | | | + + + + +---------+ + + + + | Result panel 243 | + + + + + + +---------+ + + | (unknown) | (no date) | (unknown) | [facility] | (no | (units | (unknown) | | | | [facility] value) | [facility]) | | | [facility] | | | | + + + + +---------+ + + + + | Result panel 244 | + + + + + + +---------+ + + | (unknown) | (no date) | (unknown) | [facility] | (no | (units | (unknown) | | | | [facility] value) | [facility]) | | | [facility] | | | | + + + + +---------+ + + + + | Result panel 245 | + + + + + + +---------+ + + | (unknown) | (no date) | (unknown) | [facility] | (no | (units | (unknown) | | | | [facility] value[facility] | [facility]) | | | [facility] | | | | + + + + +---------+ + + + + | Result panel 246 | + + + + + + +---------+ + + | (unknown) | (no date) | (unknown) | [facility] | (no | (units | (unknown) | | | | [facility] | [facility]) | | | [facility] | | | | + + + + +---------+ + + + + | Result panel 247 | + + + + + + +---------+ + + | (unknown) | (no date) | (unknown) | [facility] | (no | (units | (unknown) | | | | [facility] value[facility] | [facility]) | | | [facility] | | | | + + + + +---------+ + + + + | Result panel 248 | + + + + + + +---------+ + + | (unknown) | (no date) | (unknown) | [facility] | (no | (units | (unknown) | | | | [facility] | [facility]) | | [facility] | | | | + + + + +---------+ + + + + | Result panel 249 | + + + + + + +---------+ + + | (unknown) | (no date) | (unknown) | [facility] | (no | (units | (unknown) | | | | [facility] value) | [facility]) | [facility] | [facility] | | | | + + + + +---------+ + + + + | Result panel 250 | + + + + + + +---------+ + + | (unknown) | (no date) | (unknown) | [facility] | (no | (units | (unknown) | | | | [facility] | [facility]) | | | [facility] | | | | + + + + +---------+ + + + + | Result panel 251 | + + + + + + +---------+ + + | (unknown) | (no date) | (unknown) | [facility] | (no | (units | (unknown) | | | | [facility]) | [facility]) | | | [facility] | | | | + + + + +---------+ + + + + | Result panel 252 | + + + + + + +---------+ + + | (unknown) | (no date) | (unknown) | [facility] | (no | (units | (unknown) | | | | [facility] value) | [facility]) | | | [facility] | | | | + + + + +---------+ + + + + | Result panel 253 | + + + + + + +---------+ + + | (unknown) | (no date) | (unknown) | [facility] | (no | (units | (unknown) | | | | [facility] value) | [facility]) | | | [facility] | | | | + + + + +---------+ + + + + | Result panel 254 | + + + + + + +---------+ + + | (unknown) | (no date) | (unknown) | [facility] | (no | (units | (unknown) | | | | [facility] value) | [facility]) | | | | [facility] | | | | + + + + +---------+ + + + + | Result panel 255 | + + + + + + +---------+ + + | (unknown) | (no date) | (unknown) | [facility] | (no | (units | (unknown) | | | | [facility] value) | [facility]) | | | [facility] | | | | + + + + +---------+ + + + + | Result panel 256 | + + + + + + +---------+ + + | (unknown) | (no date) | (unknown) | [facility] | (no | (units | (unknown) | | | | [facility] value) | [facility]) | | | [facility] | | | | + + + + +---------+ + + + + | Result panel 257 | + + + + + + +---------+ + + | (unknown) | (no date) | (unknown) | [facility] | (no | (units | (unknown) | | | | [facility] value) | [facility]) | | | [facility] | | | | + + + + +---------+ + + + + | Result panel 258 | + + + + + + +---------+ + + | (unknown) | (no date) | (unknown) | [facility] | (no | (units | (unknown) | | | | [facility] value) | [facility]) | | | [facility] | | | | + + + + +---------+ + + + + | Result panel 259 | + + + + + + +---------+ + + | (unknown) | (no date) | (unknown) | [facility] | (no | (units | (unknown) | | | | [facility] value) | [facility]) | | | [facility] | | | | + + + + +---------+ + + + + | Result panel 260 | + + + + + + +---------+ + + | (unknown) | (no date) | (unknown) | [facility] | (no | (units | (unknown) | | | | [facility] value) | [facility]) | | | [facility] | | | | + + + + +---------+ + + + + | Result panel 261 | + + + + + + +---------+ + + | (unknown) | (no date) | (unknown) | [facility] | (no | (units | (unknown) | | | | [facility] value) | [facility]) | | | [facility] | | | | + + + + +---------+ + + + + | Result panel 262 | + + + + + + +---------+ + + | (unknown) | (no date) | (unknown) | [facility] | (no | (units | (unknown) | | | | [facility] value) | [facility]) | | | [facility] | | | | + + + + +---------+ + + + + | Result panel 263 | + + + + + + +---------+ + + | (unknown) | (no date) | (unknown) | [facility] | (no | (units | (unknown) | | | | [facility] value) | [facility]) | | | [facility] | | | | + + + + +---------+ + + + + | Result panel 264 | + + + + + + +---------+ + + | (unknown) | (no date) | (unknown) | [facility] | (no | (units | (unknown) | | | | [facility] value) | [facility]) | | | [facility] | | | | + + + + +---------+ + + + + | Result panel 265 | + + + + + + +---------+ + + | (unknown) | (no date) | (unknown) | [facility] | (no | (units | (unknown) | | | | [facility] value) | [facility]) | | | [facility] | | | | + + + + +---------+ + + + + | Result panel 266 | + + + + + + +---------+ + + | (unknown) | (no date) | (unknown) | [facility] | (no | (units | (unknown) | | | | [facility] value) | [facility]) | | | [facility] | | | | + + + + +---------+ + + + + | Result panel 267 | + + + + + + +---------+ + + | (unknown) | (no date) | (unknown) | [facility] | (no | (units | (unknown) | | | | [facility] value) | [facility]) | | | [facility] | | | | + + + + +---------+ + + + + | Result panel 268 | + + + + + + +---------+ + + | (unknown) | (no date) | (unknown) | [facility] | (no | (units | (unknown) | | | | [facility] value) | [facility]) | | | [facility] | | | | + + + + +---------+ + + + + | Result panel 269 | + + + + + + +---------+ + + | (unknown) | (no date) | (unknown) | [facility] | (no | (units | (unknown) | | | | [facility] value) | [facility]) | | | [facility] | | | | + + + + +---------+ + + + + | Result panel 270 | + + + + + + +---------+ + + | (unknown) | (no date) | (unknown) | [facility] | (no | (units | (unknown) | | | | [facility] value) | [facility]) | | | [facility] | | | | + + + + +---------+ + + + + | Result panel 271 | + + + + + + +---------+ + + | (unknown) | (no date) | (unknown) | [facility] | (no | (units | (unknown) | | | | [facility] value) | [facility]) | | | [facility] | | | | + + + + +---------+ + + + + | Result panel 272 | + + + + + + +---------+ + + | (unknown) | (no date) | (unknown) | [facility] | (no | (units | (unknown) | | | | [facility] value) | [facility]) | | | [facility] | | | | + + + + +---------+ + + + + | Result panel 273 | + + + + + + +---------+ + + | (unknown) | (no date) | (unknown) | [facility] | (no | (units | (unknown) | | | | [facility] value) | [facility]) | | | | [facility] | | | | + + + + +---------+ + + + + | Result panel 274 | + + + + + + +---------+ + + | (unknown) | (no date) | (unknown) | [facility] | (no | (units | (unknown) | | | | [facility] value) | [facility]) | | | | [facility] | | | | + + + + +---------+ + + + + | Result panel 275 | + + + + + + +---------+ + + | (unknown) | (no date) | (unknown) | [facility] | (no | (units | (unknown) | | | | [facility] value) | [facility]) | | | [facility] | | | | + + + + +---------+ + + + + | Result panel 276 | + + + + + + +---------+ + + | (unknown) | (no date) | (unknown) | [facility] | (no | (units | (unknown) | | | | [facility] value) | [facility]) | | | [facility] | | | | + + + + +---------+ + + + + | Result panel 277 | + + + + + + +---------+ + + | (unknown) | (no date) | (unknown) | [facility] | (no | (units | (unknown) | | | | [facility] value) | [facility]) | | | | [facility] | | | | + + + + +---------+ + + + + | Result panel 278 | + + + + + + +---------+ + + | (unknown) | (no date) | (unknown) | [facility] | (no | (units | (unknown) | | | | [facility] value) | [facility]) | | | [facility] | | | | + + + + +---------+ + + + + | Result panel 279 | + + + + + + +---------+ + + | (unknown) | (no date) | (unknown) | [facility] | (no | (units | (unknown) | | | | [facility]) | [facility]) | | [facility] | | | | + + + + +---------+ + + + + | Result panel 280 | + + + + + + +---------+ + + | (unknown) | (no date) | (unknown) | [facility] | (no | (units | (unknown) | | | | [facility]) | [facility]) | | | [facility] | | | | + + + + +---------+ + + + + | Result panel 281 | + + + + + + +---------+ + + | (unknown) | (no date) | (unknown) | [facility] | (no | (units | (unknown) | | | | [facility] value) | [facility]) | | | [facility] | | | | + + + + +---------+ + + + + | Result panel 282 | + + + + + + +---------+ + + | (unknown) | (no date) | (unknown) | [facility] | (no | (units | (unknown) | | | | [facility] value) | [facility]) | | | | [facility] | | | | + + + + +---------+ + + + + | Result panel 283 | + + + + + + +---------+ + + | (unknown) | (no date) | (unknown) | [facility] | (no | (units | (unknown) | | | | [facility]) | [facility]) | | | [facility] | | | | + + + + +---------+ + + + + | Result panel 284 | + + + + + + +---------+ + + | (unknown) | (no date) | (unknown) | [facility] | (no | (units | (unknown) | | | | [facility] value) | [facility]) | | | | [facility] | | | | + + + + +---------+ + + + + | Result panel 285 | + + + + + + +---------+ + + | (unknown) | (no date) | (unknown) | [facility] | (no | (units | (unknown) | | | | [facility] value) | [facility]) | | | | [facility] | | | | + + + + +---------+ + + + + | Result panel 286 | + + + + + + +---------+ + + | (unknown) | (no date) | (unknown) | [facility] | (no | (units | (unknown) | | | | [facility]) | [facility]) | | | [facility] | | | | + + + + +---------+ + + + + | Result panel 287 | + + + + + + +---------+ + + | (unknown) | (no date) | (unknown) | [facility] | (no | (units | (unknown) | | | | [facility]) | [facility]) | [facility] | [facility] | | | | + + + + +---------+ + + + + | Result panel 288 | + + + + + + +---------+ + + | (unknown) | (no date) | (unknown) | [facility] | (no | (units | (unknown) | | | | [facility] | [facility]) | | | [facility] | | | | + + + + +---------+ + + + + | Result panel 289 | + + + + + + +---------+ + + | (unknown) | (no date) | (unknown) | [facility] | (no | (units | (unknown) | | | | [facility] | [facility]) | | [facility] | | | | + + + + +---------+ + + + + | Result panel 290 | + + + + + + +---------+ + + | (unknown) | (no date) | (unknown) | [facility] | (no | (units | (unknown) | | | | [facility]) | [facility]) | | | [facility] | | | | + + + + +---------+ + + + + | Result panel 291 | + + + + + + +---------+ + + | (unknown) | (no date) | (unknown) | [facility] | (no | (units | (unknown) | | | | [facility] value) | unknown) | | | | | [facility] | | | | + + + + +---------+ + + + + | Result panel 292 | + + + + + + +---------+ + + | (unknown) | (no date) | (unknown) | [facility] | (no | (units | (unknown) | | | | [facility] | value) | unknown) | | | | | [facility] | | | | + + + + +---------+ + + + + | Result panel 293 | + + + + + + +---------+ + + | (unknown) | (no date) | (unknown) | [facility] | (no | (units | (unknown) | | | | [facility] value) | unknown) | | | | | [facility] | | | | + + + + +---------+ + + + + | Result panel 294 | + + + + + + +---------+ + + | (unknown) | (no date) | (unknown) | [facility] | (no | (units | (unknown) | | | | [facility] | value) | unknown) | | | | | [facility] | | | | + + + + +---------+ + + + + | Result panel 295 | + + + + + + +---------+ + + | (unknown) | (no date) | (unknown) | [facility] | (no | (units | (unknown) | | | | [facility] | value) | unknown) | | | | | [facility] | | | | + + + + +---------+ + + + + | Result panel 296 | + + + + + + +---------+ + + | (unknown) | (no date) | (unknown) | [facility] | (no | (units | (unknown) | | | | [facility] | value) | unknown) | | | | | [facility] | | | | + + + + +---------+ + + + + | Result panel 297 | + + + + + + +---------+ + + | (unknown) | (no date) | (unknown) | [facility] | (no | (units | (unknown) | | | | [facility] | value) | unknown) | | | | | [facility] | | | | + + + + +---------+ + + + + | Result panel 298 | + + + + + + +---------+ + + | (unknown) | (no date) | (unknown) | [facility] | (no | (units | (unknown) | | | | [facility] value) | unknown) | | | | | [facility] | | | | + + + + +---------+ + + + + | Result panel 299 | + + + + + + +---------+ + + | (unknown) | (no date) | (unknown) | [facility] | (no | (units | (unknown) | | | | [facility] value) | unknown) | | | | | [facility] | | | | + + + + +---------+ + + + + | Result panel 300 | + + + + + + +---------+ + + | (unknown) | (no date) | (unknown) | [facility] | (no | (units | (unknown) | | | | [facility] value) | unknown) | | | | [facility] | | | | + + + + +---------+ + + + + | Result panel 301 | + + + + + + +---------+ + + | (unknown) | (no date) | (unknown) | [facility] | (no | (units | (unknown) | | | | [facility] | value) | unknown) | | | | | [facility] | | | | + + + + +---------+ + + + + | Result panel 302 | + + + + + + +---------+ + + | (unknown) | (no date) | (unknown) | [facility] | (no | (units | (unknown) | | | | [facility] | value) | [facility]) | | | | [facility] | | | | + + + + +---------+ + + + + | Result panel 303 | + + + + + + +---------+ + + | (unknown) | (no date) | (unknown) | [facility] | (no | (units | (unknown) | | | | [facility] | value) | unknown) | | | | [facility] | | | | + + + + +---------+ + + + + | Result panel 304 | + + + + + + +---------+ + + | (unknown) | (no date) | (unknown) | [facility] | (no | (units | (unknown) | | | | [facility] | value) | unknown) | | | | [facility] | | | | + + + + +---------+ + + + + | Result panel 305 | + + + + + + +---------+ + + | (unknown) | (no date) | (unknown) | [facility] | (no | (units | (unknown) | | | | [facility] | value) | unknown) | | | | [facility] | | | | + + + + +---------+ + + + + | Result panel 306 | + + + + + + +---------+ + + | (unknown) | (no date) | (unknown) | [facility] | (no | (units | (unknown) | | | | [facility] | value) | [facility]) | | | [facility] | | | | + + + + +---------+ + + + + | Result panel 307 | + + + + + + +---------+ + + | (unknown) | (no date) | (unknown) | [facility] | (no | (units | (unknown) | | | | [facility] | value) | [facility]) | | | | [facility] | | | | + + + + +---------+ + + + + | Result panel 308 | + + + + + + +---------+ + + | (unknown) | (no date) | (unknown) | [facility] | (no | (units | (unknown) | | | | [facility] | value) | [facility]) | | | | [facility] | | | | + + + + +---------+ + + + + | Result panel 309 | + + + + + + +---------+ + + | (unknown) | (no date) | (unknown) | [facility] | (no | (units | (unknown) | | | | [facility] value) | [facility]) | | | | [facility] | | | | + + + + +---------+ + + + + | Result panel 310 | + + + + + + +---------+ + + | (unknown) | (no date) | (unknown) | [facility] | (no | (units | (unknown) | | | | [facility] | value) | [facility]) | | | | [facility] | | | | + + + + +---------+ + + + + | Result panel 311 | + + + + + + +---------+ + + | (unknown) | (no date) | (unknown) | [facility] | (no | (units | (unknown) | | | | [facility] value) | [facility]) | | | | [facility] | | | | + + + + +---------+ + + + + | Result panel 312 | + + + + + + +---------+ + + | (unknown) | (no date) | (unknown) | [facility] | (no | (units | (unknown) | | | | [facility] | value) | [facility]) | | | | [facility] | | | | + + + + +---------+ + + + + | Result panel 313 | + + + + + + +---------+ + + | (unknown) | (no date) | (unknown) | [facility] | (no | (units | (unknown) | | | | [facility] value) | [facility]) | | | | [facility] | | | | + + + + +---------+ + + + + | Result panel 314 | + + + + + + +---------+ + + | (unknown) | (no date) | (unknown) | [facility] | (no | (units | (unknown) | | | | [facility] | value) | [facility]) | | | | [facility] | | | | + + + + +---------+ + + + + | Result panel 315 | + + + + + + +---------+ + + | (unknown) | (no date) | (unknown) | [facility] | (no | (units | (unknown) | | | | [facility] | value) | [facility]) | | | [facility] | | | | + + + + +---------+ + + + + | Result panel 316 | + + + + + + +---------+ + + | (unknown) | (no date) | (unknown) | [facility] | (no | (units | (unknown) | | | | [facility] value) | [facility]) | [facility] | | | | + + + + +---------+ + + + + | Result panel 317 | + + + + + + +---------+ + + | (unknown) | (no date) | (unknown) | [facility] | (no | (units | (unknown) | | | | [facility] | value) | [facility]) | | | | [facility] | | | | + + + + +---------+ + + + + | Result panel 318 | + + + + + + +---------+ + + | (unknown) | (no date) | (unknown) | [facility] | (no | (units | (unknown) | | | | [facility] value) | [facility]) | | [facility] | | | | + + + + +---------+ + + + + | Result panel 319 | + + + + + + +---------+ + + | (unknown) | (no date) | (unknown) | [facility] | (no | (units | (unknown) | | | | [facility] value) | [facility]) | | [facility] | | | | + + + + +---------+ + + + + | Result panel 320 | + + + + + + +---------+ + + | (unknown) | (no date) | (unknown) | [facility] | (no | (units | (unknown) | | | | [facility]) | [facility]) | | [facility] | | | | + + + + +---------+ + + + + | Result panel 321 | + + + + + + +---------+ + + | (unknown) | (no date) | (unknown) | [facility] | (no | (units | (unknown) | | | | [facility] value) | [facility]) | | | [facility] | | | | + + + + +---------+ + + + + | Result panel 322 | + + + + + + +---------+ + + | (unknown) | (no date) | (unknown) | [facility] | (no | (units | (unknown) | | | | [facility] | value) | [facility]) | | | | [facility] | | | | + + + + +---------+ + + + + | Result panel 323 | + + + + + + +---------+ + + | (unknown) | (no date) | (unknown) | [facility] | (no | (units | (unknown) | | | | [facility] value) | [facility]) | | | | [facility] | | | | + + + + +---------+ + + + + | Result panel 324 | + + + + + + +---------+ + + | (unknown) | (no date) | (unknown) | [facility] | (no | (units | (unknown) | | | | [facility] value) | [facility]) | | | [facility] | | | | + + + + +---------+ + + + + | Result panel 325 | + + + + + + +---------+ + + | (unknown) | (no date) | (unknown) | [facility] | (no | (units | (unknown) | | | | [facility] value) | [facility]) | | [facility] | | | | + + + + +---------+ + + + + | Result panel 326 | + + + + + + +---------+ + + | (unknown) | (no date) | (unknown) | [facility] | (no | (units | (unknown) | | | | [facility] value) | [facility]) | | | [facility] | | | | + + + + +---------+ + + + + | Result panel 327 | + + + + + + +---------+ + + | (unknown) | (no date) | (unknown) | [facility] | (no | (units | (unknown) | | | | [facility]) | [facility]) | [facility] | | | | + + + + +---------+ + + + + | Result panel 328 | + + + + + + +---------+ + + | (unknown) | (no date) | (unknown) | [facility] | (no | (units | (unknown) | | | | [facility] value) | [facility]) | | [facility] | | | | + + + + +---------+ + + + + | Result panel 329 | + + + + + + +---------+ + + | (unknown) | (no date) | (unknown) | [facility] | (no | (units | (unknown) | | | | [facility] value) | [facility]) | | | [facility] | | | | + + + + +---------+ + + + + | Result panel 330 | + + + + + + +---------+ + + | (unknown) | (no date) | (unknown) | [facility] | (no | (units | (unknown) | | | | [facility] value) | [facility]) | | | [facility] | | | | + + + + +---------+ + + + + | Result panel 331 | + + + + + + +---------+ + + | (unknown) | (no date) | (unknown) | [facility] | (no | (units | (unknown) | | | | [facility] value) | [facility]) | [facility] | | | | + + + + +---------+ + + + + | Result panel 332 | + + + + + + +---------+ + + | (unknown) | (no date) | (unknown) | [facility] | (no | (units | (unknown) | | | | [facility] value) | [facility]) | [facility] | | | | + + + + +---------+ + + + + | Result panel 333 | + + + + + + +---------+ + + | (unknown) | (no date) | (unknown) | [facility] | (no | (units | (unknown) | | | | [facility] value[facility] | [facility]) | | | [facility] | | | | + + + + +---------+ + + + + | Result panel 334 | + + + + + + +---------+ + + | (unknown) | (no date) | (unknown) | [facility] | (no | (units | (unknown) | | | | [facility] value) | [facility]) | [facility] | | | | + + + + +---------+ + + + + | Result panel 335 | + + + + + + +---------+ + + | (unknown) | (no date) | (unknown) | [facility] | (no | (units | (unknown) | | | | [facility] value) | [facility]) | [facility] | | | | + + + + +---------+ + + + + | Result panel 336 | + + + + + + +---------+ + + | (unknown) | (no date) | (unknown) | [facility] | (no | (units | (unknown) | | | | [facility] value[facility] | [facility]) | | [facility] | | | | + + + + +---------+ + + + + | Result panel 337 | + + + + + + +---------+ + + | (unknown) | (no date) | (unknown) | [facility] | (no | (units | (unknown) | | | | [facility] value[facility] | [facility]) | [facility] | | | | + + + + +---------+ + + + + | Result panel 338 | + + + + + + +---------+ + + | (unknown) | (no date) | (unknown) | [facility] | (no | (units | (unknown) | | | | [facility] value[facility] | [facility]) | [facility] | | | | + + + + +---------+ + + + + | Result panel 339 | + + + + + + +---------+ + + | (unknown) | (no date) | (unknown) | [facility] | (no | (units | (unknown) | | | | [facility] | [facility]) | | [facility] | | | | + + + + +---------+ + + + + | Result panel 340 | + + + + + + +---------+ + + | (unknown) | (no date) | (unknown) | [facility] | (no | (units | (unknown) | | | | [facility] | [facility]) | | | [facility] | | | | + + + + +---------+ + + + + | Result panel 341 | + + + + + + +---------+ + + | (unknown) | (no date) | (unknown) | [facility] | (no | (units | (unknown) | | | | [facility] value[facility] | [facility]) | | [facility] | | | | + + + + +---------+ + + + + | Result panel 342 | + + + + + + +---------+ + + | (unknown) | (no date) | (unknown) | [facility] | (no | (units | (unknown) | | | | [facility] | [facility]) | | [facility] | | | | + + + + +---------+ + + + + | Result panel 343 | + + + + + + +---------+ + + | (unknown) | (no date) | (unknown) | [facility] | (no | (units | (unknown) | | | | [facility] | [facility]) | | | [facility] | | | | + + + + +---------+ + + + + | Result panel 344 | + + + + + + +---------+ + + | (unknown) | (no date) | (unknown) | [facility] | (no | (units | (unknown) | | | | [facility] | [facility]) | | [facility] | | | | + + + + +---------+ + + + + | Result panel 345 | + + + + + + +---------+ + + | (unknown) | (no date) | (unknown) | [facility] | (no | (units | (unknown) | | | | [facility] value[facility] | [facility]) | | [facility] | | | | + + + + +---------+ + + + + | Result panel 346 | + + + + + + +---------+ + + | (unknown) | (no date) | (unknown) | [facility] | (no | (units | (unknown) | | | | [facility] | [facility]) | [facility] | | | | + + + + +---------+ + + + + | Result panel 347 | + + + + + + +---------+ + + | (unknown) | (no date) | (unknown) | [facility] | (no | (units | (unknown) | | | | [facility] | [facility]) | | [facility] | | | | + + + + +---------+ + + + + | Result panel 348 | + + + + + + +---------+ + + | (unknown) | (no date) | (unknown) | [facility] | (no | (units | (unknown) | | | | [facility] | [facility]) | [facility] | | | | + + + + +---------+ + + + + | Result panel 349 | + + + + + + +---------+ + + | (unknown) | (no date) | (unknown) | [facility] | (no | (units | (unknown) | | | | [facility] | [facility] | [facility] | | | | + + + + +---------+ + + Social History No information. Vital Signs + + + +---------+ | date | measurement | value | units | + + + +---------+ | 2021-12-17 00:00 | BMI | 20.4 | kg/m2 | + + + +---------+ | 2021-12-17 00:00 | BP_diastolic | 80 | mmHg | + + + +---------+ | 2021-12-17 00:00 | BP_systolic | 136 | mmHg | + + + +---------+ | 2021-12-17 00:00 | heart_rate | 72 | /min | + + + +---------+ | 2021-12-17 00:00 | height_metric | 162.56 | cm | + + + +---------+ | 2021-12-17 00:00 | height_standard | 64 | in | + + + +---------+ | 2021-12-17 00:00 | o2_saturation | 98 | % | + + + +---------+ | 2021-12-17 00:00 | respiration_rate | 16 | /min | + + + +---------+ | 2021-12-17 00:00 | temperature_metric | 36.72 | C | | | | | | + + + +---------+ | 2021-12-17 00:00 | | 98.1 | F | | | temperature_standar | | | | | d | | | + + + +---------+ | 2021-12-17 00:00 | weight_metric | 54 | kg | + + + +---------+ | 2021-12-17 00:00 | weight_standard | 119.05 | lb | + + + +---------+ | 2022-01-26 00:00 | BMI | 20.4 | kg/m2 | + + + +---------+ | 2022-01-26 00:00 | BP_diastolic | 67 | mmHg | + + + +---------+ | 2022-01-26 00:00 | BP_systolic | 118 | mmHg | + + + +---------+ | 2022-01-26 00:00 | heart_rate | 56 | /min | + + + +---------+ | 2022-01-26 00:00 | height_metric | 162.56 | cm | + + + +---------+ | 2022-01-26 00:00 | height_standard | 64 | in | + + + +---------+ | 2022-01-26 00:00 | o2_saturation | 93 | % | + + + +---------+ | 2022-01-26 00:00 | respiration_rate | 18 | /min | + + + +---------+ | 2022-01-26 00:00 | temperature_metric | 36.89 | C | | | | | | + + + +---------+ | 2022-01-26 00:00 | | 98.4 | F | | | temperature_standar | | | | | d | | | + + + +---------+ | 2022-01-26 00:00 | weight_metric | 53.98 | kg | + + + +---------+ | 2022-01-26 00:00 | weight_standard | 119 | lb | + + + +---------+ | 2022-01-26 00:00 | weight_standard | 119.01 | lb | + + + +---------+ | 2022-03-07 00:00 | BMI | 20.4 | kg/m2 | + + + +---------+ | 2022-03-07 00:00 | BP_diastolic | 82 | mmHg | + + + +---------+ | 2022-03-07 00:00 | BP_systolic | 146 | mmHg | + + + +---------+ | 2022-03-07 00:00 | heart_rate | 85 | /min | + + + +---------+ | 2022-03-07 00:00 | height_metric | 162.56 | cm | + + + +---------+ | 2022-03-07 00:00 | height_standard | 64 | in | + + + +---------+ | 2022-03-07 00:00 | o2_saturation | 97 | % | + + + +---------+ | 2022-03-07 00:00 | respiration_rate | 16 | /min | + + + +---------+ | 2022-03-07 00:00 | temperature_metric | 37.22 | C | | | | | | + + + +---------+ | 2022-03-07 00:00 | | 99 | F | | | temperature_standar | | | | | d | | | + + + +---------+ | 2022-03-07 00:00 | weight_metric | 53.98 | kg | + + + +---------+ | 2022-03-07 00:00 | weight_standard | 119 | lb | + + + +---------+ | 2022-03-07 00:00 | weight_standard | 119.01 | lb | + + + +---------+ | 2022-05-17 00:00 | BMI | 20.4 | kg/m2 | + + + +---------+ | 2022-05-17 00:00 | BP_diastolic | 76 | mmHg | + + + +---------+ | 2022-05-17 00:00 | BP_systolic | 129 | mmHg | + + + +---------+ | 2022-05-17 00:00 | heart_rate | 52 | /min | + + + +---------+ | 2022-05-17 00:00 | height_metric | 162.56 | cm | + + + +---------+ | 2022-05-17 00:00 | height_standard | 64 | in | + + + +---------+ | 2022-05-17 00:00 | o2_saturation | 92 | % | + + + +---------+ | 2022-05-17 00:00 | respiration_rate | 12 | /min | + + + +---------+ | 2022-05-17 00:00 | temperature_metric | 37.72 | C | | | | | | + + + +---------+ | 2022-05-17 00:00 | | 99.9 | F | | | temperature_standar | | | | | d | | | + + + +---------+ | 2022-05-17 00:00 | weight_metric | 53.98 | kg | + + + +---------+ | 2022-05-17 00:00 | weight_standard | 119 | lb | + + + +---------+ | 2022-05-17 00:00 | weight_standard | 119.01 | lb | + + + +---------+ | 2022-05-19 00:00 | BMI | 20.6 | kg/m2 | + + + +---------+ | 2022-05-19 00:00 | BP_diastolic | 142 | mmHg | + + + +---------+ | 2022-05-19 00:00 | BP_systolic | 192 | mmHg | + + + +---------+ | 2022-05-19 00:00 | heart_rate | 82 | /min | + + + +---------+ | 2022-05-19 00:00 | height_metric | 162.56 | cm | + + + +---------+ | 2022-05-19 00:00 | height_standard | 64 | in | + + + +---------+ | 2022-05-19 00:00 | o2_saturation | 97 | % | + + + +---------+ | 2022-05-19 00:00 | respiration_rate | 16 | /min | + + + +---------+ | 2022-05-19 00:00 | temperature_metric | 37.22 | C | | | | | | + + + +---------+ | 2022-05-19 00:00 | | 99 | F | | | temperature_standar | | | | | d | | | + + + +---------+ | 2022-05-19 00:00 | weight_metric | 54.4 | kg | + + + +---------+ | 2022-05-19 00:00 | weight_standard | 119.93 | lb | + + + +---------+ | 2022-05-21 00:00 | BMI | 20.4 | kg/m2 | + + + +---------+ | 2022-05-21 00:00 | height_metric | 162.56 | cm | + + + +---------+ | 2022-05-21 00:00 | height_standard | 64 | in | + + + +---------+ | 2022-05-21 00:00 | weight_metric | 53.98 | kg | + + + +---------+ | 2022-05-21 00:00 | weight_standard | 119 | lb | + + + +---------+ | 2022-05-21 00:00 | weight_standard | 119.01 | lb | + + + +---------+ | 2022-05-22 00:00 | BP_diastolic | 85 | mmHg | + + + +---------+ | 2022-05-22 00:00 | BP_systolic | 157 | mmHg | + + + +---------+ | 2022-05-22 00:00 | heart_rate | 88 | /min | + + + +---------+ | 2022-05-22 00:00 | o2_saturation | 99 | % | + + + +---------+ | 2022-05-22 00:00 | respiration_rate | 16 | /min | + + + +---------+ | 2022-05-22 00:00 | temperature_metric | 36.83 | C | | | | | | + + + +---------+ | 2022-05-22 00:00 | | 98.3 | F | | | temperature_standar | | | | | d | | | + + + +---------+ | 2022-10-03 00:00 | BMI | 19.7 | kg/m2 | + + + +---------+ | 2022-10-03 00:00 | BP_diastolic | 85 | mmHg | + + + +---------+ | 2022-10-03 00:00 | BP_systolic | 171 | mmHg | + + + +---------+ | 2022-10-03 00:00 | heart_rate | 67 | /min | + + + +---------+ | 2022-10-03 00:00 | height_metric | 162.56 | cm | + + + +---------+ | 2022-10-03 00:00 | height_standard | 64 | in | + + + +---------+ | 2022-10-03 00:00 | o2_saturation | 92 | % | + + + +---------+ | 2022-10-03 00:00 | respiration_rate | 20 | /min | + + + +---------+ | 2022-10-03 00:00 | temperature_metric | 37.17 | C | | | | | | + + + +---------+ | 2022-10-03 00:00 | | 98.9 | F | | | temperature_standar | | | | | d | | | + + + +---------+ | 2022-10-03 00:00 | weight_metric | 52.16 | kg | + + + +---------+ | 2022-10-03 00:00 | weight_standard | 115 | lb | + + + +---------+ | 2022-10-17 00:00 | BMI | 19.7 | kg/m2 | + + + +---------+ | 2022-10-17 00:00 | BP_diastolic | 78 | mmHg | + + + +---------+ | 2022-10-17 00:00 | BP_systolic | 192 | mmHg | + + + +---------+ | 2022-10-17 00:00 | heart_rate | 60 | /min | + + + +---------+ | 2022-10-17 00:00 | height_metric | 162.56 | cm | + + + +---------+ | 2022-10-17 00:00 | height_standard | 64 | in | + + + +---------+ | 2022-10-17 00:00 | o2_saturation | 94 | % | + + + +---------+ | 2022-10-17 00:00 | respiration_rate | 16 | /min | + + + +---------+ | 2022-10-17 00:00 | temperature_metric | 36.89 | C | | | | | | + + + +---------+ | 2022-10-17 00:00 | | 98.4 | F | | | temperature_standar | | | | | d | | | + + + +---------+ | 2022-10-17 00:00 | weight_metric | 52.16 | kg | + + + +---------+ | 2022-10-17 00:00 | weight_standard | 115 | lb | + + + +---------+ | 2022-10-20 00:00 | BMI | 19.7 | kg/m2 | + + + +---------+ | 2022-10-20 00:00 | BP_diastolic | 75 | mmHg | + + + +---------+ | 2022-10-20 00:00 | BP_systolic | 156 | mmHg | + + + +---------+ | 2022-10-20 00:00 | heart_rate | 81 | /min | + + + +---------+ | 2022-10-20 00:00 | height_metric | 162.56 | cm | + + + +---------+ | 2022-10-20 00:00 | height_standard | 64 | in | + + + +---------+ | 2022-10-20 00:00 | o2_saturation | 99 | % | + + + +---------+ | 2022-10-20 00:00 | respiration_rate | 16 | /min | + + + +---------+ | 2022-10-20 00:00 | temperature_metric | 37.67 | C | | | | | | + + + +---------+ | 2022-10-20 00:00 | | 99.8 | F | | | temperature_standar | | | | | d | | | + + + +---------+ | 2022-10-20 00:00 | weight_metric | 52.16 | kg | + + + +---------+ | 2022-10-20 00:00 | weight_standard | 114.99 | lb | + + + +---------+ | 2022-10-20 00:00 | weight_standard | 115 | lb | + + + +---------+ | 2022-11-09 00:00 | BMI | 19.7 | kg/m2 | + + + +---------+ | 2022-11-09 00:00 | BP_diastolic | 94 | mmHg | + + + +---------+ | 2022-11-09 00:00 | BP_systolic | 120 | mmHg | + + + +---------+ | 2022-11-09 00:00 | heart_rate | 60 | /min | + + + +---------+ | 2022-11-09 00:00 | height_metric | 162.56 | cm | + + + +---------+ | 2022-11-09 00:00 | height_standard | 64 | in | + + + +---------+ | 2022-11-09 00:00 | o2_saturation | 99 | % | + + + +---------+ | 2022-11-09 00:00 | respiration_rate | 19 | /min | + + + +---------+ | 2022-11-09 00:00 | temperature_metric | 36.89 | C | | | | | | + + + +---------+ | 2022-11-09 00:00 | | 98.4 | F | | | temperature_standar | | | | | d | | | + + + +---------+ | 2022-11-09 00:00 | weight_metric | 52.16 | kg | + + + +---------+ | 2022-11-09 00:00 | weight_standard | 114.99 | lb | + + + +---------+ | 2022-11-09 00:00 | weight_standard | 115 | lb | + + + +---------+ | 2022-11-26 00:00 | BMI | 20.4 | kg/m2 | + + + +---------+ | 2022-11-26 00:00 | BP_diastolic | 75 | mmHg | + + + +---------+ | 2022-11-26 00:00 | BP_systolic | 168 | mmHg | + + + +---------+ | 2022-11-26 00:00 | heart_rate | 54 | /min | + + + +---------+ | 2022-11-26 00:00 | height_metric | 162.56 | cm | + + + +---------+ | 2022-11-26 00:00 | height_standard | 64 | in | + + + +---------+ | 2022-11-26 00:00 | o2_saturation | 94 | % | + + + +---------+ | 2022-11-26 00:00 | respiration_rate | 18 | /min | + + + +---------+ | 2022-11-26 00:00 | temperature_metric | 36.56 | C | | | | | | + + + +---------+ | 2022-11-26 00:00 | | 97.8 | F | | | temperature_standar | | | | | d | | | + + + +---------+ | 2022-11-26 00:00 | weight_metric | 53.98 | kg | + + + +---------+ | 2022-11-26 00:00 | weight_standard | 119 | lb | + + + +---------+ | 2022-11-26 00:00 | weight_standard | 119.01 | lb | + + + +---------+"
--- OUTSIDE RECORDS SUMMARY | ~2023-01-16 | XMS | Continuity of Care Document ---
Demographics + + + | Address | [address] | | | [place] [address] | + + + | Preferred Language | Unknown | + + + | Marital Status | | + + + | Religion Affiliation | Unknown | + + + | Race | White | + + + | Ethnic Group | Not or | + + + Author + + + | Author | [place] | + + + | Organization | [place] | + + + | Address | [address] | | | [place] [address] | + + + | Phone | | + + + Care Team Providers + + + + | Care Rn Geriatric Name | Role | Phone | + + + + Unavailable | Unavailable | + + + + Unavailable | Unavailable | + + + + Unavailable | Unavailable | + + + + Allergies and Intolerances + + + + + | date | description | facility | type | + + + + + | (no date) | Metronidazole | [facility] | (unknown) | | | | [facility] | | + + + + + | (no date) | Metronidazole | [facility] | (unknown) | | | | Hospital | | + + + + + | (no date) | Metronidazole | [facility] | (unknown) | | | | Hospital | | + + + + + | (no date) | metronidazole | [facility] | (unknown) | | | | Hospital | | + + + + + | (no date) | metronidazole | [facility] | (unknown) | + + + + + Encounters No information. Functional Status No information. Immunizations + + + + | date | description | facility | + + + + | 2020-11-14 00:00 | Tdap | [facility] | + + + + | 2020-11-14 00:00 | Tdap | [facility] | + + + + Medications + + + + | date | description | facility | + + + + | 2020-04-06 00:00 | Lidocaine | [facility] | + + + + | 2020-04-06 00:00 | Lidocaine | [facility] | + + + + | 2022-10-03 00:00 | ONDANSETRON | [facility] | + + + + | 2022-10-03 00:00 | ONDANSETRON | [facility] | + + + + | 2019-08-12 00:00 | ONDANSETRON HCL | [facility] | + + + + | 2019-08-12 00:00 | ONDANSETRON HCL | [facility] | + + + + | 2022-01-28 00:00 | TRIAMCINOLONE ACETONIDE | [facility] | + + + + | 2022-03-07 00:00 | TRIAMCINOLONE ACETONIDE | [facility] | + + + + | 2022-05-17 00:00 | TRIAMCINOLONE ACETONIDE | [facility] | + + + + | 2022-05-19 00:00 | TRIAMCINOLONE ACETONIDE | [facility] | + + + + | 2022-05-22 00:00 | TRIAMCINOLONE ACETONIDE | [facility] | + + + + | 2022-10-03 00:00 | TRIAMCINOLONE ACETONIDE | [facility] | + + + + | 2022-10-17 00:00 | TRIAMCINOLONE ACETONIDE | [facility] | + + + + | 2022-10-20 00:00 | TRIAMCINOLONE ACETONIDE | [facility] | + + + + | 2022-11-09 00:00 | TRIAMCINOLONE ACETONIDE | [facility] | + + + + | 2022-11-26 00:00 | TRIAMCINOLONE ACETONIDE | [facility] | + + + + | 2018-05-17 00:00 | IPRATROPIUM/ALBUTEROL | [facility] | | | SULFATE | | + + + + | 2018-05-17 00:00 | IPRATROPIUM/ALBUTEROL | [facility] | | | SULFATE | | + + + + | 2022-05-17 00:00 | ALPRAZOLAM | [facility] | + + + + | 2022-05-17 00:00 | ALPRAZOLAM | [facility] | + + + + | 2018-02-12 00:00 | POTASSIUM CHLORIDE | [facility] | + + + + | 2018-02-12 00:00 | POTASSIUM CHLORIDE | [facility] | + + + + | 2022-10-17 00:00 | POTASSIUM CHLORIDE | [facility] | + + + + | 2022-10-17 00:00 | POTASSIUM CHLORIDE | [facility] | + + + + | 2022-01-28 00:00 | ALLOPURINOL | [facility] | + + + + | 2022-03-07 00:00 | ALLOPURINOL | [facility] | + + + + | 2022-05-17 00:00 | ALLOPURINOL | [facility] | + + + + | 2022-05-19 00:00 | ALLOPURINOL | [facility] | + + + + | 2022-05-22 00:00 | ALLOPURINOL | [facility] | + + + + | 2022-10-03 00:00 | ALLOPURINOL | [facility] | + + + + | 2022-10-17 00:00 | ALLOPURINOL | [facility] | + + + + | 2022-10-20 00:00 | ALLOPURINOL | [facility] | + + + + | 2022-11-09 00:00 | ALLOPURINOL | [facility] | + + + + | 2022-11-26 00:00 | ALLOPURINOL | [facility] | + + + + | 2022-01-28 00:00 | AMLODIPINE BESYLATE | [facility] | + + + + | 2022-03-07 00:00 | AMLODIPINE BESYLATE | [facility] | + + + + | 2022-05-17 00:00 | AMLODIPINE BESYLATE | [facility] | + + + + | 2022-05-19 00:00 | AMLODIPINE BESYLATE | [facility] | + + + + | 2022-05-22 00:00 | AMLODIPINE BESYLATE | [facility] | + + + + | 2022-10-03 00:00 | AMLODIPINE BESYLATE | [facility] | + + + + | 2022-10-17 00:00 | AMLODIPINE BESYLATE | [facility] | + + + + | 2022-10-20 00:00 | AMLODIPINE BESYLATE | [facility] | + + + + | 2022-11-09 00:00 | AMLODIPINE BESYLATE | [facility] | + + + + | 2022-11-26 00:00 | AMLODIPINE BESYLATE | [facility] | + + + + | 2022-01-28 00:00 | ATENOLOL | [facility] | + + + + | 2022-03-07 00:00 | ATENOLOL | [facility] | + + + + | 2022-05-17 00:00 | ATENOLOL | [facility] | + + + + | 2022-05-19 00:00 | ATENOLOL | [facility] | + + + + | 2022-05-22 00:00 | ATENOLOL | [facility] | + + + + | 2022-10-03 00:00 | ATENOLOL | [facility] | + + + + | 2022-10-17 00:00 | ATENOLOL | [facility] | + + + + | 2022-10-20 00:00 | ATENOLOL | [facility] | + + + + | 2022-11-09 00:00 | ATENOLOL | [facility] | + + + + | 2022-11-26 00:00 | ATENOLOL | [facility] | + + + + | 2018-06-21 00:00 | OMEPRAZOLE | [facility] | + + + + | 2018-06-21 00:00 | OMEPRAZOLE | [facility] | + + + + | 2022-01-28 00:00 | OMEPRAZOLE | [facility] | + + + + | 2022-03-07 00:00 | OMEPRAZOLE | [facility] | + + + + | 2022-05-17 00:00 | OMEPRAZOLE | [facility] | + + + + | 2022-05-19 00:00 | OMEPRAZOLE | [facility] | + + + + | 2022-05-22 00:00 | OMEPRAZOLE | [facility] | + + + + | 2022-10-03 00:00 | OMEPRAZOLE | [facility] | + + + + | 2022-10-17 00:00 | OMEPRAZOLE | [facility] | + + + + | 2022-10-20 00:00 | OMEPRAZOLE | [facility] | + + + + | 2022-11-09 00:00 | OMEPRAZOLE | [facility] | + + + + | 2022-11-26 00:00 | OMEPRAZOLE | [facility] | + + + + | 2018-02-08 00:00 | PROCHLORPERAZINE MALEATE | [facility] | + + + + | 2018-02-08 00:00 | PROCHLORPERAZINE MALEATE | [facility] | + + + + | 2022-05-17 00:00 | OMEPRAZOLE | [facility] | + + + + | 2022-05-19 00:00 | OMEPRAZOLE | [facility] | + + + + | 2022-05-22 00:00 | OMEPRAZOLE | [facility] | + + + + | 2022-10-03 00:00 | OMEPRAZOLE | [facility] | + + + + | 2022-10-17 00:00 | OMEPRAZOLE | [facility] | + + + + | 2022-10-20 00:00 | OMEPRAZOLE | [facility] | + + + + | 2022-11-09 00:00 | OMEPRAZOLE | [facility] | + + + + | 2022-11-26 00:00 | OMEPRAZOLE | [facility] | + + + + | 2019-09-28 00:00 | VANCOMYCIN HCL | [facility] | + + + + | 2019-09-28 00:00 | VANCOMYCIN HCL | [facility] | + + + + | 2018-10-03 00:00 | METOCLOPRAMIDE HCL | [facility] | + + + + | 2018-10-03 00:00 | METOCLOPRAMIDE HCL | [facility] | + + + + | 2022-01-26 00:00 | METOCLOPRAMIDE HCL | [facility] | + + + + | 2022-01-26 00:00 | METOCLOPRAMIDE HCL | [facility] | + + + + | 2022-11-09 00:00 | METOCLOPRAMIDE HCL | [facility] | + + + + | 2019-05-25 00:00 | BENZONATATE | [facility] | + + + + | 2019-05-25 00:00 | BENZONATATE | [facility] | + + + + | 2022-01-28 00:00 | SIMETHICONE | [facility] | + + + + | 2022-03-07 00:00 | SIMETHICONE | [facility] | + + + + | 2022-05-17 00:00 | SIMETHICONE | [facility] | + + + + | 2022-05-19 00:00 | SIMETHICONE | [facility] | + + + + | 2022-05-22 00:00 | SIMETHICONE | [facility] | + + + + | 2022-10-03 00:00 | SIMETHICONE | [facility] | + + + + | 2022-10-17 00:00 | SIMETHICONE | [facility] | + + + + | 2022-10-20 00:00 | SIMETHICONE | [facility] | + + + + | 2022-11-09 00:00 | SIMETHICONE | [facility] | + + + + | 2022-11-26 00:00 | SIMETHICONE | [facility] | + + + + | 2022-10-17 00:00 | MIRTAZAPINE | [facility] | + + + + | 2022-10-17 00:00 | MIRTAZAPINE | [facility] | + + + + | 2022-01-28 00:00 | MELATONIN | [facility] | + + + + | 2022-03-07 00:00 | MELATONIN | [facility] | + + + + | 2022-05-17 00:00 | MELATONIN | [facility] | + + + + | 2022-05-19 00:00 | MELATONIN | [facility] | + + + + | 2022-05-22 00:00 | MELATONIN | [facility] | + + + + | 2022-10-03 00:00 | MELATONIN | [facility] | + + + + | 2022-10-17 00:00 | MELATONIN | [facility] | + + + + | 2022-10-20 00:00 | MELATONIN | [facility] | + + + + | 2022-11-09 00:00 | MELATONIN | [facility] | + + + + | 2022-11-26 00:00 | MELATONIN | [facility] | + + + + | 2022-05-17 00:00 | ALPRAZOLAM | [facility] | + + + + | 2022-05-19 00:00 | ALPRAZOLAM | [facility] | + + + + | 2022-05-22 00:00 | ALPRAZOLAM | [facility] | + + + + | 2022-10-03 00:00 | ALPRAZOLAM | [facility] | + + + + | 2022-10-17 00:00 | ALPRAZOLAM | [facility] | + + + + | 2022-10-20 00:00 | ALPRAZOLAM | [facility] | + + + + | 2018-02-12 00:00 | CEFPODOXIME PROXETIL | [facility] | + + + + | 2018-02-12 00:00 | CEFPODOXIME PROXETIL | [facility] | + + + + | 2018-02-12 00:00 | FUROSEMIDE | [facility] | + + + + | 2018-02-12 00:00 | FUROSEMIDE | [facility] | + + + + | 2022-11-26 00:00 | GABAPENTIN | [facility] | + + + + | 2022-01-28 00:00 | HYDROCHLOROTHIAZIDE | [facility] | + + + + | 2022-03-07 00:00 | HYDROCHLOROTHIAZIDE | [facility] | + + + + | 2022-05-17 00:00 | HYDROCHLOROTHIAZIDE | [facility] | + + + + | 2022-05-19 00:00 | HYDROCHLOROTHIAZIDE | [facility] | + + + + | 2022-05-22 00:00 | HYDROCHLOROTHIAZIDE | [facility] | + + + + | 2022-10-03 00:00 | HYDROCHLOROTHIAZIDE | [facility] | + + + + | 2022-10-17 00:00 | HYDROCHLOROTHIAZIDE | [facility] | + + + + | 2022-10-20 00:00 | HYDROCHLOROTHIAZIDE | [facility] | + + + + | 2022-11-09 00:00 | HYDROCHLOROTHIAZIDE | [facility] | + + + + | 2022-11-26 00:00 | HYDROCHLOROTHIAZIDE | [facility] | + + + + | 2018-06-18 00:00 | MELOXICAM | [facility] | + + + + | 2018-06-18 00:00 | MELOXICAM | [facility] | + + + + | 2018-10-03 00:00 | ONDANSETRON | [facility] | + + + + | 2018-10-03 00:00 | ONDANSETRON | [facility] | + + + + | 2018-11-23 00:00 | ONDANSETRON | [facility] | + + + + | 2018-11-23 00:00 | ONDANSETRON | [facility] | + + + + | 2018-02-24 00:00 | predniSONE | [facility] | + + + + | 2018-02-24 00:00 | predniSONE | [facility] | + + + + | 2021-12-17 00:00 | VENLAFAXINE HCL | [facility] | + + + + | 2021-12-17 00:00 | VENLAFAXINE HCL | [facility] | + + + + | 2022-01-28 00:00 | VENLAFAXINE HCL | [facility] | + + + + | 2022-03-07 00:00 | VENLAFAXINE HCL | [facility] | + + + + | 2022-05-17 00:00 | VENLAFAXINE HCL | [facility] | + + + + | 2022-05-19 00:00 | VENLAFAXINE HCL | [facility] | + + + + | 2022-05-22 00:00 | VENLAFAXINE HCL | [facility] | + + + + | 2022-10-03 00:00 | VENLAFAXINE HCL | [facility] | + + + + | 2022-10-17 00:00 | VENLAFAXINE HCL | [facility] | + + + + | 2022-10-20 00:00 | VENLAFAXINE HCL | [facility] | + + + + | 2022-11-09 00:00 | VENLAFAXINE HCL | [facility] | + + + + | 2022-11-26 00:00 | VENLAFAXINE HCL | [facility] | + + + + | 2022-11-26 00:00 | AMOXICILLIN/POTASSIUM CLAV | [facility] | | | | | + + + + | 2022-11-26 00:00 | DULOXETINE HCL | [facility] | + + + + | 2022-11-26 00:00 | QUETIAPINE FUMARATE | [facility] | + + + + | 2022-01-28 00:00 | ATORVASTATIN CALCIUM | [facility] | + + + + | 2022-03-07 00:00 | ATORVASTATIN CALCIUM | [facility] | + + + + | 2022-05-17 00:00 | ATORVASTATIN CALCIUM | [facility] | + + + + | 2022-05-19 00:00 | ATORVASTATIN CALCIUM | [facility] | + + + + | 2022-05-22 00:00 | ATORVASTATIN CALCIUM | [facility] | + + + + | 2022-10-03 00:00 | ATORVASTATIN CALCIUM | [facility] | + + + + | 2022-10-17 00:00 | ATORVASTATIN CALCIUM | [facility] | + + + + | 2022-10-20 00:00 | ATORVASTATIN CALCIUM | [facility] | + + + + | 2022-11-09 00:00 | ATORVASTATIN CALCIUM | [facility] | + + + + | 2022-11-26 00:00 | ATORVASTATIN CALCIUM | [facility] | + + + + | 2021-12-17 00:00 | VENLAFAXINE HCL | [facility] | + + + + | 2021-12-17 00:00 | VENLAFAXINE HCL | [facility] | + + + + | 2021-12-17 00:00 | VENLAFAXINE HCL | [facility] | + + + + | 2021-12-17 00:00 | VENLAFAXINE HCL | [facility] | + + + + | 2018-06-18 00:00 | CYCLOBENZAPRINE HCL | [facility] | + + + + | 2018-06-18 00:00 | CYCLOBENZAPRINE HCL | [facility] | + + + + | 2022-05-17 00:00 | DILTIAZEM HCL | [facility] | + + + + | 2022-05-19 00:00 | DILTIAZEM HCL | [facility] | + + + + | 2022-05-22 00:00 | DILTIAZEM HCL | [facility] | + + + + | 2022-10-03 00:00 | DILTIAZEM HCL | [facility] | + + + + | 2022-10-17 00:00 | DILTIAZEM HCL | [facility] | + + + + | 2022-10-20 00:00 | DILTIAZEM HCL | [facility] | + + + + | 2022-11-09 00:00 | DILTIAZEM HCL | [facility] | + + + + | 2022-11-26 00:00 | DILTIAZEM HCL | [facility] | + + + + | 2022-11-26 00:00 | HYDROCODONE | [facility] | | | BIT/ACETAMINOPHEN | | + + + + | 2018-06-21 00:00 | HYDROCODONE | [facility] | | | BIT/ACETAMINOPHEN | | + + + + | 2018-06-21 00:00 | HYDROCODONE | [facility] | | | BIT/ACETAMINOPHEN | | + + + + | 2019-04-12 00:00 | HYDROCODONE | [facility] | | | BIT/ACETAMINOPHEN | | + + + + | 2019-04-12 00:00 | HYDROCODONE | [facility] | | | BIT/ACETAMINOPHEN | | + + + + | 2019-12-10 00:00 | HYDROCODONE | [facility] | | | BIT/ACETAMINOPHEN | | + + + + | 2019-12-10 00:00 | HYDROCODONE | [facility] | | | BIT/ACETAMINOPHEN | | + + + + | 2022-01-28 00:00 | METOPROLOL TARTRATE | [facility] | + + + + | 2022-03-07 00:00 | METOPROLOL TARTRATE | [facility] | + + + + | 2022-05-17 00:00 | METOPROLOL TARTRATE | [facility] | + + + + | 2022-05-19 00:00 | METOPROLOL TARTRATE | [facility] | + + + + | 2022-05-22 00:00 | METOPROLOL TARTRATE | [facility] | + + + + | 2022-10-03 00:00 | METOPROLOL TARTRATE | [facility] | + + + + | 2022-10-17 00:00 | METOPROLOL TARTRATE | [facility] | + + + + | 2022-10-20 00:00 | METOPROLOL TARTRATE | [facility] | + + + + | 2022-11-09 00:00 | METOPROLOL TARTRATE | [facility] | + + + + | 2022-11-26 00:00 | METOPROLOL TARTRATE | [facility] | + + + + | 2022-01-28 00:00 | ALENDRONATE SODIUM | [facility] | + + + + | 2022-03-07 00:00 | ALENDRONATE SODIUM | [facility] | + + + + | 2022-05-17 00:00 | ALENDRONATE SODIUM | [facility] | + + + + | 2022-05-19 00:00 | ALENDRONATE SODIUM | [facility] | + + + + | 2022-05-22 00:00 | ALENDRONATE SODIUM | [facility] | + + + + | 2022-10-03 00:00 | ALENDRONATE SODIUM | [facility] | + + + + | 2022-10-17 00:00 | ALENDRONATE SODIUM | [facility] | + + + + | 2022-10-20 00:00 | ALENDRONATE SODIUM | [facility] | + + + + | 2022-11-09 00:00 | ALENDRONATE SODIUM | [facility] | + + + + | 2022-11-26 00:00 | ALENDRONATE SODIUM | [facility] | + + + + | 2022-01-28 00:00 | LOSARTAN POTASSIUM | [facility] | + + + + | 2022-03-07 00:00 | LOSARTAN POTASSIUM | [facility] | + + + + | 2022-05-17 00:00 | LOSARTAN POTASSIUM | [facility] | + + + + | 2022-05-19 00:00 | LOSARTAN POTASSIUM | [facility] | + + + + | 2022-05-22 00:00 | LOSARTAN POTASSIUM | [facility] | + + + + | 2022-10-03 00:00 | LOSARTAN POTASSIUM | [facility] | + + + + | 2022-10-17 00:00 | LOSARTAN POTASSIUM | [facility] | + + + + | 2022-10-20 00:00 | LOSARTAN POTASSIUM | [facility] | + + + + | 2022-11-09 00:00 | LOSARTAN POTASSIUM | [facility] | + + + + | 2022-11-26 00:00 | LOSARTAN POTASSIUM | [facility] | + + + + | 2022-01-28 00:00 | LOSARTAN POTASSIUM | [facility] | + + + + | 2022-03-07 00:00 | LOSARTAN POTASSIUM | [facility] | + + + + | 2022-05-17 00:00 | LOSARTAN POTASSIUM | [facility] | + + + + | 2022-05-19 00:00 | LOSARTAN POTASSIUM | [facility] | + + + + | 2022-05-22 00:00 | LOSARTAN POTASSIUM | [facility] | + + + + | 2022-10-03 00:00 | LOSARTAN POTASSIUM | [facility] | + + + + | 2022-10-17 00:00 | LOSARTAN POTASSIUM | [facility] | + + + + | 2022-10-20 00:00 | LOSARTAN POTASSIUM | [facility] | + + + + | 2022-11-09 00:00 | LOSARTAN POTASSIUM | [facility] | + + + + | 2022-11-26 00:00 | LOSARTAN POTASSIUM | [facility] | + + + + | 2018-02-12 00:00 | LOSARTAN POTASSIUM | [facility] | + + + + | 2018-02-12 00:00 | LOSARTAN POTASSIUM | [facility] | + + + + | 2022-01-28 00:00 | LOSARTAN POTASSIUM | [facility] | + + + + | 2022-03-07 00:00 | LOSARTAN POTASSIUM | [facility] | + + + + | 2022-05-17 00:00 | LOSARTAN POTASSIUM | [facility] | + + + + | 2022-05-19 00:00 | LOSARTAN POTASSIUM | [facility] | + + + + | 2022-05-22 00:00 | LOSARTAN POTASSIUM | [facility] | + + + + | 2022-10-03 00:00 | LOSARTAN POTASSIUM | [facility] | + + + + | 2022-10-17 00:00 | LOSARTAN POTASSIUM | [facility] | + + + + | 2022-10-20 00:00 | LOSARTAN POTASSIUM | [facility] | + + + + | 2022-11-09 00:00 | LOSARTAN POTASSIUM | [facility] | + + + + | 2022-11-26 00:00 | LOSARTAN POTASSIUM | [facility] | + + + + | 2022-05-17 00:00 | DICYCLOMINE HCL | [facility] | + + + + | 2022-05-17 00:00 | DICYCLOMINE HCL | [facility] | + + + + | 2022-05-17 00:00 | hydrOXYzine HCL | [facility] | + + + + | 2022-05-19 00:00 | hydrOXYzine HCL | [facility] | + + + + | 2022-05-22 00:00 | hydrOXYzine HCL | [facility] | + + + + | 2022-10-03 00:00 | hydrOXYzine HCL | [facility] | + + + + | 2022-10-17 00:00 | hydrOXYzine HCL | [facility] | + + + + | 2022-10-20 00:00 | hydrOXYzine HCL | [facility] | + + + + | 2022-11-09 00:00 | hydrOXYzine HCL | [facility] | + + + + | 2022-11-26 00:00 | hydrOXYzine HCL | [facility] | + + + + | 2019-05-25 00:00 | Guaifenesin/Codeine | [facility] | | | Phosphate | | + + + + | 2019-05-25 00:00 | Guaifenesin/Codeine | [facility] | | | Phosphate | | + + + + Problems + + + + | date | description | facility | + + + + | 2018-02-22 00:00 | Nonspecific chest pain | [facility] | + + + + | 2018-02-22 00:00 | Nonspecific chest pain | [facility] | + + + + | 2018-02-22 00:00 | Pleurisy | [facility] | + + + + | 2018-02-22 00:00 | Pleurisy | [facility] | + + + + | 2018-03-02 00:00 | Constipation | [facility] | + + + + | 2018-03-02 00:00 | Constipation | [facility] | + + + + | 2018-03-02 00:00 | Abdominal pain | [facility] | + + + + | 2018-03-02 00:00 | Abdominal pain | [facility] | + + + + | 2018-05-17 00:00 | Dyspnea | [facility] | + + + + | 2018-05-17 00:00 | Dyspnea | [facility] | + + + + | 2018-05-17 00:00 | Atypical chest pain | [facility] | + + + + | 2018-05-17 00:00 | Atypical chest pain | [facility] | + + + + | 2018-06-18 00:00 | Pain of rhomboid muscle | [facility] | + + + + | 2018-06-18 00:00 | Pain of rhomboid muscle | [facility] | + + + + | 2018-06-21 00:00 | Acute gastritis | [facility] | + + + + | 2018-06-21 00:00 | Acute gastritis | [facility] | + + + + | 2018-07-10 00:00 | Chest wall pain | [facility] | + + + + | 2018-07-10 00:00 | Chest wall pain | [facility] | + + + + | 2018-07-10 00:00 | Headache | [facility] | + + + + | 2018-07-10 00:00 | Headache | [facility] | + + + + | 2018-07-30 00:00 | Unstable angina pectoris | [facility] | + + + + | 2018-07-30 00:00 | Unstable angina pectoris | [facility] | + + + + | 2018-09-06 00:00 | Contusion of hip | [facility] | + + + + | 2018-09-06 00:00 | Contusion of hip | [facility] | + + + + | 2019-04-12 00:00 | Exacerbation of gout | [facility] | + + + + | 2019-04-12 00:00 | Exacerbation of gout | [facility] | + + + + | 2019-05-25 00:00 | Viral infection | [facility] | + + + + | 2019-05-25 00:00 | Viral infection | [facility] | + + + + | 2019-09-18 00:00 | Chest pain | [facility] | + + + + | 2019-09-18 00:00 | Chest pain | [facility] | + + + + 2019-09-18 00:00 | Vomiting and diarrhea | [facility] | + + + + | 2019-09-18 00:00 | Vomiting and diarrhea | [facility] | + + + + | 2019-09-18 00:00 | Multiple complaints | [facility] | + + + + | 2019-09-18 00:00 | Multiple complaints | [facility] | + + + + | 2019-09-25 00:00 | Sepsis | [facility] | + + + + | 2019-09-25 00:00 | Sepsis | [facility] | + + + + | 2020-04-06 14:29 | MIGRAINE, UNSP, NOT | [facility] | | | INTRACTABLE, WITHOUT STATUS | | | | [place] | | + + + + | [...] + + | 2020-04-06 14:29 | OTHER [facility] (CURRENT) | [facility] | | | DRUG [...] 00:00 | Laceration of right foot | [facility] | + + + + | 2020-11-14 00:00 | Laceration of right foot | [facility] | + + + + | 2020-12-18 00:00 | Acute gastroenteritis | [facility] | + + + + | 2020-12-18 00:00 | Acute gastroenteritis | [facility] | + + + + | 2020-12-18 00:00 | Acute kidney injury | [facility] | + + + + | 2020-12-18 00:00 | Acute kidney injury | [facility] | + + + + | 2021-01-12 00:00 | Fecal impaction of colon | [facility] | + + + + | 2021-01-12 00:00 | Fecal impaction of colon | [facility] | + + + + | 2021-12-17 00:00 | Depression | [facility] | + + + + | 2021-12-17 00:00 | Depression | [facility] | + + + + | 2022-01-26 00:00 | Pancreatic mass | [facility] | + + + + | 2022-01-26 00:00 | Pancreatic mass | [facility] | + + + + | 2022-01-26 00:00 | Combined abdominal pain, | [facility] | | | vomiting, and diarrhea | | + + + + | 2022-01-26 00:00 | Combined abdominal pain, | [facility] | | | vomiting, and diarrhea | | + + + + | 2022-03-07 00:00 | Contusion of sacrum | [facility] | + + + + | 2022-03-07 00:00 | Contusion of sacrum | [facility] | + + + + | 2022-03-07 00:00 | Strain of lumbar region | [facility] | + + + + | 2022-03-07 00:00 | Strain of lumbar region | [facility] | + + + + | 2022-05-17 00:00 | Acute abdominal pain | [facility] | + + + + | 2022-05-17 00:00 | Acute abdominal pain | [facility] | + + + + | 2022-05-19 00:00 | Patient left without being | [facility] | | | seen | | + + + + | 2022-05-19 00:00 | Patient left without being | [facility] | | | seen | | + + + + | 2022-05-21 00:00 | Agitation | [facility] | + + + + | 2022-05-21 00:00 | Agitation | 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 | | | without psychotic symptoms | | + + + + | 2022-05-22 00:00 | Severe manic episode | [facility] | | | without psychotic symptoms | [...] | 2022-10-03 00:00 | Viral gastroenteritis | [facility] | + + + + | 2022-10-03 00:00 | Viral gastroenteritis | [facility] | + + + + | 2022-10-03 [...] + + | 2022-10-03 09:24 | OTHER [facility] (CURRENT) | [facility] | | | DRUG [...] + | 2022-10-17 00:00 | Hypokalemia | [facility] | + + + + | 2022-10-17 00:00 | Hypokalemia | [facility] | + + + + | 2022-10-17 00:00 | Cramps of lower extremity | [facility] | + + + + | 2022-10-17 00:00 | Cramps of lower extremity | 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 | + + + + | 2022-10-20 00:00 | Generalized pain | 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 | + + + + | 2022-11-26 00:00 | Lesion of pancreas | [facility] | + + + + | 2022-11-26 00:00 | Urinary tract infection | 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
--- OUTSIDE RECORDS SUMMARY | ~2023-01-16 | XMS | Continuity of Care Document ---
Demographics + + + | Address | [address] | | | [place] [address] | + + + | Preferred Language | Unknown | + + + | Marital Status | | + + + | Nondenominational Affiliation | Unknown | + + + | Race | White | + + + | Ethnic Group | Not or | + + + Author + + + | Author | [facility] | + + + | Organization | [facility] | + + + | Address | [address] | | | [place] [address] | + + + | Phone | | + + + Care Team Providers + + + + | Care Legal Clerk Name | Role | Phone | + + + + Unavailable | Unavailable | + + + + Unavailable | Unavailable | + + + + Unavailable | Unavailable | + + + + Allergies and Intolerances + + + + + | date | description | facility | type | + + + + + | (no date) | Metronidazole | [facility] (unknown) [facility] | | + + + + + | (no date) | Metronidazole | [facility] | (unknown) | | | | Hospital | | + + + + + | (no date) | Metronidazole | [facility] | (unknown) | | | | Hospital | | + + + + + | (no date) | metronidazole | [facility] | (unknown) | | | | Hospital | | + + + + + | (no date) | metronidazole | [facility] | (unknown) | + + + + + Encounters No information. Functional Status No information. Immunizations + + + + | date | description | facility | + + + + | 2020-11-14 00:00 | Tdap | [facility] | + + + + | 2020-11-14 00:00 | Tdap | [facility] | + + + + Medications + + + + | date | description | facility | + + + + | 2020-04-06 00:00 | Lidocaine | [facility] | + + + + | 2020-04-06 00:00 | Lidocaine | [facility] | + + + + | 2022-10-03 00:00 | ONDANSETRON | [facility] | + + + + | 2022-10-03 00:00 | ONDANSETRON | [facility] | + + + + | 2019-08-12 00:00 | ONDANSETRON HCL | [facility] | + + + + | 2019-08-12 00:00 | ONDANSETRON HCL | [facility] | + + + + | 2022-01-28 00:00 | TRIAMCINOLONE ACETONIDE | [facility] | + + + + | 2022-03-07 00:00 | TRIAMCINOLONE ACETONIDE | [facility] | + + + + | 2022-05-17 00:00 | TRIAMCINOLONE ACETONIDE | [facility] | + + + + | 2022-05-19 00:00 | TRIAMCINOLONE ACETONIDE | [facility] | + + + + | 2022-05-22 00:00 | TRIAMCINOLONE ACETONIDE | [facility] | + + + + | 2022-10-03 00:00 | TRIAMCINOLONE ACETONIDE | [facility] | + + + + | 2022-10-17 00:00 | TRIAMCINOLONE ACETONIDE | [facility] | + + + + | 2022-10-20 00:00 | TRIAMCINOLONE ACETONIDE | [facility] | + + + + | 2022-11-09 00:00 | TRIAMCINOLONE ACETONIDE | [facility] | + + + + | 2022-11-26 00:00 | TRIAMCINOLONE ACETONIDE | [facility] | + + + + | 2018-05-17 00:00 | IPRATROPIUM/ALBUTEROL | [facility] | | | SULFATE | | + + + + | 2018-05-17 00:00 | IPRATROPIUM/ALBUTEROL | [facility] | | | SULFATE | | + + + + | 2022-05-17 00:00 | ALPRAZOLAM | [facility] | + + + + | 2022-05-17 00:00 | ALPRAZOLAM | [facility] | + + + + | 2018-02-12 00:00 | POTASSIUM CHLORIDE | [facility] | + + + + | 2018-02-12 00:00 | POTASSIUM CHLORIDE | [facility] | + + + + | 2022-10-17 00:00 | POTASSIUM CHLORIDE | [facility] | + + + + | 2022-10-17 00:00 | POTASSIUM CHLORIDE | [facility] | + + + + | 2022-01-28 00:00 | ALLOPURINOL | [facility] | + + + + | 2022-03-07 00:00 | ALLOPURINOL | [facility] | + + + + | 2022-05-17 00:00 | ALLOPURINOL | [facility] | + + + + | 2022-05-19 00:00 | ALLOPURINOL | [facility] | + + + + | 2022-05-22 00:00 | ALLOPURINOL | [facility] | + + + + | 2022-10-03 00:00 | ALLOPURINOL | [facility] | + + + + | 2022-10-17 00:00 | ALLOPURINOL | [facility] | + + + + | 2022-10-20 00:00 | ALLOPURINOL | [facility] | + + + + | 2022-11-09 00:00 | ALLOPURINOL | [facility] | + + + + | 2022-11-26 00:00 | ALLOPURINOL | [facility] | + + + + | 2022-01-28 00:00 | AMLODIPINE BESYLATE | [facility] | + + + + | 2022-03-07 00:00 | AMLODIPINE BESYLATE | [facility] | + + + + | 2022-05-17 00:00 | AMLODIPINE BESYLATE | [facility] | + + + + | 2022-05-19 00:00 | AMLODIPINE BESYLATE | [facility] | + + + + | 2022-05-22 00:00 | AMLODIPINE BESYLATE | [facility] | + + + + | 2022-10-03 00:00 | AMLODIPINE BESYLATE | [facility] | + + + + | 2022-10-17 00:00 | AMLODIPINE BESYLATE | [facility] | + + + + | 2022-10-20 00:00 | AMLODIPINE BESYLATE | [facility] | + + + + | 2022-11-09 00:00 | AMLODIPINE BESYLATE | [facility] | + + + + | 2022-11-26 00:00 | AMLODIPINE BESYLATE | [facility] | + + + + | 2022-01-28 00:00 | ATENOLOL | [facility] | + + + + | 2022-03-07 00:00 | ATENOLOL | [facility] | + + + + | 2022-05-17 00:00 | ATENOLOL | [facility] | + + + + | 2022-05-19 00:00 | ATENOLOL | [facility] | + + + + | 2022-05-22 00:00 | ATENOLOL | [facility] | + + + + | 2022-10-03 00:00 | ATENOLOL | [facility] | + + + + | 2022-10-17 00:00 | ATENOLOL | [facility] | + + + + | 2022-10-20 00:00 | ATENOLOL | [facility] | + + + + | 2022-11-09 00:00 | ATENOLOL | [facility] | + + + + | 2022-11-26 00:00 | ATENOLOL | [facility] | + + + + | 2018-06-21 00:00 | OMEPRAZOLE | [facility] | + + + + | 2018-06-21 00:00 | OMEPRAZOLE | [facility] | + + + + | 2022-01-28 00:00 | OMEPRAZOLE | [facility] | + + + + | 2022-03-07 00:00 | OMEPRAZOLE | [facility] | + + + + | 2022-05-17 00:00 | OMEPRAZOLE | [facility] | + + + + | 2022-05-19 00:00 | OMEPRAZOLE | [facility] | + + + + | 2022-05-22 00:00 | OMEPRAZOLE | [facility] | + + + + | 2022-10-03 00:00 | OMEPRAZOLE | [facility] | + + + + | 2022-10-17 00:00 | OMEPRAZOLE | [facility] | + + + + | 2022-10-20 00:00 | OMEPRAZOLE | [facility] | + + + + | 2022-11-09 00:00 | OMEPRAZOLE | [facility] | + + + + | 2022-11-26 00:00 | OMEPRAZOLE | [facility] | + + + + | 2018-02-08 00:00 | PROCHLORPERAZINE MALEATE | [facility] | + + + + | 2018-02-08 00:00 | PROCHLORPERAZINE MALEATE | [facility] | + + + + | 2022-05-17 00:00 | OMEPRAZOLE | [facility] | + + + + | 2022-05-19 00:00 | OMEPRAZOLE | [facility] | + + + + | 2022-05-22 00:00 | OMEPRAZOLE | [facility] | + + + + | 2022-10-03 00:00 | OMEPRAZOLE | [facility] | + + + + | 2022-10-17 00:00 | OMEPRAZOLE | [facility] | + + + + | 2022-10-20 00:00 | OMEPRAZOLE | [facility] | + + + + | 2022-11-09 00:00 | OMEPRAZOLE | [facility] | + + + + | 2022-11-26 00:00 | OMEPRAZOLE | [facility] | + + + + | 2019-09-28 00:00 | VANCOMYCIN HCL | [facility] | + + + + | 2019-09-28 00:00 | VANCOMYCIN HCL | [facility] | + + + + | 2018-10-03 00:00 | METOCLOPRAMIDE HCL | [facility] | + + + + | 2018-10-03 00:00 | METOCLOPRAMIDE HCL | [facility] | + + + + | 2022-01-26 00:00 | METOCLOPRAMIDE HCL | [facility] | + + + + | 2022-01-26 00:00 | METOCLOPRAMIDE HCL | [facility] | + + + + | 2022-11-09 00:00 | METOCLOPRAMIDE HCL | [facility] | + + + + | 2019-05-25 00:00 | BENZONATATE | [facility] | + + + + | 2019-05-25 00:00 | BENZONATATE | [facility] | + + + + | 2022-01-28 00:00 | SIMETHICONE | [facility] | + + + + | 2022-03-07 00:00 | SIMETHICONE | [facility] | + + + + | 2022-05-17 00:00 | SIMETHICONE | [facility] | + + + + | 2022-05-19 00:00 | SIMETHICONE | [facility] | + + + + | 2022-05-22 00:00 | SIMETHICONE | [facility] | + + + + | 2022-10-03 00:00 | SIMETHICONE | [facility] | + + + + | 2022-10-17 00:00 | SIMETHICONE | [facility] | + + + + | 2022-10-20 00:00 | SIMETHICONE | [facility] | + + + + | 2022-11-09 00:00 | SIMETHICONE | [facility] | + + + + | 2022-11-26 00:00 | SIMETHICONE | [facility] | + + + + | 2022-10-17 00:00 | MIRTAZAPINE | [facility] | + + + + | 2022-10-17 00:00 | MIRTAZAPINE | [facility] | + + + + | 2022-01-28 00:00 | MELATONIN | [facility] | + + + + | 2022-03-07 00:00 | MELATONIN | [facility] | + + + + | 2022-05-17 00:00 | MELATONIN | [facility] | + + + + | 2022-05-19 00:00 | MELATONIN | [facility] | + + + + | 2022-05-22 00:00 | MELATONIN | [facility] | + + + + | 2022-10-03 00:00 | MELATONIN | [facility] | + + + + | 2022-10-17 00:00 | MELATONIN | [facility] | + + + + | 2022-10-20 00:00 | MELATONIN | [facility] | + + + + | 2022-11-09 00:00 | MELATONIN | [facility] | + + + + | 2022-11-26 00:00 | MELATONIN | [facility] | + + + + | 2022-05-17 00:00 | ALPRAZOLAM | [facility] | + + + + | 2022-05-19 00:00 | ALPRAZOLAM | [facility] | + + + + | 2022-05-22 00:00 | ALPRAZOLAM | [facility] | + + + + | 2022-10-03 00:00 | ALPRAZOLAM | [facility] | + + + + | 2022-10-17 00:00 | ALPRAZOLAM | [facility] | + + + + | 2022-10-20 00:00 | ALPRAZOLAM | [facility] | + + + + | 2018-02-12 00:00 | CEFPODOXIME PROXETIL | [facility] | + + + + | 2018-02-12 00:00 | CEFPODOXIME PROXETIL | [facility] | + + + + | 2018-02-12 00:00 | FUROSEMIDE | [facility] | + + + + | 2018-02-12 00:00 | FUROSEMIDE | [facility] | + + + + | 2022-11-26 00:00 | GABAPENTIN | [facility] | + + + + | 2022-01-28 00:00 | HYDROCHLOROTHIAZIDE | [facility] | + + + + | 2022-03-07 00:00 | HYDROCHLOROTHIAZIDE | [facility] | + + + + | 2022-05-17 00:00 | HYDROCHLOROTHIAZIDE | [facility] | + + + + | 2022-05-19 00:00 | HYDROCHLOROTHIAZIDE | [facility] | + + + + | 2022-05-22 00:00 | HYDROCHLOROTHIAZIDE | [facility] | + + + + | 2022-10-03 00:00 | HYDROCHLOROTHIAZIDE | [facility] | + + + + | 2022-10-17 00:00 | HYDROCHLOROTHIAZIDE | [facility] | + + + + | 2022-10-20 00:00 | HYDROCHLOROTHIAZIDE | [facility] | + + + + | 2022-11-09 00:00 | HYDROCHLOROTHIAZIDE | [facility] | + + + + | 2022-11-26 00:00 | HYDROCHLOROTHIAZIDE | [facility] | + + + + | 2018-06-18 00:00 | MELOXICAM | [facility] | + + + + | 2018-06-18 00:00 | MELOXICAM | [facility] | + + + + | 2018-10-03 00:00 | ONDANSETRON | [facility] | + + + + | 2018-10-03 00:00 | ONDANSETRON | [facility] | + + + + | 2018-11-23 00:00 | ONDANSETRON | [facility] | + + + + | 2018-11-23 00:00 | ONDANSETRON | [facility] | + + + + | 2018-02-24 00:00 | predniSONE | [facility] | + + + + | 2018-02-24 00:00 | predniSONE | [facility] | + + + + | 2021-12-17 00:00 | VENLAFAXINE HCL | [facility] | + + + + | 2021-12-17 00:00 | VENLAFAXINE HCL | [facility] | + + + + | 2022-01-28 00:00 | VENLAFAXINE HCL | [facility] | + + + + | 2022-03-07 00:00 | VENLAFAXINE HCL | [facility] | + + + + | 2022-05-17 00:00 | VENLAFAXINE HCL | [facility] | + + + + | 2022-05-19 00:00 | VENLAFAXINE HCL | [facility] | + + + + | 2022-05-22 00:00 | VENLAFAXINE HCL | [facility] | + + + + | 2022-10-03 00:00 | VENLAFAXINE HCL | [facility] | + + + + | 2022-10-17 00:00 | VENLAFAXINE HCL | [facility] | + + + + | 2022-10-20 00:00 | VENLAFAXINE HCL | [facility] | + + + + | 2022-11-09 00:00 | VENLAFAXINE HCL | [facility] | + + + + | 2022-11-26 00:00 | VENLAFAXINE HCL | [facility] | + + + + | 2022-11-26 00:00 | AMOXICILLIN/POTASSIUM CLAV | [facility] | | | | | + + + + | 2022-11-26 00:00 | DULOXETINE HCL | [facility] | + + + + | 2022-11-26 00:00 | QUETIAPINE FUMARATE | [facility] | + + + + | 2022-01-28 00:00 | ATORVASTATIN CALCIUM | [facility] | + + + + | 2022-03-07 00:00 | ATORVASTATIN CALCIUM | [facility] | + + + + | 2022-05-17 00:00 | ATORVASTATIN CALCIUM | [facility] | + + + + | 2022-05-19 00:00 | ATORVASTATIN CALCIUM | [facility] | + + + + | 2022-05-22 00:00 | ATORVASTATIN CALCIUM | [facility] | + + + + | 2022-10-03 00:00 | ATORVASTATIN CALCIUM | [facility] | + + + + | 2022-10-17 00:00 | ATORVASTATIN CALCIUM | [facility] | + + + + | 2022-10-20 00:00 | ATORVASTATIN CALCIUM | [facility] | + + + + | 2022-11-09 00:00 | ATORVASTATIN CALCIUM | [facility] | + + + + | 2022-11-26 00:00 | ATORVASTATIN CALCIUM | [facility] | + + + + | 2021-12-17 00:00 | VENLAFAXINE HCL | [facility] | + + + + | 2021-12-17 00:00 | VENLAFAXINE HCL | [facility] | + + + + | 2021-12-17 00:00 | VENLAFAXINE HCL | [facility] | + + + + | 2021-12-17 00:00 | VENLAFAXINE HCL | [facility] | + + + + | 2018-06-18 00:00 | CYCLOBENZAPRINE HCL | [facility] | + + + + | 2018-06-18 00:00 | CYCLOBENZAPRINE HCL | [facility] | + + + + | 2022-05-17 00:00 | DILTIAZEM HCL | [facility] | + + + + | 2022-05-19 00:00 | DILTIAZEM HCL | [facility] | + + + + | 2022-05-22 00:00 | DILTIAZEM HCL | [facility] | + + + + | 2022-10-03 00:00 | DILTIAZEM HCL | [facility] | + + + + | 2022-10-17 00:00 | DILTIAZEM HCL | [facility] | + + + + | 2022-10-20 00:00 | DILTIAZEM HCL | [facility] | + + + + | 2022-11-09 00:00 | DILTIAZEM HCL | [facility] | + + + + | 2022-11-26 00:00 | DILTIAZEM HCL | [facility] | + + + + | 2022-11-26 00:00 | HYDROCODONE | [facility] | | | BIT/ACETAMINOPHEN | | + + + + | 2018-06-21 00:00 | HYDROCODONE | [facility] | | | BIT/ACETAMINOPHEN | | + + + + | 2018-06-21 00:00 | HYDROCODONE | [facility] | | | BIT/ACETAMINOPHEN | | + + + + | 2019-04-12 00:00 | HYDROCODONE | [facility] | | | BIT/ACETAMINOPHEN | | + + + + | 2019-04-12 00:00 | HYDROCODONE | [facility] | | | BIT/ACETAMINOPHEN | | + + + + | 2019-12-10 00:00 | HYDROCODONE | [facility] | | | BIT/ACETAMINOPHEN | | + + + + | 2019-12-10 00:00 | HYDROCODONE | [facility] | | | BIT/ACETAMINOPHEN | | + + + + | 2022-01-28 00:00 | METOPROLOL TARTRATE | [facility] | + + + + | 2022-03-07 00:00 | METOPROLOL TARTRATE | [facility] | + + + + | 2022-05-17 00:00 | METOPROLOL TARTRATE | [facility] | + + + + | 2022-05-19 00:00 | METOPROLOL TARTRATE | [facility] | + + + + | 2022-05-22 00:00 | METOPROLOL TARTRATE | [facility] | + + + + | 2022-10-03 00:00 | METOPROLOL TARTRATE | [facility] | + + + + | 2022-10-17 00:00 | METOPROLOL TARTRATE | [facility] | + + + + | 2022-10-20 00:00 | METOPROLOL TARTRATE | [facility] | + + + + | 2022-11-09 00:00 | METOPROLOL TARTRATE | [facility] | + + + + | 2022-11-26 00:00 | METOPROLOL TARTRATE | [facility] | + + + + | 2022-01-28 00:00 | ALENDRONATE SODIUM | [facility] | + + + + | 2022-03-07 00:00 | ALENDRONATE SODIUM | [facility] | + + + + | 2022-05-17 00:00 | ALENDRONATE SODIUM | [facility] | + + + + | 2022-05-19 00:00 | ALENDRONATE SODIUM | [facility] | + + + + | 2022-05-22 00:00 | ALENDRONATE SODIUM | [facility] | + + + + | 2022-10-03 00:00 | ALENDRONATE SODIUM | [facility] | + + + + | 2022-10-17 00:00 | ALENDRONATE SODIUM | [facility] | + + + + | 2022-10-20 00:00 | ALENDRONATE SODIUM | [facility] | + + + + | 2022-11-09 00:00 | ALENDRONATE SODIUM | [facility] | + + + + | 2022-11-26 00:00 | ALENDRONATE SODIUM | [facility] | + + + + | 2022-01-28 00:00 | LOSARTAN POTASSIUM | [facility] | + + + + | 2022-03-07 00:00 | LOSARTAN POTASSIUM | [facility] | + + + + | 2022-05-17 00:00 | LOSARTAN POTASSIUM | [facility] | + + + + | 2022-05-19 00:00 | LOSARTAN POTASSIUM | [facility] | + + + + | 2022-05-22 00:00 | LOSARTAN POTASSIUM | [facility] | + + + + | 2022-10-03 00:00 | LOSARTAN POTASSIUM | [facility] | + + + + | 2022-10-17 00:00 | LOSARTAN POTASSIUM | [facility] | + + + + | 2022-10-20 00:00 | LOSARTAN POTASSIUM | [facility] | + + + + | 2022-11-09 00:00 | LOSARTAN POTASSIUM | [facility] | + + + + | 2022-11-26 00:00 | LOSARTAN POTASSIUM | [facility] | + + + + | 2022-01-28 00:00 | LOSARTAN POTASSIUM | [facility] | + + + + | 2022-03-07 00:00 | LOSARTAN POTASSIUM | [facility] | + + + + | 2022-05-17 00:00 | LOSARTAN POTASSIUM | [facility] | + + + + | 2022-05-19 00:00 | LOSARTAN POTASSIUM | [facility] | + + + + | 2022-05-22 00:00 | LOSARTAN POTASSIUM | [facility] | + + + + | 2022-10-03 00:00 | LOSARTAN POTASSIUM | [facility] | + + + + | 2022-10-17 00:00 | LOSARTAN POTASSIUM | [facility] | + + + + | 2022-10-20 00:00 | LOSARTAN POTASSIUM | [facility] | + + + + | 2022-11-09 00:00 | LOSARTAN POTASSIUM | [facility] | + + + + | 2022-11-26 00:00 | LOSARTAN POTASSIUM | [facility] | + + + + | 2018-02-12 00:00 | LOSARTAN POTASSIUM | [facility] | + + + + | 2018-02-12 00:00 | LOSARTAN POTASSIUM | [facility] | + + + + | 2022-01-28 00:00 | LOSARTAN POTASSIUM | [facility] | + + + + | 2022-03-07 00:00 | LOSARTAN POTASSIUM | [facility] | + + + + | 2022-05-17 00:00 | LOSARTAN POTASSIUM | [facility] | + + + + | 2022-05-19 00:00 | LOSARTAN POTASSIUM | [facility] | + + + + | 2022-05-22 00:00 | LOSARTAN POTASSIUM | [facility] | + + + + | 2022-10-03 00:00 | LOSARTAN POTASSIUM | [facility] | + + + + | 2022-10-17 00:00 | LOSARTAN POTASSIUM | [facility] | + + + + | 2022-10-20 00:00 | LOSARTAN POTASSIUM | [facility] | + + + + | 2022-11-09 00:00 | LOSARTAN POTASSIUM | [facility] | + + + + | 2022-11-26 00:00 | LOSARTAN POTASSIUM | [facility] | + + + + | 2022-05-17 00:00 | DICYCLOMINE HCL | [facility] | + + + + | 2022-05-17 00:00 | DICYCLOMINE HCL | [facility] | + + + + | 2022-05-17 00:00 | hydrOXYzine HCL | [facility] | + + + + | 2022-05-19 00:00 | hydrOXYzine HCL | [facility] | + + + + | 2022-05-22 00:00 | hydrOXYzine HCL | [facility] | + + + + | 2022-10-03 00:00 | hydrOXYzine HCL | [facility] | + + + + | 2022-10-17 00:00 | hydrOXYzine HCL | [facility] | + + + + | 2022-10-20 00:00 | hydrOXYzine HCL | [facility] | + + + + | 2022-11-09 00:00 | hydrOXYzine HCL | [facility] | + + + + | 2022-11-26 00:00 | hydrOXYzine HCL | [facility] | + + + + | 2019-05-25 00:00 | Guaifenesin/Codeine | [facility] | | | Phosphate | | + + + + | 2019-05-25 00:00 | Guaifenesin/Codeine | [facility] | | | Phosphate | | + + + + Problems + + + + | date | description | facility | + + + + | 2018-02-22 00:00 | Nonspecific chest pain | [facility] | + + + + | 2018-02-22 00:00 | Nonspecific chest pain | [facility] | + + + + | 2018-02-22 00:00 | Pleurisy | [facility] | + + + + | 2018-02-22 00:00 | Pleurisy | [facility] | + + + + | 2018-03-02 00:00 | Constipation | [facility] | + + + + | 2018-03-02 00:00 | Constipation | [facility] | + + + + | 2018-03-02 00:00 | Abdominal pain | [facility] | + + + + | 2018-03-02 00:00 | Abdominal pain | [facility] | + + + + | 2018-05-17 00:00 | Dyspnea | [facility] | + + + + | 2018-05-17 00:00 | Dyspnea | [facility] | + + + + | 2018-05-17 00:00 | Atypical chest pain | [facility] | + + + + | 2018-05-17 00:00 | Atypical chest pain | [facility] | + + + + | 2018-06-18 00:00 | Pain of rhomboid muscle | [facility] | + + + + | 2018-06-18 00:00 | Pain of rhomboid muscle | [facility] | + + + + | 2018-06-21 00:00 | Acute gastritis | [facility] | + + + + | 2018-06-21 00:00 | Acute gastritis | [facility] | + + + + | 2018-07-10 00:00 | Chest wall pain | [facility] | + + + + | 2018-07-10 00:00 | Chest wall pain | [facility] | + + + + | 2018-07-10 00:00 | Headache | [facility] | + + + + | 2018-07-10 00:00 | Headache | [facility] | + + + + | 2018-07-30 00:00 | Unstable angina pectoris | [facility] | + + + + | 2018-07-30 00:00 | Unstable angina pectoris | [facility] | + + + + | 2018-09-06 00:00 | Contusion of hip | [facility] | + + + + | 2018-09-06 00:00 | Contusion of hip | [facility] | + + + + | 2019-04-12 00:00 | Exacerbation of gout | [facility] | + + + + | 2019-04-12 00:00 | Exacerbation of gout | [facility] | + + + + | 2019-05-25 00:00 | Viral infection | [facility] | + + + + | 2019-05-25 00:00 | Viral infection | [facility] | + + + + | 2019-09-18 00:00 | Chest pain | [facility] | + + + + | 2019-09-18 00:00 | Chest pain | [facility] | + + + + 2019-09-18 00:00 | Vomiting and diarrhea | [facility] | + + + + | 2019-09-18 00:00 | Vomiting and diarrhea | [facility] | + + + + | 2019-09-18 00:00 | Multiple complaints | [facility] | + + + + | 2019-09-18 00:00 | Multiple complaints | [facility] | + + + + | 2019-09-25 00:00 | Sepsis | [facility] | + + + + | 2019-09-25 00:00 | Sepsis | [facility] | + + + + | 2020-04-06 14:29 | MIGRAINE, UNSP, NOT | [facility] | | | INTRACTABLE, WITHOUT STATUS | | | | [place] | | + + + + | [...] + + | 2020-04-06 14:29 | OTHER MCFP (CURRENT) | [facility] | | | DRUG [...] | Laceration of right foot | [facility] | + + + + | 2020-11-14 00:00 | Laceration of right foot | [facility] | + + + + | 2020-12-18 00:00 | Acute gastroenteritis | [facility] | + + + + | 2020-12-18 00:00 | Acute gastroenteritis | [facility] | + + + + | 2020-12-18 00:00 | Acute kidney injury | [facility] | + + + + | 2020-12-18 00:00 | Acute kidney injury | [facility] | + + + + | 2021-01-12 00:00 | Fecal impaction of colon | [facility] | + + + + | 2021-01-12 00:00 | Fecal impaction of colon | [facility] | + + + + | 2021-12-17 00:00 | Depression | [facility] | + + + + | 2021-12-17 00:00 | Depression | [facility] | + + + + | 2022-01-26 00:00 | Pancreatic mass | [facility] | + + + + | 2022-01-26 00:00 | Pancreatic mass | [facility] | + + + + | 2022-01-26 00:00 | Combined abdominal pain, | [facility] | | | vomiting, and diarrhea | | + + + + | 2022-01-26 00:00 | Combined abdominal pain, | [facility] | | | vomiting, and diarrhea | | + + + + | 2022-03-07 00:00 | Contusion of sacrum | [facility] | + + + + | 2022-03-07 00:00 | Contusion of sacrum | [facility] | + + + + | 2022-03-07 00:00 | Strain of lumbar region | [facility] | + + + + | 2022-03-07 00:00 | Strain of lumbar region | [facility] | + + + + | 2022-05-17 00:00 | Acute abdominal pain | [facility] | + + + + | 2022-05-17 00:00 | Acute abdominal pain | [facility] | + + + + | 2022-05-19 00:00 | Patient left without being | [facility] | | | seen | | + + + + | 2022-05-19 00:00 | Patient left without being | [facility] | | | seen | | + + + + | 2022-05-21 00:00 | Agitation | [facility] | + + + + | 2022-05-21 00:00 | Agitation | [facility] | + + + + | 2022-05-22 00:00 | Severe manic episode | [facility] | | | without psychotic symptoms | | + + + + | 2022-05-22 00:00 | Severe manic episode | [facility] | | | without psychotic symptoms | [...] 2022-10-03 00:00 | Viral gastroenteritis | [facility] | + + + + | 2022-10-03 00:00 | Viral gastroenteritis | [facility] | + + + + | 2022-10-03 [...] + + | 2022-10-03 09:24 | OTHER [facility] (CURRENT) | [facility] | | | DRUG [...] | 2022-10-17 00:00 | Hypokalemia | [facility] | + + + + | 2022-10-17 00:00 | Hypokalemia | [facility] | + + + + | 2022-10-17 00:00 | Cramps of lower extremity | [facility] | + + + + | 2022-10-17 00:00 | Cramps of lower extremity | [facility] | + + + + | 2022-10-17 [...] + + | 2022-10-17 19:31 | OTHER INSPECTOR TYPE (CURRENT) | [facility] | | | 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 | | + + + + | 2022-10-17 19:31 | PERSONAL HISTORY OF | [facility] | | | NICOTINE DEPENDENCE | | + + + + | 2022-10-17 19:31 | ALLERGY STATUS TO OTHER | [facility] | | | ANTIBIOTIC AGENTS STATUS | | + + + + | 2022-10-20 00:00 | Nausea | [facility] | + + + + | 2022-10-20 00:00 | Generalized pain | [facility] | + + + + | 2022-10-20 [...] + + | 2022-10-20 13:14 | OTHER [facility] (CURRENT) | [facility] | | | DRUG [...] INTRACTABLE, WITHOUT STATUS | | | | [place] | | + + + + | [...] + + | 2022-11-09 15:12 | OTHER INSPECTOR TYPE (CURRENT) | [facility] | | | DRUG [...] | 2022-11-26 00:00 | Colitis | [facility] | + + + + | 2022-11-26 00:00 | Lesion of pancreas | [facility] | + + + + | 2022-11-26 00:00 | Urinary tract infection | [facility] | + + + + | 2022-11-26 [...] + + | 2022-11-26 06:52 | OTHER INSPECTOR TYPE (CURRENT) | [facility] | | | DRUG [...] | (unknown) | | | | | [place] | value) | unknown) | | | [...]
[~2023-01-16 06:26] MED LIST changes: +AMOX TR-K CLV1 EAC1 PO; +DULOXETINE HCL30 MG PO; +GABAPENTIN300 MG PO; +HYDROCODON-ACE1 EA10 PO; +QUETIAPINE FUMA50 MG PO
--- OUTSIDE RECORDS SUMMARY | 2023-01-16 06:28 | XMS ---
PreManage Notification: JAMIE TORRES Security Salesperson Hearing Aids Events 1 event(s) in the past 18 months Most recent security events: Elopement at [facility] 05/19/2022 15:35 - Patient eloped before treatment completed. - Patient with suicidal and/or homicidal ideations eloped. - Patient eloped with IV in place. Details: Patient LWBS. CRITERIA MET - 6 ED Visits in 6 Months - Group Notification - PDMP CARE PROVIDERS [facility] 04/04/2020-Current PHONE: Unknown [facility] Internal Medicine 03/03/2018-Current PHONE: Unknown Chandrika has [...] Center - Patient is currently established with [facility]. If patient is seen in the ED during business hours. Please contact CHWs at [facility]. Care Recommendation: If this patient has [...] care. E.D. VISIT COUNT (12 MO.) 2 [facility] ED 11 [facility]. TOTAL 13 NOTE: Visits indicate total known visits. ED/C VISIT TRACKING (12 MO.) 01/16/2023:27 [facility] [place] TYPE: Emergency COMPLAINT: - ABD PAIN, CRAMPS, DIARRHEA 11/26/2022 06:[address] 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 - Personal history of nicotine dependence - Urinary tract infection, site not specified 11/09/2022 15:12 [facility] [place] TYPE: Emergency COMPLAINT: - VOMITING DIAGNOSES: [...] - Nausea with vomiting, unspecified - Other prison (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 - Personal history of [...] chronic kidney disease - Nausea - Other long haul truck driver (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 - Personal history of [...] chronic kidney disease - Hypokalemia - Other long haul truck driver (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 - Pain in left leg - Personal history of nicotine dependence 10/11/2022 09:33 [facility] TYPE: Emergency DIAGNOSES: - Acute bronchitis, unspecified [...] or unspecified chronic kidney disease - Other prison (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 - Personal history of nicotine dependence - Viral intestinal infection, unspecified 05/26/2022 14:07 [facility] TYPE: Emergency DIAGNOSES: - Chronic kidney disease, [...] not intractable, without status migrainosus - Other long haul truck driver (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 - Personal history of [...] not intractable, without status migrainosus - Other prison (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 - Personal history of [...] or unspecified chronic kidney disease - Other long haul truck driver (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 - Pain in unspecified shoulder - Personal history of nicotine dependence - Sacrococcygeal disorders, not elsewhere classified - Strain of muscle, fascia and tendon of lower back, initial encounter 01/26/2022 09:[address] [facility] [place] TYPE: Emergency COMPLAINT: - ABD CRAMPING,DIARRHEA [...] not intractable, without status migrainosus - Other prison (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 - Other specified diseases of pancreas - Personal history of nicotine dependence - Right upper quadrant pain - Unspecified abdominal pain - Vomiting, unspecified INPATIENT VISIT TRACKING (12 MO.) No inpatient visits to display in this time frame [id number]
[2023-01-16] MEDS ORDERED: ATORVASTATIN CA40 MG PO (10:12)
[2023-01-16] MEDS ORDERED: HYDROCODON-ACE1 EA10 PO (10:13)
[2023-01-16] MEDS ORDERED: DULOXETINE HCL30 MG PO (10:13)
[2023-01-16] MEDS ORDERED: AMOX TR-K CLV1 EAC1 PO (10:13)
[2023-01-16] MEDS ORDERED: QUETIAPINE FUMA50 MG PO (10:14)
[2023-01-16] MEDS ORDERED: MIRTAZAPINE15 MG PO (10:14)
[2023-01-16] MEDS ORDERED: VENTOLIN HFA18 GM INH (10:15)
[2023-01-16] MEDS ORDERED: FUROSEMIDE20 MG PO (10:15)
--- NOTE | 2023-01-16 11:00 | NUR ---
PT ARRIVES TO ROOM VIA STRETCHER ACCOMPANIED BY CARMEN MARES. BEDSIDE REPORT RECEIVED FROM CARMEN MARES. PT AMBULATES FROM STRETCHER TO BED. VITALS COMPLETE. ASSESSMENT COMPLETE. LUNG SOUNDS CLEAR. BOWEL TONES ACTIVE. ABD TENDER WITH PALPATION. MILD DISTENTION. PT REPORTING PAIN 6/10. PRN TYLENOL ADMINISTERED, SEE MAR. HOT PACK PROVIDED. SCRATCHES TO RIGHT FOREARM NOTED. PT REPORTS "CAT SCRATCHES." PT A&O TO ALL IV FLUIDS STARTED, SEE MAR. WARM BLANKETS PROVIDED. WATER PROVIDED. PTs ROOMMATE AT BEDSIDE. PT DENIES ANY OTHER NEEDS AT THIS TIME. CALL LIGHT IN REACH. BED ALARM ON.
[2023-01-16 11:11] VITALS: BP 182/94
--- NOTE | 2023-01-16 13:33 | NUR ---
THIS RN CALLED PHARMACY REGARDING ORDERED CALCIUM MEDICATION. PHARMACY STATES "DUE TO MEDICATION BEING AN ED ORDER IT BYPASSES PHARMACY, SO PHARMACY CANNOT MIX IT." THIS RN WILL CALL MD AND FOLLOW UP REGARDING ORDERS.
--- NOTE | 2023-01-16 13:38 | NUR ---
THIS RN CALLED DR. ALVAREZ REGARDIG PTs PAIN. NO NEW ORDERS FOR PAIN AT THIS TIME. ALSO TALKED TO MD REGARDING CALCIUM ORDER. NEW ORDERS RECEIVED. MD TO PLACE NEW ORDERS.
--- NOTE | 2023-01-16 14:27 | NUR ---
IN TO ROUND ON PT. PT LAYING IN BED. OFFERED PT HOT PACK FOR ABD PAIN. PT ACCEPTS. HOT PACK PROVIDED. PT DENIES ANY OTHER NEEDS AT THIS TIME. CALL LIGHT IN REACH. BED ALARM ON.
[2023-01-16 14:34] VITALS: BP 185/86
[2023-01-16] MEDS ORDERED: GABAPENTIN300 MG PO (15:59)
--- NOTE | 2023-01-16 16:20 | NUR ---
PATIENT IS LAYING DOWN IN HER BED. TRYING TO REST BUT HER TUMMY HURTS AND NURSE KNOWS.
[2023-01-16 17:20] VITALS: BP 189/79
--- NOTE | 2023-01-16 18:48 | NUR ---
IN TO ATTEMPT STRAIGHT CATH PER ORDERS. STRAIGHT CATH PER POLICY. ONLY 5ML OUTPUT NOTED WITH STRAIGHT CATH. NOEMI HACKETT IN ROOM TO ASSIST. PT REQUESTING TOILETING. NOEMI HACKETT SBA WITH PT FROM BED TO RESTROOM AND BACK TO BED.
--- NOTE | 2023-01-16 18:57 | NUR ---
UPDATED MD ON STRAIGHT CATH. MD AWARE. NO NEW ORDERS AT THIS TIME.
--- NOTE | 2023-01-16 20:24 | NUR ---
FULL BODY ASSESMENT DONE, PATIENT RESTING BACK IN BED. LUNG SOUNDS CLEAR. PATIENT REPORTS PAIN 3/10 ON PAIN SCALE AT THIS TIME, TOLERABLE. IV FLUIDS INCREASED 100 ML/HR, VERBAL ORDER FROM HOSPITALIST. ENCOURAGED PATIENT TO DRINK FLUIDS.
[2023-01-16 21:01] VITALS: BP 172/83
--- NOTE | 2023-01-16 21:06 | NUR ---
IV PUMP ALARMING, ISSUE RESOLVED. IV SITE REMAINS WNL. pt GRIMACING AND STATES, "I JUST WISH MY STOMACH WOULDN'T HURT". pt REPORTS SHE RECIEVED PAIN MEDICATION EARLIER IN THE DAY AND WHEN ASKED IF IT HELPED HER SHE STATES, "WELL THEY HELPED ME SLEEP". [employer]ES IN ROOM COLLECTING VS, PRIMARY RN TO ASSESS pt AND PROVIDE EVENING MEDICATIONS. CALL LIGHT IN REACH, NO NEEDS OR CONCERNS VERBALIZED BY pt.
--- NOTE | 2023-01-16 22:16 | NUR ---
PATIENT REPORTS 7/10 ABD PAIN. PRN MEDICATION GIVEN PER ORDER. PATIENT DENIES ANY FURTHER NEEDS. IV INFUSING PER ORDER. CALL LIGHT IN REACH.
--- NOTE | 2023-01-16 22:59 | NUR ---
PATIENT APPEARS TO BE RESTING WITH EYES CLOSED, APPEARS CALM. NO CLINICAL SIGNS OF PAIN. CALL LIGHT WITHIN REACH. NO OTHER NEEDS AT THIS TIME.
[2023-01-17] VITALS (7 sets, daily range): BP systolic 152–169; BP diastolic 65–85
--- NOTE | 2023-01-17 03:57 | NUR ---
PATIENT CALLED WITH COMPLAINTS OF ABDOMINAL PAIN. ADMINISTERED 2MG IV MORPHINE DILUTED IN 20 ML OF NS AND ADMINISTERED OVER THE PUMP FOR 3 MINUTE DURATION. PATIENT DID NOT HAVE ANY EPISODES OF NAUSEA AND TOLERATED WELL. PATIENT NOW RESTING WITH EYES CLOSED, APPEARS COMFORTABLE. CALL LIGHT WITHIN REACH.
--- NOTE | 2023-01-17 06:02 | NUR ---
PATIENT RESTING WITH EYES CLOSED. APPEARS QUIET AND RELAXED. APPEARS TO HAVE NO NEEDS AT THIS TIME. CALL LIGHT WITHIN REACH.
--- NOTE | 2023-01-17 07:55 | NUR ---
Patient resting this morning, eyes opened when entered room. IV fluids infusing as ordered. No complaints this morning. Patient allowed to rest, call light within reach, bed rails x2 in place. Bed alarm in place. Patient remains NPO at this time for planned EGD procedure today.
--- NOTE | 2023-01-17 09:13 | NUR ---
PATIENT ALERT AND ORIENTED IN BED. STATES SHE LIVES IN A HOUSE WITH A ROOMMATE, SRAVAN. 12 STAIRS TO GET INTO HOUSE, 5 STAIRS TO GET INTO BACK DOOR AND STAIRS IN THE HOME. PATIENT STATES SHE USES A CANE FOR AMBULATION AND NEEDS ASSISTANCE WHEN USING THE STAIRS. STATES SRAVAN IS HELPFUL. STATES SHE DOES HAVE RAILS IN THE HOME AND A SHOWER CHAIR SHE USES. PLANS TO DC BACK TO HOME WITH SRAVAN. SRAVAN IS ABLE TO PROVIDE TRANSPORTATION WHEN IT IS NEEDED. PATIENT ALSO IS STILL ABLE TO DRIVE. DOES STATE HER EMERGENCY CONTACT IS AMANDA AYALA, BUT HIS PHONE IS NOT OPERATING. ANA, PATIENT'S SISTER IS AVAILABLE BY PHONE IF NEEDED HER NUMBER IS [phone].
--- NOTE | 2023-01-17 11:28 | NUR ---
PATIENT IN PAIN 7/10 WITH ASSOCIATED NAUSEA. DUE TO GIVING PAIN/NAUSEA MEDS THIS MORNING, CALL TO MICHAEL TO SEE IF PATIENT COULD GET ALTERNATE NAUSEA/PAIN MEDICATION. PER MD, HE WILL COME ASSESS PATIENT AT BEDSIDE, NO NEW ORDERS AT THIS TIME.
--- NOTE | 2023-01-17 12:40 | NUR ---
PATIENT RESTING IN BED, C/O 8/10 PAIN TO ABDOMEN ACCOMPANIED WITH NAUSEA. PRN MORPHINE/COMPAZINE GIVEN ORDERED. PATIENT HAS A FRIEND AT BEDSIDE. CALL LIGHT WITHIN REACH, SIDERAILS UP X2. ALL PATIENT CARE NEEDS MET AT THIS TIME.
--- NOTE | 2023-01-17 13:08 | NUR ---
PT IN BED WITH EYES CLOSED. DID NOT ROUSE TO MY KNOCK IN DOORWAY. DID NOT DISTURB. PRAYED FROM HALLWAY.
--- NOTE | 2023-01-17 14:40 | NUR ---
PATIENT RESTING IN BED, FRIEND AT BEDSIDE. NOTIFIED SURGERY WOULD BE UP SHORTLY, SURGICAL STAFF ARRIVED. PATIENT SALINE LOCKED TO LEFT ARM. SURGICAL STAFF ASSISTED TO STRETCHER AND PATIENT LEFT THE FLOOR AT 1440.
--- NOTE | 2023-01-17 14:45 | NUR ---
PATIENT HAS VOIDED 350ML IN 8HOURS PERIOD. IV FLUIDS INFUSED THROUGHOUT SHIFT, WILL BE GOING DOWN FOR SURGERY NOW. CONTINUE TO MONITOR UOP THIS SHIFT.
--- NOTE | 2023-01-17 16:37 | NUR ---
PT OFF UNIT FOR EGD.
--- NOTE | 2023-01-17 17:09 | NUR ---
01/17/23 1709 Candace Jewell 1704: PT ARRIVES TO PACU VIA STRETCHER FROM ENDO ROOM FOR RECOVERY. AWAKE AND ALERT ON ARRIVAL. HOLDS APPROPRIATE CONVERSATIOPN. VSS, RESP EVEN AND UNLABORED. O2 SAT STABLE >98% ON 3L VIA NC. DENIES PAIN AND NAUSEA
--- NOTE | 2023-01-17 17:27 | NUR ---
MED REC COMPLETE
--- NOTE | 2023-01-17 18:00 | CONS ---
[facility] [address], [place] [address] Signed DATE OF CONSULTATION: 01/16/2023 REQUESTING PHYSICIAN: Dr. Elisabeth Mendoza PROBLEM: Abdominal pain. HISTORY OF PRESENT ILLNESS: This 72-year-old white woman lives in [place]. She grew up in this area, graduating from [employer] in 1970 and [place]. 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 For over a week, she has had nausea but no vomiting and significant epigastric pain. She does have a past medical history of hypertension and congestive heart failure and prior history of colectomy 20 years ago as well as appendectomy. Colectomy with likely for diverticular disease; she retains diverticulosis based on the CT scan performed today in the emergency room. Her evaluation today by the emergency room was unrevealing; particularly a CT scan of the abdomen and pelvis was normal. Her lab studies including liver enzymes, CBC and urinalysis were all normal, though she was noted to have a magnesium that was low at 1.1. Her liver enzymes are normal. The patient has undergone cholecystectomy in the past it is noted. The patient does describe a prior history of peptic disease including possible ulcer. She does take omeprazole on a routine basis. The patient does describe some dysphagia and persisting epigastric pain. She has not eaten well in over a week she tells me. Notably, she has not had hematemesis nor has she had vomiting generally speaking. Her current medications at the time of admission include atorvastatin, Augmentin, hydrocodone with Tylenol, duloxetine, Quetiapine, mirtazapine, Lasix, albuterol inhaler and losartan. She has also been on dicyclomine for abdominal cramps. Her primary physician is Dr. Perez. REVIEW OF SYSTEMS: The patient denies any lower abdominal pain and has had no diarrhea or known blood per rectum. She has no extremity pain. She does not smoke nor has she ever. Electronically Signed By: MICHAEL LINDQUIST MD 01/17/[address] [facility] PATIENT NAME: JAMIE TORRES CONSULTATION DATE OF : 54 REPORT #: [id number] PHYSICIAN: MICHAEL LINDQUIST MD PCP: JAQUELINE PEREZ MD REPORT IS CONFIDENTIAL AND NOT TO BE RELEASED WITHOUT AUTHORIZATION [facility] [address], [place] [address] Signed PHYSICAL EXAMINATION: GENERAL: This is an elderly woman who looks uncomfortable, though not systemically toxic. VITAL SIGNS: Height is 5 feet 4 inches, weight is 65 kg. NECK: Trachea is midline. CHEST: Shows normal respiratory excursion. She has no wheeze or rhonchi that I can tell. HEART: Regular. ABDOMEN: Has several scars including a midline scar and a transverse lower abdominal scar. She has tenderness in the epigastric area. She has no palpable mass. There is no ascites. EXTREMITIES: Show no clubbing, cyanosis, or edema. RECTAL: Rectal exam is not undertaken. She has no complaints of perianal pain. LABORATORY DATA: White count is 8.1, hematocrit 40.6, platelets 189,000. Chem profile abnormal for a potassium of 3.2, glucose 128, creatinine of 1.00, normal liver enzymes are noted and lipase is 52. I have reviewed the CT scan including the interpretation of the scan as well. There appears to be no sign of abdominal wall hernia, but she does had numerous diverticula of the colon. Bladder and ureters are normal. There is a L1 compression fracture and moderate to severe degenerative disk disease at L1-S1. There is a small 1.6 cm pancreatic cyst in the head and uncinate process. ASSESSMENT: The signs and symptoms are highly suggestive of peptic disease. It is acknowledged that she has been on omeprazole abdominal problems, epigastric pain, occasions of dysphagia to a small degree and inability to eat over the past week. She has had no vomiting, though she has had nausea. She has no diarrhea and no overt blood per rectum. I would concur with Dr. Mendoza's admission approach and would recommend consideration for upper endoscopy tomorrow. I would do it today except she has had some Ensure orally and that would be problematic from a sedation standpoint. The risk of bleeding, infection, and perforation related upper endoscopy were reviewed with the patient. PLAN: We will initiate plans for upper endoscopy after my review with Dr. Mendoza; we will assure that she is on intravenous PPI medication and initiate empiric Carafate treatment at this time as well. Michael Lindquist MD Electronically Signed By: MICHAEL LINDQUIST MD 01/17/23 [facility] PATIENT NAME: JAMIE TORRES CONSULTATION DATE OF : 54 REPORT #: [id number] PHYSICIAN: MICHAEL LINDQUIST MD PCP: JAQUELINE PEREZ MD REPORT IS CONFIDENTIAL AND NOT TO BE RELEASED WITHOUT AUTHORIZATION [facility] [address] [place], [place] [address] Signed JAIDEN/ART /[id number] cc: MD Dr. Elisabeth Abbott Copies: JENY RIGGINS MD ~ Electronically Signed By: MICHAEL LINDQUIST MD 01/17/23 1800 PATIENT NAME: IDALMISCODY LANIEJAMIEHeaven OLSEN CONSULTATION DATE OF : 54 REPORT #: [id number] PHYSICIAN: MICHAEL LINDQUIST MD PCP: JAQUELINE PEREZ MD REPORT IS CONFIDENTIAL AND NOT TO BE RELEASED WITHOUT AUTHORIZATION
--- NOTE | 2023-01-17 18:01 | OR ---
[facility] [address], [place] [address] Signed DATE OF OPERATION: 01/17/2023 SURGEON: Michael Lindquist MD PREOPERATIVE DIAGNOSES: 1. Persistent epigastric pain. 2. History of cholecystectomy and ongoing PPI use for gastroesophageal reflux. POSTOPERATIVE DIAGNOSES: Mild diffuse gastritis and mild duodenitis. No evidence of ulceration or neoplasm. PROCEDURE: Esophagogastroduodenoscopy with biopsy. ANESTHESIA: Intravenous sedation; fentanyl 100 mcg and Versed 5 mg. INDICATION: This 72-year-old white woman is a patient of Dr. Perez and was admitted by Dr. Mendoza yesterday and care assumed by Dr. Guzmán, hospitalist, yesterday. Consultation was undertaken as the patient has had persistent epigastric and diffuse abdominal pain but thorough evaluation including CT scan is negative. She has undergone cholecystectomy in the past. She has no findings to suggest small bowel obstruction or other similar problem. Her white count is normal. Liver enzymes are normal also. She appeared to have symptoms suggestive of peptic disease and on that basis, empiric treatment with Carafate was undertaken yesterday; she has been on PPI medication long-standing for gastroesophageal reflux. She does note that Carafate was beneficial. She is admitted to undergo upper endoscopy at this time to assess for peptic disease, particularly ulceration of the duodenum or stomach. The risk of bleeding, infection, and perforation related to upper endoscopy was reviewed. She understands and wished to proceed. FINDINGS: There was no sign of ulcer. There was no neoplasm. She did have diffuse mild gastritis as manifested by edema and some inflammatory change of the duodenum in the bulbar portion, but no sign of ulceration. CLOtest was negative 20 minutes post procedure. DESCRIPTION OF PROCEDURE: The patient was brought to the endoscopy suite and placed in the lateral decubitus Electronically Signed By: MICHAEL LINDQUIST MD 01/17/23 1801 PATIENT NAME: JAMIE TORRES OPERATIVE REPORT DATE OF : 54 REPORT #: [id number] PHYSICIAN: MICHAEL LINDQUIST MD PCP: JAQUELINE PEREZ MD REPORT IS CONFIDENTIAL AND NOT TO BE RELEASED WITHOUT AUTHORIZATION [facility] [address], [place] [address] Signed position after undergoing topical Hurricaine hypopharyngeal anesthesia. Under full cardiopulmonary monitoring, intravenous sedation was administered. A bite block was placed. An Olympus video upper endoscope was passed in the hypopharynx. The vocal cords appeared normal. The scope was advanced to the esophagus and throughout its length it appeared normal without signs of esophageal neoplasm, stricture, varices or inflammation particularly. The scope was advanced to the stomach which was insufflated with air. There was no evidence of bile gastritis. There was no gastric ulcer. The pylorus was normal. Scope was passed through into the duodenum, which showed only mild inflammation of the duodenal bulb and normal 2nd and 3rd portions of the duodenum. Biopsies were taken of the duodenal bulb. Scope was withdrawn and biopsy was then taken of the antrum and mid stomach for both CARRIE and pathologic examination. Retroflexed view did confirm hiatal hernia. The scope was straightened and withdrawn. Close inspection of the distal esophageal mucosa showed no sign of ulceration and certainly no Salas's epithelium. Biopsies were obtained. Further withdrawal of the scope showed no other findings of concern. Midesophageal biopsies were obtained as well. Scope was withdrawn and removed and the patient was taken to the recovery room in good condition. CONCLUDING DIAGNOSIS: Mild diffuse gastritis and duodenitis, but no specific ulcer or neoplasm as I had thought. PLAN: We will continue with PPI medication as usual and continue also with Carafate 1 g p.o. q.i.d. on empty stomach. MD JAIDEN Gordon/JOSÉL /[id number] cc: MD Dr. Javid Colmenares Electronically Signed By: MICHAEL LINDQUIST MD 01/17/23 180 PATIENT NAME: JAMIE TORRES OPERATIVE REPORT DATE OF : 54 REPORT #: [id number] PHYSICIAN: MICHAEL LINDQUIST MD PCP: JAQUELINE PEREZ MD REPORT IS CONFIDENTIAL AND NOT TO BE RELEASED WITHOUT AUTHORIZATION [facility] [address] [place] [id number] Signed Copies: ~ Electronically Signed By: MICHAEL LINDQUIST MD 01/17/231800 PATIENT NAME: JAMIE TORRES OPERATIVE REPORT DATE OF : 54 REPORT #: [id number] PHYSICIAN: MICHAEL LINDQUIST MD PCP: JAQUELINE PEREZ MD REPORT IS CONFIDENTIAL AND NOT TO BE RELEASED WITHOUT AUTHORIZATION
--- NOTE | 2023-01-17 18:32 | NUR ---
PATIENT AWAKE, ALERT AND ORIENTED X4. PATIENT REPORTS HER EPIGASTRIC PAIN HAS IMPROVED AT BIT SINCE PRIOR TO THE EGD. PATIENT TOLERATING PO INTAKE WELL. IV SITE REMAIN PATENT, FLUIDS INFUSING PER PROVIDER ORDER. VITAL SIGNS ARE STABLE, AFEBRILE.
--- NOTE | 2023-01-17 19:26 | NUR ---
REPORT RECEIVED FROM DAY SHIFT RN. PT LYING IN BED RESTING WITH EYES CLOSED. AWAKENS EASILY TO VOICE. POST OP VS WNL. CPOX PLACED. PT DENIES NEEDS. WHITE BOARD UPDATED. CALL LIGHT IN REACH. BED ALARM FOR SAFETY.
--- NOTE | 2023-01-17 20:38 | NUR ---
POST OP VS WNL. PT UP TO BR WITH SBA TO VOID. GAIT STEADY. BACK TO BED, JACQUE WELL. WARM BLANKET PROVIDED. EVENING ASSESSMENT COMPLETE. SCHEDULED MEDS ADMIN PER EMAR. PT DENIES PAIN. REPORTS SLIGHT NAUSEA, STATES "IT COMES WITH LIFE." TOO SOON FOR PRN. PT AGREEABLE TO WAIT. BOWEL TONES ACTIVE. ABD SOFT. CPOX IN PLACE. IVF INFUSING PER ORDER. PT DENIES QUESTIONS OR CONCERNS. CALL LIGHT IN REACH. BED ALARM FOR SAFETY.
--- NOTE | 2023-01-17 21:45 | NUR ---
PT RESTING WITH EYES CLOSED. AWAKENS EASILY. SCHEDULED MEDS ADMIN. PRN FOR N/V ADMIN. NO FURTHER NEEDS.
--- NOTE | 2023-01-18 01:09 | NUR ---
BED ALARM SOUNDING. PT UP TO BR WITH SBA TO VOID. GAIT STEADY. BACK TO BED, JACQUE WELL. CPOX IN PLACE. WARM BLANKET PROVIDED. PT DENIES FURTHER NEEDS. BED ALARM FOR SAFETY.
[2023-01-18 03:24] VITALS: BP 182/84
--- NOTE | 2023-01-18 03:46 | NUR ---
PT UP TO BR WITH PORTFOLIO ADMINISTRATOR ASSIST. BACK TO BED. VS OBTAINED. BP ELEVATED. REASSESSED AFTER REST. BP WITHIN PARAMETERS. NEW BAG IVF INFUSING PER ORDER. PRN FOR N/V ADMIN. ASSESSMENT UNCHANGED. NO FURTHER NEEDS.
[2023-01-18 03:47] VITALS: BP 178/76
[2023-01-18 05:19] VITALS: BP 167/98
--- NOTE | 2023-01-18 06:12 | NUR ---
PT RESTING WITH EYES CLOSED. AWAKENS EASILY. UP TO BR WITH TELECOMMUNICATIONS SWITCH TECHNICIAN ASSIST. VS AND I&O OBTAINED. SCHEDULED MEDS ADMIN PER EMAR. NO FURTHER NEEDS. BED ALARM FOR SAFETY. CALL LIGHT IN REACH.
--- NOTE | 2023-01-18 06:15 | EKG ---
[facility] [address] [place] [address] Signed Sinus rhythm with premature supraventricular complexes and with occasional premature ventricular complexes Otherwise normal ECG When compared with ECG of 26-NOV-2022 06:56, premature ventricular complexes are now present premature supraventricular complexes are now present Confirmed by ZENA HAND MD ([id number]) on 01/18/2023 6:15:09 AM Electronically Signed By: ZENA HAND 01/18/23 0615 PATIENT NAME: JAMIE TORRES Electrocardiogram DATE OF : 54 PHYSICIAN: ZENA HAND REPORT #: [id number] REPORT IS CONFIDENTIAL AND NOT TO BE RELEASED WITHOUT AUTHORIZATION
[2023-01-18] MEDS ORDERED: OMEPRAZOLE40 MG PO (07:23)
[2023-01-18] MEDS ORDERED: SUCRALFATE1 GM PO (07:24)
[2023-01-18] MEDS ORDERED: POTASSIUM CHLO20 ME1 PO (07:29)
[2023-01-18] MEDS ORDERED: MAGOX 400400 MG PO (07:29)
--- NOTE | 2023-01-18 09:00 | NUR ---
ADMIN TYLENOL 650MG PO FOR REPORTS OF ABDOMINAL PAIN. PATIENT AWAKE, ALERT AND OTIENTED X4. PATIENT REPORTS SHE HAD A MODERATED SIZED LOOSE STOOL THIS MORNING. IV SITE REMAINS PATENT, FLUIDS INFUSING PER PROVIDER ORDER. NO CURRENT NEEDS AT THIS TIME. PERSONAL SUPPLIES AND CALL LIGHT WITHIN REACH.
[2023-01-18 09:19] VITALS: BP 161/92; BP 188/80
--- NOTE | 2023-01-18 11:48 | NUR ---
PT WAS IN BED AND EXPRESSED ABDOMINAL DISCOMFORT. PRAYED FOR RELIEF AND HEALING.
--- NOTE | 2023-01-21 20:02 | PATH ---
[facility] [address], [place] [address] Signed SPECIMEN(S): A DUODENAL BULB BIOPSY SPECIMEN(S): B STOMACH BIOPSY SPECIMEN(S): C LOWER ESOPHAGEAL BIOPSY SPECIMEN SOURCE: A. DUODENAL BULB BIOPSY B. STOMACH BIOPSY C. LOWER ESOPHAGEAL BIOPSY CLINICAL HISTORY: Abdominal pain. Postop: Gastritis. FINAL PATHOLOGIC DIAGNOSIS: A. Duodenum, biopsy: - Duodenal mucosa with normal villous architecture. - Jona's glands are present - Negative for acute, chronic, and granulomatous inflammation. - Negative for dysplasia and malignancy. B. Stomach, biopsy: - Three portions of acid secreting gastric mucosa. - 2 portions contain dilated glands, suggestive of benign fundic gland polyp. - Negative for chronic, acute, and active inflammation. - No H. pylori-like organisms identified on routine histologic sections. - Negative for intestinal metaplasia, dysplasia, and malignancy. C. Lower esophagus, biopsy: - Stratified squamous esophageal mucosa with congestion in the rete pegs vessels. - Negative for acute, chronic, and eosinophilic inflammation. - Negative for dysplasia and malignancy. SDL MICROSCOPIC EXAMINATION: Histologic sections of all submitted blocks are examined by light microscopy. These findings, together with the gross examination, support the pathologic diagnosis. SDL GROSS DESCRIPTION: A. The specimen, labeled and designated "Cristopher Thomas, duodenum bulb biopsy," is received in formalin and consists of one stern soft tissue fragment, 0.4 cm. Entirely submitted in (A1). PATIENT NAME: IDALMISCODY THOMASJAMIE PATHOLOGY DATE OF : 54 REPORT #: [id number] PHYSICIAN: ZHANG PRIETO PCP: JAQUELINE JAIMES MD REPORT IS CONFIDENTIAL AND NOT TO BE RELEASED WITHOUT AUTHORIZATION [facility] [address], [place] [address] Signed B. The specimen, labeled and designated "Bensel Thomas, stomach biopsy," is received in formalin and consists of three stern soft tissue fragments, ranging from 0.2-0.3 cm. Entirely submitted in (B1). C. The specimen, labeled and designated "Bensel Thomas, lower esophageal biopsy," is received in formalin and consists of one stern soft tissue fragment, 0.4 cm. Entirely submitted in (C1). VB (under the direct supervision of a pathologist) The Gross Description was prepared using a voice recognition system. The report was reviewed for accuracy; however, sound-alike word errors, addition and/or deletions may occur. If there are any questions about this report, please contact Client Services. PERFORMING LABORATORY: Technical component was performed by [facility], [address] [place] [id number] (CLIA# [id number]). Professional interpretation was performed by [facility] - [facility], [address] [place] [id number] (CLIA#: [id number]). Diagnostician: Trena Staton MD Pathologist Electronically Signed 01/21/2023 Copies: ~ PATIENT NAME: JAMIE TORRES PATHOLOGY DATE OF : 54 REPORT #: [id number] PHYSICIAN: ZHANG PRIETO PCP: JAQUELINE JAIMES MD REPORT IS CONFIDENTIAL AND NOT TO BE RELEASED WITHOUT AUTHORIZATION
== END 2023-01-18 11:04 | disposition home or self-care (01) ==
LOC: ED 06:26 → MS 06:28
PROVIDERS: Surgery; ADMIT Internal Medicine; ATTEND Internal Medicine
PROC: 0DB78ZX Excision of Stomach, Pylorus, Via Natural or Artificial Opening Endoscopic, Diagnostic (ICD-10-PCS; 2023-01-17)
PROC: 0DB68ZX Excision of Stomach, Via Natural or Artificial Opening Endoscopic, Diagnostic (ICD-10-PCS; 2023-01-17)
PROC: 0DB28ZX Excision of Middle Esophagus, Via Natural or Artificial Opening Endoscopic, Diagnostic (ICD-10-PCS; 2023-01-17)
PROC: 0DB38ZX Excision of Lower Esophagus, Via Natural or Artificial Opening Endoscopic, Diagnostic (ICD-10-PCS; 2023-01-17)
PROC: 0DB98ZX Excision of Duodenum, Via Natural or Artificial Opening Endoscopic, Diagnostic (ICD-10-PCS; principal; 2023-01-17 15:15)
DX: K29.70 Gastritis, unspecified, without bleeding (principal); K44.9 Diaphragmatic hernia without obstruction or gangrene; K29.80 Duodenitis without bleeding; I13.0 Hypertensive heart and chronic kidney disease with heart failure and stage 1 through stage 4 chronic kidney disease, or unspecified chronic kidney disease; I50.9 Heart failure, unspecified; E83.42 Hypomagnesemia; K21.9 Gastro-esophageal reflux disease without esophagitis; E87.6 Hypokalemia; N18.31 Chronic kidney disease, stage 3a; M10.9 Gout, unspecified; F32.A Depression, unspecified; K57.90 Diverticulosis of intestine, part unspecified, without perforation or abscess without bleeding; Z88.3 Allergy status to other anti-infective agents; Z87.891 Personal history of nicotine dependence; Z79.899 Other long term (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; Z79.83 Long term (current) use of bisphosphonates
CPT/HCPCS: 36415; 51701; 71045; 74177; 80048; 80053; 81003; 83690; 83735; 84484; 85025; 93005; 93010; 94762; 96375; 96376; 99153; 99285 25; A9270; C9113; G0378; G0500; J0780; J1885; J2250; J2270; J2405; J3010; J3475; J3480; J3490; J7060; J7121; Q9967

== ENCOUNTER 2023-11-30 08:47 | Emergency (ER) | payer MEDICARE ==
[~2023-11-30 08:47] MED LIST changes: +ATORVASTATIN CA40 MG PO; +MAGOX 400400 MG PO; +MIRTAZAPINE15 MG PO; +SUCRALFATE1 GM PO; +VENTOLIN HFA18 GM INH
[2023-11-30] MEDS ORDERED: ondansetron HCL 4 MG/2 ML VIAL IV ONE (09:15)
[2023-11-30] MEDS ORDERED: SODIUM CHLORIDE 0.9% 1,000 ML IV ONE (09:15)
[2023-11-30 09:39] LABS: BILIRUBIN, URINE NEGATIVE (negative); BLOOD/HGB, URINE NEGATIVE (Negative); KETONE, URINE NEGATIVE (Negative); LEUK ESTERASE, URINE NEGATIVE (negative); NITRITE, URINE NEGATIVE (negative)
[2023-11-30 09:47] LABS: CRYSTALS, URINE NONE SEEN (0-1+)
[2023-11-30 09:48] LABS: BACTERIA, URINE RARE /hpf (negative)
[2023-11-30 09:49] LABS: CASTS, URINE HYALINE 1+ \\lpf; COLLECTION TYPE, URINE CATH; REFLEX CULTURE, URINE No (No)
[2023-11-30 10:02] LABS: BASOPHILS 0.4 % (0-2); EOSINOPHILS 0.6 % (0-6); HEMATOCRIT 44.1 % (35.0-50.0); MCH 33.9 (27-36); MONOCYTES 6.9 % (0-12); NEUTROPHILS 77.1 % (39-80); PLATELET COUNT 176 K/uL (140-440); RBC 4.41 M/ul (4.3-5.7); RDW 13.5 (10.5-15.0)
[2023-11-30 10:18] LABS: ALBUMIN 4.1 g/dL (3.4-5.0); ALBUMIN/GLOBULIN RATIO 1.17 (1.1-2.4); ANION GAP 18.9 (7-21); BILIRUBIN, TOTAL 0.8 ng/dL (0.2-1.0); BUN/CREATININE RATIO 8.92 (6.0-28.6); CALCIUM 9.3 mg/dL (8.5-10.1); CREATININE, SERUM 1.12 mg/dL (0.55-1.02); POTASSIUM 3.9 mmol/L (3.5-5.1); PROTEIN, TOTAL 7.6 g/dL (6.4-8.2)
[2023-11-30] MEDS ORDERED: LOMOTIL TABLET1 EACH PO (10:56)
[2023-11-30] MEDS ORDERED: ONDANSETRON ODT8 MG PO (10:56)
[2023-11-30] MEDS ORDERED: DIPHENOXYLATE/ATROPINE 1 EA TAB PO ONE (11:00)
[2023-11-30 11:29] VITALS: BP 154/110
== END 2023-11-30 11:05 | disposition home or self-care (01) ==
LOC: ED 08:47
PROVIDERS: Emergency Medicine
DX: K52.9 Noninfective gastroenteritis and colitis, unspecified (principal); I13.0 Hypertensive heart and chronic kidney disease with heart failure and stage 1 through stage 4 chronic kidney disease, or unspecified chronic kidney disease; I50.9 Heart failure, unspecified; N18.30 Chronic kidney disease, stage 3 unspecified; M10.9 Gout, unspecified; F32.A Depression, unspecified; Z87.891 Personal history of nicotine dependence; Z88.1 Allergy status to other antibiotic agents; Z79.899 Other long term (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
CPT/HCPCS: 36415; 51701; 80053; 81001; 83690; 85025; 99284-25; J2405; J7030

== ENCOUNTER 2024-01-23 08:33 | Emergency (ER) | payer MEDICARE ==
[~2024-01-23] VITALS: Ht 162.6 cm; Wt 55.0 kg
[~2024-01-23 08:33] MED LIST changes: +LOMOTIL TABLET1 EACH PO
[2024-01-23] MEDS ORDERED: PANTOPRAZOLE SODIUM 40 MG/10 ML VIAL IV ONE (08:45)
[2024-01-23] MEDS ORDERED: droPERidol 5 MG/2 ML VIAL IV ONE (08:45)
[2024-01-23] MEDS ORDERED: SODIUM CHLORIDE 0.9% 1,000 ML IV ONE ×2 (08:45→11:30)
[2024-01-23 08:49] LABS: BASOPHILS 1.2 % (0-2); EOSINOPHILS 0.1 % (0-6); HEMATOCRIT 43.3 % (35.0-50.0); LYMPHOCYTES 27.5 % (24-44); MCH 34.6 (27-36); MCHC 34.6 g/dl (30-36); MCV 99.8 fl (81-99); MONOCYTES 15.6 % (0-12); NEUTROPHILS 55.6 % (39-80); PLATELET COUNT 160 K/uL (140-440); RBC 4.34 M/ul (4.3-5.7); RDW 13.4 (10.5-15.0)
[2024-01-23 09:04] LABS: ALBUMIN 4.4 g/dL (3.4-5.0); ALBUMIN/GLOBULIN RATIO 1.19 (1.1-2.4); ANION GAP 17.4 (7-21); BILIRUBIN, TOTAL 0.5 ng/dL (0.2-1.0); BUN/CREATININE RATIO 4.1 (6.0-28.6); CALCIUM 9.6 mg/dL (8.5-10.1); CREATININE, SERUM 1.46 mg/dL (0.55-1.02); POTASSIUM 3.4 mmol/L (3.5-5.1); PROTEIN, TOTAL 8.1 g/dL (6.4-8.2)
[2024-01-23 10:46] LABS: BILIRUBIN, URINE NEGATIVE (negative); BLOOD/HGB, URINE TRACE-I (Negative); KETONE, URINE TRACE (Negative); LEUK ESTERASE, URINE LARGE (negative); NITRITE, URINE NEGATIVE (negative)
[2024-01-23 11:00] LABS: BACTERIA, URINE 1+ /hpf (negative); CASTS, URINE NONE SEEN \\lpf; COLLECTION TYPE, URINE CLEAN CATCH; CRYSTALS, URINE NONE SEEN (0-1+); EPITHELIAL CELLS, URINE SQUAMOUS 1+ /lpf (0-1+); RED BLOOD CELLS, URINE 0-1 /hpf (0-5); REFLEX CULTURE, URINE Yes (No); WHITE BLOOD CELLS, URINE >50 /HPF (0-5)
[2024-01-23] MEDS ORDERED: ondansetron HCL 4 MG/2 ML VIAL IV ONE (11:30)
[2024-01-23] MEDS ORDERED: CEFTRIAXONE/SODIUM CHLORIDE 2 GM/100 ML PIGGYBACK IV ONE (11:30)
[2024-01-23] MEDS ORDERED: CEFDINIR300 MG PO (14:01)
[2024-01-23 14:21] VITALS: BP 166/68
== END 2024-01-23 14:24 | disposition home or self-care (01) ==
LOC: ED 08:33
PROVIDERS: Emergency Medicine
DX: R11.2 Nausea with vomiting, unspecified (principal); N39.0 Urinary tract infection, site not specified; I13.0 Hypertensive heart and chronic kidney disease with heart failure and stage 1 through stage 4 chronic kidney disease, or unspecified chronic kidney disease; I50.9 Heart failure, unspecified; N18.30 Chronic kidney disease, stage 3 unspecified; Z87.891 Personal history of nicotine dependence; Z88.8 Allergy status to other drugs, medicaments and biological substances; Z79.899 Other long term (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
CPT/HCPCS: 36415; 80053; 81001; 83690; 85025; 87088; C9113; J0696; J1790; J2405; J7030